=== PATIENT | female | born 1975 | race Caucasian/White ===

== ENCOUNTER 2019-02-20 21:26 | Emergency (ER) | payer OTHER, SELFPAY ==
[2019-02-20 21:27] VITALS: BP 128/86; PULSE 85; RESP 16; TEMP 36.7; O2SAT 98; BMI 44.9
--- NOTE | 2019-02-20 21:35 | ED.VIS.GEN ---
History of Present Illness Chief Complaint: Upper Extremity Injury Informant: Patient Onset: Weeks Context: Gradual Onset Timing: Intermittent Current Severity: Moderate Maximum Severity: Moderate Narrative: The patient presents to the emergency department with right shoulder pain. The patient states she had a fall just over 2 months ago. She landed on her right shoulder. She had outpatient x-rays which showed no evidence of fracture. She is actually scheduled for an MRI next week. She does have multiple orthopedic injuries and follows with an orthopedic surgeon in [place]. She states tonight, the pain worsened. She denies any definitive trauma. She states she was sitting and started to have a dull ache and try to move it and the pain got worse. She denies any fevers or chills. She denies any chest pain or shortness of breath. Prior similar symptoms: No Recent Illness/Hospitalization: No Past Medical History - Allergies and Home Meds Allergies/Adverse Reactions: Allergies amoxicillin Allergy (Verified 02/20/19 21:31) Hives latex Allergy (Verified 02/20/19 21:31) Swelling Penicillins [PCN] Allergy (Verified 02/20/19 21:31) Hives Primary Care Physician: Shani Miles [Primary Care Provider] - Prior records reviewed: Yes Past Medical History: None Smoking Status: Never smoker Review of Systems General: Denies: Chills, Fever, Sweats Eyes: Denies: Visual changes - bilaterally, Diplopia ENT: Denies: Rhinorrhea, Sore throat Cardiovascular: Denies: Chest pain, Palpitations Respiratory: Denies: Dyspnea, Cough, Dyspnea on exertion Gastrointestinal: Denies: Abdominal pain, Nausea, Vomiting, Diarrhea, Melena, Hematochezia Genitourinary: Denies: Dysuria, Hematuria, Frequency Musculoskeletal: Reports: Arthralgias. Denies: Back pain, Extremity Pain Skin: Denies: Rash, Wounds Neurological: Denies: Headache, Weakness, Numbness Physical Exam Vital Signs/Narrative: Vital Signs Temp Pulse Resp BP Pulse Ox 02/20/19 21:27 98.1 F 85 16 128/86 H 98 Inital Vital Signs reviewed: Yes General: Well nourished, Well developed, No Acute Distress Head: Normocephalic, Atraumatic Eyes: Perrl, EOMI ENT: Moist mucous membranes, No rhinorrhea Neck: Supple, Nontender Cardiovascular: Regular rate, Regular rhythm, No murmurs Respiratory: No distress, CTA bilaterally, Chest nontender Abdomen: Soft, Nontender, Nondistended, Normal bowel sounds Back: Nontender, Normal Inspection Extremities: No edema, Tenderness - Patient has diminished active range of motion secondary to pain. There is no gross laxity of the shoulder. Axillary nerve is preserved. 2+ pulses in the upper extremity. No erythema or edema. Skin: Normal color, No rash Neurological: Alert, Oriented x3, Cranial nerves II-XII grossly intact, Normal Strength, Normal Sensation Psychological: Normal affect, Normal Mood Diagnostic/Tx/Re-eval - Medical Decision Making The patient symptoms are consistent with a rotator cuff tear. She does have outpatient MRI scheduled for next week. She presents with increasing pain. There is no evidence of vascular abnormality, joint infection and she has no trauma. I do not feel that imaging is needed to be repeated. The patient was treated with analgesics. She will be given a short course to control her pain. She was counseled on concerning symptoms and reasons to return. She will be discharged home. Impression 1. Right shoulder strain ED Disposition - Plan for ED Patient: Instructions: Rotator Cuff Tear Prescriptions: Oxycodone HCl/Acetaminophen [Percocet 5/325] 1 tab PO Q6H PRN PRN 3 Days #12 tab PRN Reason: Pain Prescription Printed Referrals: Shani Miles [Primary Care Provider] -
[2019-02-20] MEDS: oxyCODONE 5 MG Tablet 10 MG PO (21:40)
[2019-02-20] MEDS: Ibuprofen 600 MG Tablet PO (21:40)
[2019-02-20 21:44] VITALS: RESP 18
== END 2019-02-20 21:58 | disposition home or self-care (01) ==
LOC: ED 21:55
PROVIDERS: Emergency Provider Emergency Medicine; Family Provider Family Medicine; PCP Family Medicine
DX: S46.911A Strain of unspecified muscle, fascia and tendon at shoulder and upper arm level, right arm, initial encounter (principal); W19.XXXA Unspecified fall, initial encounter; Y93.9 Activity, unspecified; Y92.9 Unspecified place or not applicable
CPT/HCPCS: 99283

== ENCOUNTER → 2020-01-26 06:29 | Outpatient (CLI) | payer OTHER, SELFPAY ==
[2020-01-26 07:47] LABS: Absolute Lymphocyte Count 2.55 X10^3/uL (0.83-4.51); Absolute Neutrophil Count 7.1 X10^3/uL (2.0-7.7); Basophil# 0.05 X10^3/uL; Basophil% 0.5 % (0-1); Eosinophil# 0.27 X10^3/uL; Eosinophils% 2.6 % (0-5); Hematocrit 38.7 % (37-47); Hemoglobin 11.8 g/dL (12.0-15.0); Lymphocyte # 2.55 X10^3/ul (4.0); Lymphocyte % 24.1 % (19-41); Mean Corp Hgb Conc 30.5 g/dL (32-36); Mean Corpuscular Hgb 27.6 pg (27.0-32.0); Mean Corpuscular Volume 90.6 fL (81-99); Mean Platelet Vol. 9.9 fl (6.2-12.0); Monocyte# 0.63 X10^3/uL; NRBC Flagged by Analyzer 0 % (0-5); Neutrophil # 7.05 X10^3/uL (2.7-7.7); Neutrophil % 66.5 % (47-70); Platelet Count 304 K/mm3 (150-450); RBC Distribution Width CV 14.1 % (11.6-14.6); RBC Distribution Width SD 47.2 fl (35.1-43.9); Red Blood Count 4.27 M/mm3 (4.2-5.4); White Blood Count 10.6 K/mm3 (4.4-11.0)
[2020-01-26 08:25] LABS: ALB/GLOB Ratio 0.9 RATIO (0.9-2.4); AST(SGOT) 12 U/L (15-37); Alanine Aminotransfer ALT/SGPT 18 U/L (13-56); Albumin, Serum 3.5 g/dL (3.2-5.0); Alkaline Phosphatase 84 U/L (45-117); Amylase 25 U/L (25-115); Anion Gap 3 (5-15); BUN 13 mg/dL (7-18); BUN/Creat Ratio 16.1 RATIO (10-20); Calcium,Total 8.8 mg/dL (8.5-10.1); Chloride 107 mmol/L (98-107); Creatinine, Serum 0.81 mg/dL (0.55-1.02); EST Glomerular Filtration Rate 82 mL/min (>60); Est Glom Filt Rate - Afr Amer 99 mL/min (>60); Glucose 102 mg/dL (74-106); Potassium 4.1 mmol/L (3.5-5.1); Protein, Total 7.5 g/dL (6.4-8.2); Sodium Level 139 mmol/L (136-145)
== END ==
DX: R10.12 Left upper quadrant pain (principal)
CPT/HCPCS: 36415; 80053; 82150; 82248; 85025

== ENCOUNTER 2021-04-22 09:02 | Emergency (ER) | payer BC, SELFPAY ==
[2021-04-22 09:02] VITALS: BP 120/87; PULSE 84; RESP 28; TEMP 36; O2SAT 97; BMI 44.6
--- NOTE | 2021-04-22 09:16 | EDS_ITS ---
HPI History of Present Illness Chief Complaint: Shortness of Breath Detail of Chief Complaint: Chest pain and shortness of breath Informant: patient Narrative Narrative: Patient presents to the emergency department complaining of chest pain that started 2 days ago. Patient states that she had Covid on March 23 and since that time she is had breathing difficulty. Patient states that 2 days ago she started developing intermittent discomfort in her right chest and back as well as her neck and right groin. Also some discomfort into her left chest. Pain is sharp. Pain is worse with breathing. Their nurse practitioner was concerned about PE and was referred to the emergency department. Patient has history of endometriosis and reactive airway disease. No prior history of PE or DVT. Prior similar symptoms: No [facility] Medical History (Updated 04/22/21 @ 10:[address] Marcelino Wright, ) Physical exam, pre-employment Home Medications escitalopram oxalate 20 mg PO DAILY 02/20/19 [History Last Taken Unknown] Allergy/AdvReac Type Severity Reaction Status Date / Time amoxicillin Allergy Hives Verified 04/22/21 09:05 latex Allergy Swelling Verified 04/22/21 09:05 Penicillins [PCN] Allergy Hives Verified 04/22/21 09:05 Social History Smoking Status: Never smoker [facility] ED Constitutional Constitutional ED: Reports systems reviewed and no addt'l complaints, except as documented; Denies body ache(s), change in weight or chills Eyes Eyes: Denies acute decrease in peripheral vision, change in vision, double vision or loss of vision ENT ENT ED: Reports none; Denies ear pain, lip swelling, loss taste/smell, neck pain, otalgia or sore throat Cardiovascular Cardiovascular: Reports none and chest pain; Denies abdominal pain, chest pain with activity, leg edema, lightheadedness, palpitations, rapid heart rate or syncope Respiratory/Chest Respiratory/Chest: Reports none and dyspnea; Denies change in mental status, dry cough, hemoptysis, shortness of breath at rest or shortness of breath with exertion Gastrointestinal Gastrointestinal: Reports none; Denies abdominal pain, change in stool character, diarrhea, hematemesis, hematochezia, melena, rectal bleeding or vomiting Genitourinary Genitourinary ED: Reports none; Denies abdominal discomfort, anuria, dysuria, genital pain or polyuria Musculoskeletal Musculoskeletal: Reports none; Denies arthralgias, back pain, difficulty walking, extremity pain, muscle weakness or myalgias Integumentary Reports none; Denies abscess or rash Neurologic Neurologic: Reports none; Denies abnormal gait, confusion, focal weakness, frequent falls, headache(s), loss of vision, numbness, paresthesias, radicular pain, vertigo or weakness Psychiatric Psychiatric: Reports systems reviewed and no addt'l complaints, except as documented and none; Denies behavioral changes, confusion, difficulty concentrating, hallucinations, suicidal ideation, tactile hallucinations or visual hallucinations Endocrine Endocrinology: Denies none, cold intolerance, excessive sweating, fatigue or heat intolerance Hematologic/Lymphatic Hematologic/Lymphatic: Reports none; Denies anemia, easy bleeding or easy bruising Allergic/Immunologic Allergic/Immunologic ED: Denies as per HPI, none, lip swelling, mouth swelling, throat swelling, tongue swelling or hives EXAM Physical Exam Const Vital Signs: 04/22/21 09:02 04/22/21 09:12 Temperature 96.8 F L Temperature Source Temporal Pulse Rate 84 Respiratory Rate 28 H Respiratory Effort Short of Breath Labored Blood Pressure 120/87 H Blood Pressure Mean 98 Pulse Ox 97 Oxygen Delivery Method Room Air Positive well nourished and well developed General Appearance ED: well developed and NAD HEENT Reports TM's clear and moist mucous membranes normocephalic and atraumatic; Negative for trauma or tenderness Tympanic Membrane ED: Yes TM's clear Eyes PERRL and EOMs intact bilaterally General Eye ED: Negative for pale conjunctiva or scleral icterus Neck no lymphadenopathy, supple and no JVD General: Negative for tenderness Chest Wall inspection of chest normal and palpation of chest normal Chest: Negative for tenderness Resp normal respiratory effort and clear to auscultation bilaterally Effort and Inspection: Negative for respiratory distress or pain with movement Auscultation: Negative for rhonchi, wheezes or diminished lung sounds Cardio regular rate, regular rhythm, S1 normal heart sound, S2 normal heart sound and no murmurs Peripheral Pulses: pulses 2+ throughout GI normal to inspection, nondistended, normoactive bowel sounds, soft to palpation, non-tender, non-distended and no masses Back/Spine no CVA tenderness and no thoracic nor lumbar tenderness Extremity normal to inspection General Extremety ED: Negative for edema General Extremity: Negative for edema Neuro oriented x3, CN's II-XII intact bilaterally, no sensory deficits noted and gait normal Sensorium / Orientation: awake, alert, oriented to person, oriented to place and oriented to time Motor Exam: strength 5/5 throughout and strength abnormal Psych mental status grossly normal Skin no rashes or lesions noted and no wounds MDM MDM MDM Narrative Medical decision making narrative: IV line established on arrival. EKG was obtained which showed sinus rhythm with rate of 76 bpm with a first-degree AV block. Patient had basic labs that essentially were unremarkable other than she had a minimally elevated white blood cell count of 11.7. Troponin was normal. D-dimer was normal. Patient had a chest x-ray 2 days ago therefore 1 was not repeated today. At this point I suspect her chest pain is likely not related to PE or acute coronary syndrome. Patient advised use ibuprofen or Tylenol for discomfort. She is to follow-up with her primary care physician in 3 to 5 days. Lab Data Attestation: I reviewed the patient's lab results. Labs: Laboratory Results - last 24 hr 04/22/21 04/22/21 04/22/21 09:30 09:30 09:30 WBC 11.7 H RBC 3.90 L Hgb 10.9 L Hct 33.9 L MCV 86.9 MCH 27.9 MCHC 32.2 RDW Std Deviation 52.9 H RDW Coeff of Sruthi 16.8 H Plt Count 228 MPV 9.0 Immature Gran % (Auto) 0.700 Neut % (Auto) 66.7 Lymph % (Auto) 22.5 Stark % (Auto) 5.7 Eos % (Auto) 4.1 Baso % (Auto) 0.3 Absolute Neuts (auto) 7.8 H Absolute Lymphs (auto) 2.63 Nucleated RBC % 0 D-Dimer Quant (PE/DVT) 0.37 Sodium 141 Potassium 4.0 Chloride 109 H Carbon Dioxide 25.0 Anion Gap 7 BUN 13 Creatinine 0.86 Estim Creat Clear Calc 64.65 Est GFR (MDRD) Af Amer 92 Est GFR (MDRD) Non-Af 76 BUN/Creatinine Ratio 15.2 Glucose 110 H Calcium 8.8 Troponin I High Sens 4 EKG Initial EKG: Attestation: I personally reviewed and interpreted this EKG as follows: Comments: Sinus rhythm with a ventricular rate of 76 bpm with a first- degree AV block Discharge Plan Triage Chief Complaint: Shortness of Breath ED Provider: Marcelino Wright Dx/Rx/DC Orders Clinical Impression: Chest pain Instructions: ED Chest Pain, Uncertain Cause Prescriptions: No Action escitalopram oxalate 20 MG tablet 20 mg PO DAILY RF: 0 Primary Care Provider: Rebekah Tolbert NP Referrals: Steven Andino DO [STAFF PHYSICIAN] - 3-5 Days Rebekah Tolbert ELECTRICAL EQUIPMENT TECHNICIAN, ELECTRICAL EQUIPMENT TECHNICIAN-C [Primary Care Provider] - Disposition Disposition: Home, Self Care
--- NOTE | 2021-04-22 09:16 | EKG12_ITS ---
Test Reason : SOB Blood Pressure : / mmHG Vent. Rate : 076 BPM Atrial Rate : 076 BPM P-R Int : 210 ms QRS Dur : 076 ms QT Int : 358 ms P-R-T Axes : 048 019 019 degrees QTc Int : 402 ms Sinus rhythm with 1st degree A-V block LOW VOLTAGE QRS POOR R WAVE PROGRESSION Confirmed by ALVIN ROSE, MOE ([id number]), commissioning editor KELVIN KAPOOR ([id number]) on 04/26/2021 10:00:43 AM Referred By: FÉLIX Confirmed By:MOE ESQUIVEL MD
[2021-04-22 09:36] LABS: Absolute Lymphocyte Count 2.63 X10^3/uL (0.83-4.51); Absolute Neutrophil Count 7.8 X10^3/uL (2.0-7.7); Basophil# 0.03 X10^3/uL; Basophil% 0.3 % (0-1); Eosinophil# 0.48 X10^3/uL; Eosinophils% 4.1 % (0-5); Hematocrit 33.9 % (37-47); Hemoglobin 10.9 g/dL (12.0-15.0); Lymphocyte # 2.63 X10^3/ul (0.83-4.51); Lymphocyte % 22.5 % (19-41); Mean Corp Hgb Conc 32.2 g/dL (32-36); Mean Corpuscular Hgb 27.9 pg (27.0-32.0); Mean Corpuscular Volume 86.9 fL (81-99); Monocyte# 0.66 X10^3/uL; Monocyte% 5.7 % (0-10); NRBC Flagged by Analyzer 0 % (0-5); Neutrophil % 66.7 % (47-70); Platelet Count 228 K/mm3 (150-450); RBC Distribution Width CV 16.8 % (11.6-14.6); RBC Distribution Width SD 52.9 fl (35.1-43.9); White Blood Count 11.7 K/mm3 (4.4-11.0)
[2021-04-22] MEDS: 0.9% Normal Saline 1,000 ML 150 ML IV (09:50)
[2021-04-22 09:56] LABS: Anion Gap 7 (5-15); BUN 13 mg/dL (7-18); BUN/Creat Ratio 15.2 RATIO (10-20); Calcium,Total 8.8 mg/dL (8.5-10.1); Chloride 109 mmol/L (98-107); Creatinine, Serum 0.86 mg/dL (0.55-1.02); EST Glomerular Filtration Rate 76 mL/min (>60); Est Glom Filt Rate - Afr Amer 92 mL/min (>60); Estimated Creatinine Clearance 64.65 ml/min; Glucose 110 mg/dL (74-106); Sodium Level 141 mmol/L (136-145); Troponin-I HS 4 pg/mL (3.0-54.0)
[2021-04-22 10:07] LABS: D-Dimer Quantitative (DVT/PE) 0.37 FEU/ug/m (0.27-0.49)
[2021-04-22 10:23] VITALS: BP 153/97; PULSE 73; RESP 19
== END 2021-04-22 10:34 | disposition home or self-care (01) ==
PROVIDERS: Emergency Provider Emergency Medicine; PCP Nurse Practitioner Family
DX: R07.89 Other chest pain (principal); R06.02 Shortness of breath
CPT/HCPCS: 80048; 84484; 85025; 85379; 93005; 96360; 99283; J7030; A4216

== ENCOUNTER 2021-05-13 07:41 | Outpatient (CLI) | payer BC, SELFPAY ==
--- NOTE | 2021-05-13 07:44 | US_ITS ---
EXAM: US ABDOMEN COMPLETE : 1975 CLINICAL INDICATION: PAIN TECHNIQUE: Real-time ultrasound of the abdomen with image documentation. This report was created using [employer] report generation technology. COMPARISON: None. FINDINGS: LIVER: The liver measures 16.9 cm. There is normal echotexture. No intrahepatic biliary ductal dilation. GALLBLADDER: Gallbladder is surgically absent. No gallbladder wall thickening is demonstrated. No pericholecystic fluid. Negative sonographic Davis's sign. COMMON BILE DUCT: Common bile duct measures 8 mm. The proximal common bile duct is within normal limits for the patient's age. PANCREAS: Unremarkable as visualized. No focal abnormality is demonstrated in the pancreas. No pancreatic ductal dilatation. KIDNEYS: The right kidney measures 11.4 x 5.9 x 6.5 cm. The left kidney measures 10.9 x 5.2 x 5.0 cm. There is no hydronephrosis. No shadowing calculus. No focal lesion or perinephric collection is demonstrated. SPLEEN: The spleen measures 13.8 cm in length. AORTA: Proximal aorta measures 2.0 cm, the mid aorta measures 1.5 cm in the distal aorta measures 1.6 cm. INFERIOR VENA CAVA: There is flow in the inferior vena cava. OTHER VASCULATURE: Iliac arteries measure 1 cm each. FREE FLUID: There is no free fluid. US/Abdomen Complete IMPRESSION: Status post cholecystectomy. No other abnormalities are identified. at 1808 Reported and signed by: Eugene Camacho MD Electronically Signed: Eugene Camacho MD at 18:07 EST Tel , Service support ,
== END 2021-05-13 23:59 | disposition short-term general hospital (02) ==
LOC: US 07:43
PROVIDERS: PCP Nurse Practitioner Family; Visit Provider Nurse Practitioner Family
DX: R19.00 Intra-abdominal and pelvic swelling, mass and lump, unspecified site (principal); R10.9 Unspecified abdominal pain
CPT/HCPCS: 76700

== ENCOUNTER → 2022-01-11 | Outpatient (CLI) | payer BC, SELFPAY ==
--- NOTE | 2022-01-11 09:40 | BI_ITS ---
MAMMOGRAPHY - BILATERAL SCREENING 3-D TOMOSYNTHESIS REASON FOR EXAM: Female, 46 years old. SCREENING PERTINENT HISTORY: No significant family history. TECHNIQUE: 2-D mammograms and 3-D Tomosynthesis of the breast (s) were performed. CAD was performed. COMPARISON: None. FINDINGS: The breast composition is composed of scattered fibroglandular density. Scattered benign calcifications are seen. No dense spiculated masses or suspicious microcalcifications are identified. No architectural distortion is identified. There is no skin thickening or retraction. There has been no significant change since the prior study. BI/SCRN MAMM (CAD)W/STEPHEN BILAT IMPRESSION: No mammographic signs of malignancy. Routine yearly mammograms recommended. ASSESSMENT CATEGORY: BIRADS Category 1: Negative. A letter regarding these results will be sent to the patient by the facility within 30 days. FOLLOW UP RECOMMENDATION: Yearly follow up mammogram recommended. (A) Approximately 10% of breast cancers are not detected by mammography. A normal mammogram should not delay biopsy of a clinically suspicious abnormality. Electronically Signed: David Valentin MD at 10:56 EDT ,
--- NOTE | 2022-01-11 09:43 | BD_ITS ---
STUDY: DUAL ENERGY X-RAY ABSORPTIOMETRY / DXA REASON FOR EXAM: Female, 46 years old. Z13.820 TECHNIQUE: Bone Mineral Density (BMD) measurements of lumbar spine and bilateral hips were obtained. COMPARISON: None. FINDINGS: Lumbar Spine (L1-L4): g/cm2 (1.154) / T-score (1.0) / Z-score (1.5) Findings are suggestive of normal bone density with a low fracture risk. Left Femur Total: g/cm2 (0.983) / T-score (0.3) / Z-score (0.7) Left Femoral Neck: g/cm2 (0.930) / T-score (0.7) / Z-score (1.3) Right Femur Total: g/cm2 (1.001) / T-score (0.5) / Z-score (0.8) Right Femoral Neck: g/cm2 (0.865) / T-score (0.1) / Z-score (0.7) BD/Dexa Bone Density Study IMPRESSION: The patient is considered normal as outlined below according to World Damian Organization (WHO) criteria with a low fracture risk. Reference Information: The T-score is the number of standard deviations above or below the standard which is normal for young adults at their peak bone mineral density. The World Health Organization (WHO) interprets the T-scores as follows: Above -1 Normal bone density Between -1 and -2.5 Osteopenia Equal to / or below -2.5 Osteoporosis As a practical clinical guideline, osteopenia may be graded as follows: Mild -1 through -1.5 Moderate -1.6 through -2.0 Severe -2.1 through -2.4 The Z-score is the number of standard deviations above or below age-matched controls. A Z-score of less than -1.5 would be considered abnormal. References: 1. NIH Osteoporosis and Related Bone Diseases www osteo.org 2. International Society for Clinical Densitometry www iscd.org 3. National Osteoporosis Foundation www nof.org Electronically Signed: Juan Martinez MD at 15:49 EDT ,
== END | disposition home or self-care (01) ==
PROVIDERS: PCP Nurse Practitioner Family
DX: Z12.31 Encounter for screening mammogram for malignant neoplasm of breast (principal); Z13.820 Encounter for screening for osteoporosis; M85.80 Other specified disorders of bone density and structure, unspecified site
CPT/HCPCS: 77063; 77067; 77080

== ENCOUNTER → 2022-03-06 | Outpatient (CLI) | payer BC, SELFPAY ==
[2022-03-06 14:43] LABS: Erythrocyte Sedimentation Rate 68 mm/hr (0-30)
[2022-03-06 14:44] LABS: Absolute Lymphocyte Count 1.24 X10^3/uL (0.83-4.51); Absolute Neutrophil Count 3.2 X10^3/uL (2.0-7.7); Basophil# 0.02 X10^3/uL; Basophil% 0.4 % (0-1); Eosinophil# 0.32 X10^3/uL; Eosinophils% 6.1 % (0-5); Hematocrit 38.1 % (37-47); Hemoglobin 12.1 g/dL (12.0-15.0); Lymphocyte # 1.24 X10^3/ul (0.83-4.51); Lymphocyte % 23.7 % (19-41); Mean Corp Hgb Conc 31.8 g/dL (32-36); Mean Corpuscular Hgb 28.1 pg (27.0-32.0); Mean Corpuscular Volume 88.6 fL (81-99); Mean Platelet Vol. 10.9 fl (6.2-12.0); Monocyte# 0.39 X10^3/uL; Monocyte% 7.4 % (0-10); NRBC Flagged by Analyzer 0 % (0-5); Neutrophil # 3.23 X10^3/uL (2.7-7.7); Neutrophil % 61.6 % (47-70); Platelet Count 222 K/mm3 (150-450); RBC Distribution Width CV 15.2 % (11.6-14.6); RBC Distribution Width SD 49.1 fl (35.1-43.9); White Blood Count 5.2 K/mm3 (4.4-11.0)
[2022-03-06 14:52] LABS: ALB/GLOB Ratio 0.9 RATIO (0.9-2.4); AST(SGOT) 83 U/L (15-37); Alanine Aminotransfer ALT/SGPT 125 U/L (13-56); Albumin, Serum 3.3 g/dL (3.2-5.0); Alkaline Phosphatase 265 U/L (45-117); Anion Gap 9 (5-15); BUN 8 mg/dL (7-18); BUN/Creat Ratio 8.8 RATIO (10-20); Calcium,Total 8.9 mg/dL (8.5-10.1); Chloride 105 mmol/L (98-107); Creatinine, Serum 0.91 mg/dL (0.55-1.02); EST Glomerular Filtration Rate 70 mL/min (>60); Est Glom Filt Rate - Afr Amer 85 mL/min (>60); Globulin 3.6 g/dL (2.2-4.2); Glucose 143 mg/dL (74-106); Potassium 4.2 mmol/L (3.5-5.1); Protein, Total 6.9 g/dL (6.4-8.2); Sodium Level 139 mmol/L (136-145)
== END | disposition home or self-care (01) ==
LOC: LABSPEC 14:32
PROVIDERS: PCP Nurse Practitioner Family; Referring Provider Nurse Practitioner Family; Visit Provider Nurse Practitioner Family
DX: R41.82 Altered mental status, unspecified (principal); R29.6 Repeated falls
CPT/HCPCS: 80053; 85025; 85652; 86140

== ENCOUNTER → 2022-03-07 | Outpatient (CLI) | payer BC, SELFPAY ==
[2022-03-07 13:36] LABS: Mucous, Urine 0 SEEN /hpf (<or=2+); Red Blood Cells-Urine 0 SEEN /hpf (0-5)
[2022-03-07 13:43] LABS: Erythrocyte Sedimentation Rate 76 mm/hr (0-30)
[2022-03-07 13:44] LABS: Absolute Lymphocyte Count 1.21 X10^3/uL (0.83-4.51); Absolute Neutrophil Count 3.4 X10^3/uL (2.0-7.7); Basophil# 0.02 X10^3/uL; Basophil% 0.4 % (0-1); Eosinophils% 3.8 % (0-5); Hematocrit 37.9 % (37-47); Hemoglobin 12.5 g/dL (12.0-15.0); Lymphocyte # 1.21 X10^3/ul (0.83-4.51); Lymphocyte % 23.2 % (19-41); Mean Corpuscular Hgb 29.1 pg (27.0-32.0); Mean Corpuscular Volume 88.1 fL (81-99); Mean Platelet Vol. 10.9 fl (6.2-12.0); Monocyte% 7.7 % (0-10); NRBC Flagged by Analyzer 0 % (0-5); Neutrophil # 3.35 X10^3/uL (2.7-7.7); Neutrophil % 64.3 % (47-70); Platelet Count 217 K/mm3 (150-450); RBC Distribution Width CV 15.2 % (11.6-14.6); RBC Distribution Width SD 48.6 fl (35.1-43.9); White Blood Count 5.2 K/mm3 (4.4-11.0)
[2022-03-07 13:46] LABS: Color, Urine Yellow (Yellow); Glucose, Dipstick Normal (Normal); Ketone-Dipstick Negative (Negative); Leukocyte Esterase-Dipstick 25 /ul (Negative); Nitrite-Dipstick Negative (Negative); Occult Blood-Urine Negative /ul (Negative); Protein-Dipstick Negative (Negative); Specific Gravity, Urine 1.015 (1.002-1.030); Urine Bilirubin Dipstick Negative (Negative); Urine Clarity Sl. Cloudy (Clear); Urine Urobilinogen 1 mg/dl (Normal)
[2022-03-07 13:52] LABS: Bacteria 1+ /hpf (None Seen); Squamous Epithelial Cells - UA 0-5 SEEN /hpf (5-10); White Blood Cells 0-5 SEEN /hpf (0-5)
[2022-03-07 15:07] LABS: ALB/GLOB Ratio 0.9 RATIO (0.9-2.4); AST(SGOT) 71 U/L (15-37); Alanine Aminotransfer ALT/SGPT 111 U/L (13-56); Albumin, Serum 3.3 g/dL (3.2-5.0); Alkaline Phosphatase 278 U/L (45-117); Anion Gap 9 (5-15); BUN 7 mg/dL (7-18); BUN/Creat Ratio 7.7 RATIO (10-20); Calcium,Total 8.8 mg/dL (8.5-10.1); Chloride 107 mmol/L (98-107); EST Glomerular Filtration Rate 71 mL/min (>60); Est Glom Filt Rate - Afr Amer 86 mL/min (>60); Ferritin 125 ng/mL (8-252); Globulin 3.5 g/dL (2.2-4.2); Glucose 125 mg/dL (74-106); Iron 66 ug/dL (50-170); Potassium 4.4 mmol/L (3.5-5.1); Protein, Total 6.8 g/dL (6.4-8.2); Sodium Level 139 mmol/L (136-145)
== END | disposition home or self-care (01) ==
PROVIDERS: PCP Nurse Practitioner Family; Visit Provider Nurse Practitioner Family
DX: R74.8 Abnormal levels of other serum enzymes (principal); R10.11 Right upper quadrant pain
CPT/HCPCS: 80053; 81001; 82728; 83540; 85025; 85652; 87086; 87088

== ENCOUNTER 2022-03-08 12:20 | Outpatient (CLI) | payer BC, SELFPAY ==
[2022-03-08 12:46] LABS: Absolute Lymphocyte Count 1.78 X10^3/uL (0.83-4.51); Absolute Neutrophil Count 4.1 X10^3/uL (2.0-7.7); Basophil# 0.04 X10^3/uL; Basophil% 0.6 % (0-1); Eosinophil# 0.26 X10^3/uL; Eosinophils% 3.9 % (0-5); Hematocrit 39.8 % (37-47); Hemoglobin 12.6 g/dL (12.0-15.0); Lymphocyte # 1.78 X10^3/ul (0.83-4.51); Lymphocyte % 26.8 % (19-41); Mean Corp Hgb Conc 31.7 g/dL (32-36); Mean Corpuscular Volume 88.4 fL (81-99); Mean Platelet Vol. 11.5 fl (6.2-12.0); Monocyte# 0.42 X10^3/uL; Monocyte% 6.3 % (0-10); NRBC Flagged by Analyzer 0 % (0-5); Neutrophil # 4.11 X10^3/uL (2.7-7.7); Neutrophil % 61.8 % (47-70); Platelet Count 233 K/mm3 (150-450); RBC Distribution Width CV 15.4 % (11.6-14.6); RBC Distribution Width SD 49.3 fl (35.1-43.9); White Blood Count 6.7 K/mm3 (4.4-11.0)
[2022-03-08 13:02] LABS: International Normalized Ratio 0.9; Prothrombin Time (Protime)PT. 11.7 SECONDS (11.7-14.9)
[2022-03-08 13:03] LABS: Partial Thromboplast Time 29.7 Seconds (24.1-36.2)
[2022-03-08 13:09] LABS: Erythrocyte Sedimentation Rate 86 mm/hr (0-30)
[2022-03-08 13:35] LABS: ALB/GLOB Ratio 0.9 RATIO (0.9-2.4); AST(SGOT) 61 U/L (15-37); Alanine Aminotransfer ALT/SGPT 95 U/L (13-56); Albumin, Serum 3.5 g/dL (3.2-5.0); Alkaline Phosphatase 288 U/L (45-117); Anion Gap 10 (5-15); BUN 8 mg/dL (7-18); BUN/Creat Ratio 8.5 RATIO (10-20); Calcium,Total 9.7 mg/dL (8.5-10.1); Chloride 106 mmol/L (98-107); Creatinine, Serum 0.94 mg/dL (0.55-1.02); EST Glomerular Filtration Rate 67 mL/min (>60); Est Glom Filt Rate - Afr Amer 82 mL/min (>60); Globulin 3.7 g/dL (2.2-4.2); Glucose 153 mg/dL (74-106); Potassium 4.2 mmol/L (3.5-5.1); Protein, Total 7.2 g/dL (6.4-8.2); Sodium Level 139 mmol/L (136-145)
== END 2022-03-08 23:59 | disposition home or self-care (01) ==
LOC: LABSPEC 12:27
PROVIDERS: PCP Nurse Practitioner Family; Visit Provider Nurse Practitioner Family
DX: R35.0 Frequency of micturition (principal); R94.5 Abnormal results of liver function studies
CPT/HCPCS: 80053; 85025; 85610; 85652; 85730; 86140

== ENCOUNTER → 2022-03-09 | Outpatient (CLI) | payer BC, SELFPAY ==
--- NOTE | 2022-03-09 18:56 | CT_ITS ---
EXAM: CT HEAD WITHOUT AND WITH INTRAVENOUS CONTRAST CLINICAL INDICATION: AMS, Falls TECHNIQUE: Multiple axial images were obtained of the head without and with intravenous contrast. CTDIvol = ( 44.99 ) mGy, DLP = ( 1482.55 ) mGycm This CT exam was performed using one or more of the following dose reduction techniques: automated exposure control, adjustment of the mA and/or kV according to patient size, and/or use of iterative reconstruction technique. This report was created using [employer] report generation technology. CONTRAST: iv-50 ml isovue 370 COMPARISON: None. FINDINGS: BRAIN AND EXTRA-AXIAL SPACES: Unremarkable. No intra- or extra-axial hemorrhage. No evidence of acute infarct. No intracranial mass or mass effect. There is preservation of the cuevas/white matter interface. Posterior fossa structures are unremarkable. Ventricles are appropriate for age. No hydrocephalus. Basal cisterns are patent. BONES/JOINTS: Unremarkable. No discrete lytic or blastic abnormalities. SINUSES: Unremarkable as visualized. Clear. MASTOID AIR CELLS: Unremarkable. Clear. ORBITS: Visualized globes, extraocular muscles, optic nerves and retrobulbar fat appear unremarkable. CT/Brain/Head W/WO Contrast IMPRESSION: Negative head/brain CT without and with intravenous contrast. Electronically Signed: Derian Eden MD at 19:28 EST ,
== END | disposition home or self-care (01) ==
LOC: CT 18:54
PROVIDERS: PCP Nurse Practitioner Family; Visit Provider Nurse Practitioner Family
DX: R41.82 Altered mental status, unspecified (principal); R29.6 Repeated falls
CPT/HCPCS: 70470; Q9967

== ENCOUNTER → 2022-03-14 | Outpatient (CLI) | payer BC, SELFPAY ==
[2022-03-14 14:59] LABS: Erythrocyte Sedimentation Rate 57 mm/hr (0-30)
[2022-03-14 15:01] LABS: Absolute Lymphocyte Count 2.13 X10^3/uL (0.83-4.51); Absolute Neutrophil Count 6.3 X10^3/uL (2.0-7.7); Basophil# 0.06 X10^3/uL; Basophil% 0.6 % (0-1); Eosinophil# 0.39 X10^3/uL; Eosinophils% 4.1 % (0-5); Hematocrit 37.7 % (37-47); Hemoglobin 11.7 g/dL (12.0-15.0); Lymphocyte # 2.13 X10^3/ul (0.83-4.51); Lymphocyte % 22.4 % (19-41); Mean Corpuscular Hgb 28.1 pg (27.0-32.0); Mean Corpuscular Volume 90.4 fL (81-99); Monocyte# 0.52 X10^3/uL; Monocyte% 5.5 % (0-10); NRBC Flagged by Analyzer 0 % (0-5); Neutrophil # 6.33 X10^3/uL (2.7-7.7); Neutrophil % 66.5 % (47-70); Platelet Count 270 K/mm3 (150-450); RBC Distribution Width CV 14.9 % (11.6-14.6); RBC Distribution Width SD 49.1 fl (35.1-43.9); Red Blood Count 4.17 M/mm3 (4.2-5.4); White Blood Count 9.5 K/mm3 (4.4-11.0)
[2022-03-14 15:03] LABS: ALB/GLOB Ratio 0.9 RATIO (0.9-2.4); AST(SGOT) 30 U/L (15-37); Alanine Aminotransfer ALT/SGPT 45 U/L (13-56); Albumin, Serum 3.2 g/dL (3.2-5.0); Alkaline Phosphatase 199 U/L (45-117); Anion Gap 9 (5-15); BUN 12 mg/dL (7-18); BUN/Creat Ratio 14.6 RATIO (10-20); Calcium,Total 8.6 mg/dL (8.5-10.1); Chloride 107 mmol/L (98-107); Creatinine, Serum 0.82 mg/dL (0.55-1.02); EST Glomerular Filtration Rate 79 mL/min (>60); Est Glom Filt Rate - Afr Amer 96 mL/min (>60); Globulin 3.4 g/dL (2.2-4.2); Glucose 136 mg/dL (74-106); Potassium 4.2 mmol/L (3.5-5.1); Protein, Total 6.6 g/dL (6.4-8.2); Sodium Level 140 mmol/L (136-145)
== END | disposition home or self-care (01) ==
LOC: LABSPEC 14:12
PROVIDERS: PCP Nurse Practitioner Family; Visit Provider Nurse Practitioner Family
DX: R53.83 Other fatigue (principal)
CPT/HCPCS: 80053; 85025; 85652; 86140

== ENCOUNTER → 2022-04-06 | Outpatient (CLI) | payer BC, SELFPAY ==
--- NOTE | 2022-04-06 09:22 | US_ITS ---
STUDY: ABDOMINAL ULTRASOUND - RIGHT UPPER QUADRANT REASON FOR VISIT: Female, 46 years old RUQ PAIN TECHNIQUE: Ultrasound evaluation of the right upper quadrant was performed with real-time and static cuevas-scale imaging. TECHNICAL QUALITY: Adequate. COMPARISON: Comparison is made with prior study dated 05/13/2021. FINDINGS: Liver: The liver is mildly enlarged and measures 18.1 cm. There is increased echogenicity consistent with fatty infiltration. The bile ducts are within normal limits. There is hepatic color flow. The direction of portal flow is hepatopetal. There is no demonstrated mass lesion. Gallbladder: The patient is status post cholecystectomy. Common Bile Duct (C.B.D.): The common bile duct measures 6 mm. Pancreas: Normal size of the head, body and tail of the pancreas. There is normal echogenicity of the pancreas. There is no demonstrated pancreatic mass or cyst. Right Kidney: Normal size of the right kidney. The right kidney measures 11.8 cm x 5.9 cm x 5.9 cm. Normal renal cortex. The right cortex measures 1.4 cm. There is no demonstrated renal mass or cyst. There is no right hydronephrosis. US/Abdomen Limited IMPRESSION: Mild hepatomegaly and diffuse fatty infiltration of the liver. Electronically Signed: Juan Martinez MD at 12:33 EST ,
== END | disposition home or self-care (01) ==
LOC: US 09:14
PROVIDERS: PCP Nurse Practitioner Family; Referring Provider Nurse Practitioner Family; Visit Provider Nurse Practitioner Family
DX: R10.11 Right upper quadrant pain (principal); R74.8 Abnormal levels of other serum enzymes
CPT/HCPCS: 76705

== ENCOUNTER → 2022-04-11 | Outpatient (CLI) | payer BC, SELFPAY ==
[2022-04-11 15:35] LABS: Absolute Lymphocyte Count 1.15 X10^3/uL (0.83-4.51); Absolute Neutrophil Count 6.1 X10^3/uL (2.0-7.7); Basophil# 0.04 X10^3/uL; Basophil% 0.5 % (0-1); Eosinophil# 0.21 X10^3/uL; Eosinophils% 2.6 % (0-5); Hematocrit 36.7 % (37-47); Lymphocyte # 1.15 X10^3/ul (0.83-4.51); Lymphocyte % 14.2 % (19-41); Mean Corp Hgb Conc 32.7 g/dL (32-36); Mean Corpuscular Hgb 29.1 pg (27.0-32.0); Mean Corpuscular Volume 88.9 fL (81-99); Mean Platelet Vol. 10.3 fl (6.2-12.0); Monocyte% 7.4 % (0-10); NRBC Flagged by Analyzer 0 % (0-5); Neutrophil # 6.05 X10^3/uL (2.7-7.7); Neutrophil % 74.9 % (47-70); Platelet Count 259 K/mm3 (150-450); RBC Distribution Width CV 15.4 % (11.6-14.6); RBC Distribution Width SD 50.4 fl (35.1-43.9); Red Blood Count 4.13 M/mm3 (4.2-5.4); White Blood Count 8.1 K/mm3 (4.4-11.0)
[2022-04-11 15:51] LABS: Color, Urine Amber (Yellow); Glucose, Dipstick Normal (Normal); Ketone-Dipstick Negative (Negative); Leukocyte Esterase-Dipstick 100 /ul (Negative); Nitrite-Dipstick Negative (Negative); Occult Blood-Urine 50 /ul (Negative); Protein-Dipstick 15 mg/dl (Negative); Urine Bilirubin Dipstick Negative (Negative); Urine Clarity Cloudy (Clear); Urine Urobilinogen Normal (Normal)
[2022-04-11 15:53] LABS: Erythrocyte Sedimentation Rate 49 mm/hr (0-30)
[2022-04-11 16:14] LABS: Hemoglobin A1c 6.2 % (3.8-5.6)
[2022-04-11 16:16] LABS: Vitamin B12 331 pg/mL (211-911); Vitamin D,25 Hydroxy 25.8 ng/mL
[2022-04-11 20:36] LABS: ALB/GLOB Ratio 1.2 RATIO (0.9-2.4); AST(SGOT) 23 U/L (15-37); Alanine Aminotransfer ALT/SGPT 33 U/L (13-56); Albumin, Serum 3.7 g/dL (3.2-5.0); Alkaline Phosphatase 104 U/L (45-117); Anion Gap 11 (5-15); BUN 10 mg/dL (7-18); BUN/Creat Ratio 13.7 RATIO (10-20); Calcium,Total 8.8 mg/dL (8.5-10.1); Chloride 109 mmol/L (98-107); Cholesterol 182 mg/dL (200); Creatinine, Serum 0.73 mg/dL (0.55-1.02); EST Glomerular Filtration Rate 91 mL/min (>60); Est Glom Filt Rate - Afr Amer 110 mL/min (>60); Ferritin 67 ng/mL (8-252); Globulin 3.1 g/dL (2.2-4.2); Glucose 91 mg/dL (74-106); High Density Lipoprotein 61 mg/dL; Iron 36 ug/dL (50-170); Protein, Total 6.8 g/dL (6.4-8.2); Sodium Level 141 mmol/L (136-145); T4 Free Direct 1.19 ng/dL (0.76-1.46); Thyroid Stim Hormone (TSH) 2.22 uIU/mL (0.358-3.74); Triglycerides 122 mg/dL; Very Low Density Lipoprotein 24 mg/dL (5-40)
== END | disposition home or self-care (01) ==
LOC: LABSPEC 15:19
PROVIDERS: PCP Nurse Practitioner Family; Visit Provider Nurse Practitioner Family
DX: R30.0 Dysuria (principal); R06.02 Shortness of breath; R53.83 Other fatigue; E55.9 Vitamin D deficiency, unspecified; U09.9 Post COVID-19 condition, unspecified; D64.9 Anemia, unspecified
CPT/HCPCS: 80053; 80061; 81002; 82306; 82607; 82728; 83036; 83540; 84439; 84443; 85025; 85652; 86140; 87086; 87088

== ENCOUNTER → 2022-04-25 | Outpatient (CLI) | payer OTHER, SELFPAY ==
[2022-04-25 15:02] LABS: Mucous, Urine 0 SEEN /hpf (<or=2+); Red Blood Cells-Urine 0 SEEN /hpf (0-5); White Blood Cells 0 SEEN /hpf (0-5)
[2022-04-25 15:28] LABS: Color, Urine Yellow (Yellow); Glucose, Dipstick Normal (Normal); Ketone-Dipstick Negative (Negative); Leukocyte Esterase-Dipstick Negative /ul (Negative); Nitrite-Dipstick Negative (Negative); Occult Blood-Urine 10 /ul (Negative); Protein-Dipstick Negative (Negative); Urine Bilirubin Dipstick Negative (Negative); Urine Clarity Clear (Clear); Urine Urobilinogen Normal (Normal)
[2022-04-25 16:03] LABS: Bacteria 1+ /hpf (None Seen); Squamous Epithelial Cells - UA 0-5 SEEN /hpf (5-10)
== END | disposition home or self-care (01) ==
PROVIDERS: PCP Nurse Practitioner Family; Visit Provider Nurse Practitioner Family
DX: N39.0 Urinary tract infection, site not specified (principal)
CPT/HCPCS: 81001; 87086; 87088

== ENCOUNTER → 2022-04-27 | Outpatient (CLI) | payer OTHER, SELFPAY ==
--- NOTE | 2022-04-27 12:47 | CT_ITS ---
STUDY: CT ABDOMEN AND PELVIS WITHOUT CONTRAST REASON FOR EXAM: Female, 46 years old. Left-sided abdominal pain. History of recent UTI. RADIATION DOSAGE (If Supplied By Facility): CTDIvol = ( 21.34 ) mGy, DLP = ( 1030.04 ) mGycm TECHNIQUE: Transaxial images were obtained from the dome of the diaphragm to the symphysis pubis without oral contrast, and without intravenous contrast. Sagittal and coronal images were reconstructed. Individualized dose optimization techniques were used for this CT. COMPARISON: None. FINDINGS: The visualized lung bases are unremarkable. The visualized portions of the heart are within normal limits. Normal liver. There are surgical clips in the gallbladder fossa consistent with a prior cholecystectomy. Normal spleen. Normal pancreas. Normal bilateral adrenal glands. Normal right kidney. No significant left hydronephrosis. There is a 5.2 mm calculus in the distal portion of the left ureter just proximal to the left ureterovesical junction. There is a small hiatal hernia. Normal small intestine. Normal colon. There are surgical clips in the region of the appendix consistent with a prior appendectomy. Normal abdominal aorta. Normal inferior vena cava. Normal retroperitoneum. Normal urinary bladder. There is a small umbilical hernia containing fat. There are mild degenerative changes of the visualized lumbar spine. CT/Abdomen/Pelvis without Cont IMPRESSION: Findings suggestive of a 5.2 mm cavernous in the distal portion of the left ureter just proximal to the ureterovesical junction. Electronically Signed: Juan Martinez MD at 13:42 EST ,
== END | disposition home or self-care (01) ==
PROVIDERS: PCP Nurse Practitioner Family; Visit Provider Nurse Practitioner Family
DX: M54.50 Low back pain, unspecified (principal); N23 Unspecified renal colic; R35.0 Frequency of micturition; R30.0 Dysuria
CPT/HCPCS: 74176

== ENCOUNTER → 2022-05-02 | Outpatient (CLI) | payer OTHER, SELFPAY ==
[2022-05-02 13:39] LABS: Absolute Lymphocyte Count 2.66 X10^3/uL (0.83-4.51); Absolute Neutrophil Count 7.6 X10^3/uL (2.0-7.7); Basophil# 0.06 X10^3/uL; Basophil% 0.5 % (0-1); Eosinophil# 0.25 X10^3/uL; Eosinophils% 2.2 % (0-5); Hemoglobin 12.6 g/dL (12.0-15.0); Lymphocyte # 2.66 X10^3/ul (0.83-4.51); Lymphocyte % 23.8 % (19-41); Mean Corp Hgb Conc 33.2 g/dL (32-36); Mean Corpuscular Hgb 29.7 pg (27.0-32.0); Mean Corpuscular Volume 89.6 fL (81-99); Mean Platelet Vol. 9.5 fl (6.2-12.0); Monocyte# 0.56 X10^3/uL; NRBC Flagged by Analyzer 0 % (0-5); Neutrophil # 7.59 X10^3/uL (2.7-7.7); Neutrophil % 68.1 % (47-70); Platelet Count 337 K/mm3 (150-450); RBC Distribution Width CV 15.1 % (11.6-14.6); RBC Distribution Width SD 49.4 fl (35.1-43.9); Red Blood Count 4.24 M/mm3 (4.2-5.4); White Blood Count 11.2 K/mm3 (4.4-11.0)
[2022-05-02 13:51] LABS: AST(SGOT) 18 U/L (15-37); Alanine Aminotransfer ALT/SGPT 25 U/L (13-56); Albumin, Serum 3.4 g/dL (3.2-5.0); Alkaline Phosphatase 88 U/L (45-117); Anion Gap 5 (5-15); BUN 9 mg/dL (7-18); BUN/Creat Ratio 11.1 RATIO (10-20); Chloride 108 mmol/L (98-107); Creatinine, Serum 0.81 mg/dL (0.55-1.02); EST Glomerular Filtration Rate 81 mL/min (>60); Est Glom Filt Rate - Afr Amer 97 mL/min (>60); Globulin 3.4 g/dL (2.2-4.2); Glucose 102 mg/dL (74-106); Magnesium 2.1 mg/dL (1.6-2.6); Phosphorus 2.7 mg/dL (2.5-4.9); Protein, Total 6.8 g/dL (6.4-8.2); Sodium Level 141 mmol/L (136-145); Uric Acid 7.4 mg/dL (2.6-6.0)
== END | disposition home or self-care (01) ==
LOC: LABSPEC 13:24
PROVIDERS: PCP Nurse Practitioner Family; Visit Provider Nurse Practitioner Family
DX: R10.32 Left lower quadrant pain (principal); M54.50 Low back pain, unspecified; R35.0 Frequency of micturition; R31.9 Hematuria, unspecified; N20.0 Calculus of kidney; R10.31 Right lower quadrant pain; M25.511 Pain in right shoulder; R53.83 Other fatigue
CPT/HCPCS: 80053; 83735; 84100; 84550; 85025

== ENCOUNTER 2022-05-17 05:56 | Day surgery (SDC) | payer OTHER, SELFPAY ==
[2022-05-17 06:27] LABS: Internal QC Validated? YES +Cl - CLEAR BKGD; Pregnancy, Urine Negative Negative
[2022-05-17 06:43] VITALS: BP 106/76; PULSE 95; RESP 16; TEMP 36.1; O2SAT 99; BMI 48.4
[2022-05-17] MEDS: Lactated Ringers 1,000 ML 15 ML IV (06:50)
[2022-05-17] MEDS: Cefazolin 2 GM in 0.9% Normal Saline 100 ML IV (07:30)
[2022-05-17 08:01] VITALS: BP 106/76; BP 123/73; PULSE 84; RESP 16; TEMP 36.2; O2SAT 95
[2022-05-17 08:15] VITALS: BP 106/76; BP 121/71; PULSE 79; RESP 16; O2SAT 95
--- NOTE | 2022-05-17 08:22 | DCINST_ITS ---
Discharge Instructions Diet Discharge Diet: No restrictions Activity Discharge Activity: Return to Normal Activity Dressing / Incision Call your doctor if you observe: Fever of 101 or Higher, Inability to urinate and Inability to have a bowel movement Follow Up Care Please Follow Up With: Candy Conway MD When: in 2-3 weeks Test Results: Test results from this visit will be discussed in further detail at your follow- up appointment, if applicable. Discharge Plan Admission Attending Provider: Candy Conway Primary Care Provider: Rebekah Tolbert NP Discharge Orders/Prescriptions Prescriptions: New phenazopyridine [Pyridium] 200 mg tablet 200 mg PO TID PRN PRN (Reason: Bladder Spasms) 7 Days Qty: 30 0RF oxycodone-acetaminophen [Percocet] 5-325 mg tablet 1 tab PO Q8H PRN (Reason: pain) 3 Days Qty: 6 0RF Continued allopurinol 100 mg tablet 100 mg PO BID Label Comments: Take one tablet by mouth twice daily tramadol 50 mg tablet 50 mg PO TID PRN (Reason: Pain) Label Comments: TAKE 1 TABLET BY MOUTH THREE TIMES DAILY NEEDED FOR PAIN DO NOT TAKE AT THE SAME TIME WITH LYRICA famotidine 20 mg tablet 20 mg PO DAILY Label Comments: TAKE 1 TABLET BY MOUTH TWICE DAILY dicyclomine 20 mg tablet 20 mg PO DAILY Label Comments: TAKE 1 TABLET BY MOUTH THREE TIMES DAILY NEEDED FOR IBS SYMPTOMS diphenhydramine HCl [Benadryl] 25 mg Capsule 25 mg PO QHS PRN (Reason: Sleep) fluoxetine 20 mg tablet 20 mg PO DAILY Label Comments: TAKE 1 TABLET BY MOUTH ONCE DAILY progesterone micronized 200 mg capsule 200 mg PO DAILY Label Comments: TAKE 1 CAPSULE BY MOUTH DAILY B-complex with vitamin C Tablet Extended Release 1 tab PO DAILY pregabalin [Lyrica] 75 mg capsule 75 mg PO BID Label Comments: TAKE 1 CAPSULE BY MOUTH TWICE DAILY whey 9 gram Packet 1 g PO DAILY Advair HFA 230-21 mcg/actuation HFA aerosol inhaler 2 puff INHALATION DAILY Label Comments: INHALE 2 PUFFS BY MOUTH TWICE DAILY EVERY DAY. RINSE MOUTH AFTER USE acetylcysteine [NAC] 600 mg Capsule 600 mg PO BID ALAmax CR 600 mg- 450 mcg Tablet Extended Release 1 tab PO DAILY Orilissa 150 mg tablet Referrals / Follow Up: Michener,Rebekah K STARCH MANGLE TENDER, ST[employer] MANGLE TENDER-C [Primary Care Provider] - Disposition Disposition (needs filled in before D/C Order can be placed): Home, Self Care
--- NOTE | 2022-05-17 08:25 | PCM.OPRPT ---
Problems Associated Problem List Diagnoses (1) Ureteral stone: Report of Operation Date of Procedure: 05/17/22 Pre-Operative Diagnosis: Left ureteral calculus, bilateral flank pain Post-Operative Diagnosis: Passed left ureteral calculus, bilateral flank pain Surgery/Procedure Performed:: Cystoscopy, bilateral retrograde pyelograms, left ureteroscopy Description of Surgical Findings:: No stone or obstruction or filling defect identified Surgeon: Candy Conway Type of Anesthesia: General Description of Procedure: The patient is a 46-year-old female who presented to the office with continued left flank pain after having a CT scan performed in the emergency room on April 27 identifying a distal 5 mm left ureteral calculus. The decision was made to take the patient to the operating room for further evaluation and management. Informed consent was obtained. The patient was taken to the operating room and placed on the operating room table. Anesthesia monitored the head, neck, airway, IV access and vital signs throughout the case. Once anesthesia was appropriately administered, the patient was placed into dorsolithotomy position was prepped and draped in usual sterile fashion. The cystoscope was then inserted through the urethra under direct visualization into the urinary bladder. The bladder mucosa was visualized in its entirety finding no evidence of mass, erythema, foreign body or other abnormality. Using an 8 Frisian cone-tip catheter and contrast, a retrograde pyelogram was then performed on the patient's right side revealing no evidence of filling defect, hydronephrosis or abnormality. The process was repeated on the left side with similar findings. A 0.035 Glidewire was then inserted into the left ureter without difficulty. Using the assistance of a 0.025 Glidewire, the semirigid ureteroscope was gently used to cannulate the left ureter and was advanced easily all the way to the left proximal ureter. There is no evidence of stone, foreign body, mucosal abnormality, erythema or other abnormality. At this time the ureteroscope and Glidewire's were removed. The patient's bladder was then emptied and she was awakened and taken to the recovery room in good condition. There were no complications during this procedure. Grafts/Implants Used: None Complications None Admit VTE Documentation VTE Present on Admission: Yes VTE Mechan Device Prophylaxis: SCD's VTE Pharm Prophylaxis ordered?: No Reason prophylaxis not ordered:: Treatment Not Indicated
[2022-05-17 08:35] VITALS: BP 106/76; BP 119/82; PULSE 93; RESP 16; TEMP 36.3; O2SAT 95
[2022-05-17] MEDS: Phenazopyridine 95 MG Tablet 190 MG PO (09:54)
[2022-05-17] MEDS: oxyCODONE 5 MG Tablet PO (09:55)
[2022-05-17] MEDS: Ketorolac 30 MG/ML Syringe IV (09:55)
[2022-05-17 10:08] VITALS: BP 106/76; BP 121/76; PULSE 77; RESP 16; TEMP 36.6; O2SAT 96
== END 2022-05-17 10:23 | disposition home or self-care (01) ==
LOC: SDC 05:57 → AC 05:57
PROVIDERS: Anesthesiology; PCP Nurse Practitioner Family; Referring Provider Urology; Visit Provider Urology
PROC: 0TJ98ZZ Inspection of Ureter, Via Natural or Artificial Opening Endoscopic (ICD-10-PCS; CPT 52352; principal; 2022-05-17 07:20)
DX: R39.15 Urgency of urination (principal); J45.909 Unspecified asthma, uncomplicated; D64.9 Anemia, unspecified; Z79.899 Other long term (current) drug therapy; Z87.442 Personal history of urinary calculi
CPT/HCPCS: 52005; 00910; 76000; 81025; J7120; J2405

== ENCOUNTER → 2022-11-23 | Outpatient (CLI) | payer OTHER, SELFPAY ==
[2022-11-23 11:43] LABS: Absolute Lymphocyte Count 2.39 X10^3/uL (0.83-4.51); Basophil# 0.06 X10^3/uL; Basophil% 0.7 % (0-1); Eosinophil# 0.19 X10^3/uL; Eosinophils% 2.3 % (0-5); Hematocrit 36.4 % (37-47); Hemoglobin 11.9 g/dL (12.0-15.0); Lymphocyte # 2.39 X10^3/ul (0.83-4.51); Lymphocyte % 28.7 % (19-41); Mean Corp Hgb Conc 32.7 g/dL (32-36); Mean Corpuscular Hgb 28.9 pg (27.0-32.0); Mean Corpuscular Volume 88.3 fL (81-99); Mean Platelet Vol. 10.2 fl (6.2-12.0); Monocyte# 0.54 X10^3/uL; Monocyte% 6.5 % (0-10); NRBC Flagged by Analyzer 0 % (0-5); Neutrophil # 4.97 X10^3/uL (2.7-7.7); Neutrophil % 59.6 % (47-70); Platelet Count 306 K/mm3 (150-450); RBC Distribution Width CV 14.8 % (11.6-14.6); RBC Distribution Width SD 48.3 fl (35.1-43.9); Red Blood Count 4.12 M/mm3 (4.2-5.4); White Blood Count 8.3 K/mm3 (4.4-11.0)
[2022-11-23 12:05] LABS: ALB/GLOB Ratio 0.8 RATIO (0.9-2.4); AST(SGOT) 61 U/L (15-37); Alanine Aminotransfer ALT/SGPT 40 U/L (13-56); Albumin, Serum 3.2 g/dL (3.2-5.0); Alkaline Phosphatase 85 U/L (45-117); Anion Gap 6 (5-15); BUN 12 mg/dL (7-18); BUN/Creat Ratio 12.9 RATIO (10-20); Calcium,Total 8.8 mg/dL (8.5-10.1); Chloride 105 mmol/L (98-107); Creatinine, Serum 0.93 mg/dL (0.55-1.02); EST Glomerular Filtration Rate 68 mL/min (>60); Est Glom Filt Rate - Afr Amer 83 mL/min (>60); Globulin 3.9 g/dL (2.2-4.2); Glucose 97 mg/dL (74-106); Potassium 4.7 mmol/L (3.5-5.1); Protein, Total 7.1 g/dL (6.4-8.2); Sodium Level 139 mmol/L (136-145)
== END | disposition home or self-care (01) ==
PROVIDERS: PCP Nurse Practitioner Family; Referring Provider Nurse Practitioner Family; Visit Provider Nurse Practitioner Family
DX: J18.9 Pneumonia, unspecified organism (principal); R53.82 Chronic fatigue, unspecified; G89.29 Other chronic pain
CPT/HCPCS: 80053; 85025; 87070; 87205

== ENCOUNTER → 2023-08-08 | Outpatient (CLI) | payer OTHER, SELFPAY ==
--- NOTE | 2023-08-08 13:57 | BI_ITS ---
MAMMOGRAPHY - BILATERAL SCREENING REASON FOR EXAM: Female, 47 years old. Routine annual screening examination. PERTINENT HISTORY: Non-contributory. TECHNIQUE: Digital bilateral breast stephen (3D mammographic acquisition) in the CC and MLO projections. 2-D mediolateral oblique (MLO) and craniocaudad (CC) views of both breasts were obtained. CAD: Full Field Digital Mammography with Computer Added Detection was performed. COMPARISON: Comparison is made with prior study January 11, 2022. FINDINGS: Breast Composition: The breasts are almost entirely fatty. There are no dominant masses or suspicious calcifications. Stable small benign-appearing and lateral axillary lymph nodes. No other significant abnormalities are identified. There has been no significant change since the prior study. BI/SCRN MAMM (CAD)W/STEPHEN BILAT IMPRESSION: Stable bilateral screening mammogram. Yearly follow-up mammogram recommended. (A) ASSESSMENT CATEGORY: BIRADS Category 2: Benign. A letter regarding these results will be sent to the patient by the facility within 30 days. Approximately 10% of breast cancers are not detected by mammography. A normal mammogram should not delay biopsy of a clinically suspicious abnormality. [id number] Electronically Signed: Juan Martinez MD at 14:39 EDT ,
== END | disposition home or self-care (01) ==
LOC: OPBI 13:56
PROVIDERS: PCP Nurse Practitioner Family; Referring Provider Nurse Practitioner Family; Visit Provider Nurse Practitioner Family
DX: Z12.31 Encounter for screening mammogram for malignant neoplasm of breast (principal)
CPT/HCPCS: 77063; 77067

== ENCOUNTER 2023-09-07 23:56 | Emergency (ER) | payer OTHER, SELFPAY ==
[2023-09-07 23:57] VITALS: BP 141/90; PULSE 111; RESP 22; TEMP 36.7; O2SAT 90; BMI 47.4
[2023-09-08 00:04] VITALS: BP 141/90; PULSE 111; RESP 22; TEMP 36.7; O2SAT 90
--- NOTE | 2023-09-08 00:48 | CT_ITS ---
INDICATION: flank pain COMPARISON: None. A radiation dose optimization technique was used for this scan. RADIATION DOSAGE (If Supplied By Facility): CTDIvol/DLP = ( 20.23 ) / ( 990.73 ) mGy/mGycm FINDINGS: Noncontrast serial CT axial images through the abdomen and pelvis with coronal and sagittal reformatted series. PANCREAS: No peripancreatic fat stranding. BOWEL/MESENTERY: No dilated bowel loops. No significant free fluid. No free air. Colonic diverticulosis without focus of diverticulitis. GALLBLADDER: Absent gallbladder with surgical clips in the gallbladder fossa.. APPENDIX: Absent appendix with pericecal suture line. LIVER/STOMACH: Hepatomegaly measuring up to 20 cm in the craniocaudal dimension. URINARY COLLECTING SYSTEM/ KIDNEYS: No obstructing ureteral calculus. No significant renal parenchymal abnormality. LUNG BASES: Unremarkable. BONES: Unremarkable for age. CT/Abdomen/Pelvis without Cont IMPRESSION: No acute abdominal abnormality is identified, to include no evidence of obstructing ureteral calculus. Hepatomegaly. Electronically Signed: Guille Garces MD at 1:57 EDT ,
[2023-09-08] MEDS: Ondansetron 4 MG/2 ML Vial IV (00:56)
[2023-09-08] MEDS: Morphine 4 MG/ML Syringe IV (00:57)
[2023-09-08] MEDS: 0.9% Normal Saline (1000mL) 1,000 ML 999 ML IV (00:57)
[2023-09-08 01:01] LABS: Color, Urine Yellow (Yellow); Glucose, Dipstick Normal (Normal); Ketone-Dipstick Negative (Negative); Leukocyte Esterase-Dipstick 25 /ul (Negative); Nitrite-Dipstick Negative (Negative); Occult Blood-Urine 25 /ul (Negative); Protein-Dipstick 15 mg/dl (Negative); Specific Gravity, Urine 1.025 (1.002-1.030); Urine Bilirubin Dipstick Negative (Negative); Urine Clarity Clear (Clear); Urine Urobilinogen Normal (Normal)
[2023-09-08 01:04] VITALS: BP 123/79; PULSE 80; RESP 20; TEMP 35.8; O2SAT 96
[2023-09-08 01:13] LABS: Anion Gap 6 (5-15); BUN 14 mg/dL (7-18); BUN/Creat Ratio 14.7 RATIO (10-20); Calcium,Total 8.8 mg/dL (8.5-10.1); Chloride 105 mmol/L (98-107); Creatinine, Serum 0.95 mg/dL (0.55-1.02); EST Glomerular Filtration Rate 66 mL/min (>60); Est Glom Filt Rate - Afr Amer 80 mL/min (>60); Estimated Creatinine Clearance 88.15 ml/min; Glucose 128 mg/dL (74-106); Potassium 3.7 mmol/L (3.5-5.1); Sodium Level 139 mmol/L (136-145)
[2023-09-08 01:27] LABS: Bacteria 1+ /hpf (None Seen); Calcium Oxalate Crystals Ur 2+ /hpf (<or=2+); Mucous, Urine 1+ /hpf (<or=2+); Red Blood Cells-Urine 5-10 SEEN /hpf (0-5); Squamous Epithelial Cells - UA 5-10 SEEN /hpf (5-10); White Blood Cells 5-10 SEEN /hpf (0-5)
[2023-09-08] MEDS: Ketorolac 30 MG/ML Syringe IV (01:27)
[2023-09-08 01:37] LABS: Absolute Lymphocyte Count 4.85 X10^3/uL (0.83-4.51); Absolute Neutrophil Count 7.8 X10^3/uL (2.0-7.7); Basophil% 0.7 % (0-1); Eosinophil# 0.33 X10^3/uL; Eosinophils% 2.4 % (0-5); Hematocrit 39.6 % (37-47); Hemoglobin 12.2 g/dL (12.0-15.0); Lymphocyte # 4.85 X10^3/ul (0.83-4.51); Lymphocyte % 34.7 % (19-41); Mean Corp Hgb Conc 30.8 g/dL (32-36); Mean Corpuscular Hgb 27.5 pg (27.0-32.0); Mean Corpuscular Volume 89.2 fL (81-99); Mean Platelet Vol. 10.1 fl (6.2-12.0); Monocyte# 0.82 X10^3/uL; Monocyte% 5.9 % (0-10); NRBC Flagged by Analyzer 0 % (0-5); Neutrophil # 7.82 X10^3/uL (2.7-7.7); Neutrophil % 55.9 % (47-70); Platelet Count 368 K/mm3 (150-450); RBC Distribution Width CV 14.5 % (11.6-14.6); RBC Distribution Width SD 46.9 fl (35.1-43.9); Red Blood Count 4.44 M/mm3 (4.2-5.4)
[2023-09-08 01:57] VITALS: BP 120/61; PULSE 80; RESP 20; O2SAT 96
[2023-09-08 03:00] VITALS: BP 112/66; PULSE 70; RESP 16; O2SAT 95
--- NOTE | 2023-09-08 03:41 | EX.ED.DYSGE1 ---
HPI History of Present Illness Chief Complaint: Flank Pain Informant: patient and spouse/S.O. Narrative Narrative: Patient is a 47-year-old female with past medical history of asthma as well as depression as well as a remote history of kidney stone. Patient states she was just resting when she developed right sided abdominal/back pain that was sharp in nature. She denies any recent trauma or excessive activity prior to the pain beginning. She denies any dysuria but has noted some blood. She states that the symptoms feel similar nature to her previous kidney stones and secondary to this comes in for evaluation [facility] Medical History Abdominal pain Anemia Anxiety Arthritis Asthma Back pain Depression Gastric reflux History of deviated nasal septum Kidney stones Lower abdominal pain MRSA infection Non-smoker Physical exam, pre-employment Shortness of breath on exertion Ureteral stone Wears glasses Home Medications ?Medication ?Instructions ?Recorded ?Last Taken ?Type B-complex with vitamin C 1 tab PO DAILY 05/16/22 Unknown History dicyclomine 20 mg tablet 20 mg PO DAILY 05/16/22 Unknown History diphenhydramine HCl 25 mg capsule 25 mg PO QHS PRN Sleep 05/16/22 Unknown History (Benadryl) famotidine 20 mg tablet 20 mg PO DAILY 05/16/22 05/17/22 04:30 History fluticasone propionate 230 2 puff inhalation DAILY 05/16/22 Unknown History mcg-salmeterol 21 mcg/actuation HFA inhaler (Advair HFA) progesterone micronized 200 mg 200 mg PO DAILY 05/16/22 Unknown History capsule elagolix 150 mg tablet (Orilissa) 150 mg PO DAILY 05/17/22 Unknown History hydroxyzine HCl 25 mg tablet 25 mg PO QHS 05/25/22 Unknown History fluoxetine 20 mg capsule 20 mg PO DAILY 09/08/23 Unknown History oxycodone-acetaminophen 5 mg-325 1 tab PO Q6H PRN pain 3 days #12 09/08/23 Unknown Rx mg tablet (Percocet) tabs sulfamethoxazole 800 1 tab PO BID 7 days #14 tabs 09/08/23 Unknown Rx mg-trimethoprim 160 mg tablet (Bactrim DS) Allergy/AdvReac Type Severity Reaction Status Date / Time amoxicillin Allergy Hives Verified 04/17/24 09:52 latex Allergy Swelling Verified 08/07/23 09:52 Penicillins (PCN) Allergy Hives Verified 08/07/23 09:52 Surgical History History of esophagogastroduodenoscopy (EGD) History of laparoscopic cholecystectomy Hx of appendectomy Hx of colonoscopy Hx of hemorrhoidectomy Hx of tonsillectomy Status post right knee replacement Social History Smoking Status: Never smoker ROS ROS ED Constitutional Constitutional ED: Denies chills or fever(s) ENT ENT ED: Denies sore throat Cardiovascular Cardiovascular: Denies chest pain Respiratory/Chest Respiratory/Chest: Denies cough or dyspnea Gastrointestinal Gastrointestinal: Reports abdominal pain and nausea; Denies diarrhea or vomiting Genitourinary Genitourinary ED: Reports hematuria; Denies dysuria Musculoskeletal Musculoskeletal: Reports back pain Integumentary Denies rash Neurologic Neurologic: Denies headache(s) Psychiatric Psychiatric: Reports anxiety and depression Hematologic/Lymphatic Hematologic/Lymphatic: Denies easy bleeding or easy bruising EXAM Physical Exam Const Vital Signs: 09/08/23 04:36 Temperature 97.9 F Pulse Rate 68 Respiratory Rate 20 H Blood Pressure 130/69 H Blood Pressure Mean 89 Pulse Ox 96 Positive well nourished, well developed and obese General Appearance ED: well developed; Negative for pallor Nutritional Appearance: obese HEENT Reports moist mucous membranes HEENT Narrative: No sign of infection noted in the posterior pharynx Eyes PERRL and EOMs intact bilaterally General Eye ED: Negative for pale conjunctiva or scleral icterus Neck supple Neck Narrative: No nuchal rigidity or meningeal signs Resp normal respiratory effort and clear to auscultation bilaterally Cardio regular rhythm Rate: tachycardic and other Other Details: Tachycardic rate with regular rhythm No murmurs rubs or gallop Radial and carotid pulses are equal and symmetric GI non-distended GI Narrative: Abdomen is soft and nondistended with normal active bowel sounds. Patient has pain with palpation along the suprapubic and right lower to mid abdomen without voluntary guarding or rigidity No pulsatile mass or fluid wave Auscultation: normoactive bowel sounds Palpation: soft Back/Spine Back/Spine Narrative: There is bilateral CVA pain noted Extremity normal to inspection Neuro oriented x3, CN's II-XII intact bilaterally and no sensory deficits noted Sensorium / Orientation: alert Motor Exam: strength 5/5 throughout Psych mental status grossly normal Skin no rashes or lesions noted and no wounds General Skin Exam: Negative for jaundice or pallor MDM MDM MDM Narrative Medical decision making narrative: Patient presented to the ER hypertensive but otherwise afebrile. She reported pain along the right abdomen and back without trauma or excessive activity. Differential diagnosis is for UTI versus pyelonephritis versus kidney stone. Secondary to this basic labs and a noncontrast CT were obtained. Labs revealed leukocytosis at 14 but otherwise no signs of acute kidney injury or electrolyte abnormality. Urine sample question infection with positive bacteria but there is also mild contamination with skin cells. Therefore this will be sent for culture. The patient CT scan revealed no obvious signs of stone or intestinal infection and I did not note any type of ovarian cyst. At this time I did discuss potential repeat CT scan with IV contrast to ensure there is no findings of potential infection that were missed on the noncontrast study. However the patient states that she does feel somewhat better after receiving medication in the ER and does not want the study obtained. With the patient having bilateral pain on exam in the flank/back region and urine questioning infection there is concern for pyelonephritis. Therefore her urine to be sent for culture she is given Rocephin in the ER and placed on Bactrim for home. I do not feel need for emergent ultrasound as the radiologist did not comment on the ovaries going against potential ovarian cyst or torsion. Therefore at this time as patient has reported moderate improvement of symptoms overall workup does not reveal any obvious findings and urine is questionable for UTI but he does not have findings for acute kidney injury or urosepsis she will be discharged home with symptomatic care History & Record Review Discussion w/independent historian: Patient and Significant other Lab Data Attestation: I reviewed the patient's lab results. Labs: Laboratory Results - last 24 hr 09/08/23 00:05 WBC 14.0 H RBC 4.44 Hgb 12.2 Hct 39.6 MCV 89.2 MCH 27.5 MCHC 30.8 L RDW Std Deviation 46.9 H RDW Coeff of Sruthi 14.5 Plt Count 368 MPV 10.1 Immature Gran % (Auto) 0.400 Neut % (Auto) 55.9 Lymph % (Auto) 34.7 Ida % (Auto) 5.9 Eos % (Auto) 2.4 Baso % (Auto) 0.7 Absolute Neuts (auto) 7.8 H Absolute Lymphs (auto) 4.85 H Nucleated RBC % 0 Sodium 139 Potassium 3.7 Chloride 105 Carbon Dioxide 28.0 Anion Gap 6 BUN 14 Creatinine 0.95 Estim Creat Clear Calc 88.15 Est GFR (MDRD) Af Amer 80 Est GFR (MDRD) Non-Af 66 BUN/Creatinine Ratio 14.7 Glucose 128 H Calcium 8.8 Urine Color Yellow Urine Clarity Clear Urine pH 5.0 Ur Specific Naylor 1.025 Urine Protein 15 H Urine Glucose (UA) Normal Urine Ketones Negative Urine Occult Blood 25 H Urine Nitrite Negative Urine Bilirubin Negative Urine Urobilinogen Normal Ur Leukocyte Esterase 25 H Urine RBC 5-10 SEEN Urine WBC 5-10 SEEN Ur Squamous Epith Cells 5-10 SEEN Calcium Oxalate Crystal 2+ Urine Bacteria 1+ Urine Mucus 1+ Radiography Diagnostic Testing: Clinical Impression(s) from Imaging Studies Abdomen/Pelvis CT 09/08/23 00:48 IMPRESSION: No acute abdominal abnormality is identified, to include no evidence of obstructing ureteral calculus. Hepatomegaly. Electronically Signed: Guille Garces MD at 1:57 EDT , Discharge Plan Triage Chief Complaint: Flank Pain ED Provider: Derian Alvarado Dx/Rx/DC Orders Clinical Impression: Acute flank pain, UTI (urinary tract infection) Instructions: ED Flank Pain, Uncertain Cause, ED Pyelonephritis, Female (Adult) Prescriptions: New oxycodone-acetaminophen [Percocet] 5-325 mg tablet 1 tab PO Q6H PRN (Reason: pain) 3 Days Qty: 12 0RF sulfamethoxazole-trimethoprim [Bactrim DS] 800-160 mg tablet 1 tab PO BID 7 Days Qty: 14 0RF No Action hydroxyzine HCl 25 mg tablet 25 mg PO QHS famotidine 20 mg tablet 20 mg PO DAILY Patient Comments: TAKE 1 TABLET BY MOUTH TWICE DAILY dicyclomine 20 mg tablet 20 mg PO DAILY Patient Comments: TAKE 1 TABLET BY MOUTH THREE TIMES DAILY NEEDED FOR IBS SYMPTOMS diphenhydramine HCl [Benadryl] 25 mg Capsule 25 mg PO QHS PRN (Reason: Sleep) progesterone micronized 200 mg capsule 200 mg PO DAILY Patient Comments: TAKE 1 CAPSULE BY MOUTH DAILY B-complex with vitamin C Tablet Extended Release 1 tab PO DAILY fluticasone propion-salmeterol [Advair HFA] 230-21 mcg/actuation HFA aerosol inhaler 2 puff INHALATION DAILY Patient Comments: INHALE 2 PUFFS BY MOUTH TWICE DAILY EVERY DAY. RINSE MOUTH AFTER USE Orilissa 150 mg tablet 150 mg PO DAILY fluoxetine 20 mg capsule 20 mg PO DAILY Stand Alone Forms: ED Work / School Excuse Primary Care Provider: Rebekah Tolbert NP Referrals: Candy Conway MD [Med Staff - Active Staff] - Rebekah Tolbert NP, ADMINISTRATIVE ASSISTANT [employer]ONT [employer] [Primary Care Provider] - Activity Restrictions/Additional Instructions: Your CT scan did not reveal any calcium or radiopaque kidney stone but you do have blood in your urine concerning for this. Also your urine shows changes concerning for developing kidney infection. Take the antibiotics as directed while the urine is sent for culture and follow-up with urology for repeat evaluation. Return to the ER should you have any further concerns or worsening of symptoms Print Language: Albanian Disposition Disposition: Home, Self Care Discharge Date/Time: 09/08/23 04:40
[2023-09-08] MEDS: HYDROmorphone 1 MG/ML Syringe IV (03:46)
[2023-09-08] MEDS: Ceftriaxone 1 GM/50 ML BAG IV (03:50)
[2023-09-08 04:36] VITALS: BP 130/69; PULSE 68; RESP 20; TEMP 36.6; O2SAT 96
== END 2023-09-08 04:40 | disposition home or self-care (01) ==
PROVIDERS: Emergency Provider Emergency Medicine; PCP Nurse Practitioner Family; Visit Provider Emergency Medicine
DX: N39.0 Urinary tract infection, site not specified (principal); R10.9 Unspecified abdominal pain; J45.909 Unspecified asthma, uncomplicated; F32.A Depression, unspecified; Z79.899 Other long term (current) drug therapy
CPT/HCPCS: 74176; 80048; 81001; 85025; 87086; 87088; 96361; 96365; 96375; 99283; J7030; A4216; J2405

== ENCOUNTER → 2023-09-11 | Outpatient (CLI) | payer OTHER, SELFPAY ==
[2023-09-11 12:49] LABS: Absolute Lymphocyte Count 2.98 X10^3/uL (0.83-4.51); Absolute Neutrophil Count 7.9 X10^3/uL (2.0-7.7); Basophil# 0.06 X10^3/uL; Basophil% 0.5 % (0-1); Eosinophil# 0.28 X10^3/uL; Eosinophils% 2.4 % (0-5); Hematocrit 39.3 % (37-47); Hemoglobin 12.4 g/dL (12.0-15.0); Lymphocyte # 2.98 X10^3/ul (0.83-4.51); Lymphocyte % 25.3 % (19-41); Mean Corp Hgb Conc 31.6 g/dL (32-36); Mean Corpuscular Volume 88.7 fL (81-99); Mean Platelet Vol. 10.2 fl (6.2-12.0); Monocyte# 0.54 X10^3/uL; Monocyte% 4.6 % (0-10); NRBC Flagged by Analyzer 0 % (0-5); Platelet Count 342 K/mm3 (150-450); RBC Distribution Width CV 14.1 % (11.6-14.6); RBC Distribution Width SD 45.9 fl (35.1-43.9); Red Blood Count 4.43 M/mm3 (4.2-5.4); White Blood Count 11.8 K/mm3 (4.4-11.0)
== END | disposition home or self-care (01) ==
LOC: LABSPEC 12:26
PROVIDERS: PCP Nurse Practitioner Family; Referring Provider Nurse Practitioner Family; Visit Provider Nurse Practitioner Family
DX: N39.0 Urinary tract infection, site not specified (principal); R16.0 Hepatomegaly, not elsewhere classified; G89.29 Other chronic pain
CPT/HCPCS: 85025

== ENCOUNTER → 2023-12-31 | Outpatient (CLI) | payer OTHER, SELFPAY ==
--- NOTE | 2023-12-31 16:15 | RAD_ITS ---
STUDY: X-RAY - RIGHT KNEE REASON FOR EXAM: Female, 48 years old. Pain. TECHNIQUE: 4 view(s) of the knee. COMPARISON: None. FINDINGS: Osteopenia. Staple in the proximal and medial tibia. Severe arthrosis of the medial femorotibial compartment with marked osteophyte formation. Moderate arthrosis of the lateral femorotibial compartment with osteophytes. Moderate to severe arthrosis of the patellofemoral compartment with osteophyte formation. Chondrocalcinosis. Small joint effusion with multiple intra-articular osteochondral bodies.. RAD/Knee 4 or More Views IMPRESSION: Osteopenia with tricompartmental arthrosis, chondrocalcinosis and multiple intra-articular osteochondral bodies. Electronically Signed: Librado Hernadez MD at 13:22 EDT ,
== END | disposition home or self-care (01) ==
LOC: RAD 16:02
PROVIDERS: PCP Nurse Practitioner Family; Referring Provider Nurse Practitioner Family; Visit Provider Nurse Practitioner Family
DX: M25.561 Pain in right knee (principal)
CPT/HCPCS: 73564

== ENCOUNTER 2024-02-20 16:30 | Outpatient (RCR) | payer OTHER, SELFPAY ==
--- NOTE | 2024-01-20 09:16 | HP.PTEVAL ---
Patient's Visit Information Visit Information Visit Information: PEGGY SCHMIDT is a 48 year old F referred to Physical Therapy by Dr. Denys Carver DO with a diagnosis of R knee primary OA. Date of Evaluation: 01/20/24 Physical Therapist: Yogi Dior, DPT, OCS, CSCS Visit Plan Frequency: 3x /Week Duration: 4-6 Weeks Plan: 3x/week for 3-6 starting in pool for : knee ROM, quad and HS stretches knee adn hip strength progress to I overall pool program as member. Consider benefits of gym exercises once I in pool Subjective Subjective: Has lymphedema, not sure why , in both legs. Has R knee pain, 2 surgeries and will need TKA. Trying to postpone it with strengthening and aquatic therapy. Hurts to walk most steps, worse if on it alot. Not bad when has not been on feet alot. Had cortisone shot a week ago and it helped. it helped her get around better, 30%. Cleaning and being on it 4 hrs saturday was 8/10 but would have been off the charts prior to injection. Lives in apartment, Has steps which are only done with L leg only with railing. Sleeping is better since injection, rainy weather makes it worse. 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 has not missed work. Hobbies: travelling. knee not limiting right now. Niece and nephew time is effected as they are active. basic ADLs: I with dress, cleaning, cooking.shower bathroom all I. Regular exercises, not yet. Joined Pain R knee pain: Pain Intensity (Out of 10): 0 Pain Intensity Range: 0 and 7 Comment: 8 prior to injection0 Objective Objective: Walks into PT I with good abalnce without AD. Slight R antalgia but no c/o pain this am ambulating. trasnfers bed and chair I. Steps using L only up and down, Can us R , requires rail. Knee AROM R knee 0-90 and L knee 0-108. OP on R knee flexion is painful/wincing. hip and ankle aROM WFL. reflexes 2/3 patella adn achilles B. Sensation LE WNL to gross light touch B. strength hips abd and ext 3+, flexion 3+, knee flex/ext 4- except R extension which is 3+ and painful. ankles testing 4/5 without pain. + R knee scour and patellar grind. - bounce home. Balance/Special Test Scores Lower Extremity Functional Score: 35 Goals Goal 1:: I appropriate pool and/or land gym based HEP to limit future problems Goal Time Frame: 4-6 Weeks Goal 2:: Pain 3/10 at worst in knee and 80% better Goal Time Frame: 4-6 Weeks Goal 3:: climb steps with either leg without pain Goal Time Frame: 4-6 Weeks Goal 4:: walk at work without increased pain Goal Time Frame: 4-6 Weeks Goal 5:: 50 LEFS Rehabilitation Potential Physical Therapy Diagnosis: R knee stiffness and pain limiting funciton comfort. Rehabilitation Potential: Fair Anticipated Interventions Patient/Client Instruction: Educate patient on: Condition and Plan of Care For the Purpose of:: To decrease pain, To increase ROM, To improve nutrient delivery to tissue and To improve muscle performance and motor function Therapeutic Exercise to Include: Strength training, Flexibilty training, Gait and locomotor training, In an aquatic setting, Passive ROM and Active ROM For the Purpose of:: To decrease pain, To increase ROM, To improve nutrient delivery to tissue, To improve muscle performance and motor function, To increase tolerance to activity/condition/position and To improve gait and locomotor functions Manual Therapy Techniques to Include: Mobilization, Passive ROM and Soft tissue mobilization For the Purpose of:: To decrease pain Text: Thank you for the opportunity to evaluate your patient. For Medicare and Medicare HMO plans, please review the plan of care and approve it. It will need to be FAXED BACK to us at [phone] for Medicare purposes. For Medicare only, by signing this I certify the plan of care. Please let me know if there are questions or concerns regarding this plan of care. Physician Signature: Date:
--- NOTE | 2024-03-31 11:54 | HP.PT.NRP ---
Patient Information Patient Information: PEGGY SCHMIDT was seen in my office for initial evaluation on 01/20/24. The following Plan of Care was established for this patient: POC Established Initial Frequency: 3x /Week Initial Duration: 4-6 Weeks Anticipated Interventions Patient/Client Instruction: Educate patient on: Condition and Plan of Care For the Purpose of:: To decrease pain, To increase ROM, To improve nutrient delivery to tissue and To improve muscle performance and motor function Therapeutic Exercise to Include: Strength training, Flexibilty training, Gait and locomotor training, In an aquatic setting, Passive ROM and Active ROM For the Purpose of:: To decrease pain, To increase ROM, To improve nutrient delivery to tissue, To improve muscle performance and motor function, To increase tolerance to activity/condition/position and To improve gait and locomotor functions Manual Therapy Techniques to Include: Mobilization, Passive ROM and Soft tissue mobilization For the Purpose of:: To decrease pain Last Seen Last Seen: This patient was last seen in our office 02/20/24. Pertinent comments regarding their Physical therapy will appear below: Pt seen 9 visits of POC but did not schedule or attend any further visits. At this point, it has been over 5 weeks and I will discontinue from my care. At this point I will be discontinuing this patient from physical therapy. I would be happy to see this patient again in the future if found appropriate by the physician. Thank you! Yogi Dior, DPT, OCS, CSCS Balance/Gait/Functional tests Balance/Special Test Scores Lower Extremity Functional Score: 35
== END 2024-02-20 19:00 | disposition home or self-care (01) ==
LOC: PT 16:30
PROVIDERS: PCP Nurse Practitioner Family; Referring Provider Student in an Organized Health Care Education/Training Program; Visit Provider Student in an Organized Health Care Education/Training Program
DX: M17.11 Unilateral primary osteoarthritis, right knee (principal); I89.0 Lymphedema, not elsewhere classified
CPT/HCPCS: 97113; 97161

== ENCOUNTER 2024-10-19 08:56 | Observation (INO) | payer OTHER, SELFPAY ==
[2024-10-19] VITALS (12 sets, daily range): BP systolic 98–157; BP diastolic 57–85; PULSE 62–79; RESP 14–18; TEMP 36.6–36.8; O2SAT 96–100; BMI 45.3; BMI 45.0
--- NOTE | 2024-10-19 09:06 | EX.ED.DYSGE1 ---
HPI History of Present Illness Chief Complaint: Numb/Ting PFSH PFSH Medical History Abdominal pain Anemia Anxiety Arthritis Asthma Back pain Depression Gastric reflux History of deviated nasal septum Kidney stones Lower abdominal pain MRSA infection Non-smoker Physical exam, pre-employment Shortness of breath on exertion Ureteral stone Wears glasses Home Medications ?Medication ?Instructions ?Recorded ?Last Taken ?Type dicyclomine 20 mg tablet 20 mg PO DAILY 05/16/22 10/18/24 History famotidine 20 mg tablet 20 mg PO DAILY 05/16/22 10/18/24 History elagolix 150 mg tablet (Orilissa) 150 mg PO DAILY 05/17/22 10/18/24 History fluoxetine 20 mg capsule 20 mg PO DAILY 09/08/23 10/18/24 History montelukast 10 mg tablet 10 mg PO DAILY 10/19/24 10/18/24 History (Singulair) progesterone micronized 100 mg 100 mg PO DAILY 10/19/24 10/18/24 History capsule Allergy/AdvReac Type Severity Reaction Status Date / Time amoxicillin Allergy Hives Verified 10/19/24 08:57 latex Allergy Swelling Verified 10/19/24 08:57 Penicillins (PCN) Allergy Hives Verified 10/19/24 08:57 Surgical History History of esophagogastroduodenoscopy (EGD) History of laparoscopic cholecystectomy Hx of appendectomy Hx of colonoscopy Hx of hemorrhoidectomy Hx of tonsillectomy Status post right knee replacement Social History Smoking Status: Never smoker EXAM Physical Exam Const Vital Signs: 10/19/24 08:57 10/19/24 09:15 10/19/24 09:15 Temperature 97.8 F Temperature Source Temporal Pulse Rate 78 73 Respiratory Rate 16 17 Blood Pressure 157/83 H 119/75 Blood Pressure Mean 107 89 Pulse Ox 98 99 Oxygen Delivery Method Room Air Room Air Room Air 10/19/24 09:45 10/19/24 10:26 10/19/24 10:30 Temperature Temperature Source Pulse Rate 67 62 68 Respiratory Rate 16 18 14 Blood Pressure 129/85 H 107/58 L 109/61 Blood Pressure Mean 99 74 77 Pulse Ox 99 98 98 Oxygen Delivery Method Room Air Room Air [facility] Narrative Medical decision making narrative: HISTORY OF PRESENT ILLNESS: Chief complaint: Numbness and tingling 48-year-old female here with numbness in left arm for 1 week. Noticed some numbness is left arm and right arm that longer to go away this morning. Her last known well was approximately 10 AM on 10/12/2024. She notes left arm symptoms that began at that time. She also notes some left face symptoms that started sometime last night. Denies falls or trauma. Notes family history of stroke. Denies personal history of stroke. Denies chest pain or shortness of breath. Denies any bleeding diathesis. Denies neck pain or shoulder pain. REVIEW OF SYSTEMS: Pertinent positives: Numbness/tingling Pertinent negatives: Slurred speech, loss of vision PHYSICAL EXAM: Nursing triage notes reviewed, Vital signs reviewed Constitutional: please see [facility] HENT: MMM Eyes: Pupils equal round and reactive to light, Extraocular muscles intact Neck: No stridor, no JVD, full neck ROM Lungs: Clear to auscultation, No wheezing or rales. No increased work of breathing, no conversational dyspnea, no accessory muscle use, no nasal flaring. No respiratory distress noted Heart: Regular rate and rhythm, No murmurs, No rubs and No gallops, 2+ distal pulses (radial, femoral, posterior tibial) in all extremities Abdomen: Soft, there is no tenderness, rigidity, rebound or guarding, no obvious peritoneal signs, no palpable pulsatile abdominal masses, no auscultated abdominal bruit : No CVAT Extremities: No edema Neuro: Alert, oriented x 3, slight decrease sensation in left arm, no obvious drift, no ataxia, no aphasia or dysarthria. Intact sensation in the trigeminal distribution however the patient notes objective decree sensation over the left side of the face as well. NIH of 1 for send subjective sensory change Skin: No rash or lesions noted MEDICAL DECISION MAKING: Chief Complaint: please see HPI External records reviewed: Reviewed prior imaging studies: Reviewed CT scan of the brain from 2021 which showed no acute abnormality Factors affecting care: Nephrolithiasis, GERD, asthma Social determinants of health: none History obtained from others: Consults: Internal medicine (Dr. Johnson), stroke radiology (Dr. Crooks) [facility] Narrative: Patient was initially hypertensive with blood pressure 157/83, afebrile nontoxic-appearing. Initial exam with NIH of 1 for subjective sensory change in left upper extremity. Given the patient was greater than 24 hours after initiation of symptoms she was not a TNK or thrombectomy candidate and as such a stroke team was activated. I considered the following differential diagnosis: CVA, TIA, mass, focal seizure, Eulalio's paralysis, I obtained a broad lab and imaging workup to further determine if the patient was suffering from a life-threatening etiology. ALL IMAGES (IF OBTAINED) HAVE BEEN PERSONALLY REVIEWED AND INTERPRETED BY MYSELF. EKG with normal sinus rhythm, prolonged [place] interval, first-degree AV block, no sign of high degree block, normal axis, no STEMI, no signs of A-fib No coagulopathy CBC with no leukocytosis, anemia, thrombocytopenia BMP without evidence of significant electrolyte abnormalities, no anion gap, no acute kidney injury. High-sensitivity troponin is negative, no evidence of myocardial ischemia CT of the head and neck shows no evidence of ICH or large vessel occlusion. Given positive NIH and concern for CVA versus TIA patient was admitted MRI, neurology evaluation, and for risk factor modification. Discussed with hospitalist who agrees admit the patient to PCU observation. The patient and/or family, caregivers express understanding. The patient and/or family, caregivers agrees with the plan. Shared decision making: I will have a discussion with the patient and or visitors regarding risk/benefits of further testing or admission. They will be made aware of of the risk/benefits inherent in this decision they will be given the opportunity to voice understanding. Total critical care time today provided was at least 0 minutes. This excludes separately billable procedures. Critical care time (if documented) is secondary to the patient having high probability of clinically significant/life threatening deterioration in the patient's condition which required my urgent intervention. Impression: 1. Paresthesias 2. Evaluation for CVA 3. Elevated blood pressure Dispo: Admit to PCU observation This note was generated with [employer]ifter dictation software. It may contain incorrect words, spelling, and punctuation that were not noted in review of the chart prior to signing. Lab Data Labs: Laboratory Results - last 24 hr 10/19/24 10/19/24 09:06 09:15 WBC 9.6 RBC 4.23 Hgb 11.7 L Hct 36.6 L MCV 86.5 MCH 27.7 MCHC 32.0 RDW Std Deviation 42.9 RDW Coeff of Sruthi 13.6 Plt Count 278 MPV 9.7 Immature Gran % (Auto) 0.300 Neut % (Auto) 65.8 Lymph % (Auto) 24.1 [place] % (Auto) 6.8 Eos % (Auto) 2.3 Baso % (Auto) 0.7 Absolute Neuts (auto) 6.3 Absolute Lymphs (auto) 2.32 Nucleated RBC % 0 PT 13.5 INR 1.0 APTT 31.4 Sodium 140 Potassium 4.1 Chloride 106 Carbon Dioxide 21.2 Anion Gap 13 BUN 11 Creatinine 0.88 Estim Creat Clear Calc 91.68 Est GFR (MDRD) Non-Af 81 BUN/Creatinine Ratio 12.3 Glucose 119 H Calcium 9.1 Troponin T High Sens < 6 POC Glucose 112 H Radiography Diagnostic Testing: Clinical Impression(s) from Imaging Studies Head/Neck CTA 10/19/24 09:27 IMPRESSION: No CTA evidence of CCA ICA or intracranial stenosis or occlusion. No significant atherosclerotic disease Patent vertebral arteries No acute intracranial hemorrhage midline shift or mass effect Reading Location: [facility] Discharge Plan Triage Chief Complaint: Numb/Ting ED Provider: Theron Robles Dx/Rx/DC Orders Prescriptions: No Action famotidine 20 mg tablet 20 mg PO DAILY Patient Comments: TAKE 1 TABLET BY MOUTH TWICE DAILY dicyclomine 20 mg tablet 20 mg PO DAILY Orilissa 150 mg tablet 150 mg PO DAILY fluoxetine 20 mg capsule 20 mg PO DAILY progesterone micronized 100 mg capsule 100 mg PO DAILY montelukast [Singulair] 10 mg tablet 10 mg PO DAILY Primary Care Provider: Waldo Penn Referrals: Rebekah Tolbert BROADLOOM WEAVER, [facility]ER-[facility] [Non-Staff] - Print Language: Namibian
--- NOTE | 2024-10-19 09:26 | EKG12_ITS ---
Test Reason : Blood Pressure : */* mmHG Vent. Rate : 70 BPM Atrial Rate : 70 BPM P-R Int : 238 ms QRS Dur : 68 ms QT Int : 378 ms P-R-T Axes : 35 4 41 degrees QTcB Int : 408 ms Sinus rhythm with 1st degree A-V block Otherwise normal ECG Confirmed by ALPHONSO ROSE, MARLENE ([id number]), video news editor ADEEL VILLALOBOS ([id number]) on 10/20/2024 1:37:17 PM Referred By: Confirmed By: MARLENE WERNER MD
--- NOTE | 2024-10-19 09:27 | CT_ITS ---
PROCEDURE: STROKE CTA HEAD AND NECK W/CON 10/19/2024 REASON FOR EXAM: NEURO DEFICIT, ACUTE, STROKE SUSPECTED TECHNIQUE: STROKE CTA HEAD AND NECK W/CON Multiplanar Sagittal and Coronal images were obtained. CONTRAST: Isovue 370 VOLUME: 100 mL One or more dose reduction techniques were used (e.g., Automated exposure control, adjustment of the mA and/or kV according to patient size, use of iterative reconstruction technique). RADIATION DOSE SUMMARY: CTDlvol: 76.6 mGy DLP: 15.09.99 mGycm COMPARISON: None FINDINGS: Noncontrasted head CT shows no acute hemorrhage midline shift or mass effect, no suspicious pattern of edema. Aortic Arch: Normal size and branching pattern. No significant atherosclerotic plaque. Brachiocephalic and Subclavians: Unremarkable RIGHT Carotid: Right CCA: Unremarkable. Right ICA: Unremarkable. Maximum stenosis (NASCET): <10 % Right ECA: Unremarkable. Incidental note is made of a significant medial course of the right ICA LEFT Carotid: Left CCA: Unremarkable. Left ICA: Unremarkable. Maximum stenosis (NASCET): <10 % Left ECA: Unremarkable. Vertebrals: Codominant. Arise from the subclavians. Both vertebrals form the basilar. RIGHT Vertebral: Unremarkable. LEFT Vertebral: Unremarkable. Anatomy: [place] anatomy is normal. Aneurysm or avm: No intracranial aneurysms or large vascular malformations are identified. No suspicious enhancing lesion, no airway narrowing or deviation. Lung apices are clear. No bulky adenopathy. CT/STROKE CTA Head AND Neck W/Con IMPRESSION: No CTA evidence of CCA ICA or intracranial stenosis or occlusion. No significant atherosclerotic disease Patent vertebral arteries No acute intracranial hemorrhage midline shift or mass effect Reading Location: [id number]
[2024-10-19 09:39] LABS: Hematocrit 36.6 % (37-47); Hemoglobin 11.7 g/dL (12.0-15.0); Immature Granulocytes Count 0.030 X10^3/uL (0.0-0.0); Mean Corp Hgb Conc 32.0 g/dL (32-36); Mean Corpuscular Volume 86.5 fL (81-99); Mean Platelet Vol. 9.7 fl (6.2-12.0); NRBC Flagged by Analyzer 0 % (0-5); Platelet Count 278 K/mm3 (150-450); RBC Distribution Width CV 13.6 % (11.6-14.6); RBC Distribution Width SD 42.9 fl (35.1-43.9); Red Blood Count 4.23 M/mm3 (4.2-5.4); White Blood Count 9.6 K/mm3 (4.4-11.0)
[2024-10-19 10:08] LABS: Prothrombin Time (Protime)PT. 13.5 SECONDS (11.7-14.9)
[2024-10-19 10:09] LABS: Partial Thromboplast Time 31.4 Seconds (24.1-36.2)
[2024-10-19 10:20] LABS: BUN 11 mg/dL (4-19); Glucose 119 mg/dL (70-99)
[2024-10-19 10:21] LABS: Anion Gap 13 (5-15); BUN/Creat Ratio 12.3 RATIO (10-20); Calcium,Total 9.1 mg/dL (7.6-11.0); Carbon Dioxide 21.2 mmol/L (21.0-32.0); Chloride 106 mmol/L (98-108); Estimated Creatinine Clearance 91.68 ml/min (50-250); Potassium 4.1 mmol/L (3.3-5.1); Troponin T High Sensitivity < 6 ng/L (<=14)
--- NOTE | 2024-10-19 10:55 | HP.PCM.HOS_ITS ---
HPI - General HPI Narrative PEGGY SCHMIDT, is a 48 F who presents [facility] Medical History Abdominal pain Anemia Anxiety Arthritis Asthma Back pain Depression Gastric reflux History of deviated nasal septum Kidney stones Lower abdominal pain MRSA infection Non-smoker Physical exam, pre-employment Shortness of breath on exertion Ureteral stone Wears glasses Home Medications ?Medication ?Instructions ?Recorded ?Last Taken ?Type dicyclomine 20 mg tablet 20 mg PO DAILY 05/16/2209/21 History famotidine 20 mg tablet 20 mg PO DAILY 05/16/2209/21 History elagolix 150 mg tablet (Orilissa) 150 mg PO DAILY 04/2310/18/24 History fluoxetine 20 mg capsule 20 mg PO DAILY 09/08/2309/21 History montelukast 10 mg tablet 10 mg PO DAILY 10/19/2409/21 History (Singulair) progesterone micronized 100 mg 100 mg PO DAILY 5 10/18/24 History capsule Allergy/AdvReac Type Severity Reaction Status Date / Time amoxicillin Allergy Hives Verified 10/19/24 08:57 latex Allergy Swelling Verified 10/19/24 08:57 Penicillins (PCN) Allergy Hives Verified 10/19/24 08:57 Surgical History History of esophagogastroduodenoscopy (EGD) History of laparoscopic cholecystectomy Hx of appendectomy Hx of colonoscopy Hx of hemorrhoidectomy Hx of tonsillectomy Status post right knee replacement Social History Smoking Status: Never smoker Vital Signs Vital Signs Vital Signs: 10/19/24 08:57 10/19/24 09:15 10/19/24 09:15 Temperature 97.8 F Temperature Source Temporal Pulse Rate 78 73 Respiratory Rate 16 17 Blood Pressure 157/83 H 119/75 Blood Pressure Mean 107 89 Pulse Ox 98 99 Oxygen Delivery Method Room Air Room Air Room Air 10/19/24 09:45 10/19/24 10:26 10/19/24 10:30 Temperature Temperature Source Pulse Rate 67 62 68 Respiratory Rate 16 18 14 Blood Pressure 129/85 H 107/58 L 109/61 Blood Pressure Mean 99 74 77 Pulse Ox 99 98 98 Oxygen Delivery Method Room Air Room Air Weight Weight: 248 lb 3.848 oz Body Mass Index (BMI) 45.3 Results Lab / Micro Data 10/19/24 09:15 10/19/24 09:15 Labs: Laboratory Results - last 24 hr 10/19/24 09:06: POC Glucose 112 H 10/19/24 09:15: WBC 9.6, RBC 4.23, Hgb 11.7 L, Hct 36.6 L, MCV 86.5, MCH 27.7, MCHC 32.0, RDW Std Deviation 42.9, RDW Coeff of Sruthi 13.6, Plt Count 278, MPV 9.7, Immature Gran % (Auto) 0.300, Neut % (Auto) 65.8, Lymph % (Auto) 24.1, [place] % (Auto) 6.8, Eos % (Auto) 2.3, Baso % (Auto) 0.7, Absolute Neuts (auto) 6.3, Absolute Lymphs (auto) 2.32, Nucleated RBC % 0, PT 13.5, INR 1.0, APTT 31.4, Sodium 140, Potassium 4.1, Chloride 106, Carbon Dioxide 21.2, Anion Gap 13, BUN 11, Creatinine 0.88, Estim Creat Clear Calc 91.68, Est GFR (MDRD) Non-Af 81, BUN/Creatinine Ratio 12.3, Glucose 119 H, Calcium 9.1, Troponin T High Sens < 6 Imaging Radiology Impression Head/Neck CTA 10/19/24 09:27 IMPRESSION: No CTA evidence of CCA ICA or intracranial stenosis or occlusion. No significant atherosclerotic disease Patent vertebral arteries No acute intracranial hemorrhage midline shift or mass effect Reading Location: [id number] Assessment & Plan Assessment/Plan PLAN: Plan Laboratory Results 10/19/24 09:06: POC Glucose 112 H 10/19/24 09:15: WBC 9.6, RBC 4.23, Hgb 11.7 L, Hct 36.6 L, MCV 86.5, MCH 27.7, MCHC 32.0, RDW Std Deviation 42.9, RDW Coeff of Sruthi 13.6, Plt Count 278, MPV 9.7, Immature Gran % (Auto) 0.300, Neut % (Auto) 65.8, Lymph % (Auto) 24.1, [place] % (Auto) 6.8, Eos % (Auto) 2.3, Baso % (Auto) 0.7, Absolute Neuts (auto) 6.3, Absolute Lymphs (auto) 2.32, Nucleated RBC % 0, PT 13.5, INR 1.0, APTT 31.4, Sodium 140, Potassium 4.1, Chloride 106, Carbon Dioxide 21.2, Anion Gap 13, BUN 11, Creatinine 0.88, Estim Creat Clear Calc 91.68, Est GFR (MDRD) Non-Af 81, BUN/Creatinine Ratio 12.3, Glucose 119 H, Calcium 9.1, Troponin T High Sens < 6 Clinical Impression(s) from Imaging Studies Head/Neck CTA 10/19/24 09:27 IMPRESSION: No CTA evidence of CCA ICA or intracranial stenosis or occlusion. No significant atherosclerotic disease Patent vertebral arteries No acute intracranial hemorrhage midline shift or mass effect Reading Location: [id number]
--- NOTE | 2024-10-19 10:55 | PCM.HP.STD ---
HPI - General General Date of Admission: 10/19/24 Date of Service: 10/19/24 Chief Complaint: Left arm/UE numbness for 1 week HPI Narrative PEGGY SCHMIDT, is a 48 F who presents to ED for left upper extremity intermittent numbness for 1 week. She states anterior lateral aspect of her left arm forearm and 1 left thumb and middle finger are numb. Later on she also had left-sided facial numbness. Her last known well was 10/12/2024 about a week ago about 10 AM. Does not meet criteria for stroke alert. Denies any other particular focal symptoms regarding stroke including change in vision, mental status change, change in speech, dysarthria or language deficit. Denies prior history of heart disease or neurological disease. History of long COVID hauler and irritable bowel disease Family history: Her mother and father has hypertension and coronary artery disease [facility] Medical History Lower abdominal pain Abdominal pain Ureteral stone Wears glasses MRSA infection Depression Anxiety Arthritis Kidney stones Anemia Back pain Gastric reflux Non-smoker Asthma Shortness of breath on exertion History of deviated nasal septum Physical exam, pre-employment Home Medications ?Medication ?Instructions ?Recorded ?Last Taken ?Type dicyclomine 20 mg tablet 20 mg PO DAILY 05/16/22 10/18/24 History famotidine 20 mg tablet 20 mg PO DAILY 05/16/22 10/18/24 History elagolix 150 mg tablet (Orilissa) 150 mg PO DAILY 05/17/22 10/18/24 History fluoxetine 20 mg capsule 20 mg PO DAILY 09/08/23 10/18/24 History montelukast 10 mg tablet 10 mg PO DAILY 10/19/24 10/18/24 History (Singulair) progesterone micronized 100 mg 100 mg PO DAILY 10/19/24 10/18/24 History capsule Allergy/AdvReac Type Severity Reaction Status Date / Time amoxicillin Allergy Hives Verified 10/19/24 08:57 latex Allergy Swelling Verified 10/19/24 08:57 Penicillins (PCN) Allergy Hives Verified 10/19/24 08:57 Surgical History Status post right knee replacement Hx of colonoscopy History of esophagogastroduodenoscopy (EGD) Hx of hemorrhoidectomy Hx of tonsillectomy Hx of appendectomy History of laparoscopic cholecystectomy Social History Smoking Status: Never smoker ROS ROS Narrative Constitutional: chronic fatigue and low energy, after COVID. No fever. HEENT: Reports systems reviewed and no addt'l complaints, except as documented Respiratory/Chest: No acute shortness of breath or respiratory distress or wheezing. CVS: No chest pain or tightness Gastrointestinal: Denies coffee ground emesis, hematemesis or vomiting Genitourinary: Denies burning urination or new urinary tract symptoms Musculoskeletal: Denies acute joint pain or limited range of motion. No acute injury Neurologic: Denies seizure-like symptoms. Rest as described in HPI. No prior TIA/stroke skin: No ulcer. No rash Endocrinology: Reports systems reviewed and no addt'l complaints, except as documented Hematologic/Lymphatic: Reports systems reviewed and no addt'l complaints, except as documented Rest 14 ROS are negative except as mentioned in HPI Vital Signs Vital Signs Vital Signs: 10/19/24 08:57 10/19/24 09:15 10/19/24 09:15 Temperature 97.8 F Temperature Source Temporal Pulse Rate 78 73 Respiratory Rate 16 17 Blood Pressure 157/83 H 119/75 Blood Pressure Mean 107 89 Pulse Ox 98 99 Oxygen Delivery Method Room Air Room Air Room Air 10/19/24 09:45 10/19/24 10:26 10/19/24 10:30 Temperature Temperature Source Pulse Rate 67 62 68 Respiratory Rate 16 18 14 Blood Pressure 129/85 H 107/58 L 109/61 Blood Pressure Mean 99 74 77 Pulse Ox 99 98 98 Oxygen Delivery Method Room Air Room Air Weight Weight: 248 lb 3.848 oz Body Mass Index (BMI) 45.3 Physical Exam Narrative General: Alert, Oriented x3, Cooperative. BMI 45.4 kg/m?, morbid obesity HEENT: Atraumatic, PERRLA, EOMI, Normocephalic. Oral: Deep oropharyngeal could not be visualized Neck: Supple, No JVD, Negative Carotid Bruits Chest wall/Lungs: Air entry diminished in bilateral lung bases. No crepitation/rhonchi Cardiovascular: Regular rate and rhythm, Normal S1,S2, No M/G/R Abdomen: Bowel Sounds Present, Soft, Non Tender, Non-Distended : No dysuria. No renal angle tenderness. No suprapubic tenderness. Extremities: No edema, Capillary Refill Less than 3 Seconds Skin: No rashes, No breakdown Musculoskeletal: No Tenderness to Palpation of Joints or Extremities Neurological: Cranial nerves II-XII grossly intact, DTR 2+/4. Altered sensation on the left upper extremity and face. NIH stroke scale 1. Psych/Mental Status: Flat affect. Results Lab / Micro Data 10/19/24 09:15 10/19/24 09:15 Labs: Laboratory Results - last 24 hr 10/19/24 09:06: POC Glucose 112 H 10/19/24 09:15: WBC 9.6, RBC 4.23, Hgb 11.7 L, Hct 36.6 L, MCV 86.5, MCH 27.7, MCHC 32.0, RDW Std Deviation 42.9, RDW Coeff of Sruthi 13.6, Plt Count 278, MPV 9.7, Immature Gran % (Auto) 0.300, Neut % (Auto) 65.8, Lymph % (Auto) 24.1, [place] % (Auto) 6.8, Eos % (Auto) 2.3, Baso % (Auto) 0.7, Absolute Neuts (auto) 6.3, Absolute Lymphs (auto) 2.32, Nucleated RBC % 0, PT 13.5, INR 1.0, APTT 31.4, Sodium 140, Potassium 4.1, Chloride 106, Carbon Dioxide 21.2, Anion Gap 13, BUN 11, Creatinine 0.88, Estim Creat Clear Calc 91.68, Est GFR (MDRD) Non-Af 81, BUN/Creatinine Ratio 12.3, Glucose 119 H, Calcium 9.1, Troponin T High Sens < 6 Imaging Radiology Impression Head/Neck CTA 10/19/24 09:27 IMPRESSION: No CTA evidence of CCA ICA or intracranial stenosis or occlusion. No significant atherosclerotic disease Patent vertebral arteries No acute intracranial hemorrhage midline shift or mass effect Reading Location: [id number] Assessment & Plan Assessment/Plan (1) LUE numbness: PLAN: Plan 1. LUE paresthesia and facial numbness: Patient is being admitted in PCU. NIH stroke scale 1. CTA head and neck shows no evidence of intracranial stenosis or occlusion. Patent vertebral arteries. PT, OT, speech therapy/swallow evaluation and management, nursing NIH stroke scale, BP and glucose monitoring and control as per stroke protocol. TSH, A1c fasting lipid profile tomorrow AM. MRI brain and 2D echo with bubble contrast study ordered. Baby aspirin atorvastatin ordered. 2. Chronic intermittent asthma: No exacerbation. DuoNeb nebulization ordered as needed. 3. Chronic abdominal pain/endometriosis: Patient on progesterone micronized tablet and GnRH analog/elagolix continued 4. IBS: On dicyclomine, continued 5. Morbid obesity: BMI 45.4 kg/m?. Nutrition consult. Weight loss counseling done Living will/advanced directive/end of life care: Patient does not have living will or advanced directive. She does not have power of workers compensation attorney for health. Her is next of kin. After discussion of benefits/risks procedures involved with full code, DNR CC arrest and DNR CC, the patient opted for full code. Patient does want artificial life support including intubation, tube feed, ventilator and/chest compression, central venous catheter, vasopressor and DC shock if needed Total time spent in [id number] encounter in discussion of advanced directive 17 minutes. Laboratory Results 10/19/24 09:06: POC Glucose 112 H 10/19/24 09:15: WBC 9.6, RBC 4.23, Hgb 11.7 L, Hct 36.6 L, MCV 86.5, MCH 27.7, MCHC 32.0, RDW Std Deviation 42.9, RDW Coeff of Sruthi 13.6, Plt Count 278, MPV 9.7, Immature Gran % (Auto) 0.300, Neut % (Auto) 65.8, Lymph % (Auto) 24.1, [place] % (Auto) 6.8, Eos % (Auto) 2.3, Baso % (Auto) 0.7, Absolute Neuts (auto) 6.3, Absolute Lymphs (auto) 2.32, Nucleated RBC % 0, PT 13.5, INR 1.0, APTT 31.4, Sodium 140, Potassium 4.1, Chloride 106, Carbon Dioxide 21.2, Anion Gap 13, BUN 11, Creatinine 0.88, Estim Creat Clear Calc 91.68, Est GFR (MDRD) Non-Af 81, BUN/Creatinine Ratio 12.3, Glucose 119 H, Calcium 9.1, Troponin T High Sens < 6 Clinical Impression(s) from Imaging Studies Head/Neck CTA 10/19/24 09:27 IMPRESSION: No CTA evidence of CCA ICA or intracranial stenosis or occlusion. No significant atherosclerotic disease Patent vertebral arteries No acute intracranial hemorrhage midline shift or mass effect Reading Location: [id number] Charges/Coding Visit Charges Inpatient E&M: 06663 Init Hosp L3 Procedures Hospitalists Procedures: 69722 Advncd Care Plan 30 Min
[2024-10-19 11:26] LABS: Magnesium 2.0 mg/dL (1.5-2.2)
[2024-10-19 11:57] LABS: Troponin T High Sens 2 HR < 6 ng/L (<=14)
--- NOTE | 2024-10-19 11:57 | MRI_ITS ---
EXAM: BRAIN WITHOUT CONTRAST CLINICAL HISTORY: SUSPECTED STROKE COMPARISON: None. TECHNIQUE: Multiplanar, multisequence MR images of the brain were obtained without gadolinium contrast material. FINDINGS: There is abnormal increased T2 and FLAIR signal in the deep white matter in the right and left with moderate bilateral white matter disease. The largest lesion in the right frontal deep white matter measures 1.2 x 0.4 cm, image 15/26, and on the left measuring 0.8 by 0.5 cm, image 15/26. No intracranial hemorrhage, mass, mass effect, midline shift or pathologic extra- axial fluid collection. No hydrocephalus. No areas of restricted diffusion to suggest acute ischemia or infarction. No gradient signal blooming artifacts are identified. No cerebellar tonsillar ectopia. No sellar/suprasellar signal abnormalities. The ocular globes and intraorbital soft tissues are symmetrically unremarkable. Paranasal sinuses are essentially clear. MRI/Brain without Contrast IMPRESSION: There is abnormal increased T2 and FLAIR signal in the deep white matter in the right and left with moderate bilateral white matter disease. The largest lesion in the right frontal deep white matter measu res 1.2 x 0.4 cm, image 15/26, and on the left measuring 0.8 by 0.5 cm, image 15/26. The differential includes demyelinating conditions such as MS, vasculitis, and chemical exposure. [facility]
--- NOTE | 2024-10-19 11:57 | ECHOD_ITS ---
Reason For Study Reason For Study: TIA/CVA Procedure This was a 2D Doppler, Color Flow transthoracic echocardiogram. Exam performed portable in patient room. Left Ventricle Normal left ventricle. The estimated ejection fraction is 55???60 %. Right Ventricle Normal right ventricle. Normal systolic function. Atria Normal left atrium. Normal right atrium. Bubble contrast study is positive for PFO. Mitral Valve The mitral valve is structurally normal. No prolapse or stenosis seen. Tricuspid Valve Normal tricuspid valve. Aortic Valve Trisinus/trileaflet aortic valve. Pulmonic Valve The pulmonic valve is not well visualized. Great Vessels The aortic root is not well visualized. Pericardium/Pleural No pericardial effusion. Medication Performed a rapid injection of agitated mix of 9 cc saline and 1cc air to assess for atrial septal defect. MMode/2D Measurements & Calculations LVIDd: 4.1 cm IVSd: 0.98 cm Ao root diam: 2.6 cm LVIDs: 2.6 cm LVPWd: 0.98 cm RVDd: 2.5 cm FS: 36.1 % LAV(MOD-bp): 37.5 ml LVAd ap4: 24.2 cm2 SV(MOD-sp4): 41.0 ml LAV(MOD-bp) Indexed: 17.9 ml/m2 LVLd ap4: 7.0 cm SI(MOD-sp4): 19.6 ml/m2 LAV(MOD-sp2): 45.1 ml EDV(MOD-sp4): 67.7 ml LAV(MOD-sp4): 28.4 ml EDV(sp4-el): 70.5 ml LVAs ap4: 13.0 cm2 LVLs ap4: 5.2 cm ESV(MOD-sp4): 26.7 ml ESV(sp4-el): 27.8 ml EF(MOD-sp4): 60.5 % EF(sp4-el): 60.5 % SV(sp4-el): 42.7 ml LA A4 area: 12.5 cm2 LA dimension(2D): 3.6 cm RA A4 area: 11.0 cm2 TAPSE: 1.9 cm Time Measurements MV dec time: 0.16 sec Doppler Measurements & Calculations MV E max jagdeep: 87.0 cm/sec Lat Peak E' Jagdeep: 11.3 cm/sec Med Peak E' Jagdeep: 10.2 cm/sec MV A max jagdeep: 70.3 cm/sec E/E' lat: 7.7 E/E' med: 8.5 MV E/A: 1.2 MV dec slope: 535.1 cm/sec2 Ao V2 max: 114.6 cm/sec LV V1 max: 90.7 cm/sec Ao max P.3 mmHg LV V1 max P.3 mmHg Ao V2 mean: 86.5 cm/sec LV V1 mean P.8 mmHg Ao mean P.3 mmHg LV V1 mean: 63.2 cm/sec Ao V2 VTI: 28.9 cm LV V1 VTI: 20.9 cm AV (velocity ratio): 0.72 PA V2 max: 121.9 cm/sec TR max jagdeep: 205.7 cm/sec PA V2 mean: 80.2 cm/sec TR max P.9 mmHg ECHO/Echo Complete Interpretation Summary The estimated ejection fraction is 55???60 %. No significant valvular abnormality Positive bubble study/PFO. No prior echo to compare Ordering Physician: Clark Johnson Referring Physician: Waldo Penn Performed By: Arielle Baez, JANE, RVT
--- NOTE | 2024-10-19 13:03 | CON.PCM.NE_ITS ---
Assessment and Plan: Stroke Assessment/Plan PEGGY SCHMIDT is a 48 F with a history of anxiety, depresison who presents for evaluation of left sided numbness. Not a TNK or thrombectomy candidate. Neurological examination shows decreased sensation on left side Neuroimaging shows CT negative. Plan MRI Brain. R/o stroke vs other causes. Plan MRI Brain to r/o stroke, stroke w/up ASA, statin Thanks for consult. Spent 70 min in evaluation and management of thsi patient. HPI Consult Data Date of Consult: 10/19/24 HPI Narrative HPI Narrative: PEGGY SCHMIDT, is a 48 F who presents with left upper extremity intermittent numbness for 1 week. She states anterior lateral aspect of her left arm forearm and 1 left thumb and middle finger are numb. these started a week ago and was intermittent but since last night it is constant. Later on she also had left- sided facial numbness and left leg numbness. Feels numb in right thumb and middle finger. Denies any other particular focal symptoms regarding stroke including change in vision, mental status change, change in speech, dysarthria or language deficit.Has headache today. [facility] Medical History Lower abdominal pain Abdominal pain Ureteral stone Wears glasses MRSA infection Depression Anxiety Arthritis Kidney stones Anemia Back pain Gastric reflux Non-smoker Asthma Shortness of breath on exertion History of deviated nasal septum Physical exam, pre-employment Home Medications ?Medication ?Instructions ?Recorded ?Last Taken ?Type dicyclomine 20 mg tablet 20 mg PO DAILY 05/16/2209/21 History famotidine 20 mg tablet 20 mg PO DAILY 05/16/2209/21 History elagolix 150 mg tablet (Orilissa) 150 mg PO DAILY 04/2310/18/24 History fluoxetine 20 mg capsule 20 mg PO DAILY 09/08/2309/21 History montelukast 10 mg tablet 10 mg PO DAILY 10/19/2409/21 History (Singulair) progesterone micronized 100 mg 100 mg PO DAILY 5 10/18/24 History capsule Allergy/AdvReac Type Severity Reaction Status Date / Time amoxicillin Allergy Hives Verified 10/19/24 08:57 latex Allergy Swelling Verified 10/19/24 08:57 Penicillins (PCN) Allergy Hives Verified 10/19/24 08:57 Surgical History Status post right knee replacement Hx of colonoscopy History of esophagogastroduodenoscopy (EGD) Hx of hemorrhoidectomy Hx of tonsillectomy Hx of appendectomy History of laparoscopic cholecystectomy Social History Smoking Status: Never smoker Vital Signs Vital Signs Vital Signs: 10/19/24 08:57 10/19/24 09:15 10/19/24 09:15 Temperature 97.8 F Temperature Source Temporal Pulse Rate 78 73 Respiratory Rate 16 17 Blood Pressure 157/83 H 119/75 Blood Pressure Mean 107 89 Blood Pressure Source Blood Pressure Position Blood Pressure Location Pulse Ox 98 99 Oxygen Delivery Method Room Air Room Air Room Air 10/19/24 09:45 10/19/24 10:26 10/19/24 10:30 Temperature Temperature Source Pulse Rate 67 62 68 Respiratory Rate 16 18 14 Blood Pressure 129/85 H 107/58 L 109/61 Blood Pressure Mean 99 74 77 Blood Pressure Source Blood Pressure Position Blood Pressure Location Pulse Ox 99 98 98 Oxygen Delivery Method Room Air Room Air 10/19/24 10:50 10/19/24 11:00 10/19/24 11:30 Temperature 98.2 F Temperature Source Pulse Rate 72 67 68 Respiratory Rate 18 18 17 Blood Pressure 110/75 110/76 118/74 Blood Pressure Mean 86 87 88 Blood Pressure Source Blood Pressure Position Blood Pressure Location Pulse Ox 98 97 98 Oxygen Delivery Method Room Air Room Air 10/19/24 12:03 Temperature 98.3 F Temperature Source Oral Pulse Rate 79 Respiratory Rate 18 Blood Pressure 112/68 Blood Pressure Mean 82 Blood Pressure Source Monitor Blood Pressure Position Semi-Fowlers Blood Pressure Location Left Forearm Pulse Ox 100 Oxygen Delivery Method Room Air Weight Weight: 111.6 kg Body Mass Index (BMI) 45.0 Physical Exam Neuro Neuro Narrative: Awake, alert No aphasia CN 2-12 intact. Decreased sensation left face Motor 5/5 Sensation: decreased left side No ataxia Lab / Micro Data 10/19/24 09:15 10/19/24 09:15 Labs: Laboratory Results - last 24 hr 10/19/24 09:06: POC Glucose 112 H 10/19/24 09:15: WBC 9.6, RBC 4.23, Hgb 11.7 L, Hct 36.6 L, MCV 86.5, MCH 27.7, MCHC 32.0, RDW Std Deviation 42.9, RDW Coeff of Sruthi 13.6, Plt Count 278, MPV 9.7, Immature Gran % (Auto) 0.300, Neut % (Auto) 65.8, Lymph % (Auto) 24.1, [place] % (Auto) 6.8, Eos % (Auto) 2.3, Baso % (Auto) 0.7, Absolute Neuts (auto) 6.3, Absolute Lymphs (auto) 2.32, Nucleated RBC % 0, PT 13.5, INR 1.0, APTT 31.4, Sodium 140, Potassium 4.1, Chloride 106, Carbon Dioxide 21.2, Anion Gap 13, BUN 11, Creatinine 0.88, Estim Creat Clear Calc 91.68, Est GFR (MDRD) Non-Af 81, BUN/Creatinine Ratio 12.3, Glucose 119 H, Calcium 9.1, Magnesium 2.0, Troponin T High Sens < 6 10/19/24 11:20: Troponin T Hi Sens 2 Hr < 6 Imaging Radiology Impression Head/Neck CTA 10/19/24 09:27 IMPRESSION: No CTA evidence of CCA ICA or intracranial stenosis or occlusion. No significant atherosclerotic disease Patent vertebral arteries No acute intracranial hemorrhage midline shift or mass effect Reading Location: [facility] Active Medications Active Medications Active Medications: Current Medications Generic Name Dose Route Start Last Admin Trade Name Freq PRN Reason Stop Dose Admin Acetaminophen 650 mg 10/19/24 11:57 Acetaminophen 325 Mg Tablet PO Q4H PRN PRN Pain 1-10 Or Fever>99.6 Aspirin 81 mg 10/19/24 12:00 Aspirin 81 Mg Tab.Chew PO BREAKFAST [facility] Atorvastatin Calcium 80 mg 10/19/24 22:00 Atorvastatin Calcium 80 Mg Tablet PO QHS [facility] Dicyclomine HCl 20 mg 10/20/24 10:00 Dicyclomine 10 Mg Capsule PO DAILY [facility] Enoxaparin Sodium 40 mg 10/19/24 11:57 Enoxaparin 40 Mg/0.4 Ml Syringe SC Q24H DEE Famotidine 20 mg 10/20/24 10:00 Famotidine 20 Mg Tablet PO DAILY [facility] Fluoxetine HCl 20 mg 10/20/24 10:00 Fluoxetine 20 Mg Capsule PO DAILY DEE Hydralazine HCl 5 mg 10/19/24 11:57 Hydralazine 20 Mg/Ml Vial IV 10/20/24 11:57 Q30M PRN maintain BP parameters with HR <60 Sodium Chloride 1,000 mls @ 75 mls/hr 10/19/24 11:57 IV 10/20/24 01:16 .[id number] DEE Iopamidol 0 ml 10/19/24 09:30 10/19/24 12:45 Contrast Allergy Safety Check IV Not Given X1 DEE Labetalol HCl 20 mg 10/19/24 09:25 Labetalol 20 Mg/4 Ml Vial IV 10/20/24 09:26 X1 PRN BLOOD PRESSURE Labetalol HCl 10 - 20 mg 10/19/24 11:57 Labetalol 20 Mg/4 Ml Vial IV 10/20/24 11:57 Q10M PRN PRN maintain BP parameters with HR >/=60 Montelukast Sodium 10 mg 10/19/24 12:00 Montelukast 10 Mg Tablet PO DAILY DEE Non-Formulary Medication 100 mg 10/20/24 10:00 Progesterone Micronized PO DAILY DEE Non-Formulary Medication 150 mg 10/20/24 10:00 Elagolix [Orilissa] PO DAILY [facility] NIHSS NIHSS Nursing Documentation NIHSS Nursing Documentation: NIHSS: Ischemic Stroke/TIA Start: 10/19/24 11:57 Text: For ICU Patients: NIH sroke scale at Status: Active presentation and every 2 hours or with change in RN caregiver Freq: [id number] Protocol: Activity Type Activity Date Activity User E-sign Co-sign Detail Recorded Client Recorded Date Recorded By Document 10/19/24 12:03 SULLY [id number] 10/19/24 12:31 SULLY 10/19/24 12:03 NIH Stroke Scale [NIHSS] A score of 0 is normal or asymptomatic . Total possible score is 42. Inpatient: RN or Physician to activate a stroke alert for onset of new stroke symptoms or with NIHSS increase >/= 3 points. Following change in neurological status, NIHSS will be performed per physician order or more frequently PRN. -1a. Level of Consciousness 0 - Alert; keenly responsive -1b. LOC Questions 0 - Answers BOTH questions correctly -1c. LOC Commands 0 - Performs BOTH tasks correctly -2. Best Gaze 0 - Normal -3. Visual 0 - No visual loss -4. Facial Palsy 0 - Normal symmetrical movements -5a. Left Arm 0 - No drift; arm holds 90 ( or 45) degrees for full 10 seconds -5b. Right Arm 0 - No drift; arm holds 90 ( or 45) degrees for full 10 seconds -6a. Left Leg 0 - No drift; leg holds 30- degree position for full 5 seconds -6b. Right Leg 0 - No drift; leg holds 30- degree position for full 5 seconds -7. Limb Ataxia 0 - Absent -8. Sensory 1 - Mild-to- moderate sensory loss; -9. Best Language 0 - No aphasia; normal -10. Dysarthria 0 - Normal -11. Extinction and Inattention 0 - No abnormality -Total 1 Query Text:A score of 0 is normal or asymptomatic. Total possible score is 42 . ED: Notify Physician for NIHSS increase by > / = 3 points. Inpatient: RN or Physician to activate a stroke alert for NIHSS increase of > / = 3 points. Coma Scale [Assess] -Eye Opening Spontaneous -Motor Obeys Commands -Verbal Oriented [Total] -Coma Scale Total 15 NIHSS 1a. Level of Consciousness: 0 - Alert; keenly responsive 1b. LOC Questions: 0 - Answers BOTH questions correctly 1c. LOC Commands: 0 - Performs BOTH tasks correctly 2. Best Gaze: 0 - Normal 3. Visual: 0 - No visual loss 4. Facial Palsy: 0 - Normal symmetrical movements 5a. Left Arm: 0 - No drift; arm holds 90 (or 45) degrees for full 10 seconds 5b. Right Arm: 0 - No drift; arm holds 90 (or 45) degrees for full 10 seconds 6a. Left Le - No drift; leg holds 30-degree position for full 5 seconds 6b. Right Le - No drift; leg holds 30-degree position for full 5 seconds 7. Limb Ataxia: 0 - Absent 8. Sensory: 1 - [id number] sensory loss; 9. Best Language: 0 - No aphasia; normal 10. Dysarthria: 0 - Normal 11. Extinction and Inattention: 0 - No abnormality Total: 1
[2024-10-19] MEDS: 0.9% Saline Lock 10 ML Syringe IV (14:37)
[2024-10-19] MEDS: 0.9% Normal Saline (1000mL) 1,000 ML 75 ML IV (14:37)
[2024-10-19 21:53] LABS: Troponin T High Sens 4 HR < 6 ng/L (<=14)
[2024-10-19] MEDS: ELAGOLIX SODIUM 150 MG PO (22:02)
--- OUTSIDE RECORDS SUMMARY | 2024-10-19 23:01 | XMS RPT_ITS | CCD ---
Author Organization [facility] Care Team Providers Care Admissions Rn Name Role Phone Loi Pennington Unavailable Unavailable Ginger, Shani L Unavailable Unavailable Ginger, Shani L Unavailable Unavailable Ever Bustamante Unavailable Unavailable Candy Pena Unavailable Unavailable Mesko, Tasha Unavailable Unavailable Mesko, Tasha L Unavailable Unavailable Ginger, Shani L Unavailable Unavailable Loi Pennington Unavailable Unavailable Mesko, Tasha L Unavailable Unavailable Unavailable Mesko DO, Tasha L Primary Care Provider RORY DO-FACOG, INGRID Hilton Attending Unavail able MICHENER, REBEKAH Primary Care Unavailable RORY DO-FACOG, INGRID Hilton Attending Unavail able MICHENER, REBEKAH Primary Care Unavailable RORY DO-FACOG, INGRID Hilton Attending Unavail able MICHENER, REBEKAH Primary Care Unavailable RORY DO-FACOG, INGRID Hilton Attending Unavail able MICHENER, REBEKAH Primary Care Unavailable MICHENER, REBEKAH Primary Care Unavailable MICHENER, REBEKAH Primary Care Unavailable MICHENER, REBEKAH Primary Care Unavailable RORY DO-FACOG, INGRID Hilton Attending Unavail able MICHENER, REBEKAH Primary Care Unavailable Mesko DO, Tasha L Primary Care Provider Tomasz CHILEL Rebekah Primary Care Provider Tomasz SUBSTATION OPERATOR AUTOMATIC, SUBSTATION OPERATOR AUTOMATIC-C Rebekah Israel Primary Care Provider Unavailable Tomasz SUBSTATION OPERATOR AUTOMATIC, SUBSTATION OPERATOR AUTOMATIC-C Rebekah Israel Referring Provider Un available Moshe GUALLPA, RAMU Hale Attending Provider Mesko DO, Tasha L Primary Care Provider Rebekah Tolbert CNP Primary Care Provider [phone] Waldo Penn MD Primary Care Provider Rebekah Tolbert Primary Care Provider Reanna USABILITY STRATEGIST.FLOOR INSPECTOR, Any M Unavailable REBEKAH TOLBERT Primary Care Unavailable NO FAMILY PHYSICIAN, 837 Primary Care Unavail able FILI, WALDO Primary Care Unavailable WALDO PENN Referring Unavailable TU TOLBERTISTA Primary Care Unavailable WALDO PENN Attending Unavailable QUINTENMILAGROS, REBEKAH Primary Care Unavailable ABDIFATAH WELSH Referring Unavailable MICHENER, REBEKAH Primary Care Unavailable WALDO PENN Attending Unavailable FILI, WALDO Primary Care Unavailable ANY VELAZCO M Referring Unavailable FILI, WALDO Primary Care Unavailable ANY VELAZCO M Attending Unavailable FILI, WALDO Primary Care Unavailable FILI, WALDO Primary Care Unavailable WALDO PENN Attending Unavailable Dr. Theron Robles DO Emergency Provider Fili ROSE, Dr. Haas Primary Care Provider Alex ROSE, Dr. Rodas Admit Provider Alex ROSE, Dr. Rodas Attending Provider [phone] Tomasz SUBSTATION OPERATOR AUTOMATIC, Rebekah Israel Attending Unavailabl e Tomasz SUBSTATION OPERATOR AUTOMATIC, Rebekah K Referring Unavailabl e Tomasz SUBSTATION OPERATOR AUTOMATIC, Rebekah K Primary Care UnavailDenys Bertrand Attending Unavailable Denys Carver Referring Unavailable Tomasz SUBSTATION OPERATOR AUTOMATIC, Rebekah Israel Primary Care Unavailabl e Fili, Waldo Primary Care Unavailable Clark Johnson Admitting Unavailable Clark Johnson Attending Unavailable Dionisio Abreu Consulting Unavailable Adeli, Amir Consulting Unavailable Hinduja, Sade Consulting Unavailable Luis Angel, Holli Consulting Unavailable Zha, Maryanne Consulting Unavailable Osbaldo, Ramone Consulting Unavailable Dixie Chavira Consulting Unavailable Shantanu Paulino Consulting Unavailable Anitha Delacruz Consulting Unavailable Luis Miguel Mancini Consulting Unavailable Teresa Mahajan Consulting Unavailable Jb Murray Consulting Unavailable Moon Rush Consulting Unavailable Lana Bal Consulting Unavailable Golden Underwood Consulting UnavailShant Wagner Consulting Unavailable Thi Garcia Consulting Unavailable Antony Husain Consulting Unavailable Yaritza Valle Consulting Unavailable Adeline Arnold Consulting Unavailable Clark Johnson Consulting Unavailable Allergies Allergy Classification Reported Allergen(s) Allergy Type Date of Onset Reaction(s) Facility Latex (2 sources) natural latex rubber Substance Allergy [facility] Work Phone: montelukast (1 source) montelukast; Translations: [Singulair] Drug Allergy Depression [facility] Work Phone: Penicillins (antibiotic) (4 sources) Penicillins; Translations: [Penicillins] Drug Allergy Hives, Itching [facility] Work Phone: (20 sources) Amoxicillin; Translations: [Amoxicillin TABS] Drug Allergy 0 Itching, [facility] (11 sources) natural latex rubber; Translations: [LATEX] allergy to substance 0 [facility] (11 sources) Penicillins; Translations: [Penicillins] drug allergy 0 Hives, Itching [facility] (6 sources) montelukast; Translations: [Singulair] Drug Allergy Depression [facility] Work Phone: (20 sources) Latex Allergy to substance 0 Hives, Swelling [facility] (11 sources) Penicillins Allergy to substance 2 [facility] (15 sources) Penicillins Propensity to adverse reactions 0 [facility] Work Phone: (4 sources) Penicillins Drug Allergy 0 [facility] (2 sources) Amoxicillin; Translations: [AMOXICILLIN] Drug Allergy 0 [facility] (1 source) Latex Drug allergy (disorder) 5 [facility] (1 source) Penicillins Drug allergy (disorder) 5 [facility] Medications Current Medications Medication Drug Class(es) Dates Sig (Normalized) Sig (Original) [id number] 200 actuat albuterol 0.09 mg/actuat metered dose inhaler (20 sources) beta2-Adrenergic Agonist Start: 01-26-2010 albuterol HFA (PROAIR HFA) 90 mcg/Actuation INHALATION HFAA 1-2 inhalations 4 hours as needed 1 0 01/26/2010 Active End: 02-26-2024 ALBUTEROL SULFATE INHALATION Inhale as instructed. 02/26/2024 Discontinued ALBUTEROL SULFAT E INHALATION Inhale as instructed. 0 Active Comment on above: 1-2 inhalations 4 ho urs as needed Inhale as instructed . albuterol 0.833 mg/ml / ipratropium bromide 0.167 mg/ml inhalation solution (10 sources) Anticholinergic, beta2-Adrenergic Agonist Start: 04-07-20 take 3 mL by inhalation four times daily as needed for wheezing ipratropium-albutero l (DUONEB) 0.5 mg-3 mg(2.5 mg base)/3 mL nebu Indications: Moderate persistent asthma with acute exacerbation (HCC) Inhale 3 mL as instructed four times a day as needed for wheezing/shortness of breath. 04/07/2024 Active Start: 11-17-2022 End: 11-17-2022 ipratropium-albuterol 3 mL n ebulizer solution (DUONEB) B-Complex With Vitamin C (2 sources) Start: 05-16-2022 take 1 tablet by mouth once daily B-Complex With Vitamin C Active 1 TABLET PO DAILY May 16, 2022 1:00am Start: 05-16-2022 take 1 tablet by sherri th once daily B-Complex With Vitamin C Active 1 TABLET PO DAILY May 16, 2022 12:00am benzonatate 100 mg oral capsule (15 sources) Non-narcotic Antitussive Start: 06-01-2024 take 1 capsule by mouth three times daily as needed for cough benzonatate (TESSALON PERLE) 100 mg capsule Indications: Moderate persistent asthma with acute exacerbation (HCC) Take 1 capsule by mouth three times a day as needed for cough. 21 capsule 06/01/2024 Active Start: 11-29-2018 End: 02-26-2024 take 1 capsule by mouth three times daily as needed benzonatate (TESSALON PERLE) 100 mg capsule Indications: URI with cough and congestion Take 1 capsule by mouth three times daily as needed. 30 capsule 11/29/2018 02/26/2024 Discontinued Comment on above: Take 1 capsule by mo uth three times daily as needed. dicyclomine hydrochloride 20 mg oral tablet (12 sources) Anticholinergic Start: 05-16-19 take 1 tablet by mouth once daily Dicyclomine 20 mg tablet Active 20 mg PO DAILY May 16, 2022 1:00am Start: 10-13-2019 [facility] Dicyclomine HCl - 20 MG Oral Tablet TAKE 1 TABLET TWICE DAILY. Quantity: 60 Refills: 0 Tasha Bunch DO Start : 13-Oct-2019 Active End: 02-26-2024 take 1 capsule by mouth at bedtime dicyclomine (BENTYL) 10 mg capsule Take 10 mg by mouth before meals and at bedtime. 02/26/2024 Discontinued Comment on above: Take 10 mg by mouth before meals and at bedtime. elagolix 150 mg oral tablet (20 sources) Start: 05-17-2022 take 1 tablet by mouth every twenty-four hours elagolix (ORILISSA) 150 mg tablet Take 150 mg by mouth every 24 hours. 05/17/2022 Active Start: 05-17-2022 End: 02-26-2024 take 1 tablet by mouth once daily Elagolix (Orilissa) 150 mg tablet Active 150 mg PO DAILY May 17, 2022 1:00am Comment on above: Take 150 mg by mouth once daily. Take 1 tablet (150 m g) by mouth once daily. Take by mouth. escitalopram 20 mg oral tablet (17 sources) Serotonin Reuptake Inhibitor Start: 7 End: 4 take 20 mg by mouth once daily Escitalopram Oxalate Active 20 MG PO DAILY February 19, 2019 11:00pm Comment on above: Take 20 mg by mouth once daily. famotidine 20 mg oral tablet (20 sources) Histamine-2 Receptor Antagonist Start: 3 take 1 tablet by mouth once daily Famotidine 20 mg tablet Active 20 mg PO DAILY May 16, 2022 1:00am take 1 tablet by mouth twice alicia ly famotidine (PEPCID) 20 mg tablet Take 20 mg by mouth twice daily. Active Comment on above: Take 20 mg by mouth twice daily. FLUoxetine 20 mg oral capsule (20 sources) Serotonin Reuptake Inhibitor Start: 09-08-2023 take 1 capsule by mouth once daily Fluoxetine 20 mg capsule Active 20 mg PO DAILY September 08, 2023 12:00am Start: 06-20-2020 End: 02-26-2024 take 1 tablet by mouth once daily FLUoxetine HCl 20 mg tablet Take 20 mg by mouth once daily. 06/20/2020 Active Comment on above: Take 20 mg by mouth once daily. Take by mouth. 120 actuat fluticasone propionate 0.23 mg/actuat / salmeterol 0.021 mg/actuat metered dose inhaler (12 sources) Corticosteroid, beta2-Adrenergic Agonist Start: take 2 puff(s) by inhalation twice daily fluticasone-salmetero l HFA (ADVAIR HFA) 230-21 mcg/actuation inhaler Indications: Moderate persistent asthma with acute exacerbation (HCC) Inhale 2 Puffs as instructed two times a day. 04/07/2024 Active Start: 05-16-2022 End: 10-19-2024 Fluticasone Propion-Salmeter ol (Advair Hfa) 230-21 mcg/actuation HFA aerosol inhaler Discontinued 2 NMA INHALATION DAILY May 16, 2022 1:00am October 19, 2024 10:37am Start: 05-16-2022 take 1 puff(s) by in halation once daily Fluticasone Propion-Salmeterol (Advair Hfa) 230-21 mcg/actuation HFA aerosol inhaler Active 2 PUFF INHALATION DAILY May 16, 2022 1:00am Start: 05-16-2022 take 1 puff(s) by in halation once daily Fluticasone Propion-Salmeterol (Advair Hfa) 230-21 mcg/actuation HFA aerosol inhaler Active 2 PUFF INHALATION DAILY May 16, 2022 12:00am fluticasone propion/salmeter ol (ADVAIR DISKUS INHALATION) (6 sources) fluticasone prop ion/salmeterol (ADVAIR DISKUS INHALATION) Inhale as instructed once daily. Active fluticasone prop ion/salmeterol (ADVAIR DISKUS INHALATION) Inhale as instructed once daily. 0 Active Comment on above: Inhale as instructed once daily. 12 hr hyoscyamine sulfate 0.375 mg extended release oral tablet (19 sources) Start: take 1 tablet by mouth once daily at bedtime hyoscyamine SR (LEVBID) 0.375 mg 12 hr tablet Take 0.375 mg by mouth daily at bedtime. 06/20/2020 Active Start: 06-20-2020 take 1 tablet by sherri th twice daily Hyoscyamine Sulfate ER 0.375 MG Oral Tablet Extended Release 12 Hour TAKE 1 TABLET TWICE DAILY. Quantity: 60 Refills: 0 Ordered: 20-Jun-2020 Tasha Bunch DO Start : 20-Jun-2020 Active levoFLOXacin 750 mg oral tablet (1 source) Quinolone Antimicrobial Start: 11-17-2022 End: 11-24-2022 take 1 tablet by mouth once daily levoFLOXacin (LEVAQUIN) 750 mg tablet Take 1 tablet by mouth once daily for 7 days. 7 tablet 0 11/17/2022 11/24/2022 Active Comment on above: Take 1 tablet by sherri th once daily for 7 days. montelukast 10 mg oral tablet (20 sources) Leukotriene Receptor Antagonist Start: 04-07-2024 End: 08-11-2024 take 1 tablet by mouth once daily Montelukast (Singulair) 10 mg tablet Active 10 mg PO DAILY October 19, 2024 12:00am End: 02-26-2024 take 1 tablet by mouth once daily at bedtime montelukast (SINGULAIR) 10 mg ORAL Tab Take one(1) tablet daily at bedtime. 02/26/2024 Discontinued Comment on above: Take one(1) tablet d aily at bedtime. progesterone 100 mg oral capsule (20 sources) Progesterone Start: 10-20-19 take 1 capsule by mouth once daily Progesterone Micronized 100 mg capsule Active 100 mg PO DAILY October 19, 2024 12:00am Start: 05-16-2022 End: 10-19-2024 take 1 capsule by mouth once daily Progesterone Micronized 200 mg capsule Discontinued 200 mg PO DAILY May 16, 2022 1:00am October 19, 2024 10:36am Comment on above: Take 200 mg by mouth once daily. Take by mouth. Whey Proteins (11 sources) Non-Standardized Food Allergenic Extract Start: 05-16-2022 take 1 g by mouth once daily Whey Active 1 GM PO DAILY May 16, 2022 1:00am Start: 05-16-2022 take 1 g by mouth once daily W hey Active 1 GM PO DAILY May 16, 2022 12:00am End: 04-03-2024 whey (IMMUNOCAL ORAL) Take b y mouth once daily. 04/03/2024 Discontinued whey (IMMUNOCAL ORAL) Take by mouth once daily. Active whey (IMMUNOCAL ORAL) Take by mouth once daily. 0 Active whey (IMMUNOCAL ORAL) Take by mouth. 0 Active Comment on above: Take by mouth. Take by mouth once d aily. Completed/Discontinued Medications Medication Drug Class(es) Dates Sig (Normalized) Sig (Original) acetaminophen 500 mg oral tablet (1 source) Start: 11-17-2022 End: 11-17-2022 acetaminophen 1,000 mg tab(s) (TYLENOL) acetaminophen 325 mg / oxyCODONE hydrochloride 5 mg oral tablet (16 sources) Opioid Agonist Start: 09-08-2023 End: 10-19-2024 Oxycodone-Acetaminop hen (Percocet) 5-325 mg tablet Discontinued 1 {tbl} PO EVERY 6 HOURS as needed for pain 12 3 0 September 08, 2023 October 19, 2024 9:06am Acute flank pain Unspecified abdominal pain Start: 05-17-2022 End: 09-08-2023 Oxycodone-Acetaminophen (Per cocet) 5-325 mg tablet Discontinued 1 {tbl} PO Q8H as needed for pain 6 3 0 May 17, 2022 September 08, 2023 12:07am Calculus of ureter Calculus of ureter Start: 03-06-2019 take 0.5-1 tablets b y mouth every eight hours as needed for pain oxyCODONE-Acetaminophen 5-325 MG Oral Tablet TAKE 1/2-1 TABLET EVERY 8 HOURS NEEDED FOR PAIN. Quantity: 15 Refills: 0 Loi Pennington MD Start : 06-Mar-2019 Active Start: 02-20-2019 End: 03-01-2019 Oxycodone-Acetaminophen 1 TA BLET tablet Discontinued 1 {tbl} PO EVERY 6 HOURS NEEDED as needed for Pain 12 3 0 February 20, 2019 February 22, 2019 12:00am March 01, 2019 1:10am Rotator cuff tear arthropathy Start: 02-20-2019 End: 03-01-2019 take 1 tablet by mouth every six hours as needed Oxycodone-Acetaminophen Discontinued 1 TABLET PO EVERY 6 HOURS NEEDED 12 3 February 20, 2019 March 01, 2019 1:10am acetylcysteine 600 mg oral capsule (12 sources) Antidote, Mucolytic, Antidote for Acetaminophen Overdose Start: 05-16-2022 End: 09-08-2023 take 1 capsule by mouth twice daily Acetylcysteine (Nac) 600 mg Capsule Discontinued 600 mg PO TWICE A DAY May 16, 2022 1:00am September 08, 2023 12:08am End: 04-03-2024 acetylcysteine (NAC ORAL) Ta ke by mouth. 04/03/2024 Discontinued acetylcysteine ( NAC ORAL) Take by mouth. Active acetylcysteine ( NAC ORAL) Take by mouth. 0 Active Comment on above: Take by mouth. allopurinol 100 mg oral tablet (8 sources) Xanthine Oxidase Inhibitor Start: 3 End: take 1 tablet by mouth twice daily Allopurinol 100 mg tablet Discontinued 100 mg PO TWICE A DAY May 16, 2022 1:00am September 08, 2023 12:08am Comment on above: Take by mouth. Alpha Lipoic Acid-Biotin (Alamax Cr) 600 mg- 450 mcg Tablet Extended Release (3 sources) Start: 3 End: 4 Alpha Lipoic Acid-Biotin (Alamax Cr) 600 mg- 450 mcg Tablet Extended Release Discontinued 1 {tbl} PO DAILY May 16, 2022 1:00am September 08, 2023 12:07am Start: 05-16-2022 take 1 tablet by sherri th once daily Alpha Lipoic Acid-Biotin (Alamax Cr) 600 mg- 450 mcg Tablet Extended Release Active 1 TABLET PO DAILY May 16, 2022 1:00am Start: 05-16-2022 take 1 tablet by sherri th once daily Alpha Lipoic Acid-Biotin (Alamax Cr) 600 mg- 450 mcg Tablet Extended Release Active 1 TABLET PO DAILY May 16, 2022 12:00am azithromycin 250 mg oral tablet (5 sources) Macrolide Antimicrobial Start: 06-01-2024 End: 06-06-2024 take 2 tablets by mouth once daily, then take 1 tablet by mouth once daily azithromycin (ZITHROMAX) 250 mg tablet Indications: Moderate persistent asthma with acute exacerbation (HCC) Take 2 tablets by mouth once daily for 1 day, THEN 1 tablet once daily for 4 days. 6 tablet 06/01/2024 06/06/2024 Start: 02-26-2024 End: 03-02-2024 take 2 tablets by mouth once daily, then take 1 tablet by mouth once daily azithromycin (ZITHROMAX) 250 mg tablet Indications: Bacterial pneumonia Take 2 tablets by mouth once daily for 1 day, THEN 1 tablet once daily for 4 days. 6 tablet 02/26/2024 03/02/2024 Active B-Complex With Vitamin C Tablet Extended Release (1 source) Start: 05-16-2022 End: 10-19-2024 B-Complex With Vitamin C Tablet Extended Release Discontinued 1 {tbl} PO DAILY May 16, 2022 1:00am October 19, 2024 10:37am 60 actuat budesonide 0.16 mg/actuat / formoterol fumarate 0.0045 mg/actuat metered dose inhaler (8 sources) Corticosteroid, beta2-Adrenergi c Agonist Start: 01-26-2010 End: 02-26-2024 take 2 puff(s) by inhalation in the morning budesonide-formotero l (SYMBICORT) 160-4.5 mcg/Actuation INHALATION HFAA 2 puffs am and pm. Gargle. 1 11 01/26/2010 02/26/2024 Discontinued Comment on above: 2 puffs am and pm. Mari tejada. diphenhydrAMINE hydrochloride 25 mg oral capsule (12 sources) Histamine-1 Receptor Antagonist Start: 05-16-2022 End: 10-19-2024 take 1 capsule by mouth at bedtime as needed for sleep Diphenhydramine Hcl (Benadryl) 25 mg Capsule Discontinued 25 mg PO AT BEDTIME as needed for Sleep May 16, 2022 1:00am October 19, 2024 10:37am End: 04-03-2024 take 1 tablet by mouth every six hours as needed diphenhydrAMINE (BENADRYL) 25 mg tablet Take 25 mg by mouth every 6 hours as needed. 04/03/2024 Discontinued Comment on above: Take 25 mg by mouth every 6 hours as needed. doxycycline monohydrate 100 mg oral capsule (3 sources) Tetracycline-clas s Drug Start: 06-04-2024 End: 06-11-2024 take 1 capsule by mouth twice daily doxycycline monohydrate (MONODOX) 100 mg capsule Take 1 capsule by mouth two times a day for 7 days. 14 capsule 06/04/2024 06/11/2024 Start: 03-10-2021 take 1 capsule by mo uth once daily Doxycycline Hyclate 100 MG Oral Capsule TAKE 1 CAPSULE EVERY 12 HOURS DAILY. Quantity: 20 Refills: 0 Ordered: 10-Mar-2021 Shani Miles MD Start : 10-Mar-2021 Active DULoxetine 20 mg delayed release oral capsule (1 source) Serotonin and Norepinephrine Reuptake Inhibitor Start: 10-13-2019 take 1 capsule by mouth once daily DULoxetine HCl - 20 MG Oral Capsule Delayed Release Particles 1 capsule once a day Quantity: 30 Refills: 0 Tasha Bunch DO Start : 13-Oct-2019 Active [id number] 0.3 ml EPINEPHrine 1 mg/ml auto-injector (8 sources) alpha-Adrenergic Agonist, beta-Adrenergic Agonist, Catecholamine Start: 12-21-2009 End: 02-26-2024 EPINEPHRINE 0.3 MG/0.3 ML (1:1,000) IM PEN INJECTOR Indications: Toxic effect of latex(989.82) 1 pack. use as directed 1 4 12/21/2009 02/26/2024 Discontinued Comment on above: 1 pack. use as direc humphrey gabapentin 100 mg oral capsule (9 sources) Anti-epileptic Agent Start: 04-20-2020 End: 02-26-2024 gabapentin (NEURONTIN) 100 mg capsule Take by mouth. 04/20/2020 02/26/2024 Discontinued Start: 04-20-2020 take 3 capsules by m outh at bedtime, then take 2 capsules by mouth in the morning Gabapentin 100 MG Oral Capsule TAKE 3 CAPSULE AT BEDTIME and 2 CAPSULE IN THE MORNING Quantity: 150 Refills: 0 Ordered: 11-Jul-2020 Tasha Bunch DO Start : 20-Apr-2020 Active Comment on above: Take by mouth. Garlic preparation (9 sources) Non-Standardized Food Allergenic Extract End: 04-03-2024 GARLIC once daily. 04/03/2024 Discontinued GARLIC once ruby y. Active GARLIC once ruby y. 0 Active GARLIC Comment on above: once daily. hydrOXYzine hydrochloride 25 mg oral tablet (15 sources) Antihistamine Start: 12-21-19 18 End: 10-20-19 take 1 tablet by mouth at bedtime Hydroxyzine Hcl 25 mg tablet Discontinued 25 mg PO AT BEDTIME May 25, 2022 1:00am October 19, 2024 10:37am Comment on above: Take 25 mg by mouth three times daily as needed. Take by mouth. ibuprofen 800 mg oral tablet (2 sources) Nonsteroidal Anti-inflammatory Drug Start: 11-18-19 End: 11-18-19 ibuprofen 800 mg tab(s) (MOTRIN) Start: 11-17-2022 End: 11-17-2022 ibuprofen 800 mg tab(s) (MOT RIN) levocetirizine dihydrochloride 5 mg oral tablet (8 sources) Histamine-1 Receptor Antagonist Start: 03-01-2010 End: 02-26-2024 take 1 tablet by mouth once daily Levocetirizine (XYZAL) 5 mg ORAL tablet Take one(1) tablet daily as necessary 30 Tab 3 03/01/2010 02/26/2024 Discontinued Comment on above: Take one(1) tablet d aily as necessary meclizine hydrochloride 25 mg oral tablet (7 sources) Antiemetic Start: 12-07-2020 take 1 tablet by mouth three times daily as needed Meclizine HCl - 25 MG Oral Tablet TAKE 1 TABLET 3 times daily PRN diizziness Quantity: 30 Refills: 0 Ordered: 07-Dec-2020 Nadiya Faith DO Start : 07-Dec-2020 Active melatonin 10 mg oral capsule (9 sources) End: 04-03-2024 melatonin 10 mg cap Take by mouth once daily. 04/03/2024 Discontinued Comment on above: Take by mouth. Take by mouth once d aily. naproxen sodium 220 mg oral tablet (8 sources) Nonsteroidal Anti-inflammatory Drug Start: 12-01-2009 End: 02-26-2024 naproxen sodium(ALEVE 220 MG TAB) as necessary 0 12/01/2009 02/26/2024 Discontinued Comment on above: as necessary omeprazole 40 mg delayed release oral capsule (8 sources) Proton Pump Inhibitor Start: 01-30-2010 End: 02-26-2024 take 1 tablet by mouth once daily at mealtime Omeprazole (PRILOSEC) 40 mg ORAL CpDR Take one(1) tablet two(2) times daily 30 minutes prior to meals. 60 1 01/30/2010 02/26/2024 Discontinued Comment on above: Take one(1) tablet t wo(2) times daily 30 minutes prior to meals. phenazopyridine hydrochloride 200 mg oral tablet (3 sources) Start: 05-17-2022 End: 09-08-2023 take 1 tablet by mouth three times daily as needed for muscle spasms Phenazopyridine (Pyridium) 200 mg tablet Discontinued 200 mg PO 3 TIMES DAILY NEEDED as needed for Bladder Spasms 30 7 0 May 17, 2022 1:00am September 08, 2023 12:07am predniSONE 10 mg oral tablet (11 sources) Start: 06-04-2024 End: 06-16-2024 predniSONE (DELTASONE) 10 mg tablet Take 4 tabs daily x 3 days, then 3 tabs x 3 days, 2 tabs x 3 days, then 1 tab x3 days with food. 30 tablet 06/04/2024 06/16/2024 Start: 06-01-2024 End: 06-06-2024 take 1 tablet by mouth once daily predniSONE (DELTASONE) 20 mg tablet Indications: Moderate persistent asthma with acute exacerbation Take 1 tablet by mouth once daily for 5 days. 5 tablet 06/01/2024 06/04/2024 Discontinued Start: 04-03-2024 End: 06-01-2024 take 4 tablets by mouth once daily, then take 3 tablets by mouth once daily, then take 2 tablets by mouth once daily, then take 1 tablet by mouth once daily predniSONE (DELTASONE) 10 mg tablet Indications: Moderate persistent asthma with acute exacerbation TAKE BY MOUTH 4 TABLETS DAILY FOR 2 DAYS, THEN 3 TABLETS DAILY FOR 2 DAYS, THEN 2 TABLETS DAILY FOR 2 DAYS, THEN 1 TABLET DAILY FOR 2 DAYS. 20 tablet 04/03/2024 06/01/2024 Discontinued Start: 02-26-2024 End: 03-05-2024 take 3 tablets by mouth once daily, then take 2 tablets by mouth once daily, then take 1 tablet by mouth once daily predniSONE (DELTASONE) 10 mg tablet Indications: Acute cough Take 3 tablets by mouth once daily for 3 days, THEN 2 tablets once daily for 3 days, THEN 1 tablet once daily for 3 days. 18 tablet 02/26/2024 03/05/2024 Active pregabalin 75 mg oral capsule (11 sources) Start: 05-16-2022 End: 02-26-2024 take 1 capsule by mouth twice daily Pregabalin (Lyrica) 75 mg capsule Discontinued 75 mg PO TWICE A DAY May 16, 2022 1:00am September 08, 2023 12:07am Comment on above: Take 75 mg by mouth twice daily. raNITIdine 150 mg oral tablet (8 sources) Histamine-2 Receptor Antagonist Start: 01-30-2010 End: 02-26-2024 take 1 tablet by mouth once daily at bedtime ranitidine (ZANTAC) 150 mg ORAL Tab Take one(1) tablet daily at bedtime. 30 2 01/30/2010 02/26/2024 Discontinued Comment on above: Take one(1) tablet d aily at bedtime. sulfamethoxazole 800 mg / trimethoprim 160 mg oral tablet (1 source) Dihydrofolate Reductase Inhibitor Antibacterial, Sulfonamide Antimicrobial Start: 09-08-2023 End: 10-19-2024 Sulfamethoxazole- Trimethoprim (Bactrim Ds) 800-160 mg tablet Discontinued 1 {tbl} PO TWICE A DAY 14 7 0 September 08, 2023 12:00am October 19, 2024 10:36am traMADol hydrochloride 50 mg oral tablet (11 sources) Opioid Agonist Start: 05-16-2022 End: 09-08-2023 take 1 tablet by mouth three times daily as needed for pain Tramadol 50 mg tablet Discontinued 50 mg PO THREE TIMES A DAY as needed for Pain May 16, 2022 1:00am September 08, 2023 12:07am End: 02-26-2024 take 1 tablet by mouth every six hours as needed traMADol (ULTRAM) 50 mg tablet Take 50 mg by mouth every 6 hours as needed for pain. 02/26/2024 Discontinued Comment on above: Take 50 mg by mouth every 6 hours as needed for pain. 24 hr venlafaxine 37.5 mg extended release oral capsule (2 sources) Serotonin and Norepinephrine Reuptake Inhibitor Start: 09-21-19 take 1 capsule by mouth once daily at mealtime Venlafaxine HCl ER 37.5 MG Oral Capsule Extended Release 24 Hour TAKE 1 CAPSULE ONCE DAILY WITH FOOD. Quantity: 30 Refills: 0 Tasha Bunch DO Start : 21-Sep-2019 Active Vitamin B Complex (9 sources) End: 04-03-20 24 vitamin B complex (STRESS B ORAL) Take by mouth. 04/03/2024 Discontinued vitamin B comple x (STRESS B ORAL) Take by mouth. Active vitamin B comple x (STRESS B ORAL) Take by mouth. 0 Active Comment on above: Take by mouth. Whey 9 gram Packet (1 source) Start: 05-16-2022 End: 09-08-2023 take 9 g by mouth once daily Whey 9 gram Packet Discontinued 1 g PO DAILY May 16, 2022 1:00am September 08, 2023 12:06am Problems Active Problems Problem Classification Problem Date Documented Date Episodic/Chronic Abdominal hernia (8 sources) Hiatal hernia; Translations: [Diaphragmatic hernia without mention of obstruction or gangrene] Episodic Comment on above: EGD 11/[address]Mye hahn at [facility]; Abdominal pain (20 sources) Left lower quadrant pain; Translations: [Generalized abdominal pain] Resolved: 08-19-2015 Episodic Comment on above: GI increased Bentyl to TID- Dr. Loi Pak; GI Dr.David Pak-EG D (started on antireflux meds); Acquired foot deformities (11 sources) Talipes planus; Translations: [Flat foot] Episodic Acquired foot deformities (11 sources) Talipes planus; Translations: [Flat foot] Episodic Acute bronchitis (1 source) Acute bronchitis; Translations: [Acute bronchitis] Episodic Adjustment disorders (8 sources) Chronic stress disorder; Translations: [Unspecified adjustment reaction] Chronic Anxiety disorders (20 sources) Mixed anxiety and depressive disorder; Translations: [Severe anxiety (panic)] Onset: 04-03-2024 Resolved: 12-03-2019 04-03-2024 Chronic Asthma (20 sources) Exacerbation of moderate persistent asthma; Translations: [Moderate persistent asthma with (acute) exacerbation] Onset: 04-22-1999 04-03-2024 Chronic Blindness and vision defects (8 sources) Photophobia; Translations: [Visual discomfort] Episodic Calculus of urinary tract (4 sources) Ureteric stone; Translations: [Calculus of ureter] 05-17-2022 Episodic Conditions associated with dizziness or vertigo (7 sources) Benign paroxysmal positional vertigo; Translations: [Benign paroxysmal positional vertigo] Episodic Endometriosis (13 sources) Endometriosis (clinical); Translations: [Endometriosis, site unspecified] 07-29-2023 Chronic Comment on above: 2017- Dr Siomara Deshpande; Fever of unknown origin (4 sources) Fever; Translations: [Fever, unspecified] 11-17-2022 Episodic Headache; including migraine (8 sources) Headache; Translations: [Headache] Episodic Immunity disorders (1 source) Immunodeficiency disorder; Translations: [Immunodeficiency, unspecified] 05-18-2024 Chronic Immunizations and screening for infectious disease (18 sources) Suspected disease caused by 2019-nCoV; Translations: [Contact with or exposure to other viral diseases] 07-29-2023 Episodic Malaise and fatigue (1 source) Malaise and fatigue; Translations: [Other malaise and fatigue] Episodic Miscellaneous mental health disorders (11 sources) Primary insomnia; Translations: [Persistent disorder of initiating or maintaining sleep] Chronic Mood disorders (9 sources) Depressive disorder; Translations: [Moderately severe major depression] Chronic Nonspecific chest pain (11 sources) Chest pain; Translations: [Chest pain, unspecified] 04-30-2021 Episodic Other connective tissue disease (8 sources) Unspecified rotator cuff tear or rupture of right shoulder, not specified as traumatic; Translations: [Unspecified rotator cuff tear or rupture of right shoulder, not specified as traumatic] Episodic Other ear and sense organ disorders (8 sources) Otalgia, right ear; Translations: [Right ear pain] Episodic Other female genital disorders (1 source) History of endometriosis; Translations: [Personal history of other diseases of the female genital tract] Episodic Other infections; including parasitic (1 source) Post-viral disorder; Translations: [Late effects of other and unspecified infectious and parasitic diseases] Chronic Other lower respiratory disease (2 sources) Wheezing; Translations: [Wheezing] 11-17-2022 Episodic Other lower respiratory disease (4 sources) Cough; Translations: [Acute cough] 02-26-2024 Episodic Other lower respiratory disease (2 sources) Dyspnea; Translations: [Shortness of breath] 06-04-2024 Episodic Other nervous system disorders (1 source) Has difficulty with speech; Translations: [Other speech disturbance] Episodic Other nervous system disorders (2 sources) Numbness of upper limb; Translations: [Anesthesia of skin] 10-19-2024 Episodic Other nervous system disorders (1 source) Anesthesia of skin; Translations: [Anesthesia of skin] Onset: 10-19-2024 Episodic Other non-traumatic joint disorders (8 sources) Chronic pain of right upper limb; Translations: [Pain in joint, shoulder region] Episodic Comment on above: Dr Alma calixto/ Kev GUALLPA; Other nutritional; endocrine; and metabolic disorders (20 sources) Body mass index 40+ - severely obese; Translations: [Body Mass Index 45.0-49.9, adult] Onset: 04-03-2024 04-03-2024 Chronic Other nutritional; endocrine; and metabolic disorders (1 source) Morbid obesity; Translations: [Morbid obesity] Chronic Other screening for suspected conditions (not mental disorders or infectious disease) (20 sources) Patient encounter status; Translations: [Screening for lipoid disorders] 01-18-2021 Episodic Other upper respiratory disease (20 sources) Allergic rhinitis; Translations: [Allergic rhinitis, unspecified] Onset: 12-01-2009 12-01-2009 Chronic Other upper respiratory infections (9 sources) Acute sinusitis; Translations: [Acute sinusitis, unspecified] Resolved: 09-19-2018 06-04-2024 Episodic Otitis media and related conditions (7 sources) Dysfunction of eustachian tube; Translations: [Dysfunction of Eustachian tube] Episodic Unclassified (1 source) Acute cough; Translations: [Acute cough] Onset: 01-30-2010 Urinary tract infections (1 source) Urinary tract infectious disease; Translations: [Urinary tract infection, site not specified] 09-16-2023 Episodic Viral infection (8 sources) Herpes zoster with complication; Translations: [Herpes zoster with other specified complications] Episodic Past or Other Problems Problem Classification Problem Date Documented Da te Episodic/Chronic Allergic reactions (12 sources) Contact dermatitis due to poison parveen; Translations: [Contact dermatitis and other eczema due to plants [except food]] Resolved: 8 Episodic Diseases of mouth; excluding dental (12 sources) Aphthous ulcer of mouth; Translations: [Oral aphthae] Resolved: 8 Episodic Esophageal disorders (19 sources) Laryngopharyngeal reflux; Translations: [Gastro-esophageal reflux disease without esophagitis] Onset: 0 Resolved: 4 01-30-2010 Chronic Fracture of upper limb (19 sources) Closed fracture of distal end of radius; Translations: [Other fractures of lower end of unspecified radius, initial encounter for closed fracture] Onset: 4 Resolved: 4 07-01-2013 Episodic Genitourinary congenital anomalies (12 sources) H/O: urinary anomaly; Translations: [Personal history of other specified urinary system disorders] Resolved: 6 Episodic Genitourinary symptoms and ill-defined conditions (12 sources) History of urinary tract infection; Translations: [Personal history, urinary (tract) infection] Resolved: 6 Episodic Inflammation; infection of eye (except that caused by tuberculosis or sexually transmitteddisease) (8 sources) Blepharitis of right eyelid; Translations: [Blepharitis, unspecified] Resolved: 8 Episodic Inflammation; infection of eye (except that caused by tuberculosis or sexually transmitteddisease) (4 sources) Blepharitis of right eyelid; Translations: [History of Blepharitis, right eye] Mood disorders (4 sources) Moderately severe major depression; Translations: [Moderately severe major depression] Other connective tissue disease (4 sources) Disorder of rotator cuff; Translations: [Unspecified rotator cuff tear or rupture of right shoulder, not specified as traumatic] Episodic Other connective tissue disease (4 sources) Pain in left lower leg; Translations: [Pain of left lower leg] Episodic Other connective tissue disease (12 sources) Pain in lower limb; Translations: [Pain in limb] Resolved: 7 Episodic Comment on above: Added by Problem Carolina t Garcia; 2013-04-17; Other connective tissue disease (20 sources) Foot pain; Translations: [Pain in limb] Resolved: 0 Episodic Other connective tissue disease (19 sources) Other symptoms and signs involving the musculoskeletal system; Translations: [Other musculoskeletal symptoms referable to limbs] Onset: 6 Resolved: 4 12-20-2015 Episodic Other connective tissue disease (19 sources) Pain in left foot; Translations: [Pain in left foot] Onset: 6 Resolved: 4 12-20-2015 Episodic Other gastrointestinal disorders (11 sources) H/O: gastrointestinal disease; Translations: [Personal history of other diseases of digestive system] Resolved: 9 Episodic Other lower respiratory disease (20 sources) H/O: respiratory disease; Translations: [Personal history of other diseases of respiratory system] Resolved: 8 Episodic Other lower respiratory disease (20 sources) H/O: bronchitis; Translations: [Personal history of other diseases of respiratory system] Resolved: 0 Episodic Comment on above: Added by Problem Carolina t Migration; 2013-04-17; Other lower respiratory disease (20 sources) Cough; Translations: [Cough] Onset: 0 Resolved: 4 01-30-2010 Episodic Other lower respiratory disease (1 source) Shortness of breath; Translations: [Shortness of breath] Onset: 5 Episodic Other nervous system disorders (4 sources) H/O: eye disorder; Translations: [History of conjunctivitis] Episodic Other nervous system disorders (8 sources) Personal history of other diseases of the nervous system and sense organs; Translations: [History of conjunctivitis] Resolved: 6 Episodic Other nervous system disorders (20 sources) History of clinical finding in subject; Translations: [Personal history of other disorders of nervous system and sense organs] Resolved: 0 Episodic Other non-traumatic joint disorders (1 source) Pain in right knee; Translations: [Pain in right knee] Onset: 4 Episodic Other nutritional; endocrine; and metabolic disorders (3 sources) Weight gain; Translations: [Weight gain] Episodic Other upper respiratory disease (19 sources) Abnormal voice; Translations: [Unspecified voice and resonance disorder] Onset: 0 Resolved: 4 01-30-2010 Episodic Pneumonia (except that caused by tuberculosis or sexually transmitted disease) (5 sources) Infective pneumonia; Translations: [Pneumonia, unspecified organism] Onset: 4 11-17-2022 Episodic Poisoning by nonmedicinal substances (19 sources) Toxic effect of latex, accidental (unintentional), initial encounter; Translations: [Toxic effect of latex] Onset: 0 Resolved: 4 12-01-2009 Episodic Residual codes; unclassified (12 sources) Abnormal sensation; Translations: [Disturbance of skin sensation] Resolved: 7 Episodic Residual codes; unclassified (13 sources) H/O: Disorder; Translations: [Personal history of other specified diseases] Resolved: 6 Episodic Screening and history of mental health and substance abuse codes (11 sources) H/O: depression; Translations: [Personal history of other mental disorders] Resolved: 0 Episodic Superficial injury; contusion (12 sources) Contusion of foot; Translations: [Contusion of foot] Resolved: 7 Episodic Unclassified (20 sources) History of clinical finding in subject; Translations: [History of cough] Resolved: 9 Unclassified (4 sources) Chronic pain of right upper limb; Translations: [Chronic right shoulder pain] Unclassified (4 sources) Patient encounter status; Translations: [Screening cholesterol level] 09-15-2024 Unclassified (1 source) Finding of sensation of abdomen; Translations: [Abdominal spasms] NEGATED: Highlighted row has not occurred!Residual codes; unclassified (20 sources) Disease Episodic Results Test Name Value Interpretation Reference Range Facility Absolute lymphocyte countOrd ered By: Theron Robles on 10-19-2024 Lymphocytes Auto (Unsp spec) [#/Vol] 2.32 10*3/uL 0.83-4.51 [facility] Absolute neutrophil countOrd ered By: Theron Robles on 10-19-2024 Neutrophils (Bld) [#/Vol] 6.3 10*3/uL 2.0-7.7 [facility] Activated partial thrombopla stin time (aPTT) in platelet poor plasma by coagulation aOrdered By: Theron Robles on 10-19-2024 aPTT Coag (PPP) [Time] 31.4 s 24.1-36.2 [facility] Anion gap in Serum or Plasma Ordered By: Theron Robles on 10-19-2024 Anion gap [Moles/Vol] 13 mmol/L 5-15 [facility] Automated lymphocyte count a s percentage of total leukocytesOrdered By: Theron Robles on 10-19-2024 Lymphocytes/100 WBC Auto (Unsp spec) 24.1 % 19-41 [facility] BUN/creatinine ratioOrdered By: Theron Robles on 10-19-2024 Urea nitrogen/Creatinine [Mass ratio] 12.3 mg/mg 02-08 [facility] Basic Metabolic Profile (BMP )on 10-19-2024 BUN/CRE 12.3 RATIO Normal 02-08 [facility] Comment on above: Performed By: #### L 500.2500, L300.3900, L100.0100, L501.4021, L300.4310 #### [facility] [address] [place], [address] Calcium [Mass/Vol] 9.1 mg/dL Normal 7.6-11.0 [facility] Comment on above: Performed By: #### L 500.2500, L300.3900, L100.0100, L501.4021, L300.4310 #### [facility] [address] [place], [address] Chloride [Moles/Vol] 106 mmol/L Normal 98-108 [facility] Comment on above: Performed By: #### L 500.2500, L300.3900, L100.0100, L501.4021, L300.4310 #### [facility] [address] [place], [address] CO2 [Moles/Vol] 21.2 mmol/L Normal 21.0-32.0 [facility] Comment on above: Performed By: #### L 500.2500, L300.3900, L100.0100, L501.4021, L300.4310 #### [facility] [address] [place], [address] ECRCL 91.68 ml/min Normal 50-250 [facility] Comment on above: Performed By: #### L 500.2500, L300.3900, L100.0100, L501.4021, L300.4310 #### [facility] [address] [place], [address] GAP 13 Normal 5-15 [facility] Comment on above: Performed By: #### L 500.2500, L300.3900, L100.0100, L501.4021, L300.4310 #### [facility] [address] [place], [address] GFR/1.73 sq M.predicted among non-blacks MDRD (S/P/Bld) [Vol rate/Area] 81 mL/min/{1.73_m2} Normal >60 [facility] Comment on above: Result Comment: mL/m in/1.73m2 CKD-EPI Creatinine Equation (2020) Performed By: #### L 500.2500, L300.3900, L100.0100, L501.4021, L300.4310 #### [facility] [address] [place], [address] Potassium [Moles/Vol] 4.1 mmol/L Normal 3.3-5.1 [facility] Comment on above: Performed By: #### L 500.2500, L300.3900, L100.0100, L501.4021, L300.4310 #### [facility] [address] [place], [address] Sodium [Moles/Vol] 140 mmol/L Normal 133-145 [facility] Comment on above: Performed By: #### L 500.2500, L300.3900, L100.0100, L501.4021, L300.4310 #### [facility] [address] [place], [address] Creatinine [Mass/Vol] 0.88 mg/dL Normal 0.70-1.20 [facility] Comment on above: Performed By: #### L 500.2500, L300.3900, L100.0100, L501.4021, L300.4310 #### [facility] [address] [place], [address] Glucose [Mass/Vol] 119 mg/dL High 70-99 [facility] Comment on above: Performed By: #### L 500.2500, L300.3900, L100.0100, L501.4021, L300.4310 #### [facility] [address] [place], [address] Urea nitrogen [Mass/Vol] 11 mg/dL Normal 4-19 [facility] Comment on above: Performed By: #### L 500.2500, L300.3900, L100.0100, L501.4021, L300.4310 #### [facility] [address] [place], [address] Basophil percentageOrdered B y: Margaret on 10-19-2024 Basophils/100 WBC (Bld) 0.7 % 0-1 [facility] Bedside Glucoseon 10-19-2024 FINGERSTICK GLU 111 mg/dL High 74-106 [facility] Comment on above: Result Comment: IAN GEMENT OF PATIENT CARE PER NURSING PROTOCOL Performed By: #### L 501.080 #### [facility] [address] [place], [address] FINGERSTICK GLU 112 mg/dL High 74-106 [facility] Comment on above: Result Comment: IAN GEMENT OF PATIENT CARE PER NURSING PROTOCOL Performed By: #### L 501.080 ####[facility] [id number] [place], [address] CBC W/Diff, Automatedon --2024 Absolute Lymph 2.32 X10 3/uL Normal 0.83-4.51 [facility] Comment on above: Performed By: #### L 500.2500, L300.3900, L100.0100, L501.4021, L300.4310 #### [facility] [address] [place], [address] Absolute Neut 6.3 X10 3/uL Normal 2.0-7.7 [facility] Comment on above: Performed By: #### L 500.2500, L300.3900, L100.0100, L501.4021, L300.4310 #### [facility] [address] [place], [address] Basophils/100 WBC (Bld) 0.7 % Normal 0-1 [facility] Comment on above: Performed By: #### L 500.2500, L300.3900, L100.0100, L501.4021, L300.4310 #### [facility] [address] [place], [address] Eosinophils/100 WBC (Bld) 2.3 % Normal 0-5 [facility] Comment on above: Performed By: #### L 500.2500, L300.3900, L100.0100, L501.4021, L300.4310 #### [facility] [address] [place], [address] Erythrocyte distribution width (RBC) [Ratio] 13.6 % Normal 11.6-14.6 [facility] Comment on above: Performed By: #### L 500.2500, L300.3900, L100.0100, L501.4021, L300.4310 #### [facility] [address] [place], [address] Hematocrit (Bld) [Volume fraction] 36.6 % Low 37-47 [facility] Comment on above: Performed By: #### L 500.2500, L300.3900, L100.0100, L501.4021, L300.4310 #### [facility] [address] [place], [address] Hemoglobin (Bld) [Mass/Vol] 11.7 g/dL Low 12.0-15.0 [facility] Comment on above: Performed By: #### L 500.2500, L300.3900, L100.0100, L501.4021, L300.4310 #### [facility] [address] [place], [address] IG% 0.300 Normal 0.0-0.9 [facility] Comment on above: Result Comment: IG% - Immature Granulocytes (promyelocytes, myelocytes and metamyelocytes) > 1% indicates that a LEFT SHIFT is Present. Performed By: #### L 500.2500, L300.3900, L100.0100, L501.4021, L300.4310 #### [facility] [address] [place], [address] Lymphocytes/100 WBC (Bld) 24.1 % Normal 19-41 [facility] Comment on above: Performed By: #### L 500.2500, L300.3900, L100.0100, L501.4021, L300.4310 #### [facility] [address] [place], [address] MCH (RBC) [Entitic mass] 27.7 pg Normal 27.0-32.0 [facility] Comment on above: Performed By: #### L 500.2500, L300.3900, L100.0100, L501.4021, L300.4310 #### [facility] [address] [place], [address] MCHC (RBC) [Mass/Vol] 32.0 g/dL Normal 32-36 [facility] Comment on above: Performed By: #### L 500.2500, L300.3900, L100.0100, L501.4021, L300.4310 #### [facility] [address] [place], [address] MCV (RBC) [Entitic vol] 86.5 fL Normal 81-99 [facility] Comment on above: Performed By: #### L 500.2500, L300.3900, L100.0100, L501.4021, L300.4310 #### [facility] [address] [place], [address] Monocytes/100 WBC (Bld) 6.8 % Normal 0-10 [facility] Comment on above: Performed By: #### L 500.2500, L300.3900, L100.0100, L501.4021, L300.4310 #### [facility] [address] [place], [address] Neutrophils/100 WBC (Bld) 65.8 % Normal 47-70 [facility] Comment on above: Performed By: #### L 500.2500, L300.3900, L100.0100, L501.4021, L300.4310 #### [facility] [address] [place], [address] Nucleated RBC (Bld) [#/Vol] 0 10*3/uL Normal 0-5 [facility] Comment on above: Performed By: #### L 500.2500, L300.3900, L100.0100, L501.4021, L300.4310 #### [facility] [address] [place], [address] Platelet mean volume (Bld) [Entitic vol] 9.7 fL Normal 6.2-12.0 [facility] Comment on above: Performed By: #### L 500.2500, L300.3900, L100.0100, L501.4021, L300.4310 #### [facility] [address] [place], [address] Platelets (Bld) [#/Vol] 278 10*3/uL Normal 150-450 [facility] Comment on above: Performed By: #### L 500.2500, L300.3900, L100.0100, L501.4021, L300.4310 #### [facility] [address] [place], [address] RBC (Bld) [#/Vol] 4.23 10*6/uL Normal 4.2-5.4 [facility] Comment on above: Performed By: #### L 500.2500, L300.3900, L100.0100, L501.4021, L300.4310 #### [facility] [address] [place], [address] RDW SD 42.9 fl Normal 35.1-43.9 [facility] Comment on above: Performed By: #### L 500.2500, L300.3900, L100.0100, L501.4021, L300.4310 #### [facility] [address] [place], [address] WBC (Bld) [#/Vol] 9.6 10*3/uL Normal 4.4-11.0 [facility] Comment on above: Performed By: #### L 500.2500, L300.3900, L100.0100, L501.4021, L300.4310 #### [facility] [address] [place], [address] Carbon dioxide, total [Moles /volume] in Central venous bloodOrdered By: Theron Robles on 10-19-2024 CO2 [Moles/Vol] 21.2 mmol/L 21.0-32.0 [facility] Chloride assayOrdered By: Radha Robles on 10-19-2024 Chloride [Moles/Vol] 106 mmol/L 98-108 [facility] Emergency Department Summary on 10-19-2024 Emergency Department Summary [facility] Medical Records Department [address] [place] [address] Emergency Department Summary 10/19/24 MR#: [id number] Acct: [id number] Name: PEGGY SCHMIDT Rep #: [id number] : 1975 48 From: Theron Robles DO PCP: Dr. Waldo Penn MD Status:REG ER Location: ED HPI History of Present Illness Chief Complaint: Numb/Ting PFSH PFSH Medical History Abdominal pain Anemia Anxiety Arthritis Asthma Back pain Depression Gastric reflux History of deviated nasal septum Kidney stones Lower abdominal pain MRSA infection Non-smoker Physical exam, pre-employment Shortness of breath on exertion Ureteral stone Wears glasses Home Medications ???Medication ???Instructions ???Recorded ???Last Taken ???Type dicyclomine 20 mg tablet 20 mg PO DAILY 05/16/22 10/18/24 H istory famotidine 20 mg tablet 20 mg PO DAILY 05/16/22 10/18/24 H istory elagolix 150 mg tablet (Orilissa) 150 mg PO DAILY 05/17/22 10/18/24 History fluoxetine 20 mg capsule 20 mg PO DAILY 09/08/23 10/18/24 H istory montelukast 10 mg tablet 10 mg PO DAILY 10/19/24 10/18/24 H istory (Singulair) progesterone micronized 100 mg 100 mg PO DAILY 10/19/24 10/18/24 History capsule Allergy/AdvReac Type Severity Reaction Status Date / Time amoxicillin Allergy Hives Verified 10/19/24 08:57 latex Allergy Swelling Verified 10/19/24 08:57 Penicillins (PCN) Allergy Hives Verified 10/19/24 08:57 Surgical History History of esophagogastroduodenoscopy (EGD) History of laparoscopic cholecystectomy Hx of appendectomy Hx of colonoscopy Hx of hemorrhoidectomy Hx of tonsillectomy Status post right knee replacement Social History Smoking Status: Never smoker EXAM Physical Exam Const Vital Signs: 10/19/24 08:57 10/19/24 09:15 10/19/24 09:15 Temperature 97.8 F Temperature Source Temporal Pulse Rate 78 73 Respiratory Rate 16 17 Blood Pressure 157/83 H 119/75 Blood Pressure Mean 107 89 Pulse Ox 98 99 Oxygen Delivery Method Room Air Room Air Room Air 10/19/24 09:45 10/19/24 10:26 10/19/24 10:30 Temperature Temperature Source Pulse Rate 67 62 68 Respiratory Rate 16 18 14 Blood Pressure 129/85 H 107/58 L 109/61 Blood Pressure Mean 99 74 77 Pulse Ox 99 98 98 Oxygen Delivery Method Room Air Room Air [facility] [place] Narrative Medical decision making narrative: HISTORY OF PRESENT ILLNESS: Chief complaint: Numbness and tingling 48-year-old female here with numbness in left arm for 1 week. Noticed some numbness is left arm and right arm that longer to go away this morning. Her last known well was approximately 10 AM on 10/12/2024. She notes left arm symptoms that began at that time. She also notes some left face symptoms that started sometime last night. Denies falls or trauma. Notes family history of stroke. Denies personal history of stroke. Denies chest pain or shortness of breath. Denies any bleeding diathesis. Denies neck pain or shoulder pain. REVIEW OF SYSTEMS: Pertinent positives: Numbness/tingling Pertinent negatives: Slurred speech, loss of vision PHYSICAL EXAM: Nursing triage notes reviewed, Vital signs reviewed Constitutional: please see [facility] HENT: MMM Eyes: Pupils equal round and reactive to light, Extraocular muscles intact Neck: No stridor, no JVD, full neck ROM Lungs: Clear to auscultation, No wheezing or rales. No increased work of breathing, no conversational dyspnea, no accessory muscle use, no nasal flaring. No respiratory distress noted Heart: Regular rate and rhythm, No murmurs, No rubs and No gallops, 2+ distal pulses (radial, femoral, posterior tibial) in all extremities Abdomen: Soft, there is no tenderness, rigidity, rebound or guarding, no obvious peritoneal signs, no palpable pulsatile abdominal masses, no auscultated abdominal bruit : No CVAT Extremities: No edema Neuro: Alert, oriented x 3, slight decrease sensation in left arm, no obvious drift, no ataxia, no aphasia or dysarthria. Intact sensation in the trigeminal distribution however the patient notes objective decree sensation over the left side of the face as well. NIH of 1 for send subjective sensory change Skin: No rash or lesions noted MEDICAL DECISION MAKING: Chief Complaint: please see HPI External records reviewed: Reviewed prior imaging studies: Reviewed CT scan of the brain from 2021 which showed no acute abnormality Factors affecting care: Nephrolithiasis, GERD, asthma Social determinants of health: none History obtained from others: Consults: Internal medicine (Dr. Burgos (more content not included)... Normal [facility] Eosinophil percentageOrdered By: Theron Robles on 10-19-2024 Eosinophils/100 WBC (Bld) 2.3 % 0-5 [facility] Erythrocyte distribution wid th ratioOrdered By: Theron Robles on 10-19-2024 Erythrocyte distribution width (RBC) [Ratio] 13.6 % 11.6-14.6 [facility] Erythrocyte distribution wid th standard deviationOrdered By: Theron Robles on 10-19-2024 Erythrocyte distribution width (RBC) [Ratio] 42.9 fl 35.1-43.9 [facility] Glomerular filtration rate ( GFR) estimation/1.73 sq m using serum, plasma, or whole bOrdered By: Theron Robles on 10-19-2024 GFR/1.73 sq M.predicted among non-blacks MDRD (S/P/Bld) [Vol rate/Area] 81 mL/min/{1.73_m2} >60 [facility] Comment on above: mL/min/1.73m2 CKD-EP I Creatinine Equation (2020) [facility] deOrdered By: Theron Robles on 10-19-2024 Glucose [Mass/Vol] 112 mg/dL High 74-106 [facility] Comment on above: MANAGEMENT OF PATIEN T CARE PER NURSING PROTOCOL H AND P Exam - Hospitaliston 10-19-2024 H&P Exam - Hospitalist [facility] Medical Records Department [address] [place] [address] H P Exam - Hospitalist 10/19/24 1055 MR#: [id number] Acct: [id number] Name: PEGGY SCHMIDT Rep #: [id number] : 1975 48 From: Clark Johnson MD PCP: Dr. Waldo Penn MD Status:ADM TAINA Location: [place] [address] HPI - General General Date of Admission: 10/19/24 Date of Service: 10/19/24 Chief Complaint: Left arm/UE numbness for 1 week HPI Narrative PEGGY SCHMIDT, is a 48 F who presents to ED for left upper extremity intermittent numbness for 1 week. She states anterior lateral aspect of her left arm forearm and 1 left thumb and middle finger are numb. Later on she also had left-sided facial numbness. Her last known well was 10/12/2024 about a week ago about 10 AM. Does not meet criteria for stroke alert. Denies any other particular focal symptoms regarding stroke including change in vision, mental status change, change in speech, dysarthria or language deficit. Denies prior history of heart disease or neurological disease. History of long COVID hauler and irritable bowel disease Family history: Her mother and father has hypertension and coronary artery disease COUNT INCLUDES THE [facility] Medical History Lower abdominal pain Abdominal pain Ureteral stone Wears glasses MRSA infection Depression Anxiety Arthritis Kidney stones Anemia Back pain Gastric reflux Non-smoker Asthma Shortness of breath on exertion History of deviated nasal septum Physical exam, pre-employment Home Medications ???Medication ???Instructions ???Recorded ???Last Taken ???Type dicyclomine 20 mg tablet 20 mg PO DAILY 05/16/22 10/18/24 H istory famotidine 20 mg tablet 20 mg PO DAILY 05/16/22 10/18/24 H istory elagolix 150 mg tablet (Orilissa) 150 mg PO DAILY 05/17/22 10/18/24 History fluoxetine 20 mg capsule 20 mg PO DAILY 09/08/23 10/18/24 H istory montelukast 10 mg tablet 10 mg PO DAILY 10/19/24 10/18/24 H istory (Singulair) progesterone micronized 100 mg 100 mg PO DAILY 10/19/24 10/18/24 History capsule Allergy/AdvReac Type Severity Reaction Status Date / Time amoxicillin Allergy Hives Verified 10/19/24 08:57 latex Allergy Swelling Verified 10/19/24 08:57 Penicillins (PCN) Allergy Hives Verified 10/19/24 08:57 Surgical History Status post right knee replacement Hx of colonoscopy History of esophagogastroduodenoscopy (EGD) Hx of hemorrhoidectomy Hx of tonsillectomy Hx of appendectomy History of laparoscopic cholecystectomy Social History Smoking Status: Never smoker ROS ROS Narrative Constitutional: chronic fatigue and low energy, after COVID. No fever. HEENT: Reports systems reviewed and no addt'l complaints, except as documented Respiratory/Chest: No acute shortness of breath or respiratory distress or wheezing. CVS: No chest pain or tightness Gastrointestinal: Denies coffee ground emesis, hematemesis or vomiting Genitourinary: Denies burning urination or new urinary tract symptoms Musculoskeletal: Denies acute joint pain or limited range of motion. No acute injury Neurologic: Denies seizure-like symptoms. Rest as described in HPI. No prior TIA/stroke skin: No ulcer. No rash Endocrinology: Reports systems reviewed and no addt'l complaints, except as documented Hematologic/Lymphatic: Reports systems reviewed and no addt'l complaints, except as documented Rest 14 ROS are negative except as mentioned in HPI Vital Signs Vital Signs Vital Signs: 10/19/24 08:57 10/19/24 09:15 10/19/24 09:15 Temperature 97.8 F Temperature Source Temporal Pulse Rate 78 73 Respiratory Rate 16 17 Blood Pressure 157/83 H 119/75 Blood Pressure Mean 107 89 Pulse Ox 98 99 Oxygen Delivery Method Room Air Room Air Room Air 10/19/24 09:45 10/19/24 10:26 10/19/24 10:30 Temperature Temperature Source Pulse Rate 67 62 68 Respiratory Rate 16 18 14 Blood Pressure 129/85 H 107/58 L 109/61 Blood Pressure Mean 99 74 77 Pulse Ox 99 98 98 Oxygen Delivery Method Room Air Room Air Weight Weight: 248 lb 3.848 oz Body Mass Index (BMI) 45.3 Physical Exam Narrative General: Alert, Oriented x3, Cooperative. BMI 45.4 kg/m???, morbid obesity HEENT: Atraumatic, PERRLA, EOMI, Normocephalic. Oral: Deep oropharyngeal could not be visualized Neck: Supple, No JVD, Negative Carotid Bruits Chest wall/Lungs: Air entry diminished in bilateral lung bases. No crepitation/rhonchi Cardiovascular: Regular rate and rhythm, Normal S1,S2, No M/G/R Abdomen: Bowel Sounds Present, Soft, Non Tender, Non-Distended : No dysuria. No renal angle tenderness. No supra (more content not included)... Normal [facility] Hematocrit Auto (Bld) [Volum e fraction]Ordered By: Theron Robles on 10-19-2024 Hematocrit (Bld) [Volume fraction] 36.6 % Low 37-47 [facility] Hemoglobin measurementOrdere d By: Theron Robles on 10-19-2024 Hemoglobin (Bld) [Mass/Vol] 11.7 g/dL Low 12.0-15.0 [facility] Immature granulocytes/100 WB C Auto (Bld)Ordered By: Theron Robles on 10-19-2024 Immature granulocytes/100 WBC (Bld) 0.300 % 0.0-0.9 [facility] Comment on above: IG% - Immature Granu locytes (promyelocytes, myelocytes and metamyelocytes) > 1% indicates that a LEFT SHIFT is Present. International normalized rat io (INR) calculationOrdered By: Theron Robles on 10-19-2024 INR Coag (Bld) [Relative time] 1.0 {INR} [facility] L499.0042on 10-19-2024 Trop T High Sen < 6 Normal <=14 [facility] Comment on above: Performed By: #### L 499.0042 ####[facility] [id number] [place], [address] L501.4021on 10-19-2024 Trop T High Sen < 6 Normal <=14 [facility] Comment on above: Performed By: #### L 500.2500, L300.3900, L100.0100, L501.4021, L300.4310 ####[facility] [id number] [place], [address] MCV (mean corpuscular volume ) determinationOrdered By: Theron Robles on 10-19-2024 MCV (RBC) [Entitic vol] 86.5 fL 81-99 [facility] MR/CON.PCM.NEon 10-19-2024 MR/CON.PCM.NE [facility] Medical Records Department [address] [place] [address] Consultation - Neurology 10/19/24 1303 MR#: [id number] Acct: [id number] Name: PEGGY SCHMIDT Rep #: [id number] : 1975 48 From: Sade Butler MD PCP: Dr. Waldo Penn MD Status:ADM TAINA Location: [place] [address] Assessment and Plan: Stroke Assessment/Plan PEGGY SCHMIDT is a 48 F with a history of anxiety, depresison who presents for evaluation of left sided numbness. Not a TNK or thrombectomy candidate. Neurological examination shows decreased sensation on left side Neuroimaging shows CT negative. Plan MRI Brain. R/o stroke vs other causes. Plan MRI Brain to r/o stroke, stroke w/up ASA, statin Thanks for consult. Spent 70 min in evaluation and management of thsi patient. HPI Consult Data Date of Consult: 10/19/24 HPI Narrative HPI Narrative: PEGGY SCHMIDT, is a 48 F who presents with left upper extremity intermittent numbness for 1 week. She states anterior lateral aspect of her left arm forearm and 1 left thumb and middle finger are numb. these started a week ago and was intermittent but since last night it is constant. Later on she also had left-sided facial numbness and left leg numbness. Feels numb in right thumb and middle finger. Denies any other particular focal symptoms regarding stroke including change in vision, mental status change, change in speech, dysarthria or language deficit.Has headache today. COUNT INCLUDES THE [facility] Medical History Lower abdominal pain Abdominal pain Ureteral stone Wears glasses MRSA infection Depression Anxiety Arthritis Kidney stones Anemia Back pain Gastric reflux Non-smoker Asthma Shortness of breath on exertion History of deviated nasal septum Physical exam, pre-employment Home Medications ???Medication ???Instructions ???Recorded ???Last Taken ???Type dicyclomine 20 mg tablet 20 mg PO DAILY 05/16/22 10/18/24 H istory famotidine 20 mg tablet 20 mg PO DAILY 05/16/22 10/18/24 H istory elagolix 150 mg tablet (Orilissa) 150 mg PO DAILY 05/17/22 10/18/24 History fluoxetine 20 mg capsule 20 mg PO DAILY 09/08/23 10/18/24 H istory montelukast 10 mg tablet 10 mg PO DAILY 10/19/24 10/18/24 H istory (Singulair) progesterone micronized 100 mg 100 mg PO DAILY 10/19/24 10/18/24 History capsule Allergy/AdvReac Type Severity Reaction Status Date / Time amoxicillin Allergy Hives Verified 10/19/24 08:57 latex Allergy Swelling Verified 10/19/24 08:57 Penicillins (PCN) Allergy Hives Verified 10/19/24 08:57 Surgical History Status post right knee replacement Hx of colonoscopy History of esophagogastroduodenoscopy (EGD) Hx of hemorrhoidectomy Hx of tonsillectomy Hx of appendectomy History of laparoscopic cholecystectomy Social History Smoking Status: Never smoker Vital Signs Vital Signs Vital Signs: 10/19/24 08:57 10/19/24 09:15 10/19/24 09:15 Temperature 97.8 F Temperature Source Temporal Pulse Rate 78 73 Respiratory Rate 16 17 Blood Pressure 157/83 H 119/75 Blood Pressure Mean 107 89 Blood Pressure Source Blood Pressure Position Blood Pressure Location Pulse Ox 98 99 Oxygen Delivery Method Room Air Room Air Room Air 10/19/24 09:45 10/19/24 10:26 10/19/24 10:30 Temperature Temperature Source Pulse Rate 67 62 68 Respiratory Rate 16 18 14 Blood Pressure 129/85 H 107/58 L 109/61 Blood Pressure Mean 99 74 77 Blood Pressure Source Blood Pressure Position Blood Pressure Location Pulse Ox 99 98 98 Oxygen Delivery Method Room Air Room Air 10/19/24 10:50 10/19/24 11:00 10/19/24 11:30 Temperature 98.2 F Temperature Source Pulse Rate 72 67 68 Respiratory Rate 18 18 17 Blood Pressure 110/75 110/76 118/74 Blood Pressure Mean 86 87 88 Blood Pressure Source Blood Pressure Position Blood Pressure Location Pulse Ox 98 97 98 Oxygen Delivery Method Room Air Room Air 10/19/24 12:03 Temperature 98.3 F Temperature Source Oral Pulse Rate 79 Respiratory Rate 18 Blood Pressure 112/68 Blood Pressure Mean 82 Blood Pressure Source Monitor Blood Pressure Position Semi-Fowlers Blood Pressure Location Left Forearm Pulse Ox 100 Oxygen Delivery Method Room Air Weight Weight: 111.6 kg Body Mass Index (BMI) 45.0 Physical Exam Neuro Neuro Narrative: Awake, alert No aphasia CN 2-12 intact. Decreased sensation left face Motor 5/5 Sensation: decreased left side No ataxia Lab / Micro Data 10/19/24 09:15 10/19/24 09:15 Labs (more content not included)... Normal [facility] Magnesiumon 10-19-2024 Magnesium [Mass/Vol] 2.0 mg/dL Normal 1.5-2.2 [facility] Comment on above: Performed By: #### L 501.5200 ####[facility] [id number] [place], [address] Magnesium measurement (mass/ volume)Ordered By: Clark Johnson on 10-19-2024 Magnesium (Unsp spec) [Mass/Vol] 2.0 mg/dL 1.5-2.2 [facility] Mean corpuscular hemoglobin (MCH) determinationOrdered By: Theron Robles on 10-19-2024 MCH (RBC) [Entitic mass] 27.7 pg 27.0-32.0 [facility] Mean corpuscular hemoglobin concentration (MCHC) determinationOrdered By: Theron Robles on 10-19-2024 MCHC (RBC) [Mass/Vol] 32.0 g/dL 32-36 [facility] Mean platelet volume determi nationOrdered By: Theron Robles on 10-19-2024 Platelet mean volume (Bld) [Entitic vol] 9.7 fL 6.2-12.0 [facility] Monocyte percentageOrdered B y: Theron Robles on 10-19-2024 Monocytes/100 WBC (Bld) 6.8 % 0-10 [facility] Neutrophil percentageOrdered By: Theron Robles on 10-19-2024 Neutrophils/100 WBC (Bld) 65.8 % 47-70 [facility] Nucleated red blood cell per centageOrdered By: Theron Robles on 10-19-2024 Nucleated RBC/100 WBC (Bld) [Ratio] 0 % 0-5 [facility] Partial Thromboplast Timeon 10-19-2024 aPTT Coag (Bld) [Time] 31.4 s Normal 24.1-36.2 [facility] Comment on above: Performed By: #### L 500.2500, L300.3900, L100.0100, L501.4021, L300.4310 #### [facility] [address] [place], [address] Platelet countOrdered By: Radha Robles on 10-19-2024 Platelets (Bld) [#/Vol] 278 10*3/uL 150-450 [facility] Potassium measurement (mass/ volume)Ordered By: Theron Robles on 10-19-2024 Potassium (Unsp spec) [Mass/Vol] 4.1 mmol/L 3.3-5.1 [facility] Prothrombin Time w/INRon INR Coag (PPP) [Relative time] 1.0 {INR} Normal [facility] Comment on above: Performed By: #### L 500.2500, L300.3900, L100.0100, L501.4021, L300.4310 #### [facility] [address] [place], [address] PT Coag (PPP) [Time] 13.5 s Normal 11.7-14.9 [facility] Comment on above: Performed By: #### L 500.2500, L300.3900, L100.0100, L501.4021, L300.4310 #### [facility] [address] [place], [address] Prothrombin timeOrdered By: Theron Robles on 10-19-2024 PT Coag (PPP) [Time] 13.5 s 11.7-14.9 [facility] RBC Auto (Bld) [#/Vol]Ordere d By: Theron Robles on 10-19-2024 RBC (Bld) [#/Vol] 4.23 10*6/uL 4.2-5.4 [facility] STROKE CTA Head AND Neck W/C onon 10-19-2024 STROKE CTA Head AND Neck W/Con [facility] Imaging Services [address] [place] [address] STROKE CTA Head AND Neck W/Con MR#: [id number] Acct: [id number] Name: PEGGY SCHMIDT Rep #: [id number] : 1975 F 48 From: Cesar Crooks MD PCP: Dr. Waldo Penn MD Status: REG ER Study: STROKE CTA Head AND Neck W/Con Date of Exam: 0 10/19/24 Exam# [id number] Ordering Dr: Theron Robles DO PROCEDURE: STROKE CTA HEAD AND NECK W/CON 10/19/2024 REASON FOR EXAM: NEURO DEFICIT, ACUTE, STROKE SUSPECTED TECHNIQUE: STROKE CTA HEAD AND NECK W/CON Multiplanar Sagittal and Coronal images were obtained. CONTRAST: Isovue 370 VOLUME: 100 mL One or more dose reduction techniques were used (e.g., Automated exposure control, adjustment of the mA and/or kV according to patient size, use of iterative reconstruction technique). RADIATION DOSE SUMMARY: CTDlvol: 76.6 mGy DLP: 15.09.99 mGycm COMPARISON: None FINDINGS: Noncontrasted head CT shows no acute hemorrhage midline shift or mass effect, no suspicious pattern of edema. Aortic Arch: Normal size and branching pattern. No significant atherosclerotic plaque. Brachiocephalic and Subclavians: Unremarkable RIGHT Carotid: Right CCA: Unremarkable. Right ICA: Unremarkable. Maximum stenosis (NASCET): <10 % Right ECA: Unremarkable. Incidental note is made of a significant medial course of the right ICA LEFT Carotid: Left CCA: Unremarkable. Left ICA: Unremarkable. Maximum stenosis (NASCET): <10 % Left ECA: Unremarkable. Vertebrals: Codominant. Arise from the subclavians. Both vertebrals form the basilar. RIGHT Vertebral: Unremarkable. LEFT Vertebral: Unremarkable. Anatomy: [place] anatomy is normal. Aneurysm or avm: No intracranial aneurysms or large vascular malformations are identified. No suspicious enhancing lesion, no airway narrowing or deviation. Lung apices are clear. No bulky adenopathy. CT/STROKE CTA Head AND Neck W/Con IMPRESSION: No CTA evidence of CCA ICA or intracranial stenosis or occlusion. No significant atherosclerotic disease Patent vertebral arteries No acute intracranial hemorrhage midline shift or mass effect Reading Location: [facility] CC: Dr. Theron Robles DO; Dr. Waldo Penn MD Flight Test Supervisor: Signed Normal [facility] Serum creatinine measurement (mass/volume)Ordered By: Theron Robles on 10-19-2024 Creatinine [Mass/Vol] 0.88 mg/dL 0.70-1.20 [facility] Serum glucose measurement (m ass/volume)Ordered By: Theron Robles on 10-19-2024 Glucose [Mass/Vol] 119 mg/dL High 70-99 [facility] Serum or plasma calcium nabila urement (mass/volume)Ordered By: Theron Robles on 10-19-2024 Calcium [Mass/Vol] 9.1 mg/dL 7.6-11.0 [facility] Serum or plasma urea nitroge n measurement (mass/volume)Ordered By: Theron Robles on 10-19-2024 Urea nitrogen [Mass/Vol] 11 mg/dL 4-19 [facility] Sodium levelOrdered By: Mason Robles on 10-19-2024 Sodium [Moles/Vol] 140 mmol/L 133-145 [facility] Troponin T.cardiac [Mass/vol ume] in Serum or Plasma by High sensitivity methodOrdered By: Theron Robles on 10-19-2024 Troponin T.cardiac High sensitivity method [Mass/Vol] < 6 ng/L <14 [facility] Troponin T.cardiac High sensitivity method [Mass/Vol] < 6 ng/L <14 [facility] White blood cell (WBC) count Ordered By: Theron Robles on 10-19-2024 WBC (Bld) [#/Vol] 9.6 10*3/uL 4.4-11.0 [facility] CNOVon 06-04-2024 CNOV Office Visit (INTMWS ) PEGGY SCHMIDT ([id number]) 1975 F Date Time Provider Department 06/04/24 8:40 AM ANY VELAZCO INTMWS During your visit today, we recorded the following information about you: Temperature Pulse Respiration Blood pressure 98.9 degrees 78/minute 16/minute 134/86 Weight 113.4 kg Any Velazco, USABILITY STRATEGIST.FLOOR INSPECTOR 06/04/2024 9:37 AM Signed CC: Patient presents with: Cough: Chest congestion, wheezing/SOB, diarrhea HPI: Peggy Schmidt is a 48 year old female who presents to the office with above complaint. She was evaluated on 06/01 for five day history of cough, wheezing, SOB, congestion and sinus pressure. Home COVID test was negative, no additional testing ordered. Treated for asthma exacerbation with Zithromax, prednisone and Tessalon Perles. She has also been using albuterol nebulizer and Advair. Today patient reports symptoms are worsening: Temperature elevation: Yes Chills: Yes Cough: Yes productive with green sputum Shortness of breath: Yes Fatigue: Yes Muscle aches: No Headache: Yes New loss of smell or taste: No Sore throat: No Nasal congestion: Yes Rhinorrhea: No Nausea and/or vomiting: No Diarrhea: Yes Other Associated symptoms: facial pain/pressure. PMH: asthma, seasonal/environmental allergies, and pneumonia Review of Systems See HPI PAST MEDICAL HISTORY Diagnosis Date Allergic rhinitis 12/01/2009 Asthma 2000 Chronic pelvic pain in female 03/09/2016 Chronic sinusitis 12/01/2009 Closed fracture of left wrist 06/24/2013 COVID-19 macy hauler manifesting chronic joint pain 05/01/2021 Covid infection 03/23/2021 Depression with anxiety 12/09/2010 Depression with suicidal ideation 12/09/2010 Endometriosis 2007 Fibromyalgia 10/05/2021 Fracture of metatarsal of left foot, closed 10/27/2015 GERD (gastroesophageal reflux disease) 01/26/2010 Hiatal hernia 12/02/2019 Immune deficiency disorder (HCC) 06/28/2010 history of IVIG Irritable bowel syndrome 06/20/2020 LPRD (laryngopharyngeal reflux disease) 01/30/2010 Major depression, single episode 12/09/2010 Migraine 08/17/2021 Nonalcoholic fatty liver 05/13/2021 US. Elevated LFTs Pneumonia 02/23/2024 11/27/2022 PTSD (post-traumatic stress disorder) 06/13/2021 Ureterolithiasis 05/17/2022 PAST SURGICAL HISTORY Procedure Laterality Date APPENDECTOMY 04/22/2001 COLONOSCOPY - DIAGNOSTIC 05/2003 COLONOSCOPY - DIAGNOSTIC 06/21/2006 CYSTOSCOPY,+URETEROSCOPY 05/17/2022 Elma Pena MD. retrograde pyelograms. EGD WITH BIOPSY(S) 12/02/2019 [facility] [place] HEMORRHOIDECTOMY 05/31/2004 KNEE RIGHT OP SURGERY Right 2008 ACL repair. L'SCOPE CHOLECYSTECTOMY 01/2001 L'SCOPE DX W/WO BRUSHINGS/WASHINGS 05/17/2016 hysteroscopy, lap excision of endometriosis SINUS SURGERY PROC UNLISTED 06/2009 TONSILLECTOMY HX 06/20/2009 TREATMENT OF ANAL FISSURE 1992 ALLERGIES Latex, Amoxicillin, and Penicillins MEDICATIONS azithromycin (ZITHROMAX) 250 mg tablet Take 2 tablets by mouth once daily for 1 day, THEN 1 tablet once daily for 4 days. predniSONE (DELTASONE) 20 mg tablet Take 1 tablet by mouth once daily for 5 days. benzonatate (TESSALON PERLE) 100 mg capsule Take 1 capsule by mouth three times a day as needed for cough. montelukast (SINGULAIR) 10 mg tablet Take 1 tablet by mouth daily at bedtime. ipratropium-albuterol (DUONEB) 0.5 mg-3 mg(2.5 mg base)/3 mL nebu Inhale 3 mL as instructed four times a day as needed for wheezing/shortness of breath. fluticasone-salmeterol HFA (ADVAIR HFA) 230-21 mcg/actuation inhaler Inhale 2 Puffs as instructed two times a day. hyoscyamine SR (LEVBID) 0.375 mg 12 hr tablet Take 0.375 mg by mouth daily at bedtime. FLUoxetine HCl 20 mg tablet Take 20 mg by mouth once daily. elagolix (ORILISSA) 150 mg tablet Take 150 mg by mouth every 24 hours. progesterone micronized (PROMETRIUM) 100 mg capsule Take 100 mg by mouth once daily. famotidine (PEPCID) 20 mg tablet Take 20 mg by mouth twice daily. albuterol HFA (PROAIR HFA) 90 mcg/Actuation INHALATION HFAA 1-2 inhalations 4 hours as needed FAMILY HISTORY Problem Relation Age of Onset Diabetes Mother Kidney Disease Mother Diabetes Father age 7 Kidney failure Father dialysis Diabetes Sister Dementia Maternal Grandmother Diabetes Maternal Grandfather Social History Tobacco Use Smoking status: Never Smokeless tobacco: Never Vaping Use Vaping status: Never Used Substance Use Topics Alcohol use: Yes Comment: social Drug use: Never BP 134/86 Pulse 78 Temp 37.2 ?C (98.9 ?F) (Temporal Artery) Resp 16 Wt 113.4 kg (250 lb) LMP 10/17/2019 SpO2 96% BMI 46.47 kg/m? Physical Exam Vitals reviewed. Constitutional: General: She is not in acute distress. Appearance: She is ill-appearing. She is not toxic-appearing. HENT: Head: Normocephalic and atraumatic. Righ (more content not included)... Normal [facility] XR CHEST 2V FRONTAL/LATon XR CHEST 2V FRONTAL/LAT * * *Final Report* * * DATE OF EXAM: Jun 04 2024 9:10AM WOX [id number] - XR CHEST 2V FRONTAL/LAT / PROCEDURE REASON: multiple diagnoses * * * * Physician Interpretation * * * * EXAMINATION: CHEST RADIOGRAPH (2 VIEW FRONTAL and LATERAL) CLINICAL HISTORY: Acute cough Shortness of breath MQ: XC2_6 EXAM DATE/TIME: 06/04/2024 9:10 AM COMPARISON: Chest x-ray 04/03/2024 RESULT: Lines, tubes, and devices: None. Lungs and pleura: No consolidation. No lung mass. No pleural effusion. No pneumothorax. Cardiomediastinal silhouette: Normal cardiomediastinal silhouette. Bones and soft tissues: Unremarkable. IMPRESSION: No acute radiographic abnormality. Flight Test Supervisor: AVTAR Transcribe Date/Time: Jun 04 2024 9:14A Dictated by : KUSH FRAIRE MD This examination was interpreted and the report reviewed and electronically signed by: KUSH FRAIRE MD on Jun 04 2024 9:16AM EST [id number] Normal [facility] XR Chest PA and Lateralon IMPRESSION: No acute radiographic abnormality. Flight Test Supervisor: PSCB Transcribe Date/Time: Jun 04 2024 9:14A Dictated by : KUSH FRAIRE MD This examination was interpreted and the report reviewed and electronically signed by: KUSH FRAIRE MD on Jun 04 2024 9:16AM [facility] DIVISION OF RADIOLOGY * * *Final Report* * * DATE OF EXAM: Jun 04 2024 9:10AM WOX [id number] - XR CHEST 2V FRONTAL/LAT / PROCEDURE REASON: multiple diagnoses * * * * Physician Interpretation * * * * EXAMINATION: CHEST RADIOGRAPH (2 VIEW FRONTAL & LATERAL) CLINICAL HISTORY: Acute cough Shortness of breath MQ: XC2_6 EXAM DATE/TIME: 06/04/2024 9:10 AM COMPARISON: Chest x-ray 04/03/2024 RESULT: Lines, tubes, and devices: None. Lungs and pleura: No consolidation. No lung mass. No pleural effusion. No pneumothorax. Cardiomediastinal silhouette: Normal cardiomediastinal silhouette. Bones and soft tissues: Unremarkable. DIVISION OF RADIOLOGY Provider, [facility] - 06/04/2024 * * *Final Report* * * DATE OF EXAM: Jun 04 2024 9:10AM WOX 5291 - XR CHEST 2V FRONTAL/LAT / PROCEDURE REASON: multiple diagnoses * * * * Physician Interpretation * * * * EXAMINATION: CHEST RADIOGRAPH (2 VIEW FRONTAL & LATERAL) CLINICAL HISTORY: Acute cough Shortness of breath MQ: XC2_6 EXAM DATE/TIME: 06/04/2024 9:10 AM COMPARISON: Chest x-ray 04/03/2024 RESULT: Lines, tubes, and devices: None. Lungs and pleura: No consolidation. No lung mass. No pleural effusion. No pneumothorax. Cardiomediastinal silhouette: Normal cardiomediastinal silhouette. Bones and soft tissues: Unremarkable. IMPRESSION IMPRESSION: No acute radiographic abnormality. Flight Test Supervisor: PSCJihan Transcribe Date/Time: Jun 04 2024 9:14A Dictated by : KUSH FRAIRE MD This examination was interpreted and the report reviewed and electronically signed by: KUSH FRAIRE MD on Jun 04 2024 9:16AM EST [facility] Radiology Study observation (narrative) [facility] XR Chest PA and LateralOrder ed By: [facility] Provider on 06-04-2024 [facility] CNOVon 06-01-2024 CNOV Office Visit (INTMWS ) PEGGY SCHMIDT ([id number]) 1975 F Date Time Provider Department 06/01/24 1:00 PM WALDO PENN INTMWS During your visit today, we recorded the following information about you: Temperature Pulse Respiration Blood pressure 98.9 degrees 76/minute 20/minute 110/68 Weight 114.8 kg Waldo Penn MD 06/01/2024 1:50 PM Signed This note was created using [employer]. Subjective Peggy Schmidt is a 48 year old female who presents with complaint of sinus symptoms, nasal congestion, facial pain/pressure maxillary, hoarse voice, headache- moderate, body aches, ear pain bilateral , and cough- productive with moderate amount of yellow greenish sputum for 5 days. She also had some dyspnea, wheezing, nausea. Treatments tried include Albuterol and Nyquil with temporary relief of symptoms. She had no fever, chills, sweats. She tested negative for Covid at home. She was here with Clive who was not ill. She cancelled allergy consult due to illness and will reschedule. Review of Systems Per HPI. ACTIVE PROBLEM LIST Allergic Rhinitis-c/d/cockroach/dm/m /t/g/w/ragweed Latex Moderate Persistent Asthma With Acute Exacerbation Depression With Anxiety Obesity, Class III, BMI >= 40 Asthma Social History Tobacco Use Smoking status: Never Smokeless tobacco: Never Vaping Use Vaping status: Never Used Substance Use Topics Alcohol use: Yes Comment: social Drug use: Never Current Outpatient Medications Medication Sig montelukast (SINGULAIR) 10 mg tablet Take 1 tablet by mouth daily at bedtime. ipratropium-albuterol (DUONEB) 0.5 mg-3 mg(2.5 mg base)/3 mL nebu Inhale 3 mL as instructed four times a day as needed for wheezing/shortness of breath. fluticasone-salmeterol HFA (ADVAIR HFA) 230-21 mcg/actuation inhaler Inhale 2 Puffs as instructed two times a day. hyoscyamine SR (LEVBID) 0.375 mg 12 hr tablet Take 0.375 mg by mouth daily at bedtime. FLUoxetine HCl 20 mg tablet Take 20 mg by mouth once daily. elagolix (ORILISSA) 150 mg tablet Take 150 mg by mouth every 24 hours. progesterone micronized (PROMETRIUM) 100 mg capsule Take 100 mg by mouth once daily. famotidine (PEPCID) 20 mg tablet Take 20 mg by mouth twice daily. albuterol HFA (PROAIR HFA) 90 mcg/Actuation INHALATION HFAA 1-2 inhalations 4 hours as needed predniSONE (DELTASONE) 10 mg tablet TAKE BY MOUTH 4 TABLETS DAILY FOR 2 DAYS, THEN 3 TABLETS DAILY FOR 2 DAYS, THEN 2 TABLETS DAILY FOR 2 DAYS, THEN 1 TABLET DAILY FOR 2 DAYS. (Patient not taking: Reported on 05/18/2024) No current facility-administered medications for this visit. Objective BP 110/68 (BP Site: Left Arm, BP Position: Sitting, BP Cuff Size: Large Adult) Pulse 76 Temp 37.2 ?C (98.9 ?F) (Temporal) Resp 20 Wt 114.8 kg (253 lb 1.4 oz) LMP 10/17/2019 SpO2 96% BMI 47.05 kg/m? Physical Exam Constitutional: General: She is not in acute distress. Appearance: She is ill-appearing. HENT: Right Ear: Tympanic membrane normal. Left Ear: Tympanic membrane normal. Nose: Congestion present. Right Sinus: No maxillary sinus tenderness or frontal sinus tenderness. Left Sinus: No maxillary sinus tenderness or frontal sinus tenderness. Comments: Purulent nasal drainage right. Mouth/Throat: Pharynx: Posterior oropharyngeal erythema present. No oropharyngeal exudate. Cardiovascular: Rate and Rhythm: Normal rate and regular rhythm. Pulmonary: Effort: No respiratory distress. Breath sounds: Wheezing and rhonchi present. No rales. Comments: Recurrent coughing. Lymphadenopathy: Cervical: No cervical adenopathy. Assessment and Plan 1. Moderate persistent asthma with acute exacerbation - ICD9: 493.92, ICD10: J45.41 - acute exacerbation. - AZITHROMYCIN 250 MG TABLET - PREDNISONE 20 MG TABLET - BENZONATATE 100 MG CAPSULE Discussed medication dosage, usage, goals of therapy, and side effects. Excuse for work. Waldo Penn MD Allergies As of Date: 06/01/2024 Noted Allergy Reaction LATEX 12/01/2009 4 - Hives 7 - Swelling AMOXICILLIN 12/01/2009 4 - Hives PENICILLINS 12/01/2009 4 - Hives Date Reviewed: 06/01/2024 Reviewed by: Bela Hylton LPN - Fully Assessed Reason for Visit: Cough [28] Primary Visit Diagnosis:Moderate persistent asthma with acute exacerbation [J45.41] Order(s):azithromycin (ZITHROMAX) 250 mg tabletTake 2 tablets by mouth once daily for 1 day, THEN 1 tablet once daily for 4 days.Disp: 6 tabletRfl: 0 predniSONE (DELTASONE) 20 mg tabletTake 1 tablet by mouth once daily for 5 days.Disp: 5 tabletRfl: 0 benzonatate (TESSALON PERLE) 100 mg capsuleTake 1 capsule by mouth three times a day as needed for cough.Disp: 21 capsuleRfl: 0 Prescriptions as of 06/01/2024 - azithromycin (ZITHROMAX) 250 mg tablet Take 2 tablets by mouth once daily for 1 day, THEN 1 tablet once daily for 4 days (more content not included)... Normal [facility] CNOVon 05-18-2024 CNOV Office Visit (INTMWS ) PEGGY SCHMIDT ([id number]) 1975 F Date Time Provider Department 05/18/24 5:20 PM WALDO PENN INTMWS During your visit today, we recorded the following information about you: Temperature Pulse Blood pressure Weight 97.4 degrees 72/minute 108/66 116.5 kg Waldo Penn MD 05/18/2024 6:01 PM Signed This note was created using [employer]. Subjective Peggy Schmidt is a 48 year old female was here with her spouse. She continued with cough on prednisone and I started her on montelukast. She is much better and symptoms were controlled. I found a history of immune deficiency and IVIG treatment in 2010. I referred her to allergy immunology but this had not been scheduled. Review of Systems Constitutional: Negative for fatigue and fever. HENT: Negative for congestion. Respiratory: Negative for cough, shortness of breath and wheezing. Cardiovascular: Negative. ACTIVE PROBLEM LIST Allergic Rhinitis-c/d/cockroach/dm/m /t/g/w/ragweed Latex Moderate Persistent Asthma With Acute Exacerbation Depression With Anxiety Obesity, Class III, BMI >= 40 Asthma Social History Tobacco Use Smoking status: Never Smokeless tobacco: Never Vaping Use Vaping status: Never Used Substance Use Topics Alcohol use: Yes Comment: social Drug use: Never Current Outpatient Medications Medication Sig ipratropium-albuterol (DUONEB) 0.5 mg-3 mg(2.5 mg base)/3 mL nebu Inhale 3 mL as instructed four times a day as needed for wheezing/shortness of breath. montelukast (SINGULAIR) 10 mg tablet Take 1 tablet by mouth daily at bedtime. fluticasone-salmeterol HFA (ADVAIR HFA) 230-21 mcg/actuation inhaler Inhale 2 Puffs as instructed two times a day. hyoscyamine SR (LEVBID) 0.375 mg 12 hr tablet Take 0.375 mg by mouth daily at bedtime. FLUoxetine HCl 20 mg tablet Take 20 mg by mouth once daily. elagolix (ORILISSA) 150 mg tablet Take 150 mg by mouth every 24 hours. progesterone micronized (PROMETRIUM) 100 mg capsule Take 100 mg by mouth once daily. famotidine (PEPCID) 20 mg tablet Take 20 mg by mouth twice daily. albuterol HFA (PROAIR HFA) 90 mcg/Actuation INHALATION HFAA 1-2 inhalations 4 hours as needed predniSONE (DELTASONE) 10 mg tablet TAKE BY MOUTH 4 TABLETS DAILY FOR 2 DAYS, THEN 3 TABLETS DAILY FOR 2 DAYS, THEN 2 TABLETS DAILY FOR 2 DAYS, THEN 1 TABLET DAILY FOR 2 DAYS. (Patient not taking: Reported on 05/18/2024) No current facility-administered medications for this visit. Objective BP 108/66 (BP Site: Left Arm, BP Position: Sitting, BP Cuff Size: Large Adult) Pulse 72 Temp 36.3 ?C (97.4 ?F) (Temporal) Wt 116.5 kg (256 lb 13.4 oz) LMP 10/17/2019 SpO2 98% BMI 47.74 kg/m? Physical Exam Constitutional: General: She is not in acute distress. Appearance: She is not ill-appearing. HENT: Nose: No congestion or rhinorrhea. Cardiovascular: Heart sounds: Normal heart sounds. Pulmonary: Breath sounds: No wheezing, rhonchi or rales. Neurological: Mental Status: She is alert. Assessment and Plan 1. Immune deficiency disorder (HCC) - ICD9: 279.3, ICD10: D84.9 (primary diagnosis) - CONSULT TO ALLERGY/IMMUNOLOGY 2. Moderate persistent asthma with acute exacerbation - ICD9: 493.92, ICD10: J45.41 - Improved. - Continue current medications - MONTELUKAST 10 MG TABLET - CONSULT TO ALLERGY/IMMUNOLOGY 3. Non-seasonal allergic rhinitis, unspecified trigger - ICD9: 477.8, ICD10: J30.89 - MONTELUKAST 10 MG TABLET - CONSULT TO ALLERGY/IMMUNOLOGY Waldo Penn MD Allergies As of Date: 05/18/2024 Noted Allergy Reaction LATEX 12/01/2009 4 - Hives 7 - Swelling AMOXICILLIN 12/01/2009 4 - Hives PENICILLINS 12/01/2009 4 - Hives Date Reviewed: 05/18/2024 Reviewed by: Bela Hylton LPN - Fully Assessed Reason for Visit: 6 week follow-up [Other] Primary Visit Diagnosis:Immune deficiency disorder (HCC) [D84.9] Other Visit Diagnoses:Moderate persistent asthma with acute exacerbation [J45.41] Non-seasonal allergic rhinitis, unspecified trigger [J30.89] Order(s):montelukast (SINGULAIR) 10 mg tabletTake 1 tablet by mouth daily at bedtime.Disp: 90 tabletRfl: 0 CONSULT TO ALLERGY/IMMUNOLOGY [9001] Order #: [id number]: 1 FUTURE Prescriptions as of 05/18/2024 - montelukast (SINGULAIR) 10 mg tablet Take 1 tablet by mouth daily at bedtime. - ipratropium-albuterol (DUONEB) 0.5 mg-3 mg(2.5 mg base)/3 mL nebu Inhale 3 mL as instructed four times a day as needed for wheezing/shortness of breath. - fluticasone-salmeterol HFA (ADVAIR HFA) 230-21 mcg/actuation inhaler Inhale 2 Puffs as instructed two times a day. - hyoscyamine SR (LEVBID) 0.375 mg 12 hr tablet Take 0.375 mg by mouth daily at bedtime. - FLUoxetine HCl 20 mg tablet Take 20 mg by mouth once daily. - elagolix (ORILISSA) 150 mg tablet Take 150 mg by mouth every 24 hours. (more content not included)... Normal [facility] Phone Msgon 05-12-2024 Phone Msg - From: Lala Dorsey To: Kristina Jarrett MA; Sent: 05/12/2024 09:25:21 EST Subject: Requesting a plan limit authorization Caller Name: PEGGY SCHMIDT; Caller Number: H Clive Guevarajc (pt's ) called in requesting that Dr. Mcfadden call into [employer] to complete a plan limit authorization. Clive is stating that their plan only allows coverage for 180 days and even though a prior auth was completed for the medication in general, they are still requiring a plan limit authorization. Clive made reference that this is not calendar year. The phone number he gave for the coverage review department is . Called [employer] and had them run plan limit auth and it was approved from 04/12/24-05/12/2026 #[id number] Normal [facility] Phone Msgon 04-30-2024 Phone Msg - From: Norma Mann To: Kristina Jarrett MA; Sent: 04/30/2024 15:12:07 EST Subject: REFILL Caller Name: PEGGY SCHMIDT; Caller Number: H PATIENTS CALLED IN NEEDING A REFILL OF ORLISSA SENT TO [facility] THANK YOU RH On hold pending signature Order:elagolix (Orilissa 150 mg oral tablet) 1 tabs ORAL DAILY Qty: 90 tabs Refills: 1 Substitutions Allowed Route To Pharmacy - [facility] HOME DELIVERY last appt was 08/29/23 annual From: Kristina Jarrett MA To: INGRID MARTINEZ; Sent: 04/30/2024 15:52:59 EST Subject: FW: REFILL Caller Name: PEGGY SCHMIDT; Caller Number: H [facility] Phone Msgon 04-24-2024 Phone Msg - From: Norma Mann To: Kristina Jarrett MA; Sent: 04/24/2024 12:00:51 EST Subject: PRIOR AUTH Caller Name: PEGGY SCHMIDT; Caller Number: H PATIENTS CLIVE CALLED IN STATING HIS NEEDS A PRIOR AUTH FOR ORLISSA DONE HE GAVE ME THE NUMBER IF WE NEED IT . IF WE CAN ALSO GIVE HIM A CALL AT [phone] WHEN WE HAVE IT DONE HED GREATLY APPRECIATE IT. THANK YOU RH Approved today by [employer] 2017 CaseId:[id number];Status:Appr enzo;Review Type:Prior Auth;Coverage Start Date:03/25/2024;Coverage End Date:10/21/2024; Normal [facility] CNPNon 04-12-2024 CNPN Telephone (FAMPWS) PEGGY SCHMIDT ([id number]) 1975 F Date Time Provider Department 04/12/24 WALDO PENN During your visit today, we recorded the following information about you: Allergies As of Date: 04/12/2024 Noted Allergy Reaction LATEX 12/01/2009 4 - Hives 7 - Swelling AMOXICILLIN 12/01/2009 4 - Hives PENICILLINS 12/01/2009 4 - Hives Date Reviewed: 04/03/2024 Reviewed by: Zoila Palmer LPN - Fully Assessed Prescriptions as of 04/12/2024 - ipratropium-albuterol (DUONEB) 0.5 mg-3 mg(2.5 mg base)/3 mL nebu Inhale 3 mL as instructed four times a day as needed for wheezing/shortness of breath. - montelukast (SINGULAIR) 10 mg tablet Take 1 tablet by mouth daily at bedtime. - fluticasone-salmeterol HFA (ADVAIR HFA) 230-21 mcg/actuation inhaler Inhale 2 Puffs as instructed two times a day. - hyoscyamine SR (LEVBID) 0.375 mg 12 hr tablet Take 0.375 mg by mouth daily at bedtime. - FLUoxetine HCl 20 mg tablet Take 20 mg by mouth once daily. - elagolix (ORILISSA) 150 mg tablet Take 150 mg by mouth every 24 hours. - progesterone micronized (PROMETRIUM) 100 mg capsule Take 100 mg by mouth once daily. - predniSONE (DELTASONE) 10 mg tablet TAKE BY MOUTH 4 TABLETS DAILY FOR 2 DAYS, THEN 3 TABLETS DAILY FOR 2 DAYS, THEN 2 TABLETS DAILY FOR 2 DAYS, THEN 1 TABLET DAILY FOR 2 DAYS. - famotidine (PEPCID) 20 mg tablet Take 20 mg by mouth twice daily. - albuterol HFA (PROAIR HFA) 90 mcg/Actuation INHALATION HFAA 1-2 inhalations 4 hours as needed Problem List As Of Date 04/12/2024 Noted Resolved Toxic effect of latex(989.82) [T65.811A] 12/01/2009 02/26/2024 Allergic Rhinitis-c/d/cockroach/dm/m /t/g/w/ragw*12/01/2009 Voice disturbance [R49.9] 01/30/2010 02/26/2024 LPRD (laryngopharyngeal reflux disease) [K21.9] 01/30/2010 02/26/2024 Cough [R05.9] 01/30/2010 02/26/2024 Other closed fractures of distal end of radius *07/01/2013 02/26/2024 Weakness of left lower extremity [R29.898] 12/20/2015 02/26/2024 Pain in left foot [M79.672] 12/20/2015 02/26/2024 Moderate persistent asthma with acute exacerbat*04/03/2024 Depression with anxiety [F41.8] 04/03/2024 Obesity, Class III, BMI >= 40 [E66.01] 04/03/2024 Asthma [J45.909] 1999 Encounter Status:Closed by MADELYN MCLEOD on 04/12/24 Normal [facility] CNOVon 04-03-2024 CNOV Office Visit (INTMWS ) PEGGY SCHMIDT ([id number]) 1975 F Date Time Provider Department 04/03/24 2:20 PM WALDO PENN INTMWS During your visit today, we recorded the following information about you: Pulse Blood pressure Weight Height Normal [facility] XR CHEST 2V FRONTAL/LATon XR CHEST 2V FRONTAL/LAT * * *Final Report* * * DATE OF EXAM: Apr 03 2024 3:41PM WOX 5291 - XR CHEST 2V FRONTAL/LAT / PROCEDURE REASON: multiple diagnoses * * * * Physician Interpretation * * * * EXAMINATION: CHEST RADIOGRAPH (2 VIEW FRONTAL and LATERAL) CLINICAL HISTORY: Moderate persistent asthma with acute exacerbation Pneumonia due to infectious organism, unspecified laterality, unspecified part of lung MQ: XC2_6 EXAM DATE/TIME: 04/03/2024 3:41 PM COMPARISON 02/26/2024 and 11/30/2018: . RESULT: Lines, tubes, and devices: None. Lungs and pleura: No consolidation. No lung mass. No pleural effusion. No pneumothorax. Interval clearing of right lower lobe infiltrate Cardiomediastinal silhouette: Normal cardiomediastinal silhouette. Bones and soft tissues: Unremarkable. IMPRESSION: No acute radiographic abnormality. Flight Test Supervisor: AVTAR Transcribe Date/Time: Apr 03 2024 3:43P Dictated by : ANITHA JERONIMO MD This examination was interpreted and the report reviewed and electronically signed by: ANITHA JERONIMO MD on Apr 03 2024 3:43PM EST [id number] Normal [facility] XR Chest PA and Lateralon IMPRESSION: No acute radiographic abnormality. Flight Test Supervisor: PSCB Transcribe Date/Time: Apr 03 2024 3:43P Dictated by : ANITHA JERONIMO MD This examination was interpreted and the report reviewed and electronically signed by: ANITHA JERONIMO MD on Apr 03 2024 3:43PM EST DIVISION OF RADIOLOGY * * *Final Report* * * DATE OF EXAM: Apr 03 2024 3:41PM WOX 5291 - XR CHEST 2V FRONTAL/LAT / PROCEDURE REASON: multiple diagnoses * * * * Physician Interpretation * * * * EXAMINATION: CHEST RADIOGRAPH (2 VIEW FRONTAL & LATERAL) CLINICAL HISTORY: Moderate persistent asthma with acute exacerbation Pneumonia due to infectious organism, unspecified laterality, unspecified part of lung MQ: XC2_6 EXAM DATE/TIME: 04/03/2024 3:41 PM COMPARISON 02/26/2024 and 11/30/2018: . RESULT: Lines, tubes, and devices: None. Lungs and pleura: No consolidation. No lung mass. No pleural effusion. No pneumothorax. Interval clearing of right lower lobe infiltrate Cardiomediastinal silhouette: Normal cardiomediastinal silhouette. Bones and soft tissues: Unremarkable. DIVISION OF RADIOLOGY Provider, [facility] - 04/03/2024 * * *Final Report* * * DATE OF EXAM: Apr 03 2024 3:41PM WOX 5291 - XR CHEST 2V FRONTAL/LAT / PROCEDURE REASON: multiple diagnoses * * * * Physician Interpretation * * * * EXAMINATION: CHEST RADIOGRAPH (2 VIEW FRONTAL & LATERAL) CLINICAL HISTORY: Moderate persistent asthma with acute exacerbation Pneumonia due to infectious organism, unspecified laterality, unspecified part of lung MQ: XC2_6 EXAM DATE/TIME: 04/03/2024 3:41 PM COMPARISON 02/26/2024 and 11/30/2018: . RESULT: Lines, tubes, and devices: None. Lungs and pleura: No consolidation. No lung mass. No pleural effusion. No pneumothorax. Interval clearing of right lower lobe infiltrate Cardiomediastinal silhouette: Normal cardiomediastinal silhouette. Bones and soft tissues: Unremarkable. IMPRESSION IMPRESSION: No acute radiographic abnormality. Flight Test Supervisor: PSCB Transcribe Date/Time: Apr 03 2024 3:43P Dictated by : ANITHA JERONIMO MD This examination was interpreted and the report reviewed and electronically signed by: ANITHA JERONIMO MD on Apr 03 2024 3:43PM EST [facility] Radiology Study observation (narrative) [facility] XR Chest PA and LateralOrder ed By: Ccf Provider on 04-03-2024 [facility] CNOVon 02-26-2024 CNOV Office Visit (WSTR ) CROWPEGGY HERNANDEZ ([id number]) 1975 F Date Time Provider Department 02/26/24 12:00 PM [facility] During your visit today, we recorded the following information about you: Temperature Pulse Respiration Blood pressure 98.6 degrees 84/minute 18/minute 128/82 Weight 112.7 kg Abdifatah Welsh APRN.FLOOR INSPECTOR 02/26/2024 12:45 PM Signed CC: No chief complaint on file. HPI: Peggy Schmidt is a 48 year old female who presents to the office with complaint of chest congestion, head congestion, and cough, nonproductive for a week. Symptoms are worsening Associated symptoms includes wheezing and dyspnea. Denies nausea, vomiting , and diarrhea. Treatments tried include nothing so far. with no relief of symptoms. Sick contacts: unknown. History of asthma, frequent episodes of bronchitis, chronic bronchitis, bronchiectasis or COPD: Yes asthma when sick or exerted Smoker: No Seasonal/environmental allergies: No The ROS is otherwise negative. The patient's pmh, medications, allergies, and past visits are reviewed. PHYSICAL EXAM: [facility] 10/17/2019 General appearance: alert, cooperative, pleasant, in no acute distress Head: Normocephalic Eyes: EOM's intact, conjunctiva pink and moist, no icterus, sclera white, non-injected Ears: Right ear: External ear/canal- Normal, TM - clear with good landmarks. Left ear: External ear/canal- Normal, TM - clear with good landmarks Oropharynx:moist without lesions, No erythema, exudates or tonsillar hypertrophy. Heart: Negative. RRR without obvious murmur, gallop, or rubs. No ectopy. Lungs: wheezing diffusely PAST MEDICAL HISTORY Diagnosis Date Asthma COVID-19 long hauler manifesting chronic joint pain Endometriosis Nephrolithiasis Seasonal allergies Sinusitis PAST SURGICAL HISTORY Procedure Laterality Date APPENDECTOMY 2001 CHOLECYSTECTOMY 2001 KNEE RIGHT OP SURGERY 2007. SINUS SURGERY PROC UNLISTED June 2009; TONSILLECTOMY HX June 2009 ALLERGIES Latex, Amoxicillin, and Penicillins MEDICATIONS ALBUTEROL SULFATE INHALATION Inhale as instructed. allopurinol (ZYLOPRIM) 100 mg tablet Take by mouth. elagolix (ORILISSA) 150 mg tablet Take by mouth. gabapentin (NEURONTIN) 100 mg capsule Take by mouth. FLUoxetine HCl 20 mg tablet Take by mouth. progesterone micronized (PROMETRIUM) 200 mg capsule Take by mouth. hydrOXYzine HCl (ATARAX) 25 mg tablet Take by mouth. fluticasone propion/salmeterol (ADVAIR DISKUS INHALATION) Inhale as instructed once daily. elagolix (ORILISSA) 150 mg tablet Take 1 tablet (150 mg) by mouth once daily. progesterone micronized (PROMETRIUM) 200 mg capsule Take 200 mg by mouth once daily. FLUoxetine HCl 20 mg tablet Take 20 mg by mouth once daily. dicyclomine (BENTYL) 10 mg capsule Take 10 mg by mouth before meals and at bedtime. famotidine (PEPCID) 20 mg tablet Take 20 mg by mouth twice daily. hydrOXYzine HCl (ATARAX) 25 mg tablet Take 25 mg by mouth three times daily as needed. pregabalin (LYRICA) 75 mg capsule Take 75 mg by mouth twice daily. whey (IMMUNOCAL ORAL) Take by mouth once daily. GARLIC once daily. vitamin B complex (STRESS B ORAL) Take by mouth. acetylcysteine (NAC ORAL) Take by mouth. diphenhydrAMINE (BENADRYL) 25 mg tablet Take 25 mg by mouth every 6 hours as needed. melatonin 10 mg cap Take by mouth once daily. albuterol HFA (PROAIR HFA) 90 mcg/Actuation INHALATION HFAA 1-2 inhalations 4 hours as needed traMADol (ULTRAM) 50 mg tablet Take 50 mg by mouth every 6 hours as needed for pain. (Patient not taking: Reported on 07/29/2023) escitalopram oxalate (LEXAPRO) 20 mg tablet Take 20 mg by mouth once daily. (Patient not taking: Reported on 05/24/2022) benzonatate (TESSALON PERLE) 100 mg capsule Take 1 capsule by mouth three times daily as needed. (Patient not taking: Reported on 05/24/2022) Levocetirizine (XYZAL) 5 mg ORAL tablet Take one(1) tablet daily as necessary (Patient not taking: ) ranitidine (ZANTAC) 150 mg ORAL Tab Take one(1) tablet daily at bedtime. (Patient not taking: ) Omeprazole (PRILOSEC) 40 mg ORAL CpDR Take one(1) tablet two(2) times daily 30 minutes prior to meals. (Patient not taking: No sig reported) montelukast (SINGULAIR) 10 mg ORAL Tab Take one(1) tablet daily at bedtime. (Patient not taking: Reported on 05/24/2022) budesonide-formoterol (SYMBICORT) 160-4.5 mcg/Actuation INHALATION HFAA 2 puffs am and pm. Gargle. (Patient not taking: ) EPINEPHRINE 0.3 MG/0.3 ML (1:1,000) IM PEN INJECTOR 1 pack. use as directed (Patient not taking: ) naproxen sodium(ALEVE 220 MG TAB) as necessary (Patient not taking: Reported on 05/24/2022) FAMILY HISTORY Problem Relation Age of Onset Diabetes Mother Diabetes Father Diabetes Sister Dementia Maternal Grandmother Diabetes Maternal Grandfather Social History Tobacco Use Smoking stat (more content not included)... Normal [facility] CNPNon 02-26-2024 CNPN Telephone (FAMPWS) PEGGY SCHMIDT ([id number]) 1975 F Date Time Provider Department 02/26/24 [facility] During your visit today, we recorded the following information about you: Martina Jean 02/26/2024 8:54 AM Signed Patient calling in because her sister Ana Chung is a patient of Dr. Penn and was recommending patient to see him. I let patient know Dr. Rodriguez is not currently accepting new patients, however she wanted me to reach out and see if he would make an exception. Please review and advise. Martina Jean February 26, 2024 8:54 AM Waldo Penn MD 02/26/2024 12:32 PM Signed Okay new patient appointment. Request medical records past 3 years. Bela Hylton LPN 02/26/2024 4:19 PM Signed Asked PSR in Internal Med to contact Patient to schedule. Isidro Baez LPN 02/26/2024 5:56 PM Signed Called and Left VM to schedule Exception appt, establish with Bela Scales LPN 02/27/2024 3:47 PM Signed Appt scheduled 04/03/2024. Bela Hylton LPN Allergies As of Date: 02/26/2024 Noted Allergy Reaction LATEX 12/01/2009 4 - Hives 7 - Swelling AMOXICILLIN 12/01/2009 4 - Hives PENICILLINS 12/01/2009 4 - Hives Date Reviewed: 02/26/2024 Reviewed by: Romy Rendon LPN - Fully Assessed Reason for Visit: Patient Question [7487] Prescriptions as of 02/27/2024 - azithromycin (ZITHROMAX) 250 mg tablet Take 2 tablets by mouth once daily for 1 day, THEN 1 tablet once daily for 4 days. - predniSONE (DELTASONE) 10 mg tablet Take 3 tablets by mouth once daily for 3 days, THEN 2 tablets once daily for 3 days, THEN 1 tablet once daily for 3 days. - allopurinol (ZYLOPRIM) 100 mg tablet Take by mouth. - fluticasone propion/salmeterol (ADVAIR DISKUS INHALATION) Inhale as instructed once daily. - famotidine (PEPCID) 20 mg tablet Take 20 mg by mouth twice daily. - whey (IMMUNOCAL ORAL) Take by mouth once daily. - GARLIC once daily. - vitamin B complex (STRESS B ORAL) Take by mouth. - acetylcysteine (NAC ORAL) Take by mouth. - diphenhydrAMINE (BENADRYL) 25 mg tablet Take 25 mg by mouth every 6 hours as needed. - melatonin 10 mg cap Take by mouth once daily. - albuterol HFA (PROAIR HFA) 90 mcg/Actuation INHALATION HFAA 1-2 inhalations 4 hours as needed Problem List As Of Date 02/26/2024 Noted Resolved Toxic effect of latex(989.82) [T65.811A] 12/01/2009 02/26/2024 Allergic Rhinitis-c/d/cockroach/dm/m /t/g/w/ragw*12/01/2009 Voice disturbance [R49.9] 01/30/2010 02/26/2024 LPRD (laryngopharyngeal reflux disease) [K21.9] 01/30/2010 02/26/2024 Cough [R05.9] 01/30/2010 02/26/2024 Other closed fractures of distal end of radius *07/01/2013 02/26/2024 Weakness of left lower extremity [R29.898] 12/20/2015 02/26/2024 Pain in left foot [M79.672] 12/20/2015 02/26/2024 Medications Discontinued During This Encounter Prescriptions - benzonatate (TESSALON PERLE) 100 mg capsule (Discontinued) Reported on 05/24/2022 - budesonide-formoterol (SYMBICORT) 160-4.5 mcg/Actuation INHALATION HFAA (Discontinued) - EPINEPHRINE 0.3 MG/0.3 ML (1:1,000) IM PEN INJECTOR (Discontinued) - escitalopram oxalate (LEXAPRO) 20 mg tablet (Discontinued) Reported on 05/24/2022 - Levocetirizine (XYZAL) 5 mg ORAL tablet (Discontinued) - montelukast (SINGULAIR) 10 mg ORAL Tab (Discontinued) Reported on 05/24/2022 - naproxen sodium(ALEVE 220 MG TAB) (Discontinued) Reported on 05/24/2022 - Omeprazole (PRILOSEC) 40 mg ORAL CpDR (Discontinued) No sig reported - ranitidine (ZANTAC) 150 mg ORAL Tab (Discontinued) - traMADol (ULTRAM) 50 mg tablet (Discontinued) Reported on 07/29/2023 - ALBUTEROL SULFATE INHALATION (Discontinued) Inhale as instructed. - elagolix (ORILISSA) 150 mg tablet (Discontinued) Take 1 tablet (150 mg) by mouth once daily. - elagolix (ORILISSA) 150 mg tablet (Discontinued) Take by mouth. - dicyclomine (BENTYL) 10 mg capsule (Discontinued) Take 10 mg by mouth before meals and at bedtime. - FLUoxetine HCl 20 mg tablet (Discontinued) Take 20 mg by mouth once daily. - FLUoxetine HCl 20 mg tablet (Discontinued) Take by mouth. - gabapentin (NEURONTIN) 100 mg capsule (Discontinued) Take by mouth. - hydrOXYzine HCl (ATARAX) 25 mg tablet (Discontinued) Take by mouth. - hydrOXYzine HCl (ATARAX) 25 mg tablet (Discontinued) Take 25 mg by mouth three times daily as needed. - pregabalin (LYRICA) 75 mg capsule (Discontinued) Take 75 mg by mouth twice daily. - progesterone micronized (PROMETRIUM) 200 mg capsule (Discontinued) Take 200 mg by mouth once daily. - progesterone micronized (PROMETRIUM) 200 mg capsule (Discontinued) Take by mouth. Encounter Status:Closed by BELA HYLTON on 02/27/24 [facility] XR CHEST 2V FRONTAL/LATon XR CHEST 2V FRONTAL/LAT * * *Final Report* * * DATE OF EXAM: Feb 26 2024 12:30PM WOX [id number] - XR CHEST 2V FRONTAL/LAT / PROCEDURE REASON: Acute cough * * * * Physician Interpretation * * * * EXAMINATION: CHEST RADIOGRAPH (2 VIEW FRONTAL and LATERAL) CLINICAL HISTORY: Acute cough MQ: XC2_6 EXAM DATE/TIME: 02/26/2024 12:30 PM COMPARISON: Chest x-ray dated 11/17/2022 RESULT: Lines, tubes, and devices: None. Lungs and pleura: Patchy airspace opacity in the right lower lobe. No pleural effusion or pneumothorax. Cardiomediastinal silhouette: Stable cardiomediastinal silhouette. Bones and soft tissues: Degenerative changes are present within the thoracic spine. Surgical clips in the right upper quadrant IMPRESSION: Right lower lobe pneumonia. Flight Test Supervisor: AVTAR Transcribe Date/Time: Feb 26 2024 12:34P Dictated by : TERESA GILBERT MD This examination was interpreted and the report reviewed and electronically signed by: TERESA GILBERT MD on Feb 26 2024 12:35PM EST [id number] Normal [facility] XR Chest PA and Lateralon IMPRESSION: Right lower lobe pneumonia. Flight Test Supervisor: PSCB Transcribe Date/Time: Feb 26 2024 12:34P Dictated by : TERESA GILBERT MD This examination was interpreted and the report reviewed and electronically signed by: TERESA GILBERT MD on Feb 26 2024 12:35PM EST DIVISION OF RADIOLOGY * * *Final Report* * * DATE OF EXAM: Feb 26 2024 12:30PM WOX 5291 - XR CHEST 2V FRONTAL/LAT / PROCEDURE REASON: Acute cough * * * * Physician Interpretation * * * * EXAMINATION: CHEST RADIOGRAPH (2 VIEW FRONTAL & LATERAL) CLINICAL HISTORY: Acute cough MQ: XC2_6 EXAM DATE/TIME: 02/26/2024 12:30 PM COMPARISON: Chest x-ray dated 11/17/2022 RESULT: Lines, tubes, and devices: None. Lungs and pleura: Patchy airspace opacity in the right lower lobe. No pleural effusion or pneumothorax. Cardiomediastinal silhouette: Stable cardiomediastinal silhouette. Bones and soft tissues: Degenerative changes are present within the thoracic spine. Surgical clips in the right upper quadrant DIVISION OF RADIOLOGY Provider, [facility] - 02/26/2024 * * *Final Report* * * DATE OF EXAM: Feb 26 2024 12:30PM WOX 5291 - XR CHEST 2V FRONTAL/LAT / PROCEDURE REASON: Acute cough * * * * Physician Interpretation * * * * EXAMINATION: CHEST RADIOGRAPH (2 VIEW FRONTAL & LATERAL) CLINICAL HISTORY: Acute cough MQ: XC2_6 EXAM DATE/TIME: 02/26/2024 12:30 PM COMPARISON: Chest x-ray dated 11/17/2022 RESULT: Lines, tubes, and devices: None. Lungs and pleura: Patchy airspace opacity in the right lower lobe. No pleural effusion or pneumothorax. Cardiomediastinal silhouette: Stable cardiomediastinal silhouette. Bones and soft tissues: Degenerative changes are present within the thoracic spine. Surgical clips in the right upper quadrant IMPRESSION IMPRESSION: Right lower lobe pneumonia. Flight Test Supervisor: PSCJihan Transcribe Date/Time: Feb 26 2024 12:34P Dictated by : TERESA GILBERT MD This examination was interpreted and the report reviewed and electronically signed by: TERESA GILBERT MD on Feb 26 2024 12:35PM EST [facility] Radiology Study observation (narrative) [facility] XR Chest PA and LateralOrder ed By: Ccf Provider on 02-26-2024 [facility] Inital Evaluation (1) - PTon 01-20-2024 Inital Evaluation (1) - PT [facility] Physical Therapy [facility] [address] [place] [address] [address] [place] [address] / REHABILITATION SERVICES INITIAL EVALUATION MR#: [id number] Acct: [id number] Name: PEGGY SCHMIDT Rep #: [id number] : 1975 48 From: Yogi Dior DPT, OCS, CSCS Referring Dr.: Dr. Denys Carver DO Status: REG RCR Insurance: [facility] Patient's Visit Information Visit Information Visit Information: PEGGY SCHMIDT is a 48 year old F referred to Physical Therapy by Dr. Denys Spittle, DO with a diagnosis of R knee primary OA. Date of Evaluation: 01/20/24 Physical Therapist: Yogi Doir, DPT, OCS, CSCS Visit Plan Frequency: 3x /Week Duration: 4-6 Weeks Plan: 3x/week for 3-6 starting in pool for : knee ROM, quad and HS stretches knee adn hip strength progress to I overall pool program as member. Consider benefits of gym exercises once I in pool Subjective Subjective: Has lymphedema, not sure why , in both legs. Has R knee pain, 2 surgeries and will need TKA. Trying to postpone it with strengthening and aquatic therapy. Hurts to walk most steps, worse if on it alot. Not bad when has not been on feet alot. Had cortisone shot a week ago and it helped. it helped her get around better, 30%. Cleaning and being on it 4 hrs saturday was 8/10 but would have been off the charts prior to injection. Lives in apartment, Has steps which are only done with L leg only with railing. Sleeping is better since injection, rainy weather makes it worse. 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 has not missed work. Hobbies: travelling. knee not limiting right now. Niece and nephew time is effected as they are active. basic ADLs: I with dress, cleaning, cooking.shower bathroom all I. Regular exercises, not yet. Joined Pain R knee pain: Pain Intensity (Out of 10): 0 Pain Intensity Range: 0 and 7 Comment: 8 prior to injection0 Objective Objective: Walks into PT I with good abalnce without AD. Slight R antalgia but no c/o pain this am ambulating. trasnfers bed and chair I. Steps using L only up and down, Can us R , requires rail. Knee AROM R knee 0-90 and L knee 0-108. OP on R knee flexion is painful/wincing. hip and ankle aROM WFL. reflexes 2/3 patella adn achilles B. Sensation LE WNL to gross light touch B. strength hips abd and ext 3+, flexion 3+, knee flex/ext 4- except R extension which is 3+ and painful. ankles testing 4/5 without pain. + R knee scour and patellar grind. - bounce home. Balance/Special Test Scores Lower Extremity Functional Score: 35 Goals Goal 1:: I appropriate pool and/or land gym based HEP to limit future problems Goal Time Frame: 4-6 Weeks Goal 2:: Pain 3/10 at worst in knee and 80% better Goal Time Frame: 4-6 Weeks Goal 3:: climb steps with either leg without pain Goal Time Frame: 4-6 Weeks Goal 4:: walk at work without increased pain Goal Time Frame: 4-6 Weeks Goal 5:: 50 LEFS Rehabilitation Potential Physical Therapy Diagnosis: R knee stiffness and pain limiting funciton comfort. Rehabilitation Potential: Fair Anticipated Interventions Patient/Client Instruction: Educate patient on: Condition and Plan of Care For the Purpose of:: To decrease pain, To increase ROM, To improve nutrient delivery to tissue and To improve muscle performance and motor function Therapeutic Exercise to Include: Strength training, Flexibilty training, Gait and locomotor training, In an aquatic setting, Passive ROM and Active ROM For the Purpose of:: To decrease pain, To increase ROM, To improve nutrient delivery to tissue, To improve muscle performance and motor function, To increase tolerance to activity/condition/position and To improve gait and locomotor functions Manual Therapy Techniques to Include: Mobilization, Passive ROM and Soft tissue mobilization For the Purpose of:: To decrease pain Text: Thank you for the opportunity to evaluate your patient. For Medicare and Medicare HMO plans, please review the plan of care and approve it. It will need to be FAXED BACK to us at [phone] for Medicare purposes. For Medicare only, by signing this I certify the plan of care. Please let me know if there are questions or concerns regarding this plan of care. Physician Signature: Date: 01/20/24 0916 CC: ELIO Tolbert; Dr. Denys Carver, EBG Signed Normal [facility] Knee 4 or More Viewson 12-30 Knee 4 or More Views [facility] Imaging Services [address] [facility] [address] [place], [place] [address] Knee 4 or More Views MR#: [id number] Acct: [id number] Name: PEGGY SCHMIDT Rep #: [id number] : 1975 F 48 From: Librado Hernadez MD PCP: ELIO Durand Status: REG CLI Study: Knee 4 or More Views Date of Exam: 12/31/23 Exam# [id number] Ordering Dr: Rebekah Tolbert NP, NP-C [id number] STUDY: X-RAY - RIGHT KNEE REASON FOR EXAM: Female, 48 years old. Pain. TECHNIQUE: 4 view(s) of the knee. COMPARISON: None. FINDINGS: Osteopenia. Staple in the proximal and medial tibia. Severe arthrosis of the medial femorotibial compartment with marked osteophyte formation. Moderate arthrosis of the lateral femorotibial compartment with osteophytes. Moderate to severe arthrosis of the patellofemoral compartment with osteophyte formation. Chondrocalcinosis. Small joint effusion with multiple intra-articular osteochondral bodies.. RAD/Knee 4 or More Views IMPRESSION: Osteopenia with tricompartmental arthrosis, chondrocalcinosis and multiple intra-articular osteochondral bodies. Electronically Signed: Librado Hernadez MD at 13:22 EDT Reading Location ID and State: [facility] / [place] , Service support , CC: SUBSTATION OPERATOR AUTOMATIC-C Rebekah Tolbert Flight Test Supervisor: Signed Normal [facility] No Panel Informationon 08-06 Result Reviewed By Carolina Sung [facility] Tuberculin PPD Skin Test (Clinic) Negative [facility] STREP A MOLECULAR (POC)on Procedural Control Valid [facility] Strep A (POCT) Negative Negative [facility] XR CHEST 2V FRONTAL/LATon [facility] XR Chest PA and Lateralon IMPRESSION: Medial RIGHT midlung airspace disease consistent with pneumonia or atelectasis. Flight Test Supervisor: AVTAR Transcribe Date/Time: Nov 17 2022 10:49A Dictated by : JUN RIOS MD This examination was interpreted and the report reviewed and electronically signed by: JUN RIOS MD on Nov 17 2022 10:50AM [facility] DIVISION OF RADIOLOGY * * *Final Report* * * DATE OF EXAM: Nov 17 2022 10:42AM WOX [id number] - XR CHEST 2V FRONTAL/LAT / PROCEDURE REASON: multiple diagnoses * * * * Physician Interpretation * * * * EXAMINATION: CHEST RADIOGRAPH (2 VIEW FRONTAL & LATERAL) CLINICAL HISTORY: Fever, unspecified fever cause Wheezing MQ: XC2_6 EXAM DATE/TIME: 11/17/2022 10:42 AM COMPARISON: No relevant prior studies available. RESULT: Lines, tubes, and devices: None. Lungs and pleura: Patchy airspace disease medial RIGHT lung. Lungs otherwise appear clear. No lung mass. No pleural effusion. No pneumothorax. Cardiomediastinal silhouette: Normal cardiomediastinal silhouette. Bones and soft tissues: Unremarkable. DIVISION OF RADIOLOGY Provider, [facility] - 11/17/2022 * * *Final Report* * * DATE OF EXAM: Nov 17 2022 10:42AM WOX 5291 - XR CHEST 2V FRONTAL/LAT / PROCEDURE REASON: multiple diagnoses * * * * Physician Interpretation * * * * EXAMINATION: CHEST RADIOGRAPH (2 VIEW FRONTAL & LATERAL) CLINICAL HISTORY: Fever, unspecified fever cause Wheezing MQ: XC2_6 EXAM DATE/TIME: 11/17/2022 10:42 AM COMPARISON: No relevant prior studies available. RESULT: Lines, tubes, and devices: None. Lungs and pleura: Patchy airspace disease medial RIGHT lung. Lungs otherwise appear clear. No lung mass. No pleural effusion. No pneumothorax. Cardiomediastinal silhouette: Normal cardiomediastinal silhouette. Bones and soft tissues: Unremarkable. IMPRESSION IMPRESSION: Medial RIGHT midlung airspace disease consistent with pneumonia or atelectasis. Flight Test Supervisor: SCOTTB Transcribe Date/Time: Nov 17 2022 10:49A Dictated by : JUN RIOS MD This examination was interpreted and the report reviewed and electronically signed by: JUN RIOS MD on Nov 17 2022 10:50AM EST [facility] Radiology Study observation (narrative) [facility] XR Chest PA and LateralOrder ed By: Ccf Provider on 11-17-2022 [facility] 36on 06-11-2022 36 Patient retu rned phone call. Appointment no longer needed. Normal [facility] 36 Called patient. Left voicemail to return call to reschedule canceled appointment from 06/[address] Marroquin. Normal [facility] Laboratory - Chemistry and C hemistry - challengeOrdered By: Dr. Medrano on 05-17-2022 HCG ( test) Ql (U) Negative [facility] Comment on above: Very dilute urine sp ecimens, as indicated by a low specificgravity, may not contain loan servicing representative levels of hCG. If is still suspected, a first morning urinespecimen should be collected 48 hours later and tested. Absolute lymphocyte countOrd ered By: Rebekah Tolbert on 05-02-2022 Lymphocytes Auto (Unsp spec) [#/Vol] 2.66 10*3/uL 0.83-4.51 [facility] Basophil percentageOrdered B y: Rebekah Tolbert on 05-02-2022 Basophil percentage 2.7 mg/dL 2.5-4.9 [facility] Basophils/100 WBC (Bld) 0.5 % 0-1 [facility] Bilirubin [Mass/Vol] 0.40 mg/dL 0.20-1.00 [facility] Comment on above: For patients on eltr ombopag therapy, use of Dimension [place] TBIL is not recommended. Chloride [Moles/Vol] 108 mmol/L 98-107 [facility] Eosinophils/100 WBC (Bld) 2.2 % 0-5 [facility] Glucose [Mass/Vol] 102 mg/dL 74-106 [facility] Comment on above: Fasting Glucose resu lt from 100 to 125 mg/dL suggests IMPAIRED HOMEOSTASIS per A.D.A. criteria. Neutrophils (Bld) [#/Vol] 7.6 10*3/uL 2.0-7.7 [facility] Neutrophils/100 WBC (Bld) 68.1 % 47-70 [facility] Potassium [Moles/Vol] 4.0 mmol/L 3.5-5.1 [facility] Protein [Mass/Vol] 6.8 g/dL 6.4-8.2 [facility] Sodium [Moles/Vol] 141 mmol/L 136-145 [facility] WBC (Bld) [#/Vol] 11.2 10*3/uL 4.4-11.0 [facility] Blood erythrocytes count (nu mber/volume)Ordered By: Rebekah Tolbert on 05-02-2022 RBC (Bld) [#/Vol] 4.24 10*6/uL 4.2-5.4 [facility] Blood hemoglobin measurement (mass/volume)Ordered By: Rebekah Tolbert on 05-02-2022 Hemoglobin (Bld) [Mass/Vol] 12.6 g/dL 12.0-15.0 [facility] Blood lymphocytes/100 leukoc ytesOrdered By: Rebekah Tolbert on 05-02-2022 Lymphocytes/100 WBC (Bld) 23.8 % 19-41 [facility] Blood monocytes/100 leukocyt esOrdered By: Rebekah Tolbert on 05-02-2022 Monocytes/100 WBC (Bld) 5.0 % 0-10 [facility] Blood platelet mean volumeOr dered By: Rebekah Tolbert on 05-02-2022 Platelet mean volume (Bld) [Entitic vol] 9.5 fL 6.2-12.0 [facility] Determination of erythrocyte mean corpuscular volume (MCV)Ordered By: Rebekah Tolbert on 05-02-2022 MCV (RBC) [Entitic vol] 89.6 fL 81-99 [facility] Hematocrit Auto (Bld) [Volum e fraction]Ordered By: Rebekah Tolbert on 05-02-2022 Hematocrit (Bld) [Volume fraction] 38.0 % 37-47 [facility] Laboratory - Chemistry and C hemistry - challengeOrdered By: Rebekah Tolbert on 05-02-2022 ALP [Catalytic activity/Vol] 88 U/L 45-117 [facility] ALT [Catalytic activity/Vol] 25 U/L 13-56 [facility] CO2 [Moles/Vol] 28.0 mmol/L 21.0-32.0 [facility] Globulin (S) [Mass/Vol] 3.4 g/dL 2.2-4.2 [facility] Magnesium [Mass/Vol] 2.1 mg/dL 1.6-2.6 [facility] Urea nitrogen/Creatinine [Mass ratio] 11.1 mg/mg 10-20 [facility] Laboratory - Hematology and Cell countsOrdered By: Rebekah Tolbert on 05-02-2022 Erythrocyte distribution width (RBC) [Entitic vol] 49.4 fL 35.1-43.9 [facility] Erythrocyte distribution width (RBC) [Ratio] 15.1 % 11.6-14.6 [facility] Immature granulocytes/100 WBC (Bld) 0.400 % 0.0-0.9 [facility] Comment on above: IG% - Immature Granu locytes (promyelocytes, myelocytes and metamyelocytes) > 1% indicates that a LEFT SHIFT is Present. MCH (RBC) [Entitic mass] 29.7 pg 27.0-32.0 [facility] Nucleated RBC/100 WBC (Bld) [Ratio] 0 % 0-5 [facility] MCHC Auto (RBC) [Mass/Vol]Or dered By: Rebekah Tolbert on 05-02-2022 MCHC (RBC) [Mass/Vol] 33.2 g/dL 32-36 [facility] No Panel InformationOrdered By: Rebekah Tolbert on 05-02-2022 Estimated GFR (MDRD) Amer 97 mL/min >60 [facility] Comment on above: GFR Calc Estimated GFR (MDRD) Non-Af Amer 81 mL/min >60 [facility] Comment on above: Non- GFR Calc Platelets bldOrdered By: Chalo Tolbert on 05-02-2022 Platelets (Bld) [#/Vol] 337 10*3/uL 150-450 [facility] Serum or plasma albumin nabila urement (mass/volume)Ordered By: Rebekah Tolbert on 05-02-2022 Albumin [Mass/Vol] 3.4 g/dL 3.2-5.0 [facility] Serum or plasma albumin/glob ulin mass ratioOrdered By: Rebekah Tolbert on 05-02-2022 Albumin/Globulin [Mass ratio] 1.0 {ratio} 0.9-2.4 [facility] Serum or plasma calcium nabila urement (mass/volume)Ordered By: Rebekah Tolbert on 05-02-2022 Calcium [Mass/Vol] 9.0 mg/dL 8.5-10.1 [facility] Serum or plasma creatinine m easurement (mass/volume)Ordered By: Rebekah Tolbert on 05-02-2022 Creatinine [Mass/Vol] 0.81 mg/dL 0.55-1.02 [facility] Comment on above: The validity of the calculated GFR & GFRAA in patients over 70 years has not been determined. Clinical correlation is essential. Serum or plasma urea nitroge n measurement (mass/volume)Ordered By: Rebekah Tolbert on 05-02-2022 Urea nitrogen [Mass/Vol] 9 mg/dL 7-18 [facility] Serum or plasma uric acid me asurement (mass/volume)Ordered By: Rebekah Tolbert on 05-02-2022 Urate [Mass/Vol] 7.4 mg/dL 2.6-6.0 [facility] Comment on above: The drugs N-Acetylcy steine and Metamizole may falsely depress this assay. Thin prep Papanicolaou smear with manual screeningOrdered By: Rebekah Tolbert on 05-02-2022 Thin prep Papanicolaou smear with manual screening 18 U/L 15-37 [facility] Thin prep Papanicolaou smear with manual screening 5 5-15 [facility] Culture, urineOrdered By: Tu Tolbert on 04-27-2022 Bacteria identified Cx Nom (U) Positive [facility] Basophil percentageOrdered B y: Rebekah Tolbert on 04-25-2022 Basophil percentage 0 SEEN /hpf 0-5 [facility] Bilirubin Test strip Ql (U)O rdered By: Rebekah Tolbert on 04-25-2022 Bilirubin Ql (U) Negative Negative [facility] Ketones Test strip Ql (U)Ord ered By: Rebekah Tolbert on 04-25-2022 Ketones Ql (U) Negative Negative [facility] Mucus LM Ql (Urine sed)Order ed By: Rebekah Tlobert on 04-25-2022 Mucus Ql (Urine sed) 0 SEEN /hpf [facility] Nitrite Test strip Ql (U)Ord ered By: Rebekah Tolbert on 04-25-2022 Nitrite Ql (U) Negative Negative [facility] Protein Test strip Ql (U)Ord ered By: Rebekah Tolbert on 04-25-2022 Protein Ql (U) Negative Negative [facility] Squamous epithelial cells de tection in urine sediment by light microscopyOrdered By: Rebekah Tolbert on 04-25-2022 Epithelial cells.squamous LM Ql (Urine sed) 0-5 SEEN /hpf 5-10 [facility] Urine blood detectionOrdered By: Rebekah Tolbert on 04-25-2022 RBC Ql (U) 10 /ul Negative [facility] RBC Ql (U) 0 SEEN /hpf 0-5 [facility] Urine clarityOrdered By: Chalo Tolbert on 04-25-2022 Clarity (U) Clear Clear [facility] Urine color determinationOrd ered By: Rebekah Tolbert on 04-25-2022 Color (U) Yellow Yellow [facility] Urine glucose detectionOrder ed By: Rebekah Tolbert on 04-25-2022 Glucose Ql (U) Normal mg/dl Normal [facility] Urine leukocyte esterase det ection by dipstickOrdered By: Rebekah Tolbert on 04-25-2022 Leukocyte esterase Test strip Ql (U) Negative Negative [facility] Urine pHOrdered By: Rebekah ruano on 04-25-2022 pH (U) 5.0 [pH] 5.0 - 8.0 [facility] Urine sediment bacteria coun t by microscopy (number/high power field)Ordered By: Rebekah Tolbert on 04-25-2022 Bacteria LM.HPF (Urine sed) [#/Area] 1 /[HPF] None Seen [facility] Urine specific gravity measu rementOrdered By: Rebekah Tolbert on 04-25-2022 Specific gravity (U) [Rel density] 1.020 1.002-1.03 0 [facility] Urobilinogen Auto test strip Ql (U)Ordered By: Rebekah Tolbert on 04-25-2022 Urobilinogen Ql (U) Normal mg/dl Normal [facility] Culture, urineOrdered By: Tu Tolbert on 04-13-2022 Bacteria identified Cx Nom (U) Positive [facility] Absolute lymphocyte countOrd ered By: Rebekah Tolbert on 04-11-2022 Lymphocytes Auto (Unsp spec) [#/Vol] 1.15 10*3/uL 0.83-4.51 [facility] Basophil percentageOrdered B y: Rebekah Tolbert on 04-11-2022 Basophils/100 WBC (Bld) 0.5 % 0-1 [facility] Bilirubin [Mass/Vol] 0.40 mg/dL 0.20-1.00 [facility] Comment on above: For patients on eltr ombopag therapy, use of Dimension [place] TBIL is not recommended. Chloride [Moles/Vol] 109 mmol/L 98-107 [facility] Cholesterol [Mass/Vol] 182 mg/dL <200 [facility] Comment on above: <200 mg/dL Desirable 200-240 mg/dL Borderline >240 mg/dL High Risk Eosinophils/100 WBC (Bld) 2.6 % 0-5 [facility] Glucose [Mass/Vol] 91 mg/dL 74-106 [facility] Neutrophils (Bld) [#/Vol] 6.1 10*3/uL 2.0-7.7 [facility] Neutrophils/100 WBC (Bld) 74.9 % 47-70 [facility] Potassium [Moles/Vol] 4.0 mmol/L 3.5-5.1 [facility] Protein [Mass/Vol] 6.8 g/dL 6.4-8.2 [facility] Sodium [Moles/Vol] 141 mmol/L 136-145 [facility] Triglyceride [Mass/Vol] 122 mg/dL <199 [facility] Comment on above: The drugs N-Acetylcy steine and Metamizole may falsely depress this assay.Serum Triglycerides Reference Interval Normal <150 mg/dL Borderline high 150 - 199 mg/dL High 200 - 499 mg/dL Very High > or = 500 mg/dL WBC (Bld) [#/Vol] 8.1 10*3/uL 4.4-11.0 [facility] Bilirubin Test strip Ql (U)O rdered By: Rebekah Tolbert on 04-11-2022 Bilirubin Ql (U) Negative Negative [facility] Blood erythrocytes count (nu mber/volume)Ordered By: Rebekah Tolbert on 04-11-2022 RBC (Bld) [#/Vol] 4.13 10*6/uL 4.2-5.4 [facility] Blood hemoglobin measurement (mass/volume)Ordered By: Rebekah Tolbert on 04-11-2022 Hemoglobin (Bld) [Mass/Vol] 12.0 g/dL 12.0-15.0 [facility] Blood lymphocytes/100 leukoc ytesOrdered By: Rebekah Tolbert on 04-11-2022 Lymphocytes/100 WBC (Bld) 14.2 % 19-41 [facility] Blood monocytes/100 leukocyt esOrdered By: Rebekah Tolbert on 04-11-2022 Monocytes/100 WBC (Bld) 7.4 % 0-10 [facility] Blood platelet mean volumeOr dered By: Rebekah Tolbert on 04-11-2022 Platelet mean volume (Bld) [Entitic vol] 10.3 fL 6.2-12.0 [facility] Determination of erythrocyte mean corpuscular volume (MCV)Ordered By: Rebekah Tolbert on 04-11-2022 MCV (RBC) [Entitic vol] 88.9 fL 81-99 [facility] Erythrocyte sedimentation ra teOrdered By: Rebekah Tolbert on 04-11-2022 ESR (Bld) [Velocity] 49 mm/h 0-30 [facility] Hematocrit Auto (Bld) [Volum e fraction]Ordered By: Rebekah Tolbert on 04-11-2022 Hematocrit (Bld) [Volume fraction] 36.7 % 37-47 [facility] Iron measurement (mass/mass) Ordered By: Rebekah Tolbert on 04-11-2022 Iron (Unsp spec) [Mass/Mass] 36 ug/dL 50-170 [facility] Ketones Test strip Ql (U)Ord ered By: Rebekah Tolbert on 04-11-2022 Ketones Ql (U) Negative Negative [facility] Laboratory - Chemistry and C hemistry - challengeOrdered By: Rebekah Tolbret on 04-11-2022 ALP [Catalytic activity/Vol] 104 U/L 45-117 [facility] ALT [Catalytic activity/Vol] 33 U/L 13-56 [facility] CO2 [Moles/Vol] 21.0 mmol/L 21.0-32.0 [facility] Cobalamin (Vitamin B12) [Mass/Vol] 331 pg/mL 211-911 [facility] Free T4 [Mass/Vol] 1.19 ng/dL 0.76-1.46 [facility] Globulin (S) [Mass/Vol] 3.1 g/dL 2.2-4.2 [facility] Urea nitrogen/Creatinine [Mass ratio] 13.7 mg/mg 10-20 [facility] Laboratory - Hematology and Cell countsOrdered By: Rebekah Tolbert on 04-11-2022 Erythrocyte distribution width (RBC) [Entitic vol] 50.4 fL 35.1-43.9 [facility] Erythrocyte distribution width (RBC) [Ratio] 15.4 % 11.6-14.6 [facility] Immature granulocytes/100 WBC (Bld) 0.400 % 0.0-0.9 [facility] Comment on above: IG% - Immature Granu locytes (promyelocytes, myelocytes and metamyelocytes) > 1% indicates that a LEFT SHIFT is Present. MCH (RBC) [Entitic mass] 29.1 pg 27.0-32.0 [facility] Nucleated RBC/100 WBC (Bld) [Ratio] 0 % 0-5 [facility] MCHC Auto (RBC) [Mass/Vol]Or dered By: Rebekah Tolbert on 04-11-2022 MCHC (RBC) [Mass/Vol] 32.7 g/dL 32-36 [facility] Nitrite Test strip Ql (U)Ord ered By: Rebekah Tolbert on 04-11-2022 Nitrite Ql (U) Negative Negative [facility] No Panel InformationOrdered By: Rebekah Tolbert on 04-11-2022 Estimated GFR (MDRD) Amer 110 mL/min >60 [facility] Comment on above: GFR Calc Estimated GFR (MDRD) Non-Af Amer 91 mL/min >60 [facility] Comment on above: Non- GFR Calc Thyroid Stimulating Hormone (TSH) 2.22 uIU/mL 0.358-3.74 [facility] Vitamin D 25-Hydroxy 25.8 ng/mL [facility] Comment on above: Vitamin D 25(OH) Sta tus Range Deficiency <20 ng/mL (50nmol/L) Insufficiency 20 - 30 ng/mL (50 - 75 nmol/L) Sufficiency 30 - 100 ng/mL (75 - 250 nmol/L) Toxicity >100 ng/mL (>250 nmol/L) Platelets bldOrdered By: Chalo Tolbert on 04-11-2022 Platelets (Bld) [#/Vol] 259 10*3/uL 150-450 [facility] Protein Test strip Ql (U)Ord ered By: Rebekah Tolbert on 04-11-2022 Protein Ql (U) 15 mg/dl Negative [facility] Serum or plasma C reactive p rotein measurement (mass/volume)Ordered By: Rebekah Tolbert on 04-11-2022 CRP [Mass/Vol] 15.50 mg/L 0.0-3.0 [facility] Comment on above: C-Reactive Protein ( CRP) provides useful information for thediagnosis, therapy and monitoring of inflammatory processesand associated diseases. For the evaluation of Relative Riskfor Cardiovascular Disease, a High Sensitivity CRP (HSCRP)should be ordered. Serum or plasma albumin nabila urement (mass/volume)Ordered By: Rebekah Tolbert on 04-11-2022 Albumin [Mass/Vol] 3.7 g/dL 3.2-5.0 [facility] Serum or plasma albumin/glob ulin mass ratioOrdered By: Rebekah Tolbert on 04-11-2022 Albumin/Globulin [Mass ratio] 1.2 {ratio} 0.9-2.4 [facility] Serum or plasma calcium nabila urement (mass/volume)Ordered By: Rebekah Tolbert on 04-11-2022 Calcium [Mass/Vol] 8.8 mg/dL 8.5-10.1 [facility] Serum or plasma cholesterol in HDL measurement (mass/volume)Ordered By: Rebekah Tolbert on 04-11-2022 Cholesterol in HDL [Mass/Vol] 61 mg/dL >40 [facility] Comment on above: The drugs N-Acetylcy steine and Metamizole may falsely depress this assay. Reference Range HDL <40 mg/dL Low HDL Cholesterol HDL >or= 60 mg/dL High HDL Cholesterol Serum or plasma cholesterol in VLDL measurement (mass/volume)Ordered By: Rebekah Tolbert on 04-11-2022 Cholesterol in VLDL [Mass/Vol] 24 mg/dL 5-40 [facility] Serum or plasma creatinine m easurement (mass/volume)Ordered By: Rebekah Tolbert on 04-11-2022 Creatinine [Mass/Vol] 0.73 mg/dL 0.55-1.02 [facility] Comment on above: The validity of the calculated GFR & GFRAA in patients over 70 years has not been determined. Clinical correlation is essential. Serum or plasma ferritin natali surement (mass/volume)Ordered By: Rebekah Tolbert on 04-11-2022 Ferritin [Mass/Vol] 67 ng/mL 8-252 [facility] Serum or plasma low density lipoprotein (LDL) cholesterol measurement (mass/volume)Ordered By: Rebekah Tolbert on 04-11-2022 Cholesterol in LDL [Mass/Vol] 97 mg/dL 0-130 [facility] Serum or plasma urea nitroge n measurement (mass/volume)Ordered By: Rebekah Tolbert on 04-11-2022 Urea nitrogen [Mass/Vol] 10 mg/dL 7-18 [facility] Thin prep Papanicolaou smear with manual screeningOrdered By: Rebekah Tolbert on 04-11-2022 Thin prep Papanicolaou smear with manual screening 23 U/L 15-37 [facility] Thin prep Papanicolaou smear with manual screening 11 5-15 [facility] Urine blood detectionOrdered By: Rebekah Tolbert on 04-11-2022 RBC Ql (U) 50 /ul Negative [facility] Urine clarityOrdered By: Chalo Tolbert on 04-11-2022 Clarity (U) Cloudy Clear [facility] Urine color determinationOrd ered By: Rebekah Tolbert on 04-11-2022 Color (U) Susi Yellow [facility] Urine glucose detectionOrder ed By: Rebekah Tolbert on 04-11-2022 Glucose Ql (U) Normal mg/dl Normal [facility] Urine leukocyte esterase det ection by dipstickOrdered By: Rebekah Tolbert on 04-11-2022 Leukocyte esterase Test strip Ql (U) 100 /ul Negative [facility] Urine pHOrdered By: Rebekah ruano on 04-11-2022 pH (U) 5.0 [pH] 5.0 - 8.0 [facility] Urine specific gravity measu rementOrdered By: Rebekah Tolbert on 04-11-2022 Specific gravity (U) [Rel density] 1.020 1.002-1.03 0 [facility] Urobilinogen Auto test strip Ql (U)Ordered By: Rebekah Tolbert on 04-11-2022 Urobilinogen Ql (U) Normal mg/dl Normal [facility] Whole blood hemoglobin A1c/t otal hemoglobin ratio (mass fraction)Ordered By: Rebekah Tolbert on 04-11-2022 HbA1c (Bld) [Mass fraction] 6.2 % 3.8-5.6 [facility] Comment on above: Normal < 5.7 % Predi abetic 5.7 - 6.4 % Diabetic >or= 6.5 % Please note range changes. Absolute lymphocyte countOrd ered By: Rebekah Tolbert on 03-14-2022 Lymphocytes Auto (Unsp spec) [#/Vol] 2.13 10*3/uL 0.83-4.51 [facility] Basophil percentageOrdered B y: Rebekah Tolbert on 03-14-2022 Basophils/100 WBC (Bld) 0.6 % 0-1 [facility] Bilirubin [Mass/Vol] 1.00 mg/dL 0.20-1.00 [facility] Comment on above: For patients on eltr ombopag therapy, use of Dimension [place] TBIL is not recommended. Chloride [Moles/Vol] 107 mmol/L 98-107 [facility] Eosinophils/100 WBC (Bld) 4.1 % 0-5 [facility] Glucose [Mass/Vol] 136 mg/dL 74-106 [facility] Comment on above: Fasting Glucose resu lt greater than or equal to 126 mg/dL suggests DIABETES MELLITUS per A.D.A. criteria. Neutrophils (Bld) [#/Vol] 6.3 10*3/uL 2.0-7.7 [facility] Neutrophils/100 WBC (Bld) 66.5 % 47-70 [facility] Potassium [Moles/Vol] 4.2 mmol/L 3.5-5.1 [facility] Protein [Mass/Vol] 6.6 g/dL 6.4-8.2 [facility] Sodium [Moles/Vol] 140 mmol/L 136-145 [facility] WBC (Bld) [#/Vol] 9.5 10*3/uL 4.4-11.0 [facility] Blood erythrocytes count (nu mber/volume)Ordered By: Rebekah Tolbert on 03-14-2022 RBC (Bld) [#/Vol] 4.17 10*6/uL 4.2-5.4 [facility] Blood hemoglobin measurement (mass/volume)Ordered By: Rebekah Tolbert on 03-14-2022 Hemoglobin (Bld) [Mass/Vol] 11.7 g/dL 12.0-15.0 [facility] Blood lymphocytes/100 leukoc ytesOrdered By: Rebekah Tolbert on 03-14-2022 Lymphocytes/100 WBC (Bld) 22.4 % 19-41 [facility] Blood monocytes/100 leukocyt esOrdered By: Rebekah Tolbert on 03-14-2022 Monocytes/100 WBC (Bld) 5.5 % 0-10 [facility] Blood platelet mean volumeOr dered By: Rebekah Tolbert on 03-14-2022 Platelet mean volume (Bld) [Entitic vol] 11.0 fL 6.2-12.0 [facility] Determination of erythrocyte mean corpuscular volume (MCV)Ordered By: Rebekah Tolbert on 03-14-2022 MCV (RBC) [Entitic vol] 90.4 fL 81-99 [facility] Erythrocyte sedimentation ra teOrdered By: Rebekah Tolbert on 03-14-2022 ESR (Bld) [Velocity] 57 mm/h 0-30 [facility] Hematocrit Auto (Bld) [Volum e fraction]Ordered By: Rebekah Tolbert on 03-14-2022 Hematocrit (Bld) [Volume fraction] 37.7 % 37-47 [facility] Laboratory - Chemistry and C hemistry - challengeOrdered By: Rebekah Tolbert on 03-14-2022 ALP [Catalytic activity/Vol] 199 U/L 45-117 [facility] ALT [Catalytic activity/Vol] 45 U/L 13-56 [facility] CO2 [Moles/Vol] 24.0 mmol/L 21.0-32.0 [facility] Globulin (S) [Mass/Vol] 3.4 g/dL 2.2-4.2 [facility] Urea nitrogen/Creatinine [Mass ratio] 14.6 mg/mg 10-20 [facility] Laboratory - Hematology and Cell countsOrdered By: Rebekah Tolbert on 03-14-2022 Erythrocyte distribution width (RBC) [Entitic vol] 49.1 fL 35.1-43.9 [facility] Erythrocyte distribution width (RBC) [Ratio] 14.9 % 11.6-14.6 [facility] Immature granulocytes/100 WBC (Bld) 0.900 % 0.0-0.9 [facility] Comment on above: IG% - Immature Granu locytes (promyelocytes, myelocytes and metamyelocytes) > 1% indicates that a LEFT SHIFT is Present. MCH (RBC) [Entitic mass] 28.1 pg 27.0-32.0 [facility] Nucleated RBC/100 WBC (Bld) [Ratio] 0 % 0-5 [facility] MCHC Auto (RBC) [Mass/Vol]Or dered By: Rebekah Tolbert on 03-14-2022 MCHC (RBC) [Mass/Vol] 31.0 g/dL 32-36 [facility] No Panel InformationOrdered By: Rebekah Tolbert on 03-14-2022 Estimated GFR (MDRD) Amer 96 mL/min >60 [facility] Comment on above: GFR Calc Estimated GFR (MDRD) Non-Af Amer 79 mL/min >60 [facility] Comment on above: Non- GFR Calc Platelets bldOrdered By: Chalo Tolbert on 03-14-2022 Platelets (Bld) [#/Vol] 270 10*3/uL 150-450 [facility] Serum or plasma C reactive p rotein measurement (mass/volume)Ordered By: Rebekah Tolbert on 03-14-2022 CRP [Mass/Vol] 20.40 mg/L 0.0-3.0 [facility] Comment on above: C-Reactive Protein ( CRP) provides useful information for thediagnosis, therapy and monitoring of inflammatory processesand associated diseases. For the evaluation of Relative Riskfor Cardiovascular Disease, a High Sensitivity CRP (HSCRP)should be ordered. Serum or plasma albumin nabila urement (mass/volume)Ordered By: Rebekah Tolbert on 03-14-2022 Albumin [Mass/Vol] 3.2 g/dL 3.2-5.0 [facility] Serum or plasma albumin/glob ulin mass ratioOrdered By: Rebekah Tolbert on 03-14-2022 Albumin/Globulin [Mass ratio] 0.9 {ratio} 0.9-2.4 [facility] Serum or plasma calcium nabila urement (mass/volume)Ordered By: Rebekah Tolbert on 03-14-2022 Calcium [Mass/Vol] 8.6 mg/dL 8.5-10.1 [facility] Serum or plasma creatinine m easurement (mass/volume)Ordered By: Rebekah Tolbert on 03-14-2022 Creatinine [Mass/Vol] 0.82 mg/dL 0.55-1.02 [facility] Comment on above: The validity of the calculated GFR & GFRAA in patients over 70 years has not been determined. Clinical correlation is essential. Serum or plasma urea nitroge n measurement (mass/volume)Ordered By: Rebekah Tolbert on 03-14-2022 Urea nitrogen [Mass/Vol] 12 mg/dL 7-18 [facility] Thin prep Papanicolaou smear with manual screeningOrdered By: Rebekah Tolbert on 03-14-2022 Thin prep Papanicolaou smear with manual screening 30 U/L 15-37 [facility] Thin prep Papanicolaou smear with manual screening 9 5-15 [facility] Culture, urineOrdered By: Tu Tolbert on 03-09-2022 Bacteria identified Cx Nom (U) Positive [facility] Absolute lymphocyte countOrd ered By: Rebekah Tolbert on 03-08-2022 Lymphocytes Auto (Unsp spec) [#/Vol] 1.78 10*3/uL 0.83-4.51 [facility] Basophil percentageOrdered B y: Rebekah Tolbert on 03-08-2022 Basophils/100 WBC (Bld) 0.6 % 0-1 [facility] Bilirubin [Mass/Vol] 2.10 mg/dL 0.20-1.00 [facility] Comment on above: For patients on eltr ombopag therapy, use of Dimension [place] TBIL is not recommended. Chloride [Moles/Vol] 106 mmol/L 98-107 [facility] Eosinophils/100 WBC (Bld) 3.9 % 0-5 [facility] Glucose [Mass/Vol] 153 mg/dL 74-106 [facility] Comment on above: Fasting Glucose resu lt greater than or equal to 126 mg/dL suggests DIABETES MELLITUS per A.D.A. criteria. Neutrophils (Bld) [#/Vol] 4.1 10*3/uL 2.0-7.7 [facility] Neutrophils/100 WBC (Bld) 61.8 % 47-70 [facility] Potassium [Moles/Vol] 4.2 mmol/L 3.5-5.1 [facility] Protein [Mass/Vol] 7.2 g/dL 6.4-8.2 [facility] Sodium [Moles/Vol] 139 mmol/L 136-145 [facility] WBC (Bld) [#/Vol] 6.7 10*3/uL 4.4-11.0 [facility] Blood erythrocytes count (nu mber/volume)Ordered By: Rebekah Tolbert on 03-08-2022 RBC (Bld) [#/Vol] 4.50 10*6/uL 4.2-5.4 [facility] Blood hemoglobin measurement (mass/volume)Ordered By: Rebekah Tolbert on 03-08-2022 Hemoglobin (Bld) [Mass/Vol] 12.6 g/dL 12.0-15.0 [facility] Blood lymphocytes/100 leukoc ytesOrdered By: Rebekah Tolbert on 03-08-2022 Lymphocytes/100 WBC (Bld) 26.8 % 19-41 [facility] Blood monocytes/100 leukocyt esOrdered By: Rebekah Tolbert on 03-08-2022 Monocytes/100 WBC (Bld) 6.3 % 0-10 [facility] Blood platelet mean volumeOr dered By: Rebekah Tolbert on 03-08-2022 Platelet mean volume (Bld) [Entitic vol] 11.5 fL 6.2-12.0 [facility] Determination of erythrocyte mean corpuscular volume (MCV)Ordered By: Rebekah Tolbert on 03-08-2022 MCV (RBC) [Entitic vol] 88.4 fL 81-99 [facility] Erythrocyte sedimentation ra teOrdered By: Rebekah Tolbert on 03-08-2022 ESR (Bld) [Velocity] 86 mm/h 0-30 [facility] Hematocrit Auto (Bld) [Volum e fraction]Ordered By: Rebekah Tolbert on 03-08-2022 Hematocrit (Bld) [Volume fraction] 39.8 % 37-47 [facility] INR in Blood by Coagulation assayOrdered By: Rebekah Tolbert on 03-08-2022 INR Coag (Bld) [Relative time] 0.9 {INR} [facility] Laboratory - Chemistry and C hemistry - challengeOrdered By: Rebekahkelby Tolbert on 03-08-2022 ALP [Catalytic activity/Vol] 288 U/L 45-117 [facility] ALT [Catalytic activity/Vol] 95 U/L 13-56 [facility] CO2 [Moles/Vol] 23.0 mmol/L 21.0-32.0 [facility] Globulin (S) [Mass/Vol] 3.7 g/dL 2.2-4.2 [facility] Urea nitrogen/Creatinine [Mass ratio] 8.5 mg/mg 10-20 [facility] Laboratory - CoagulationOrde red By: Rebekah Tolbert on 03-08-2022 aPTT Coag (Bld) [Time] 29.7 s 24.1-36.2 [facility] PT Coag (PPP) [Time] 11.7 s 11.7-14.9 [facility] Laboratory - Hematology and Cell countsOrdered By: Rebekah Tolbert on 03-08-2022 Erythrocyte distribution width (RBC) [Entitic vol] 49.3 fL 35.1-43.9 [facility] Erythrocyte distribution width (RBC) [Ratio] 15.4 % 11.6-14.6 [facility] Immature granulocytes/100 WBC (Bld) 0.600 % 0.0-0.9 [facility] Comment on above: IG% - Immature Granu locytes (promyelocytes, myelocytes and metamyelocytes) > 1% indicates that a LEFT SHIFT is Present. MCH (RBC) [Entitic mass] 28.0 pg 27.0-32.0 [facility] Nucleated RBC/100 WBC (Bld) [Ratio] 0 % 0-5 [facility] MCHC Auto (RBC) [Mass/Vol]Or dered By: Rebekah Tolbert on 03-08-2022 MCHC (RBC) [Mass/Vol] 31.7 g/dL 32-36 [facility] No Panel InformationOrdered By: Rebekah Tolbert on 03-08-2022 Estimated GFR (MDRD) Amer 82 mL/min >60 [facility] Comment on above: GFR Calc Estimated GFR (MDRD) Non-Af Amer 67 mL/min >60 [facility] Comment on above: Non- GFR Calc Platelets bldOrdered By: Chalo Tolbert on 03-08-2022 Platelets (Bld) [#/Vol] 233 10*3/uL 150-450 [facility] Serum or plasma C reactive p rotein measurement (mass/volume)Ordered By: Rebekah Tolbert on 03-08-2022 CRP [Mass/Vol] 19.70 mg/L 0.0-3.0 [facility] Comment on above: C-Reactive Protein ( CRP) provides useful information for thediagnosis, therapy and monitoring of inflammatory processesand associated diseases. For the evaluation of Relative Riskfor Cardiovascular Disease, a High Sensitivity CRP (HSCRP)should be ordered. Serum or plasma albumin nabila urement (mass/volume)Ordered By: Rebekah Tolbert on 03-08-2022 Albumin [Mass/Vol] 3.5 g/dL 3.2-5.0 [facility] Serum or plasma albumin/glob ulin mass ratioOrdered By: Rebekah Tolbert on 03-08-2022 Albumin/Globulin [Mass ratio] 0.9 {ratio} 0.9-2.4 [facility] Serum or plasma calcium nabila urement (mass/volume)Ordered By: Rebekah Tolbert on 03-08-2022 Calcium [Mass/Vol] 9.7 mg/dL 8.5-10.1 [facility] Serum or plasma creatinine m easurement (mass/volume)Ordered By: Rebekah Tolbert on 03-08-2022 Creatinine [Mass/Vol] 0.94 mg/dL 0.55-1.02 [facility] Comment on above: The validity of the calculated GFR & GFRAA in patients over 70 years has not been determined. Clinical correlation is essential. Serum or plasma urea nitroge n measurement (mass/volume)Ordered By: Rebekah Tolbert on 03-08-2022 Urea nitrogen [Mass/Vol] 8 mg/dL 7-18 [facility] Thin prep Papanicolaou smear with manual screeningOrdered By: Rebekah Tolbert on 03-08-2022 Thin prep Papanicolaou smear with manual screening 61 U/L 15-37 [facility] Thin prep Papanicolaou smear with manual screening 10 5-15 [facility] Absolute lymphocyte countOrd ered By: Rebekah Tolbert on 03-07-2022 Lymphocytes Auto (Unsp spec) [#/Vol] 1.21 10*3/uL 0.83-4.51 [facility] Basophil percentageOrdered B y: Rebekah Tolbert on 03-07-2022 Basophil percentage 0-5 SEEN /hpf 0-5 [facility] Basophils/100 WBC (Bld) 0.4 % 0-1 [facility] Bilirubin [Mass/Vol] 2.00 mg/dL 0.20-1.00 [facility] Comment on above: For patients on eltr ombopag therapy, use of Dimension [place] TBIL is not recommended. Chloride [Moles/Vol] 107 mmol/L 98-107 [facility] Eosinophils/100 WBC (Bld) 3.8 % 0-5 [facility] Glucose [Mass/Vol] 125 mg/dL 74-106 [facility] Comment on above: Fasting Glucose resu lt from 100 to 125 mg/dL suggests IMPAIRED HOMEOSTASIS per A.D.A. criteria. Neutrophils (Bld) [#/Vol] 3.4 10*3/uL 2.0-7.7 [facility] Neutrophils/100 WBC (Bld) 64.3 % 47-70 [facility] Potassium [Moles/Vol] 4.4 mmol/L 3.5-5.1 [facility] Protein [Mass/Vol] 6.8 g/dL 6.4-8.2 [facility] Sodium [Moles/Vol] 139 mmol/L 136-145 [facility] WBC (Bld) [#/Vol] 5.2 10*3/uL 4.4-11.0 [facility] Bilirubin Test strip Ql (U)O rdered By: Rebekah Tolbert on 03-07-2022 Bilirubin Ql (U) Negative Negative [facility] Blood erythrocytes count (nu mber/volume)Ordered By: Rebekah Tolbert on 03-07-2022 RBC (Bld) [#/Vol] 4.30 10*6/uL 4.2-5.4 [facility] Blood hemoglobin measurement (mass/volume)Ordered By: Rebekah Tolbert on 03-07-2022 Hemoglobin (Bld) [Mass/Vol] 12.5 g/dL 12.0-15.0 [facility] Blood lymphocytes/100 leukoc ytesOrdered By: Rebekah Tolbert on 03-07-2022 Lymphocytes/100 WBC (Bld) 23.2 % 19-41 [facility] Blood monocytes/100 leukocyt esOrdered By: Rebekah Tolbert on 03-07-2022 Monocytes/100 WBC (Bld) 7.7 % 0-10 [facility] Blood platelet mean volumeOr dered By: Rebekah Tolbert on 03-07-2022 Platelet mean volume (Bld) [Entitic vol] 10.9 fL 6.2-12.0 [facility] Determination of erythrocyte mean corpuscular volume (MCV)Ordered By: Rebekah Tolbert on 03-07-2022 MCV (RBC) [Entitic vol] 88.1 fL 81-99 [facility] Erythrocyte sedimentation ra teOrdered By: Rebekah Tolbert on 03-07-2022 ESR (Bld) [Velocity] 76 mm/h 0-30 [facility] Hematocrit Auto (Bld) [Volum e fraction]Ordered By: Rebekah Tolbert on 03-07-2022 Hematocrit (Bld) [Volume fraction] 37.9 % 37-47 [facility] Iron measurement (mass/mass) Ordered By: Rebekah Tolbert on 03-07-2022 Iron (Unsp spec) [Mass/Mass] 66 ug/dL 50-170 [facility] Ketones Test strip Ql (U)Ord ered By: Rebekah Tolbert on 03-07-2022 Ketones Ql (U) Negative Negative [facility] Laboratory - Chemistry and C hemistry - challengeOrdered By: Rebekah Tolbert on 03-07-2022 ALP [Catalytic activity/Vol] 278 U/L 45-117 [facility] ALT [Catalytic activity/Vol] 111 U/L 13-56 [facility] CO2 [Moles/Vol] 23.0 mmol/L 21.0-32.0 [facility] Globulin (S) [Mass/Vol] 3.5 g/dL 2.2-4.2 [facility] Urea nitrogen/Creatinine [Mass ratio] 7.7 mg/mg 10-20 [facility] Laboratory - Hematology and Cell countsOrdered By: Rebekah Tolbert on 03-07-2022 Erythrocyte distribution width (RBC) [Entitic vol] 48.6 fL 35.1-43.9 [facility] Erythrocyte distribution width (RBC) [Ratio] 15.2 % 11.6-14.6 [facility] Immature granulocytes/100 WBC (Bld) 0.600 % 0.0-0.9 [facility] Comment on above: IG% - Immature Granu locytes (promyelocytes, myelocytes and metamyelocytes) > 1% indicates that a LEFT SHIFT is Present. MCH (RBC) [Entitic mass] 29.1 pg 27.0-32.0 [facility] Nucleated RBC/100 WBC (Bld) [Ratio] 0 % 0-5 [facility] MCHC Auto (RBC) [Mass/Vol]Or dered By: Rebekah Tolbert on 03-07-2022 MCHC (RBC) [Mass/Vol] 33.0 g/dL 32-36 [facility] Mucus LM Ql (Urine sed)Order ed By: Rebekah Tolbert on 03-07-2022 Mucus Ql (Urine sed) 0 SEEN /hpf [facility] Nitrite Test strip Ql (U)Ord ered By: Rebekah Tolbert on 03-07-2022 Nitrite Ql (U) Negative Negative [facility] No Panel InformationOrdered By: Rebekah Tolbert on 03-07-2022 Estimated GFR (MDRD) Amer 86 mL/min >60 [facility] Comment on above: GFR Calc Estimated GFR (MDRD) Non-Af Amer 71 mL/min >60 [facility] Comment on above: Non- GFR Calc Platelets bldOrdered By: Chalo Tolbert on 03-07-2022 Platelets (Bld) [#/Vol] 217 10*3/uL 150-450 [facility] Protein Test strip Ql (U)Ord ered By: Rebekah Tolbert on 03-07-2022 Protein Ql (U) Negative Negative [facility] Serum or plasma albumin nabila urement (mass/volume)Ordered By: Rebekah Tolbert on 03-07-2022 Albumin [Mass/Vol] 3.3 g/dL 3.2-5.0 [facility] Serum or plasma albumin/glob ulin mass ratioOrdered By: Rebekah Tolbert on 03-07-2022 Albumin/Globulin [Mass ratio] 0.9 {ratio} 0.9-2.4 [facility] Serum or plasma calcium nabila urement (mass/volume)Ordered By: Rebekah Tolbert on 03-07-2022 Calcium [Mass/Vol] 8.8 mg/dL 8.5-10.1 [facility] Serum or plasma creatinine m easurement (mass/volume)Ordered By: Rebekah Tolbert on 03-07-2022 Creatinine [Mass/Vol] 0.90 mg/dL 0.55-1.02 [facility] Comment on above: The validity of the calculated GFR & GFRAA in patients over 70 years has not been determined. Clinical correlation is essential. Serum or plasma ferritin natali surement (mass/volume)Ordered By: Rebekah Tolbert on 03-07-2022 Ferritin [Mass/Vol] 125 ng/mL 8-252 [facility] Serum or plasma urea nitroge n measurement (mass/volume)Ordered By: Rebekah Tolbert on 03-07-2022 Urea nitrogen [Mass/Vol] 7 mg/dL 7-18 [facility] Squamous epithelial cells de tection in urine sediment by light microscopyOrdered By: Rebekah Tolbert on 03-07-2022 Epithelial cells.squamous LM Ql (Urine sed) 0-5 SEEN /hpf 5-10 [facility] Thin prep Papanicolaou smear with manual screeningOrdered By: Rebekah Tolbert on 03-07-2022 Thin prep Papanicolaou smear with manual screening 71 U/L 15-37 [facility] Thin prep Papanicolaou smear with manual screening 9 5-15 [facility] Urine blood detectionOrdered By: Rebekah Tolbert on 03-07-2022 RBC Ql (U) Negative Negative [facility] RBC Ql (U) 0 SEEN /hpf 0-5 [facility] Urine clarityOrdered By: Chalo Tolbert on 03-07-2022 Clarity (U) Sl. Cloudy Clear [facility] Urine color determinationOrd ered By: Rebekah Tolbert on 03-07-2022 Color (U) Yellow Yellow [facility] Urine glucose detectionOrder ed By: Rebekah Tolbert on 03-07-2022 Glucose Ql (U) Normal mg/dl Normal [facility] Urine leukocyte esterase det ection by dipstickOrdered By: Rebekah Tolbert on 03-07-2022 Leukocyte esterase Test strip Ql (U) 25 /ul Negative [facility] Urine pHOrdered By: Rebekah ruano on 03-07-2022 pH (U) 5.0 [pH] 5.0 - 8.0 [facility] Urine sediment bacteria coun t by microscopy (number/high power field)Ordered By: Rebekah Tolbert on 03-07-2022 Bacteria LM.HPF (Urine sed) [#/Area] 1 /[HPF] None Seen [facility] Urine specific gravity measu rementOrdered By: Rebekah Tolbert on 03-07-2022 Specific gravity (U) [Rel density] 1.015 1.002-1.03 0 [facility] Urobilinogen Auto test strip Ql (U)Ordered By: Rebekah Tolbert on 03-07-2022 Urobilinogen Ql (U) 1 mg/dl Normal [facility] Absolute lymphocyte countOrd ered By: Rebekah Tolbert on 03-06-2022 Lymphocytes Auto (Unsp spec) [#/Vol] 1.24 10*3/uL 0.83-4.51 [facility] Basophil percentageOrdered B y: Rebekah Tolbert on 03-06-2022 Basophils/100 WBC (Bld) 0.4 % 0-1 [facility] Bilirubin [Mass/Vol] 2.20 mg/dL 0.20-1.00 [facility] Comment on above: For patients on eltr ombopag therapy, use of Dimension [place] TBIL is not recommended. Chloride [Moles/Vol] 105 mmol/L 98-107 [facility] Eosinophils/100 WBC (Bld) 6.1 % 0-5 [facility] Glucose [Mass/Vol] 143 mg/dL 74-106 [facility] Comment on above: Fasting Glucose resu lt greater than or equal to 126 mg/dL suggests DIABETES MELLITUS per A.D.A. criteria. Neutrophils (Bld) [#/Vol] 3.2 10*3/uL 2.0-7.7 [facility] Neutrophils/100 WBC (Bld) 61.6 % 47-70 [facility] Potassium [Moles/Vol] 4.2 mmol/L 3.5-5.1 [facility] Protein [Mass/Vol] 6.9 g/dL 6.4-8.2 [facility] Sodium [Moles/Vol] 139 mmol/L 136-145 [facility] WBC (Bld) [#/Vol] 5.2 10*3/uL 4.4-11.0 [facility] Blood erythrocytes count (nu mber/volume)Ordered By: Rebekah Tolbert on 03-06-2022 RBC (Bld) [#/Vol] 4.30 10*6/uL 4.2-5.4 [facility] Blood hemoglobin measurement (mass/volume)Ordered By: Rebekah Tolbert on 03-06-2022 Hemoglobin (Bld) [Mass/Vol] 12.1 g/dL 12.0-15.0 [facility] Blood lymphocytes/100 leukoc ytesOrdered By: Rebekah Tolbert on 03-06-2022 Lymphocytes/100 WBC (Bld) 23.7 % 19-41 [facility] Blood monocytes/100 leukocyt esOrdered By: Rebekah Tolbert on 03-06-2022 Monocytes/100 WBC (Bld) 7.4 % 0-10 [facility] Blood platelet mean volumeOr dered By: Rebekah Tolbert on 03-06-2022 Platelet mean volume (Bld) [Entitic vol] 10.9 fL 6.2-12.0 [facility] Determination of erythrocyte mean corpuscular volume (MCV)Ordered By: Rebekah Tolbert on 03-06-2022 MCV (RBC) [Entitic vol] 88.6 fL 81-99 [facility] Erythrocyte sedimentation ra teOrdered By: Rebekah Tolbert on 03-06-2022 ESR (Bld) [Velocity] 68 mm/h 0-30 [facility] Hematocrit Auto (Bld) [Volum e fraction]Ordered By: Rebekah Tolbert on 03-06-2022 Hematocrit (Bld) [Volume fraction] 38.1 % 37-47 [facility] Laboratory - Chemistry and C hemistry - challengeOrdered By: Rebekah Tolbert on 03-06-2022 ALP [Catalytic activity/Vol] 265 U/L 45-117 [facility] ALT [Catalytic activity/Vol] 125 U/L 13-56 [facility] CO2 [Moles/Vol] 25.0 mmol/L 21.0-32.0 [facility] Globulin (S) [Mass/Vol] 3.6 g/dL 2.2-4.2 [facility] Urea nitrogen/Creatinine [Mass ratio] 8.8 mg/mg 10-20 [facility] Laboratory - Hematology and Cell countsOrdered By: Rebekah Tolbert on 03-06-2022 Erythrocyte distribution width (RBC) [Entitic vol] 49.1 fL 35.1-43.9 [facility] Erythrocyte distribution width (RBC) [Ratio] 15.2 % 11.6-14.6 [facility] Immature granulocytes/100 WBC (Bld) 0.800 % 0.0-0.9 [facility] Comment on above: IG% - Immature Granu locytes (promyelocytes, myelocytes and metamyelocytes) > 1% indicates that a LEFT SHIFT is Present. MCH (RBC) [Entitic mass] 28.1 pg 27.0-32.0 [facility] Nucleated RBC/100 WBC (Bld) [Ratio] 0 % 0-5 [facility] MCHC Auto (RBC) [Mass/Vol]Or dered By: Rebekah Tolbert on 03-06-2022 MCHC (RBC) [Mass/Vol] 31.8 g/dL 32-36 [facility] No Panel InformationOrdered By: Rebekah Tolbert on 03-06-2022 Estimated GFR (MDRD) Amer 85 mL/min >60 [facility] Comment on above: GFR Calc Estimated GFR (MDRD) Non-Af Amer 70 mL/min >60 [facility] Comment on above: Non- GFR Calc Platelets bldOrdered By: Chalo Tolbert on 03-06-2022 Platelets (Bld) [#/Vol] 222 10*3/uL 150-450 [facility] Serum or plasma C reactive p rotein measurement (mass/volume)Ordered By: Rebekah Tolbert on 03-06-2022 CRP [Mass/Vol] 21.10 mg/L 0.0-3.0 [facility] Comment on above: C-Reactive Protein ( CRP) provides useful information for thediagnosis, therapy and monitoring of inflammatory processesand associated diseases. For the evaluation of Relative Riskfor Cardiovascular Disease, a High Sensitivity CRP (HSCRP)should be ordered. Serum or plasma albumin nabila urement (mass/volume)Ordered By: Rebekah Tolbert on 03-06-2022 Albumin [Mass/Vol] 3.3 g/dL 3.2-5.0 [facility] Serum or plasma albumin/glob ulin mass ratioOrdered By: Rebekah Tolbert on 03-06-2022 Albumin/Globulin [Mass ratio] 0.9 {ratio} 0.9-2.4 [facility] Serum or plasma calcium nabila urement (mass/volume)Ordered By: Rebekah Tolbert on 03-06-2022 Calcium [Mass/Vol] 8.9 mg/dL 8.5-10.1 [facility] Serum or plasma creatinine m easurement (mass/volume)Ordered By: Rebekah Tolbert on 03-06-2022 Creatinine [Mass/Vol] 0.91 mg/dL 0.55-1.02 [facility] Comment on above: The validity of the calculated GFR & GFRAA in patients over 70 years has not been determined. Clinical correlation is essential. Serum or plasma urea nitroge n measurement (mass/volume)Ordered By: Rebekah Tolbert on 03-06-2022 Urea nitrogen [Mass/Vol] 8 mg/dL 7-18 [facility] Thin prep Papanicolaou smear with manual screeningOrdered By: Rebekah Tolbert on 03-06-2022 Thin prep Papanicolaou smear with manual screening 83 U/L 15-37 [facility] Thin prep Papanicolaou smear with manual screening 9 5-15 [facility] Office Visit (Primary Care T xt/Forms)on 06-19-2021 Follow-up visit Diagnoses/Problems Assessed Difficulty with speech (784.59) (R47.9) Malaise and fatigue (780.79) (R53.81,R53.83) [id number] condition (139.8) (U09.9) Patient Discussion/Summary 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, 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, 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[employer] Patient signed records release form Will no longer be our patient as of today as she has a new primary care provider ([employer]) Chief Complaint Disability History of Present Illness Patient refusing bp due to intense pain Post covid-19 Patient is having intense pain while speaking Seeing Rebekah Hendrix ([employer]) and this will become her new Primary care provider Patient reports she was diagnosed with COVID-19 in March 23 from work ([employer]) Patient had not been with the new job for 1 year so has not been able to get any type of disability Complains of exhaustion, dizziness, migraines, speech difficulty, overall generalized pain Patient has not been able to work since March Patient wants prior records sent to a [place] called [employer] The more the patient talks she has shakiness in her voice, neck/cheeks and throat hurt Denies acid reflux Stress exacerbates all of the patient's symptoms, makes stomach symptoms flare as well Patient is doing neuro feedback which is helping with the condition Scores and Scales PHQ-9 [id number] 04:21PM PHQ-9 Depression Severity PHQ-9 #1. Little interest or pleasure in doing thingsNearly every day - 3 PHQ-9 #2. Feeling down, depressed, or hopelesSNearly every day - 3 PHQ-9 #3. Trouble falling or staying asleep, or sleeping too muchNearly every day - 3 PHQ-9 #4. Feeling tired or having little energyNearly every day - 3 PHQ-9 #5. Poor appetite or overeatingSeveral days - 1 PHQ-9 #6. Feeling bad about yourself or you are a failure or that you have let yourself or your family downNearly every day - 3 PHQ-9 #7. Trouble concentrating on things, such as reading the newspaper or watch televisionNearly every day - 3 PHQ-9 #8. Moving or speaking so slowly that other people could have noticed. Or the opposite-being so fidgety or restless that you have been moving around a lot more than usualSeveral days - 1 PHQ-9 #9. Thoughts that you would be better off , or of hurting yourselfNot at all - 0 PHQ-9 #10. If you checked off any problems, how difficult have these problems made it for you to do your work, take care of things at home, or get along with other people?Extremely difficult PHQ-9 Total Score (Please update problem list based on total score)20 DESTINI-7 [id number] DESTINI-7 Total Score19 Feeling nervous, anxious or on edgeNearly every day - 3 Not being able to stop or control worryingNearly every day - 3 Worrying too much about different thingsNearly every day - 3 Trouble relaxingNearly every day - 3 Being so restless that it's hard to sit stillOver half the days - 2 Becoming easily annoyed or irritableNearly every day - 3 Feeling afraid as if something awful might happenOver half the days - 2 Review of Systems see HPI Active Problems Problems Abdominal spasms (789.00) (R10.9) Body mass index (BMI) of 45.0 to 49.9 in adult (V85.42) (Z68.42) BPPV (benign paroxysmal positional vertigo) (386.11) (H81.10) Chronic right shoulder pain (719.41,338.29) (M25.511,G89.29) Cough (786.2) (R05.9) Depression with anxiety (300.4) (F41.8) Encounter for immunization (V03.89) (Z23) Endometriosis (617.9) (N80.9) Eustachian tube dysfunction (381.81) (H69.80) Fever (780.60) (R50.9) Generalized abdominal pain (789.07) (R10.84) Headache (784.0) (R51.9) Herpes zoster with other complication (053.79) (B02.8) Hiatal hernia (553.3) (K44.9) Left upper quadrant abdominal pain (789.02) (R10.12) 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) Morbid obesity with body mass index (BMI) of 40.0 or higher (278.01) (E66.01) Pes planus of left foot (734) (M21.42) Pes planus of right foot (734) (M21.41) Photophobia (368.13) (H53.149) Primary insomnia (307.42) (F51.01) Right ear pain (388.70) (H92.01) Screening cholesterol level (V77.91) (Z13.220) Stress reaction, chronic (309.9) (F43.8) Suspected 2019 novel coronavirus infection (V01.79) (Z20.822) Unspecified rotator cuff tear or rupture of right shoulder, not specified as traumatic (840.4) (M75.101) Past Medical History Problems History of Abdominal pain, LLQ (left lower quadrant) (789.04) (R10.32) History of Acute foot pain, left (729.5) (M79.672) Acute sinusitis (461.9) (J01.90) History of Blepharitis, right eye (373.00) (H01.003) History of Contact dermatitis due to poison parveen (692.6) (L23.7) History of Contusion of foot, left (924.20) (S90.32XA) History of Dysesthesia (782.0) (R20.8) History of acute bronchitis (V12.69) (Z87.09) History of acute bronchitis (V12.69) (Z87.09) History of acute bronchitis (V12.69) (Z87.09) History of acute bronchitis (V12.69) (Z87.09) History of acute bronchitis wi (more content not included)... Normal [facility] Blood Pressure Cuff Sizeon 1 05-10-2020 Last menstrual period start date cbcp [facility] Work Phone: Tobacco use status [facility] b) No [facility] Work Phone: Blood Pressure Cuff Size Large [facility] Work Phone: Office Visit (Primary Care T xt/Forms)on 03-10-2021 Follow-up visit Diagnoses/Problems Assessed Cough (786.2) (R05.9) Fever (780.60) (R50.9) Orders Cough, Fever Start: Doxycycline Hyclate 100 MG Oral Capsule; TAKE 1 CAPSULE EVERY 12 HOURS DAILY Patient Discussion/Summary start doxycycline increase fluids Call if no better or if symptoms worsen off work for 10 days Provider Impressions Provider Impressions Free Text Note Form: The number and complexity of problems addressed is considered moderate. The amount and/or complexity of data reviewed and analyzed is considered moderate. The risk of complications and/or morbidity/mortality of patient is considered moderate. Overall, this patient encounter is considered a moderate risk visit. What are antibiotics? Antibiotics are medicines that help people fight infections caused by bacteria. They work by killing bacteria that are in the body. These medicines come in many different forms, including pills, ointments, and liquids that are given by injection. Antibiotics can do a lot of good. For people with serious bacterial infections, antibiotics can save lives. But people use them far too often, even when they're not needed. This is causing a very serious problem called antibiotic resistance. Antibiotic resistance happens when bacteria that have been exposed to an antibiotic change so that the antibiotic can no longer kill them. In those bacteria, the antibiotic has no effect. Because of this problem, doctors are having a harder and harder time treating infections. Experts worry that there will soon be infections that don't respond to any antibiotics. When are antibiotics helpful? Antibiotics can help people fight off infections caused by bacteria. They do not work on infections caused by viruses. Some common bacterial infections that are treated with antibiotics include: Strep throat Pneumonia (an infection of the lungs) Bladder infections Infections you catch through sex, such as gonorrhea and chlamydia When are antibiotics NOT helpful? Antibiotics do not work on infections caused by viruses. Antibiotics are not helpful for the common cold, because the common cold is caused by a virus. Antibiotics are not helpful for the flu, because the flu is caused by a virus. (People with the flu can be treated with medicines called antiviral medicines, which are different from antibiotics.) Even though antibiotics don't work on infections caused by viruses, people sometimes believe that they do. That's because they took antibiotics for a viral infection before and then got better. The problem is that those people would have gotten better with or without an antibiotic. When they get better with the antibiotic, they think that's what cured them, when in reality the antibiotic had nothing to do with it. What's the harm in taking antibiotics even if they might not help? There are many reasons you should not take antibiotics unless you absolutely need them: Antibiotics cause side effects, such as nausea, vomiting, and diarrhea. They can even make it more likely that you will get a different kind of infection, such as yeast infection (if you are a woman). Allergies to antibiotics are common. You can develop an allergy to an antibiotic, even if you have not had a problem with it before. Some allergies are just unpleasant, causing rashes and itching. But some can be very serious and even life-threatening. It is better to avoid any risk of an allergy, if the antibiotic wouldn't help you anyway. Overuse of antibiotics leads to antibiotic resistance. Using antibiotics when they are not needed gives bacteria a chance to change, so that the antibiotics cannot hurt them later on. People who have infections caused by antibiotic-resistant bacteria often have to be treated in the hospital with many different antibiotics. People can even from these infections, because there is no antibiotic that will cure them. When should I take antibiotics? You should take antibiotics only when a doctor or nurse prescribes them to you. You should never take antibiotics prescribed to someone else, and you should not take antibiotics that were prescribed to you for a previous illness. When prescribing an antibiotic, doctors and nurses have to carefully pick the right antibiotic for a particular infection. Not all antibiotics work on all bacteria. If you do have an infection caused by a bacteria, your doctor or nurse might want to find out what that bacteria is, and which antibiotics can kill it. They do this by taking a culture of the bacteria and growing it in the lab. But it's not possible to do a culture on someone who has already started an antibiotic. So if you start an antibiotic without input from a doctor or nurse it will be impossible to know if you have taken the right one. What can I do to reduce antibiotic resistance? Here are some things that can help: Do not pressure your doctor or nurse for antibiotics when they do not think you need them. If you are prescribed antibioti (more content not included)... Normal [facility] LMPon 08-18-2021 Fall risk assessment c) Not medically indicated [facility] Work Phone: Last menstrual period start date control [facility] Work Phone: Tobacco use status [facility]S b) [facility] Work Phone: Office Visit (Family Medicin e)on 12-07-2020 Follow-up visit Diagnoses/Problems BPPV (benign paroxysmal positional vertigo) (386.11) (H81.10) Eustachian tube dysfunction (381.81) (H69.80) Orders BPPV (benign paroxysmal positional vertigo) Physical Therapy - Vestibular Referral Evaluation and Treatment Evaluate AND Treat Status: Hold For - Scheduling,Retrospective Authorization Requested for: [id number] Patient Discussion/Summary Work note provided at visit today. Dizziness-- Positive Wicho Hallpike Maneuver on exam today. I suspect you may have BPPV, which is Benign Paroxysmal Positional Vertigo. Recommend searching on YouTube for The Cain Maneuver which will help with repositioning displaced Canaliths. Prescription for Meclizine, advised that this typically does not help much for BPPV but will send in for patient to try. Referral for formal Vestibular Therapy placed today as well. Patient to call to set this up. I recommend calling your insurance to see where is covered then among those call to see who offers vestibular therapy (this is a specific therapy not offered everywhere). Eustachian tube disorder-- symptoms described are consistent with Eustachian tube disorder. This is an impairment in the function of the ventilation tube which connects the middle ear ( behind the eardrum) to the back of the throat. The opening of this ventilation tube, which allows the middle ear to drain fluid and to ventilate air freely, can sometimes become inflamed and does not function properly. This can be caused by many problems, such as allergies, irritants such as smoke or dust, infections such as colds, ear infections, or sinusitis, swelling for other reason such as acid reflux, or mechanical blockage with things such as polyps or other growths. The symptoms of Eustachian tube dysfunction include ear fullness, pressure, whooshing or popping noises, difficulty with hearing, or pain-similar to changing altitude in an airplane. CONTINUE Nasacort daily. May consider daily antihistamine such as Claritin, Norma, or Zyrtec. Would not recommend Singulair as this impacted mood in the past. If you do not have high blood pressure or any other contraindication, you can use a nasal spray decongestant for up to 3 days. These are sprays such as Vicks or Afrin spray decongestants. Other options to help open up nasal passages and Eustachian tubes can include non-medicine intervention such as steam, essential oils such as Eucalyptus, peppermint, talon added to a diffuser or humidifier. Mobilizing fluid and helping with congestion through repetitive exercise such as rebounding on a mini- trampoline, jumping jacks, or running may all help. The Barbara technique can be used, which is a Osteopathic manual medicine technique to help with ear fullness. Perform by pulling up and back on your ear- use a firm steady force and pull your ear up and back, until you feel a deep tug at the base of your ear. At the same time, use your other hand to pull the angle of your jaw (the same side of the face as the ear you are tugging) in the opposite direction - pull and massage the jaw area forward and down, away from your ear, thus stretching out the deep tissues that surround the Eustachian tube. As a last resort for stubborn Eustachian tube dysfunction, we will occasionally use a very short course of prednisone or a trial of antibiotics if there are associated infectious symptoms. Call the office back if the above measures do not help, and we can discuss next steps. Follow-up in 2-[address] Bunch for routine follow-up for mood. Follow-up sooner if needed. By signing my name below, I, Justa Ware, attest that this documentation has been prepared under the direction and in the presence of Dr. Nadiya Faith. All medical record entries made by the Justa were at my direction and personally dictated by me. I have reviewed the chart and agree that the record accurately reflects my personal performance of the history, physical exam, discussion and plan. Provider Impressions 30 total minutes was spent with patient, reviewing records, completing charting, and coordinating care. Greater than 50% of that time was spent in counseling for health promotion, risk reduction, and active medical issues. Chief Complaint Chief Complaint: PEGGY SCHMIDT is here with a chief complaint of headache and dizziness. History of Present Illness Dr. Bunch Patient Ms. Schmidt is a 45 year old female presenting today for evaluation of sudden onset dizziness. Reports dizzy spells ongoing throughout the day x 1 week, always has dizziness with sitting up and able to reproduce with this positional movement. Describes as room spinning. Today has been the most severe, she states that she had to call off of work today. Mother cancelled plans today as she did not want patient to drive as well. No syncope, minimal if any nausea. Additionally reports fatigue, states has been working more lately. Sleep is not great. She also endorses a feeling of face be (more content not included)... Normal [employer] Basic Metabolic Panlon 11-15 Anion gap [Moles/Vol] 13 mmol/L Normal 9-18 [facility] Comment on above: Performed By: #### C BCDIF, BMP, LIPA, HCGED #### [facility] [address] [phone] Calcium [Mass/Vol] 8.9 mg/dL Normal 8.5-10.2 [facility] Comment on above: Performed By: #### C BCDIF, BMP, LIPA, HCGED #### [facility] [address] [facility] [phone] Chloride [Moles/Vol] 104 mmol/L Normal 97-[address] [facility] Comment on above: Performed By: #### C BCDIF, BMP, LIPA, HCGED #### [facility] [address] [phone] CO2 [Moles/Vol] 22 mmol/L Normal 22-30 [facility] Comment on above: Performed By: #### C BCDIF, BMP, LIPA, HCGED #### [facility] [address] [phone] Creatinine [Mass/Vol] 0.83 mg/dL Normal 0.58-0.96 [facility] Comment on above: Performed By: #### C BCDIF, BMP, LIPA, HCGED #### [facility] [phone] eGFR- Amer. >60 Normal [facility] Comment on above: Performed By: #### C BCDIF, BMP, LIPA, HCGED #### [facility] [address] [facility] [phone] GFR/1.73 sq M predicted among non-blacks MDRD (S/P/Bld) [Vol rate/Area] mL/min/{1.73_m2} Normal [facility] Comment on above: Result Comment: eGFR (Estimated GFR) Units of measure: mL/min/1.73 meters squared eGFR is derived from the reexpressed MDRD Study equation using the following parameters: serum creatinine, age, gender and race. The creatinine assay has been calibrated to be traceable to IDMS. An eGFR <60 mL/min/1.73m2 for >3 months is consistent with chronic kidney disease. Refer to KDOQI guidelines for clinical interpretation. In patients with unstable renal function, e.g. those with acute kidney injury, the eGFR may not accurately reflect actual GFR. Performed By: #### C BCDIF, BMP, LIPA, HCGED #### [facility] [address] [facility] [phone] Glucose [Mass/Vol] 155 mg/dL High 74-99 [facility] Comment on above: Result Comment: The [place] Diabetes Association (ADA) provides guidance for cutoff values for fasting glucose and random glucose. The ADA defines fasting as no caloric intake for at least 8 hours. Fasting plasma glucose results between 100 to 125 mg/dL indicate increased risk for diabetes (prediabetes). Fasting plasma glucose results greater than or equal to 126 mg/dL meet the criteria for diagnosis of diabetes. In the absence of unequivocal hyperglycemia, results should be confirmed by repeat testing. In a patient with classic symptoms of hyperglycemia or hyperglycemic crisis, random plasma glucose results greater than or equal to 200 mg/dL meet the criteria for diagnosis of diabetes. Reference: Standards of Medical Care in Diabetes 2016, [place] [employer]. Diabetes Care. 2016.39(Suppl 1). Performed By: #### C BCDIF, BMP, LIPA, HCGED #### [facility] [address] [facility] [phone] Potassium [Moles/Vol] 4.0 mmol/L Normal 3.7-5.1 [facility] Comment on above: Performed By: #### C BCDIF, BMP, LIPA, HCGED #### [facility] [address] [facility] [phone] Sodium [Moles/Vol] 139 mmol/L Normal 136-144 [facility] Comment on above: Performed By: #### C BCDIF, BMP, LIPA, HCGED #### [facility] [address] [facility] [phone] Urea nitrogen [Mass/Vol] 8 mg/dL Normal 7-21 [facility] Comment on above: Performed By: #### C BCDIF, BMP, LIPA, HCGED #### [facility] [address] [facility] [phone] Beta HCG Quant, EDon 020 Beta HCG Quant, ED <0.6 Normal <5.0 [facility] Comment on above: Result Comment: DELON TITATIVE HCG NORMAL RANGES Weeks of Gestation (Weeks Since LMP) 3 Weeks (5.8-71.2 mIU/mL) 4 Weeks (9.5-750 mIU/mL) 5 Weeks (217-7138 mIU/mL) 6 Weeks (158-20776 mIU/mL) 7 Weeks (3697-447883 mIU/mL) 8 Weeks (73996-180861 mIU/mL) 9 Weeks (09249-634178 mIU/mL) 10 Weeks (58574-376054 mIU/mL) 12 Weeks (30873-831326 mIU/mL) Referenced to 4th IS of [facility] Performed By: #### C BCDIF, BMP, LIPA, HCGED #### [facility] [address] [facility] [phone] CBC and Differentialon 11-15 Abs Baso 0.04 k/uL Normal <0.11 [facility] Comment on above: Performed By: #### C BCDIF, BMP, LIPA, HCGED #### [facility] [address] [facility] [phone] Abs Rawlins 0.53 k/uL Normal <0.87 [facility] Comment on above: Performed By: #### C BCDIF, BMP, LIPA, HCGED #### [facility] [address] [place] [address] Abs Neut 6.97 k/uL Normal 1.45-7.50 [facility] Comment on above: Performed By: #### C BCDIF, BMP, LIPA, HCGED #### [facility] [address] [place] [address] Absolute nRBC <0.01 Normal <0.01 [facility] Comment on above: Performed By: #### C BCDIF, BMP, LIPA, HCGED #### [facility] [address] [place] [address] Basophils/100 WBC (Bld) 0.4 % Normal [facility] Comment on above: Performed By: #### C BCDIF, BMP, LIPA, HCGED #### [facility] [address] [place] [address] DTYPE Auto Diff Normal [facility] Comment on above: Performed By: #### C BCDIF, BMP, LIPA, HCGED #### [facility] [address] [place] [address] Eosinophils (Bld) [#/Vol] 0.12 10*3/uL Normal <0.46 [facility] Comment on above: Performed By: #### C BCDIF, BMP, LIPA, HCGED #### [facility] [address] [place] [address] Eosinophils/100 WBC (Bld) 1.2 % Normal [facility] Comment on above: Performed By: #### C BCDIF, BMP, LIPA, HCGED #### [facility] [address] [place] [address] Erythrocyte distribution width (RBC) [Ratio] 14.3 % Normal 11.5-15.0 [facility] Comment on above: Performed By: #### C BCDIF, BMP, LIPA, HCGED #### [facility] [address] [place] [address] Hematocrit (Bld) [Volume fraction] 39.2 % Normal 36.0-46.0 [facility] Comment on above: Performed By: #### C BCDIF, BMP, LIPA, HCGED #### [facility] [address] [place] [address] Hemoglobin (Bld) [Mass/Vol] 12.2 g/dL Normal 11.5-15.5 [facility] Comment on above: Performed By: #### C BCDIF, BMP, LIPA, HCGED #### [facility] [address] [facility] [phone] Lymphocytes (Bld) [#/Vol] 2.73 10*3/uL Normal 1.00-4.00 [facility] Comment on above: Performed By: #### C BCDIF, BMP, LIPA, HCGED #### [facility] [address] [facility] [phone] Lymphocytes/100 WBC (Bld) 26.2 % Normal [facility] Comment on above: Performed By: #### C BCDIF, BMP, LIPA, HCGED #### [facility] [address] [facility] [phone] MCH (RBC) [Entitic mass] 27.7 pG Normal 26.0-34.0 [facility] Comment on above: Performed By: #### C BCDIF, BMP, LIPA, HCGED #### [facility] [address] [facility] [phone] MCHC (RBC) [Mass/Vol] 31.1 g/dL Normal 30.5-36.0 [facility] Comment on above: Performed By: #### C BCDIF, BMP, LIPA, HCGED #### [facility] [address] [place] [address] MCV (RBC) [Entitic vol] 89.1 fL Normal 80.0-100.0 [facility] Comment on above: Performed By: #### C BCDIF, BMP, LIPA, HCGED #### [facility] [address] [facility] [phone] Monocytes/100 WBC (Bld) 5.1 % Normal [facility] Comment on above: Performed By: #### C BCDIF, BMP, LIPA, HCGED #### [facility] [address] [facility] [phone] Neutrophils/100 WBC (Bld) 67.1 % Normal [facility] Comment on above: Performed By: #### C BCDIF, BMP, LIPA, HCGED #### [facility] [address] [phone] NRBCs 0.0 /100 WBC Normal 0 [facility] Comment on above: Performed By: #### C BCDIF, BMP, LIPA, HCGED #### [facility] [address] [phone] Platelet mean volume (Bld) [Entitic vol] 10.1 fL Normal 9.0-12.7 [facility] Comment on above: Performed By: #### C BCDIF, BMP, LIPA, HCGED #### [facility] [address] [phone] Platelets (Bld) [#/Vol] 324 10*3/uL Normal 150-400 [facility] Comment on above: Performed By: #### C BCDIF, BMP, LIPA, HCGED #### [facility] [address] [phone] RBC (Bld) [#/Vol] 4.40 10*6/uL Normal 3.90-5.20 [facility] Comment on above: Performed By: #### C BCDIF, BMP, LIPA, HCGED #### [facility] [address] [phone] WBC (Bld) [#/Vol] 10.41 10*3/uL Normal 3.70-11.[address] [facility] Comment on above: Performed By: #### C BCDIF, BMP, LIPA, HCGED #### [facility] [address] [phone] ED NOTEon 11-16-2019 ED NOTE HNO ID: [id number] Author: Chloe (Medic) Harvey Monsivais Service: ? Author Type: [employer] Type: ED Notes Filed: 11/16/2019 2:25 PM Note Text: Pt comes to er by [facility] c/o abdominal pain. States she slammed her finger in the door at work and this caused her stomach to hurt. Unable to describe the abdominal pain other than it hurts a lot. Pt states she had appendix and gall bladder removed previously. Is currently being treated for endometriosis and a known mass in abdomen. States pain is at the site of the mass. Normal [facility] ED PROV NOTEon 11-16-2019 ED PROV NOTE HNO ID: [id number] Author: Ana Chandra MD Service: Emergency Medicine Author Type: Physician Type: ED Provider Notes Filed: 11/16/2019 7:33 PM Note Text: ED Provider Note Patient Name: Peggy Del Castillo SERVICE DATE: 11/16/19 History Patient presents with: Abdominal Pain Patient with history of endometriosis, with an appointment this Saturday with gynecology, presents for severe abdominal pain. Patient has intermittent episodes of abdominal pain, and today she accidentally slammed her left fourth finger in a door. Afterwards she developed a shooting pain in her left upper quadrant and left lower quadrant. Pain is been severe with some associated nausea. She denies any urinary symptoms, chills or sweats, back pain, diarrhea. She states she had a CT scan for this same issue one month ago. Patient is due for her menstrual period today. No history of kidney stones PAST MEDICAL HISTORY Diagnosis Date - Asthma - Endometriosis - Nephrolithiasis - Seasonal allergies - Sinusitis PAST SURGICAL HISTORY Procedure Laterality Date - APPENDECTOMY 2001 - CHOLECYSTECTOMY 2001 - KNEE RIGHT OP SURGERY 2007. - SINUS SURGERY PROC UNLISTED June 2009; - TONSILLECTOMY HX June 2009 No family history on file. Social History Tobacco Use - Smoking status: Never Smoker - Smokeless tobacco: Never Used Substance and Sexual Activity - Alcohol use: Not Currently - Drug use: Not on file - Sexual activity: Not on file ALLERGIES Allergen Reactions - Amoxicillin Hives - Latex Hives, Swelling - Penicillins Hives Review of Systems Constitutional: Negative for chills, fatigue and fever. All other systems negative except as documented in the HPI. HENT: Negative for congestion, rhinorrhea and sore throat. Eyes: Negative for pain and discharge. Respiratory: Negative for cough and shortness of breath. Cardiovascular: Negative for chest pain and palpitations. Gastrointestinal: Positive for abdominal distention, abdominal pain and nausea. Negative for constipation, diarrhea and vomiting. Genitourinary: Negative for dysuria, frequency and urgency. Musculoskeletal: Negative for arthralgias, back pain, myalgias and neck pain. Skin: Positive for wound. Negative for pallor and rash. Neurological: Negative for dizziness, weakness and headaches. All other systems reviewed and are negative. Physical Exam Pulse 88 Temp (Src) 98.2 (Oral) Resp 22 Ht 5' 2 (1.58m) Wt 240 lb (108.9kg) SpO2 97% LMP 10/17/2019 BMI 43.89 kg/(m2). O2 Therapy: Room Air Physical Exam Vitals signs and nursing note reviewed. Exam conducted with a supervisor insulation present. Constitutional: General: She is not in acute distress. Appearance: She is well-developed. She is not ill-appearing. HENT: Head: Normocephalic and atraumatic. Mouth/Throat: Mouth: Mucous membranes are moist. Eyes: Extraocular Movements: Extraocular movements intact. Conjunctiva/sclera: Conjunctivae normal. Pupils: Pupils are equal, round, and reactive to light. Neck: Musculoskeletal: Normal range of motion and neck supple. No muscular tenderness. Cardiovascular: Rate and Rhythm: Normal rate and regular rhythm. Pulses: Normal pulses. Heart sounds: Normal heart sounds. No murmur. Pulmonary: Effort: Pulmonary effort is normal. No respiratory distress. Breath sounds: Normal breath sounds. Abdominal: General: Abdomen is flat. Bowel sounds are normal. There is no distension. Palpations: Abdomen is soft. There is no mass. Tenderness: There is abdominal tenderness (Maximum tenderness in the left lower quadrant) in the left upper quadrant and left lower quadrant. There is no right CVA tenderness, left CVA tenderness, guarding or rebound. Musculoskeletal: Normal range of motion. General: No tenderness. Skin: General: Skin is warm and dry. Findings: No rash. Neurological: General: No focal deficit present. Mental Status: She is alert and oriented to person, place, and time. Psychiatric: Mood and Affect: Mood normal. Behavior: Behavior normal. Diagnostic Testing ED Labs Ordered and Reviewed URINALYSIS - Abnormal; Notable for the following components: Result Value Ref Range Bilirubin, Urine 1+ (*) Negative Hemoglobin/Blood,Ur Trace (*) Negative Protein, Urine 2+ (*) Negative All other components within normal limits BASIC METABOLIC PNL - Abnormal; Notable for the following components: Glucose 155 (*) 74 - 99 mg/dL All other components within normal limits URINE MICROSCOPIC - Abnormal; Notable for the following components: RBC, Urine 3-5 (*) 0 - 3 /HPF Cast SEE COMMENT (*) 0 /LPF Bacteria Moderate (*) 0 /HPF All other components within normal limits LIPASE BLD BETA HCG, QUANTITATIVE FOR ED CBC + DIFF No orders to display Medications ondansetron (PF) 4 mg injection (ZOFRAN) (4 mg INTRAVENOUS Given 11/16/19 1555) morphine 4 mg injection (4 mg INTRAVENOUS Given 11/16/19 155) ketorolac 15 mg injection (TORADOL) (15 mg INTRAVENOUS Given 11/16/191554) Procedures ED Course / Clinical Impression Clinical Impressions as of Nov 16 1931 Left sided abdominal pain Endometriosis Contusion of left ring finger without damage to nail, initial encounter MDM / Disposition / Plan Course: Vital signs were reviewed. Triage records were reviewed. Medical records were reviewed. Nursing notes were reviewed and incorporated. Medical Decision Making: Differential includes, but is not limited to, diverticulitis, endometriosis, dysmenorrhea, colitis, kidney stone, UTI. Patient's labs were remarkable only for mild hematuria, which may be related to patient's starting her menstrual period. Urine culture was sent due to presence of bacteria. Patient declined a CT scan of her abdomen and pelvis, which I explained to her it would be difficult to evaluate for things such as diverticulitis, colitis, or other inflammatory or infectious issues. She states she already had the imaging done earlier this month and does not want another CT scan. She was given morphine, Toradol and Zofran for her symptoms. On reevaluation she was feeling better. She still was having discomfort, and thus was given a prescription for Zofran and a small prescription of [place] for severe pain. She will keep her appointment on Saturday. She feels well enough for discharge home. Patient discharged with her . The finger showed a very small laceration lateral to the nail without nail bed involvement, no deformity or significant tenderness to firm palpation. No imaging indicated or performed. SIGNATURE: MD Ana Acuna MD 11/16/191932 Normal [facility] Lipaseon 11-16-2019 Lipase [Catalytic activity/Vol] 21 U/L Normal 16-61 [facility] Comment on above: Performed By: #### C BCDIF, BMP, LIPA, HCGED #### [facility] [address] [facility] [phone] Urinalysison 11-16-2019 Bilirubin, Urine 1+ Critically abnormal Negative [facility] Comment on above: Result Comment: Sugg est correlation with clinical findings and serum bilirubin if clinically indicated. Performed By: #### U A, UAMIC #### [facility] [address] Clarity (U) Clear Normal Clear [facility] Comment on above: Performed By: #### U A, UAMIC #### [facility] [address] Color (U) Yellow Normal Yellow [facility] Comment on above: Performed By: #### U A, UAMIC #### [facility] [address] [place] [address] Glucose Ql (U) Negative Normal Negative [facility] Comment on above: Performed By: #### U A, UAMIC #### [facility] [address] [place] [address] Hemoglobin/Blood,Ur Trace Critically abnormal Negative [facility] Comment on above: Performed By: #### U A UAMIC #### [facility] [address] [place] [address] Ketones Ql (U) Negative Normal Negative [facility] Comment on above: Performed By: #### U A UAMIC #### [facility] [address] [place] [address] Leukest Negative Normal Negative [facility] Comment on above: Performed By: #### U A UAMIC #### [facility] [address] [place] [address] Nitrite Ql (U) Negative Normal Negative [facility] Comment on above: Performed By: #### U A UAMIC #### [facility] [address] [place] [address] pH (Bld) 5.5 Normal 5.0-8.0 [facility] Comment on above: Performed By: #### U A, UAMIC #### [facility] [address] [place] [phone] Protein (U) [Mass/Vol] 2+ Criticall y abnormal Negative [facility] Comment on above: Performed By: #### U A, UAMIC #### [facility] [address] [place], [place] [phone] Specific [place], Ur >=1.030 Normal 1.005-1 .03 0 [facility] Comment on above: Performed By: #### U A UAMIC #### [facility] [address] [place] [phone] Urobilinogen Qn (U) 0.2 E.U./dL Normal 0.2-1.[address] [facility] Comment on above: Performed By: #### Baldo Neri UALAINEY #### [facility] [address] [place] [phone] Urine Microscopic (FOR LAB U SE ONLY)on 11-16-2019 Bacteria LM.HPF (Urine sed) [#/Area] Moderate Critically abnormal 0 [facility] Comment on above: Performed By: #### Baldo Neri UAMIC #### [facility] [address] [place] [address] Cast SEE COMMENT Critically abnormal 0 [facility] Comment on above: Result Comment: 1-3 Hyaline Casts Performed By: #### DANIEL Lal #### [facility] [address] [place], [place] [phone] Epithelial cells LM.HPF (Urine sed) [#/Area] SEE COMMENT Normal [facility] Comment on above: Result Comment: 0-5 Squamous Epithelial Cells Performed By: #### DANIEL Lal #### [facility] [address] [place] [phone] RBC (U) [#/Vol] 3-5 Critically abnormal 0-3 [facility] Comment on above: Performed By: #### Baldo Neri UAMIC #### [facility] [address] [place] [phone] WBC (Bld) [#/Vol] 0-5 Normal 0-5 [facility] Comment on above: Performed By: #### Baldo Neri UAMIC #### [facility] [address] [place] [phone] FERRITINon 10-13-2019 Ferritin [Mass/Vol] 27 ug/L Normal 8 - 150 [facility] Comment on above: Performed By: #### F ERRI #### [facility] [address] [place] [address] IRON + TIBCon 10-13-2019 % SATURATION 14 % Low 25 - 45 [facility] Comment on above: Performed By: #### I RONT #### [facility] [address] [place] [address] Iron [Mass/Vol] 50 ug/dL Normal 35 - 150 [facility] Comment on above: Performed By: #### I RYANNET #### [facility] [address] [place] [address] TIBC 352 ug/dL Normal 240 - 445 [facility] Comment on above: Performed By: #### I MARII #### [facility] [address] [place] [address] AMYLASEon 10-09-2019 Amylase [Catalytic activity/Vol] 24 U/L Low 29 - 103 [facility] Comment on above: Performed By: #### A MY #### [facility] [address] [place] [address] CBC AND DIFFERENTIALon 10-08 % AUTOMATED IMMATURE GRAN 0.4 % Normal 0.0 - 0.9 [facility] Comment on above: Result Comment: Demetria ture Granulocyte Count (IG) includes promyelocytes, myelocytes and metamyelocytes but does not include bands. Percent differential counts (%) should be interpreted in the context of the absolute cell counts (cells/L). Performed By: #### C BCDF #### [facility] [address] [place] [address] Basophils (Bld) [#/Vol] 0.04 10*3/uL Normal 0.00 - 0.10 [facility] Comment on above: Performed By: #### C BCDF #### [facility] [address] [place] [address] Basophils/100 WBC (Bld) 0.3 % Normal 0.0 - 2.0 [facility] Comment on above: Performed By: #### C BCDF #### [facility] [address] [place] [address] Eosinophils (Bld) [#/Vol] 0.23 10*3/uL Normal 0.00 - 0.70 [facility] Comment on above: Performed By: #### C BCDF #### [facility] [address] [place] [address] Eosinophils/100 WBC (Bld) 1.9 % Normal 0.0 - 6.0 [facility] Comment on above: Performed By: #### C BCDF #### [facility] [address] [place] [address] Erythrocyte distribution width (RBC) [Ratio] 14.5 % Normal 11.5 - 14.5 [facility] Comment on above: Performed By: #### C BCDF #### [facility] [address] [place] [address] Hematocrit (Bld) [Volume fraction] 36.0 % Normal 36.0 - 46.0 [facility] Comment on above: Performed By: #### C BCDF #### [facility] [address] [place] [address] Hemoglobin (Bld) [Mass/Vol] 11.2 g/dL Low 12.0 - 16.0 [facility] Comment on above: Performed By: #### C BCDF #### [facility] [address] [place] [address] Lymphocytes (Bld) [#/Vol] 2.93 10*3/uL Normal 1.20 - 4.80 [facility] Comment on above: Performed By: #### C BCDF #### [facility] [address] [place] [address] Lymphocytes/100 WBC (Bld) 23.7 % Normal 13.0 - 44.0 [facility] Comment on above: Performed By: #### C BCDF #### [facility] [address] [place] [address] MCHC (RBC) [Mass/Vol] 31.1 g/dL Low 32.0 - 36.0 [facility] Comment on above: Performed By: #### C BCDF #### [facility] [address] [place] [address] MCV (RBC) [Entitic vol] 90 fL Normal 80 - 100 [facility] Comment on above: Performed By: #### C BCDF #### [facility] [address] [place] [address] Monocytes (Bld) [#/Vol] 0.85 10*3/uL Normal 0.10 - 1.00 [facility] Comment on above: Performed By: #### C BCDF #### [facility] [address] [place] [address] Monocytes/100 WBC (Bld) 6.9 % Normal 2.0 - 10.0 [facility] Comment on above: Performed By: #### C BCDF #### [facility] [address] [place] [address] Neutrophils (Bld) [#/Vol] 8.27 10*3/uL High 1.20 - 7.70 [facility] Comment on above: Performed By: #### C BCDF #### [facility] [address] [place] [address] Neutrophils/100 WBC (Bld) 66.8 % Normal 40.0 - 80.0 [facility] Comment on above: Performed By: #### C BCDF #### [facility] [address] [place] [address] Nucleated RBC/100 WBC (Bld) [Ratio] 0.0 /100 WBC Normal 0.0-0.0 [facility] Comment on above: Performed By: #### C BCDF #### [facility] [address] [place] [address] Platelets (Bld) [#/Vol] 306 10*3/uL Normal 150 - 450 [facility] Comment on above: Performed By: #### C BCDF #### [facility] [address] [place] [address] RBC (Bld) [#/Vol] 4.00 x10E12/L Normal 4.00 - 5.20 [facility] Comment on above: Performed By: #### C BCDF #### [facility] [address] [place] [address] WBC (Bld) [#/Vol] 12.4 10*3/uL High 4.4 - 11.3 [facility] Comment on above: Performed By: #### C BCDF #### [facility] [address] [place] [address] LIPASEon 10-09-2019 Lipase [Catalytic activity/Vol] 21 U/L Normal 9 - 82 [facility] Comment on above: Result Comment: Catherine puncture immediately after or during the administration of Metamizole may lead to falsely low results. Testing should be performed immediately prior to Metamizole dosing. Performed By: #### L IPAS #### [facility] [address] [place] [address] Amylase, Serumon 10-08-2019 Amylase [Catalytic activity/Vol] 24 U/L below low threshold 29 - 103 [facility] Work Phone: Complete Blood Count + Diffe rential 10-08-2019 Basophils (Bld) [#/Vol] 0.04 {x10E9/L} See Below [facility] Work Phone: Comment on above: Reference Range: 0.0 0 - 0.10 Basophils/100 WBC (Bld) 0.3 % 0.0 - 2.0 [facility] Work Phone: Eosinophils (Bld) [#/Vol] 0.23 {x10E9/L} See Below [facility] Work Phone: Comment on above: Reference Range: 0.0 0 - 0.70 Eosinophils/100 WBC (Bld) 1.9 % 0.0 - 6.0 [facility] Work Phone: Erythrocyte distribution width (RBC) [Ratio] 14.5 % See Below [facility] Work Phone: Comment on above: Reference Range: 11. 5 - 14.5 Hematocrit (Bld) [Volume fraction] 36.0 % See Below [facility] Work Phone: Comment on above: Reference Range: 36. 0 - 46.0 Hemoglobin (Bld) [Mass/Vol] 11.2 g/dL below low threshold See Below [facility] Work Phone: Comment on above: Reference Range: 12. 0 - 16.0 Lymphocytes (Bld) [#/Vol] 2.93 {x10E9/L} See Below [facility] Work Phone: Comment on above: Reference Range: 1.2 0 - 4.80 Lymphocytes/100 WBC (Bld) 23.7 % See Below [facility] Work Phone: Comment on above: Reference Range: 13. 0 - 44.0 MCHC (RBC) [Mass/Vol] 31.1 g/dL below low threshold See Below [facility] Work Phone: Comment on above: Reference Range: 32. 0 - 36.0 MCV (RBC) [Entitic vol] 90 fL 80 - 100 [facility] Work Phone: Monocytes (Bld) [#/Vol] 0.85 {x10E9/L} See Below [facility] Work Phone: Comment on above: Reference Range: 0.1 0 - 1.00 Monocytes/100 WBC (Bld) 6.9 % 2.0 - 10.0 [facility] Work Phone: Neutrophils/100 WBC (Bld) 66.8 % See Below [facility] Work Phone: Comment on above: Reference Range: 40. 0 - 80.0 Platelets (Bld) [#/Vol] 306 {x10E9/L} 150 - 450 [facility] Work Phone: RBC (Bld) [#/Vol] 4.00 {x10E12/L} See Below [facility] Work Phone: Comment on above: Reference Range: 4.0 0 - 5.20 WBC (Bld) [#/Vol] 0.0 {/100_WBC} 0.0-0.0 [facility] Work Phone: WBC (Bld) [#/Vol] 12.4 {x10E9/L} above high threshold 4.4 - 11.3 [facility] Work Phone: Complete Blood Count + Differential 8.27 {x10E9/L} above high threshold See Below [facility] Work Phone: Comment on above: Reference Range: 1.2 0 - 7.70 Complete Blood Count + Differential 0.4 % 0.0 - 0.9 [facility] Work Phone: Comment on above: Immature Granulocyte Count (IG) includes promyelocytes, myelocytes and metamyelocytes but does not include bands. Percent differential counts (%) should be interpreted in the context of the absolute cell counts (cells/L). Ferritin, Serumon 10-08-2019 Ferritin [Mass/Vol] 27 ug/L 8 - 150 [facility] Work Phone: Lipase, Serumon 10-08-2019 Lipase [Catalytic activity/Vol] 21 U/L 9 - 82 [facility] Work Phone: Comment on above: Venipuncture immedia tely after or during the administration of Metamizole may lead to falsely low results. Testing should be performed immediately prior to Metamizole dosing. Metabolic Panelon 10-08-2019 Iron [Mass/Vol] 50 ug/dL 35 - 150 [facility] Work Phone: Otheron 10-08-2019 Iron binding capacity [Mass/Vol] 352 ug/dL 240 - 445 [facility] Work Phone: 14 % below low threshold 25 - 45 [facility] Work Phone: CT ABDOMEN AND PELVIS W IV C ONTRASTon 10-07-2019 CT ABDOMEN AND PELVIS W IV CONTRAST Patient Name: PEGGY SCHMIDT STUDY: CT ABDOMEN AND PELVIS W IV CONTRAST; 10/07/2019 4:09 pm INDICATION: LUQ abdominal pain. COMPARISON: None. ACCESSION NUMBER(S): [id number] ORDERING CLINICIAN: TASHA BUNCH TECHNIQUE: Contiguous axial images were obtained through the abdomen and pelvis after the administration of 90 mL Isovue 370 intravenous contrast. Oral contrast was not administered. Coronal and sagittal reformations were made. FINDINGS: LOWER CHEST: Lung bases are clear. 4 mm pleural based nodule on image number 36 within the left lower lobe. ABDOMEN: LIVER: Within normal limits. BILE DUCTS: Nondilated. GALLBLADDER: The gallbladder is surgcally absent. PANCREAS: Within normal limits. SPLEEN: Within normal limits. ADRENAL GLANDS: Within normal limits. KIDNEYS AND URETERS: The kidneys enhance symmetrically without focal lesion. No hydroureteronephrosis bilaterally. VESSELS: There is no aneurysmal dilatation of the abdominal aorta. The IVC is within normal limits. BOWEL: There is no bowel obstruction or appreciable bowel wall thickening. Appendix is absent. No focal diverticular disease. PERITONEUM/RETROPERITONEUM/ LYMPH NODES: No ascites or free air, no fluid collection. No retroperitoneal fluid collection or lymphadenopathy. ABDOMINAL WALL: Unremarkable. BONE AND SOFT TISSUE: Bones are intact. IMPRESSION: 1. No acute intra-abdominal process. 2. 4 mm pleural based nodule within the left lower lobe of doubtful clinical significance. Per the updated Fleischner Society Guidelines (Radiology 2017), for patients at low risk for malignancy no further imaging follow-up is suggested. For patients at higher risk, such as smokers, an optional follow-up chest CT in 12 months could be obtained. Electronically signed by: EVER PARHAM MD [facility] CT Abdomen and Pelvis with I V Contraston 10-07-2019 CT Abdomen and Pelvis W contrast IV Interpreted by: EVER PARHAM10/09/19 15:53MRN: [id number] Name: PEGGY SCHMIDT STUDY:CT ABDOMEN AND PELVIS W IV CONTRAST; 10/07/2019 4:09 pm INDICATION:LUQ abdominal pain. COMPARISON:None. ORDERING CLINICIAN:TASHA BUNCH TECHNIQUE:Contiguous axial images were obtained through the abdomen and pelvisafter the administration of 90 mL Isovue 370 intravenous contrast.Oral contrast was not administered. Coronal and sagittal reformationswere made. FINDINGS:LOWER CHEST:Lung bases are clear. 4 mm pleural based nodule on image number 36within the left lower lobe. ABDOMEN: LIVER:Within normal limits. BILE DUCTS:Nondilated. GALLBLADDER:The gallbladder is surgcally absent. PANCREAS:Within normal limits. SPLEEN:Within normal limits. ADRENAL GLANDS:Within normal limits. KIDNEYS AND URETERS:The kidneys enhance symmetrically without focal lesion. Nohydroureteronephrosis bilaterally. VESSELS:There is no aneurysmal dilatation of the abdominal aorta. The IVC iswithin normal limits. BOWEL:There is no bowel obstruction or appreciable bowel wall thickening.Appendix is absent. No focal diverticular disease. PERITONEUM/RETROPERITONEUM/ LYMPH NODES:No ascites or free air, no fluid collection. No retroperitoneal fluid collection or lymphadenopathy. ABDOMINAL WALL:Unremarkable. BONE AND SOFT TISSUE:Bones are intact. IMPRESSION:1. No acute intra-abdominal process.2. 4 mm pleural based nodule within the left lower lobe of doubtfulclinical significance. Per the updated Fleischner Society Guidelines(Radiology 2017), for patients at low risk for malignancy no furtherimaging follow-up is suggested. For patients at higher risk, such assmokers, an optional follow-up chest CT in 12 months could beobtained.Electronically signed by: EVER PARHAM 10/09/19 15:53 Normal -[facility] Work Phone: CT Abdomen and Pelvis W contrast IV Please click on the link to view the study images Normal [facility] Work Phone: COMPREHENSIVE PANELon 2019 Albumin [Mass/Vol] 4.2 g/dL Normal 3.4 - 5.0 [facility] Comment on above: Performed By: #### C MP #### [facility] [address] [place] [address] ALP [Catalytic activity/Vol] 68 U/L Normal 33 - 110 [facility] Comment on above: Performed By: #### C MP #### [facility] [address] [place] [address] ALT [Catalytic activity/Vol] 9 U/L Normal 7 - 45 [facility] Comment on above: Result Comment: Nesha ents treated with Sulfasalazine may generate falsely decreased results for ALT. Performed By: #### C MP #### [facility] [address] [place] [address] Anion gap [Moles/Vol] 13 mmol/L Normal 10 - 20 [facility] Comment on above: Performed By: #### C MP #### [facility] [address] [place] [address] AST [Catalytic activity/Vol] 14 U/L Normal 9 - 39 [facility] Comment on above: Performed By: #### C MP #### [facility] [address] [place] [address] Bilirubin [Mass/Vol] 0.3 mg/dL Normal 0.0 - 1.2 [facility] Comment on above: Performed By: #### C MP #### [facility] [address] [place] [address] Calcium [Mass/Vol] 9.7 mg/dL Normal 8.6 - 10.6 [facility] Comment on above: Performed By: #### C MP #### [facility] [address] [place] [address] Chloride [Moles/Vol] 107 mmol/L Normal 98 - 107 [facility] Comment on above: Performed By: #### C MP #### [facility] [address] [place] [address] Creatinine [Mass/Vol] 0.75 mg/dL Normal 0.50 - 1.05 [facility] Comment on above: Performed By: #### C MP #### [facility] [address] [place] [address] GFR- AM. >60 Normal >60 [facility] Comment on above: Result Comment: CALC ULATIONS OF ESTIMATED GFR ARE PERFORMED USING THE MDRD STUDY EQUATION FOR THE IDMS-TRACEABLE CREATININE METHODS. CLIN CHEM 2007;53:766-72 Performed By: #### C MP #### [facility] [address] [place] [address] GFR-NON AM. >60 Normal >60 [facility] Comment on above: Performed By: #### C MP #### [facility] [address] [place] [address] Glucose [Mass/Vol] 106 mg/dL High 74 - 99 [facility] Comment on above: Performed By: #### C MP #### [facility] [address] [place] [address] HCO3 (Bld) [Moles/Vol] 26 mmol/L Normal 21 - 32 [facility] Comment on above: Performed By: #### C MP #### [facility] [id number] [place] [address] Potassium [Moles/Vol] 4.2 mmol/L Normal 3.5 - 5.3 [facility] Comment on above: Performed By: #### C MP #### [facility] [address] [place] [address] Protein [Mass/Vol] 6.5 g/dL Normal 6.4 - 8.2 [facility] Comment on above: Performed By: #### C MP #### [facility] [address] [place] [address] Sodium [Moles/Vol] 142 mmol/L Normal 136 - 145 [facility] Comment on above: Performed By: #### C MP #### [facility] [address] [place] [address] Urea nitrogen [Mass/Vol] 10 mg/dL Normal 6 - 23 [facility] Comment on above: Performed By: #### C MP #### [facility] [address] [place] [address] LIPID PANEL (CORONARY RISK 2 )on 09-22-2019 Cholesterol [Mass/Vol] 152 mg/dL Normal 0 - 199 [facility] Comment on above: Result Comment: . AGE DESIRABLE BORDERLINE HIGH HIGH 0-19 Y 0 - 169 170 - 199 >/= 200 20-24 Y 0 - 189 190 - 224 >/= 225 >24 Y 0 - 199 200 - 239 >/= 240 All ranges are based on fasting samples. Specific therapeutic targets will vary based on patient-specific cardiac risk. . Pediatric guidelines reference:Pediatrics 2011, 128(S5). Adult guidelines reference: NCEP ATPIII Guidelines, PETRONA 2001, 258:2486-97 . Venipuncture immediately after or during the administration of Metamizole may lead to falsely low results. Testing should be performed immediately prior to Metamizole dosing. Performed By: #### L IPID #### [facility] [address] [place] [address] Cholesterol in HDL [Mass/Vol] 57.4 mg/dL Normal [facility] Comment on above: Result Comment: . AGE VERY LOW LOW NORMAL HIGH 0-19 Y < 35 < 40 40-45 ---- 20-24 Y ---- < 40 >45 ---- >24 Y ---- < 40 40-60 >60 . Performed By: #### L IPID #### [facility] [address] [place] [address] Cholesterol in LDL [Mass/Vol] 76 mg/dL Normal 0 - 99 [facility] Comment on above: Result Comment: . NEAR BORD AGE DESIRABLE OPTIMAL HIGH HIGH VERY HIGH 0-19 Y 0 - 109 --- 110-129 >/= 130 ---- 20-24 Y 0 - 119 --- 120-159 >/= 160 ---- >24 Y 0 - 99 100-129 130-159 160-189 >/=190 . Performed By: #### L IPID #### [facility] [address] [place] [address] Cholesterol in VLDL [Mass/Vol] 19 mg/dL Normal 0 - 40 [facility] Comment on above: Performed By: #### L IPID #### [facility] [address] [place] [address] Cholesterol.total/Chol esterol in HDL [Mass ratio] 2.6 {ratio} Normal [facility] Comment on above: Result Comment: REF VALUES DESIRABLE < 3.4 HIGH RISK > 5.0 Performed By: #### L IPID #### [facility] [address] [place] [address] Triglyceride [Mass/Vol] 94 mg/dL Normal 0 - 149 [facility] Comment on above: Result Comment: . AGE DESIRABLE BORDERLINE HIGH HIGH VERY HIGH 0 D-90 D 19 - 174 ---- ---- ---- 91 D- 9 Y 0 - 74 75 - 99 >/= 100 ---- 10-19 Y 0 - 89 90 - 129 >/= 130 ---- 20-24 Y 0 - 114 115 - 149 >/= 150 ---- >24 Y 0 - 149 150 - 199 200- 499 >/= 500 . Venipuncture immediately after or during the administration of Metamizole may lead to falsely low results. Testing should be performed immediately prior to Metamizole dosing. Performed By: #### L IPID #### [facility] [address] [place] [address] TSH WITH REFLEX TO FREE T4 I F ABNORMALon 09-22-2019 TSH Qn 2.86 m[IU]/L Normal 0.44 - 3.98 [facility] Comment on above: Result Comment: Note new pediatric reference range as of 06/23/2019. TSH testing is performed using different testing methodology at [facility] than at other [facility]. Direct result comparisons should only be made within the same method. Performed By: #### T HYDS #### [facility] [address] [place] [address] Lipid Panelon 09-21-2019 Cholesterol [Mass/Vol] 152 mg/dL 0 - 199 [facility] Work Phone: Comment on above: . AGE DESIRABLE BORD MRAQUIS HIGH HIGH 0-19 Y 0 - 169 170 - 199 >/= 200 20-24 Y 0 - 189 190 - 224 >/= 225 >24 Y 0 - 199 200 - 239 >/= 240 All ranges are based on fasting samples. Specific therapeutic targets will vary based on patient-specific cardiac risk.. Pediatric guidelines reference:Pediatrics 2011, 128(S5). Adult guidelines reference: NCEP ATPIII Guidelines, PETRONA 2001, 258:2486-97. Venipuncture immediately after or during the administration of Metamizole may lead to falsely low results. Testing should be performed immediately prior to Metamizole dosing. Cholesterol in HDL [Mass/Vol] 57.4 mg/dL [facility] Work Phone: Comment on above: . AGE VERY LOW LOW N ORMAL HIGH 0-19 Y < 35 < 40 40-45 ---- 20-24 Y ---- < 40 >45 ---- >24 Y ---- < 40 40-60 >60. Cholesterol in LDL [Mass/Vol] 76 mg/dL 0 - 99 [facility] Work Phone: Comment on above: . NEAR BORD AGE SILVANA RABLE OPTIMAL HIGH HIGH VERY HIGH 0-19 Y 0 - 109 --- 110-129 >/= 130 ---- 20-24 Y 0 - 119 --- 120-159 >/= 160 ---- >24 Y 0 - 99 100-129 130-159 160-189 >/=190. Cholesterol.total/Chol esterol in HDL [Mass ratio] 2.6 {ratio} [facility] Work Phone: Comment on above: REF VALUESDESIRABLE < 3.4HIGH RISK > 5.0 Triglyceride [Mass/Vol] 94 mg/dL 0 - 149 [facility] Work Phone: Comment on above: . AGE DESIRABLE BORD MARQUIS HIGH HIGH VERY HIGH 0 D-90 D 19 - 174 ---- ---- ----91 D- 9 Y 0 - 74 75 - 99 >/= 100 ---- 10-19 Y 0 - 89 90 - 129 >/= 130 ---- 20-24 Y 0 - 114 115 - 149 >/= 150 ---- >24 Y 0 - 149 150 - 199 200- 499 >/= 500. Venipuncture immediately after or during the administration of Metamizole may lead to falsely low results. Testing should be performed immediately prior to Metamizole dosing. Lipid Panel 19 mg/dL 0 - 40 [facility] Work Phone: Metabolic Panelon 09-21-2019 ALP [Catalytic activity/Vol] 68 U/L 33 - 110 [facility] Work Phone: Anion gap [Moles/Vol] 13 mmol/L 10 - 20 [facility] Work Phone: Bilirubin [Mass/Vol] 0.3 mg/dL 0.0 - 1.2 [facility] Work Phone: Calcium [Mass/Vol] 9.7 mg/dL 8.6 - 10.6 [facility] Work Phone: Chloride [Moles/Vol] 107 mmol/L 98 - 107 [facility] Work Phone: CO2 [Moles/Vol] 26 mmol/L 21 - 32 [facility] Work Phone: Creatinine [Mass/Vol] 0.75 mg/dL See Below [facility] Work Phone: Comment on above: Reference Range: 0.5 0 - 1.05 Glucose [Mass/Vol] 106 mg/dL above high threshold 74 - 99 [facility] Work Phone: Potassium [Moles/Vol] 4.2 mmol/L 3.5 - 5.3 [facility] Work Phone: Protein [Mass/Vol] 6.5 g/dL 6.4 - 8.2 [facility] Work Phone: Sodium [Moles/Vol] 142 mmol/L 136 - 145 [facility] Work Phone: Urea nitrogen [Mass/Vol] 10 mg/dL 6 - 23 [facility] Work Phone: Otheron 09-21-2019 Albumin BCP dye [Mass/Vol] 4.2 g/dL 3.4 - 5.0 [facility] Work Phone: ALT With P-5'-P [Catalytic activity/Vol] 9 U/L 7 - 45 [facility] Work Phone: Comment on above: Patients treated wit h Sulfasalazine may generate falsely decreased results for ALT. AST With P-5'-P [Catalytic activity/Vol] 14 U/L 9 - 39 [facility] Work Phone: >60 >60 [facility] Work Phone: Comment on above: CALCULATIONS OF JEFFREY MATED GFR ARE PERFORMED USING THE MDRD STUDY EQUATION FOR THE IDMS-TRACEABLE CREATININE METHODS. CLIN CHEM 2007;53:766-72 Thyroidon 09-21-2019 TSH Qn 2.86 {mIU/L} See Below [facility] Work Phone: Comment on above: Reference Range: 0.4 4 - 3.98 Note new pediatric reference range as of 06/23/2019. TSH testing is performed using different testing methodology at [facility] than at other [facility]. Direct result comparisons should only be made within the same method. Culture, urine Bacteria identified Cx Nom (U) Positive [facility] Work Phone: Vital Signs Date Time Vital Sign Value Performing Clinician Facility 10-19-2024 11:30-0400 Diastolic blood pressure 74 mm[Hg] Dr. Theron Robles DO Work Phone: 1([phone])[phone] [place] [address] 10-19-2024 11:30-0400 Heart rate 68 /min Dr. Theron Robles DO Work Phone: [phone])[phone] [place] [address] 10-19-2024 11:30-0400 Respiratory rate 17 /min Dr. Theron Robles DO Work Phone: 4([phone])163-350033 [place] [address] 10-19-2024 11:30-0400 SaO2% (BldA) [Mass fraction] 98 % Dr. Theron Robles DO Work Phone: 7([phone])[phone] [place] [address] 10-19-2024 11:30-0400 Systolic blood pressure 118 mm[Hg] Dr. Theron Robles DO Work Phone: 1([phone])185-853433 [place] [address] 10-19-2024 10:50-0400 Body temperature 98.2 [degF] Dr. Theron Robles DO Work Phone: 7(374)[phone] [place] [address] 10-19-2024 08:57-0400 Body height 157.[address] Theron Robles DO Work Phone: 4([phone] [place] [address] 10-19-2024 08:57-0400 Body mass index (BMI) [Ratio] 45.3 kg/m2 Dr. Theron Robles DO Work Phone: [facility] 10-19-2024 08:57-0400 Body weight 112.[address] Theron Robles DO Work Phone: [facility] 06-04-2024 08:42-0500 Body mass index (BMI) [Ratio] 46.47 kg/m2 Any Velazco USABILITY STRATEGIST.FLOOR INSPECTOR Work Phone: [facility] 06-04-2024 08:42-0500 Body temperature 98.91 [degF] Any Velazco USABILITY STRATEGIST.FLOOR INSPECTOR Work Phone: [facility] 06-04-2024 08:42-0500 Body weight 113.4 kg Any Velazco USABILITY STRATEGIST.FLOOR INSPECTOR Work Phone: [facility] 06-04-2024 08:42-0500 Diastolic blood pressure 86 mm[Hg] Any Reanna USABILITY STRATEGIST.FLOOR INSPECTOR Work Phone: [facility] 06-04-2024 08:42-0500 Heart rate 78 /min Any Reanna USABILITY STRATEGIST.FLOOR INSPECTOR Work Phone: [facility] 06-04-2024 08:42-0500 Respiratory rate 16 /min Any Reanna USABILITY STRATEGIST.FLOOR INSPECTOR Work Phone: [facility] 06-04-2024 08:42-0500 SaO2% (BldA) [Mass fraction] 96 % Any Reanna USABILITY STRATEGIST.FLOOR INSPECTOR Work Phone: [facility] 06-04-2024 08:42-0500 Systolic blood pressure 134 mm[Hg] Any Reanna USABILITY STRATEGIST.FLOOR INSPECTOR Work Phone: [facility] 06-01-2024 12:58-0500 Body mass index (BMI) [Ratio] 47.05 kg/m2 Waldo Penn MD Work Phone: [facility] 06-01-2024 12:58-0500 Body temperature 98.91 [degF] Waldo Penn MD Work Phone: [facility] 06-01-2024 12:58-0500 Body weight 114.8 kg Waldo Penn MD Work Phone: [facility] 06-01-2024 12:58-0500 Diastolic blood pressure 68 mm[Hg] Waldo Penn MD Work Phone: [facility] 06-01-2024 12:58-0500 Heart rate 76 /min Waldo Penn MD Work Phone: [facility] 06-01-2024 12:58-0500 Respiratory rate 20 /min Waldo Penn MD Work Phone: [facility] 06-01-2024 12:58-0500 SaO2% (BldA) [Mass fraction] 96 % Waldo Penn MD Work Phone: [facility] 06-01-2024 12:58-0500 Systolic blood pressure 110 mm[Hg] Waldo Penn MD Work Phone: [facility] 05-18-2024 17:21-0500 Body mass index (BMI) [Ratio] 47.74 kg/m2 Waldo Penn MD Work Phone: [facility] 05-18-2024 17:21-0500 Body temperature 97.39 [degF] Waldo Penn MD Work Phone: [facility] 05-18-2024 17:21-0500 Body weight 116.5 kg Waldo Penn MD Work Phone: [facility] 05-18-2024 17:21-0500 Diastolic blood pressure 66 mm[Hg] Waldo Penn MD Work Phone: [facility] 05-18-2024 17:21-0500 Heart rate 72 /min Waldo Penn MD Work Phone: [facility] 05-18-2024 17:21-0500 SaO2% (BldA) [Mass fraction] 98 % Waldo Penn MD Work Phone: [facility] 05-18-2024 17:21-0500 Systolic blood pressure 108 mm[Hg] Waldo Penn MD Work Phone: [facility] 04-03-2024 14:15-0500 Body height 156.2 cm Waldo Penn MD Work Phone: [facility] 04-03-2024 14:15-0500 Body mass index (BMI) [Ratio] 46.76 kg/m2 Waldo Penn MD Work Phone: [facility] 04-03-2024 14:15-0500 Body weight 114.1 kg Waldo Penn MD Work Phone: [facility] 04-03-2024 14:15-0500 Diastolic blood pressure 60 mm[Hg] Waldo Penn MD Work Phone: [facility] 04-03-2024 14:15-0500 Heart rate 72 /min Waldo Penn MD Work Phone: [facility] 04-03-2024 14:15-0500 SaO2% (BldA) [Mass fraction] 98 % Waldo Penn MD Work Phone: [facility] 04-03-2024 14:15-0500 Systolic blood pressure 110 mm[Hg] Waldo Penn MD Work Phone: [facility] 02-26-2024 12:05-0500 Body mass index (BMI) [Ratio] 45.44 kg/m2 Abdifatah Welsh APRN.FLOOR INSPECTOR Work Phone: [facility] 02-26-2024 12:05-0500 Body temperature 98.6 [degF] Abdifatah Welsh APRN.FLOOR INSPECTOR Work Phone: [facility] 02-26-2024 12:05-0500 Body weight 112.7 kg Abdifatah Welsh APRN.FLOOR INSPECTOR Work Phone: [facility] 02-26-2024 12:05-0500 Diastolic blood pressure 82 mm[Hg] Abdifatah Welsh APRN.FLOOR INSPECTOR Work Phone: [facility] 02-26-2024 12:05-0500 Heart rate 84 /min Abdifatah Welsh APRN.FLOOR INSPECTOR Work Phone: [facility] 02-26-2024 12:05-0500 Respiratory rate 18 /min Abdifatah Welsh APRN.FLOOR INSPECTOR Work Phone: [facility] 02-26-2024 12:05-0500 SaO2% (BldA) [Mass fraction] 94 % Abdifatah Welsh APRN.FLOOR INSPECTOR Work Phone: [facility] 02-26-2024 12:05-0500 Systolic blood pressure 128 mm[Hg] Abdifatah Welsh APRN.FLOOR INSPECTOR Work Phone: [facility] 07-29-2023 14:08-0400 Body weight 114.31 kg Krys Pandya MD Work Phone: [facility] 07-29-2023 14:08-0400 Diastolic blood pressure 74 mm[Hg] Krys Pandya MD Work Phone: [facility] 07-29-2023 14:08-0400 Systolic blood pressure 118 mm[Hg] Krys Pandya MD Work Phone: [facility] 11-17-2022 11:10-0400 Body temperature 102.99 [degF] Lyssa Athy PA-C Work Phone: [facility] 11-17-2022 11:10-0400 Diastolic blood pressure 72 mm[Hg] Lyssa Athy PA-C Work Phone: [facility] 11-17-2022 11:10-0400 Heart rate 124 /min Lyssa Athy PA-C Work Phone: [facility] 11-17-2022 11:10-0400 Respiratory rate 20 /min Lyssa Athy PA-C Work Phone: [facility] 11-17-2022 11:10-0400 SaO2% (BldA) [Mass fraction] 95 % Lyssa Athy PA-C Work Phone: [facility] 11-17-2022 11:10-0400 Systolic blood pressure 108 mm[Hg] Lyssa Athy PA-C Work Phone: [facility] 11-17-2022 10:09-0400 Body weight 118.21 kg Lyssa Athy PA-C Work Phone: [facility] 05-24-2022 10:36-0500 Body weight 122.92 kg Krys Pandya MD Work Phone: [facility] 05-24-2022 10:36-0500 Diastolic blood pressure 64 mm[Hg] Krys Pandya MD Work Phone: [facility] 05-24-2022 10:36-0500 Systolic blood pressure 104 mm[Hg] Krys Pandya MD Work Phone: [facility] 05-17-2022 10:08-0500 Body temperature 97.8 [degF] [place] 05-17-2022 10:08-0500 Diastolic blood pressure 76 mm[Hg] [facility] 05-17-2022 10:08-0500 Heart rate 77 /min [facility] 05-17-2022 10:08-0500 Respiratory rate 16 /min [place] 05-17-2022 10:08-0500 SaO2% (BldA) [Mass fraction] 96 % [facility] 05-17-2022 10:08-0500 Systolic blood pressure 121 mm[Hg] [facility] 05-17-2022 06:43-0500 Body height 157.48 cm [facility] 05-17-2022 06:43-0500 Body mass index (BMI) [Ratio] 48.4 kg/m2 [facility] 05-17-2022 06:43-0500 Body weight 120 kg [facility] 06-19-2021 13:07-0500 Body mass index (BMI) [Ratio] 46.66 kg/m2 Tasha L Wevodko Work Phone: [facility] Work Phone: 06-19-2021 13:07-0500 Body surface area Derived from formula 2.12 m2 Tasha L Mesko Work Phone: [facility] Work Phone: 06-19-2021 13:07-0500 Body temperature 98.2 [degF] Tasha L Mesko Work Phone: [facility] Work Phone: 06-19-2021 13:07-0500 Body weight 115.71 kg Tasha L Mesko Work Phone: [facility] Work Phone: 03-10-2021 12:26-0500 Body mass index (BMI) [Ratio] 46.79 kg/m2 Tasha L Mesko Work Phone: [facility] Work Phone: 03-10-2021 12:26-0500 Body surface area Derived from formula 2.12 m2 Tasha L Mesko Work Phone: [facility] Work Phone: 03-10-2021 12:26-0500 Body temperature 100.3 [degF] Tasha L Mesko Work Phone: [facility] Work Phone: 03-10-2021 12:26-0500 Body weight 116.03 kg Tasha L Mesko Work Phone: [facility] Work Phone: 03-10-2021 12:26-0500 Diastolic blood pressure 72 mm[Hg] Tasha L Mesko Work Phone: [facility] Work Phone: 03-10-2021 12:26-0500 Heart rate 94 /min Tasha L Mesko Work Phone: [facility] Work Phone: 03-10-2021 12:26-0500 Respiratory rate 16 /min Tasha L Mesko Work Phone: [facility] Work Phone: 03-10-2021 12:26-0500 SaO2% (BldA) [Mass fraction] 96 % Tasha L Mesko Work Phone: [facility] Work Phone: 03-10-2021 12:26-0500 Systolic blood pressure 106 mm[Hg] Tasha L Mesko Work Phone: [facility] Work Phone: 12-07-2020 13:45-0400 Body mass index (BMI) [Ratio] 44.3 kg/m2 Tasha L Mesko Work Phone: [facility] Work Phone: 12-07-2020 13:45-0400 Body surface area Derived from formula 2.07 m2 Tasha L Mesko Work Phone: [facility] Work Phone: 12-07-2020 13:45-0400 Body temperature 96.9 [degF] Tasha L Mesko Work Phone: [facility] Work Phone: 12-07-2020 13:45-0400 Body weight 109.86 kg Tasha L Mesko Work Phone: [facility] Work Phone: 12-07-2020 13:45-0400 Diastolic blood pressure 77 mm[Hg] Tasha L Mesko Work Phone: [facility] Work Phone: 12-07-2020 13:45-0400 Heart rate 69 /min Tasha L Mesko Work Phone: [facility] Work Phone: 12-07-2020 13:45-0400 SaO2% (BldA) [Mass fraction] 98 % Tasha L Mesko Work Phone: [facility] Work Phone: 12-07-2020 13:45-0400 Systolic blood pressure 118 mm[Hg] Tasha L Mesko Work Phone: [facility] Work Phone: 10-13-2019 18:36-0400 BMI (Body Mass Index) 47.02 kg/m2 Tasha Mesko [facility] Work Phone: 10-13-2019 18:36-0400 Body Temperature 97.7 [degF] Tasha Ninako [facility] Work Phone: 10-13-2019 18:36-0400 Body weight 116.62 kg Tasha Mesko [facility] Work Phone: 10-13-2019 18:36-0400 BP Diastolic 80 mm[Hg] Tasha Mesko [facility] Work Phone: Comment on above: Location: LUE; Position: Sitting 10-13-2019 18:36-0400 BP Systolic 124 mm[Hg] Tashakhurram Bunch [facility] Work Phone: Comment on above: Location: [facility]; Position: Sitting 10-13-2019 18:36-0400 BSA (Body Surface Area) 2.13 m2 Tasha Mesko [facility] Work Phone: 10-13-2019 18:36-0400 Pulse (Heart Rate) 77 /min [facility] Work Phone: 10-13-2019 18:36-0400 Pulse Oximetry 95 % [facility] Work Phone: 10-13-2019 18:36-0400 Respiratory Rate 22 /min Tasha Mesko [facility] Work Phone: 09-21-2019 17:28-0400 BMI (Body Mass Index) 48.01 kg/m2 [facility] Work Phone: 09-21-2019 17:28-0400 Body Temperature 98.5 [degF] [facility] Work Phone: 09-21-2019 17:28-0400 Body weight 119.07 kg [facility] Work Phone: 09-21-2019 17:28-0400 BP Diastolic 75 mm[Hg] [facility] Work Phone: Comment on above: Location: [facility]; Position: Sitting 09-21-2019 17:28-0400 BP Systolic 107 mm[Hg] Loi Pennington [facility] Work Phone: Comment on above: Location: [facility]; Position: Sitting 09-21-2019 17:28-0400 BSA (Body Surface Area) 2.15 m2 Loi Pennington [facility] Work Phone: 09-21-2019 17:28-0400 Pulse (Heart Rate) 73 /min Loi [facility] Work Phone: 09-21-2019 17:28-0400 Pulse Oximetry 96 % Loi [facility] Work Phone: 09-21-2019 17:28-0400 Respiratory Rate 18 /min Loi [facility] Work Phone: Encounters Encounter Date Encounter Type Care Provider Facility Start: 10-19-2024 End: 10-19-2024 ambulatory Waldo Penn MD Work Phone: [facility] [place] Comment on above: Numbness L arm Start: 10-19-2024 Evaluation and management of inpatient Dr. Clark Johnson MD -Progressive Care Unit Work Phone: Start: 10-19-[address] Cuevas on Margaret DO Work Phone: -Progressive Care Unit Start: 09-15-2024 End: 10-16-2024 ambulatory Waldo Penn MD Work Phone: [facility] [place] Start: 09-04-2024 ambulatory [phone] NO FAMILY PHYSICIAN Facility:[facility] Start: 08-31-2024 ambulatory REBEKAH TOLBERT Facilit y:[id number] Start: 08-11-2024 End: 08-12-2024 Refill Waldo Penn MD Work Phone: [facility] [place] Comment on above: Refill Request Start: 06-04-2024 End: 08-04-2024 Follow-up encounter Any Velazco USABILITY STRATEGIST.FLOOR INSPECTOR Work Phone: [facility] [place] Start: 06-04-2024 End: 06-04-2024 Subsequent hospital visit by physician Braulio [facility] Work Phone: Radiology Comment on above: Acute cough [R05.1] Start: 06-04-2024 End: 06-04-2024 ambulatory ANY VELAZCO Facility:[facility] Start: 06-04-2024 End: 06-04-2024 Patient encounter procedure Any Velazco USABILITY STRATEGIST.FLOOR INSPECTOR Work Phone: [facility] [place] Comment on above: Acute cough (Primary Dx); Acute non-recurrent maxillary sinusitis; Shortness of breath Start: 06-01-2024 End: 06-01-2024 ambulatory WALDO PENN Facility:[facility] Start: 06-01-2024 End: 06-01-2024 Patient encounter procedure Waldo Penn MD Work Phone: [facility] [place] Comment on above: Moderate persistent asthma with acute exacerbation (Primary Dx) Start: 05-18-2024 End: 05-18-2024 ambulatory WALDO PENN Facility:[facility] Start: 05-18-2024 End: 05-18-2024 Patient encounter procedure Waldo Penn MD Work Phone: [facility] [place] Comment on above: Immune deficiency di sorder (HCC) (Primary Dx); Moderate persistent asthma with acute exacerbation; Non-seasonal allergic rhinitis, unspecified trigger Start: 04-12-2024 End: 04-12-2024 Telephone encounter Waldo Penn MD Work Phone: Family [facility] Start: 04-03-2024 End: 04-03-2024 ambulatory WALDO PENN Facility:[facility] Start: 04-03-2024 End: 04-03-2024 Subsequent hospital visit by physician [facility] Work Phone: Radiology Comment on above: Moderate persistent asthma with acute exacerbation [J45.41] Start: 04-03-2024 End: 04-03-2024 ambulatory REBEKAH TOLBERT Facility:[facility] Start: 04-03-2024 End: 04-03-2024 Patient encounter procedure Waldo Penn MD Work Phone: Internal Medicine [place] Comment on above: Moderate persistent asthma with acute exacerbation (Primary Dx); Non-seasonal allergic rhinitis, unspecified trigger; Pneumonia due to infectious organism, unspecified laterality, unspecified part of lung; Need for vaccination; Depression with anxiety; Obesity, Class III, BMI >= 40 Start: 02-26-2024 End: 02-27-2024 Telephone encounter Waldo Penn MD Work Phone: [facility] [place] Comment on above: Patient Question Start: 02-26-2024 End: 02-26-2024 Subsequent hospital visit by physician Braulio [facility] [place] Work Phone: Radiology Comment on above: Acute cough [R05.1] Start: 02-26-2024 End: 02-26-2024 ambulatory REBEKAH TOLBERT Facility:[facility] Start: 02-26-2024 End: 02-26-2024 Patient encounter procedure Abdifatah Welsh APRN.CNP Work Phone: [facility] Comment on above: Acute cough (Primary Dx); Bacterial pneumonia Start: 02-20-2024 End: 02-20-2024 ambulatory Denys Carver Facility:[facility] Start: 12-31-2023 End: 12-31-2023 ambulatory Rebekah Tolbert NP Facility:[facility] Start: 08-08-2023 End: 08-08-2023 ambulatory SUBSTATION OPERATOR AUTOMATIC-C Rebekah Tolbert SUBSTATION OPERATOR AUTOMATIC [facility] Work Phone: Start: 08-08-2023 End: 08-08-2023 Patient encounter procedure SUBSTATION OPERATOR AUTOMATIC-Thee Tolbert SUBSTATION OPERATOR AUTOMATIC [facility]-Outpatient Breast Imaging Work Phone: Start: 08-07-2023 End: 08-07-2023 Patient encounter procedure SUBSTATION OPERATOR AUTOMATIC-Thee Tolbert NP [facility] Work Phone: Start: 08-05-2023 End: 08-05-2023 Patient encounter procedure SUBSTATION OPERATOR AUTOMATICJosefina Tolbert SUBSTATION OPERATOR AUTOMATIC [facility] Work Phone: Start: 07-29-2023 End: 07-29-2023 Patient encounter procedure Krys Pandya MD Work Phone: OB/Gynecology Comment on above: Encounter for gyneco logical examination (general) (routine) without abnormal findings (Primary Dx); Screening for cervical cancer; Encounter for screening for human papillomavirus (HPV); Encounter for screening mammogram for breast cancer; Endometriosis Start: 07-29-2023 End: 07-29-2023 Patient encounter status Krys Pandya MD Work Phone: [facility] Start: 03-23-2023 ambulatory Krys Chopra Work Phone: OB/Gynecology Comment on above: [facility] Start: 11-17-2022 End: 11-17-2022 Subsequent hospital visit by physician Xr [facility] Work Phone: Radiology Comment on above: Fever, unspecified f ever cause [R50.9] Start: 11-17-2022 End: 11-17-2022 Patient encounter procedure Lyssa Mccormick PA-C Work Phone: [facility] Comment on above: Pneumonia of right m iddle lobe due to infectious organism (Primary Dx); Wheezing Start: 07-15-2022 End: 07-15-2022 ambulatory INGRID MCFADDEN DO-FACOG Facility:[facility] Start: 06-11-2022 Telephone encounter Armando negron DO Work Phone: [facility] Comment on above: Referral Start: 05-24-2022 End: 05-24-2022 Patient encounter procedure Krys Pandya MD Work Phone: OB/Gynecology Comment on above: Pelvic pain in femal e (Primary Dx); History of endometriosis Start: 05-17-2022 End: 05-17-2022 Admission to same day surgery center [facility]Surgical Day Care Start: 05-17-2022 End: 05-17-2022 ambulatory [facility] Work Phone: Start: 05-11-2022 ambulatory REBEKAH Fay y:AMBMOBGY Start: 05-02-2022 End: 05-02-2022 ambulatory [facility] Work Phone: Start: 05-02-2022 End: 05-02-2022 Patient encounter procedure [facility]-Laboratory, Specimen Start: 04-27-2022 End: 04-27-2022 ambulatory [facility] Work Phone: Start: 04-27-2022 End: 04-27-2022 Patient encounter procedure [facility]-Cat Scan, [facility] Start: 04-25-2022 End: 04-25-2022 Patient encounter procedure [facility]-Laboratory, Specimen Start: 04-11-2022 End: 04-11-2022 ambulatory [facility] Work Phone: Start: 04-11-2022 End: 04-11-2022 Patient encounter procedure [facility]-Laboratory, Specimen Start: 04-06-2022 End: 04-06-2022 Patient encounter procedure [facility]-Ultrasound, [facility] Start: 03-14-2022 End: 03-14-2022 ambulatory [facility] Work Phone: Start: 03-14-2022 End: 03-14-2022 Patient encounter procedure [facility]-Laboratory, Specimen Start: 03-09-2022 End: 03-09-2022 ambulatory [facility] Work Phone: Start: 03-09-2022 End: 03-09-2022 Patient encounter procedure [facility]-Cat Scan, [facility] Start: 03-08-2022 End: 03-08-2022 ambulatory [facility] Work Phone: Start: 03-08-2022 End: 03-08-2022 Patient encounter procedure [facility]-Laboratory, Specimen Start: 03-07-2022 End: 03-07-2022 ambulatory [facility] Work Phone: Start: 03-07-2022 End: 03-07-2022 Patient encounter procedure [facility]-Ultrasound, [facility] Start: 03-06-2022 End: 03-06-2022 Patient encounter procedure [facility]-Laboratory, Specimen Start: 01-11-2022 End: 01-11-2022 ambulatory [facility] Work Phone: Start: 01-11-2022 End: 01-11-2022 Patient encounter procedure [facility]-Outpatient Bone Densitometry Start: 12-29-2021 ambulatory REBEKAH Fay y:AMBMOBGY Start: 07-27-2021 End: 07-28-2021 ambulatory INGRID J RORY DO-FACOG Facility:[id number] Start: 07-27-2021 ambulatory REBEKAH Fay y:AMBMOBGY Start: 07-27-2021 End: 07-28-2021 ambulatory INGRID Hilton RORY DO-FACOG Facility:[facility] Start: 06-19-2021 Office outpatient vi sit 10 minutes Tasha L Mesko Work Phone: [facility] Work Phone: Start: 03-27-2021 AUDIT Tasha L Me sko Work Phone: [facility] Work Phone: Start: 03-10-2021 Office outpatient vi sit 15 minutes Tasha L Mesko Work Phone: [facility] Work Phone: Start: 02-06-2021 AUDIT Tasha L Me sko Work Phone: [facility] Work Phone: Start: 01-11-2021 AUDIT Tasha L Me sko Work Phone: [facility] Work Phone: Start: 12-07-2020 AUDIT Tasha L Me sko Work Phone: [facility] Work Phone: Start: 12-07-2020 Office outpatient vi sit 15 minutes Tasha L Mesko Work Phone: [facility] Work Phone: Start: 10-21-2020 AUDIT Tasha L Me sko Work Phone: [facility] Work Phone: Start: 07-01-2020 End: 05-04-2022 ambulatory INGRID Hilton RORY DO-FACOG Facility:[facility] Start: 10-13-2019 Patient encounter procedure Tasha Bunch -[facility] Work Phone: Start: 09-21-2019 Patient encounter procedure Loi Dulle [facility] Work Phone: Start: 05-18-2019 Patient encounter procedure Loi Dulle [facility] Work Phone: Start: 02-03-2019 Patient encounter procedure Loi Pennington [facility] Work Phone: Start: 09-05-2018 Patient encounter procedure Lio Dulle [facility] Work Phone: Start: 07-02-2018 Patient encounter procedure Loi Sepulvedale [facility] Work Phone: Start: 05-06-2018 Patient encounter procedure Loi Dulle [facility] Work Phone: Start: 12-20-2017 Patient encounter procedure Loi Pennington [facility] Work Phone: Start: 11-27-2017 Patient encounter procedure Loi Dulle [facility] Work Phone: Start: 08-09-2017 Patient encounter procedure Loi Pennington [facility] Work Phone: Start: 07-05-2017 Patient encounter procedure Loi Pennington [facility] Work Phone: Start: 06-10-2017 Patient encounter procedure Loi Pennington [facility] Work Phone: Procedures Date Procedure Procedure Detail Performing Clinician Start: 10-19-2024 CT angiography of he ad and neck Dr. Theron Robles DO Work Phone: Start: 10-19-[address] Theron Robles DO Work Phone: Start: 06-04-2024 Radiologic exam ches t 2 views Any Velazco USABILITY STRATEGIST.FLOOR INSPECTOR Work Phone: Start: 04-03-2024 Radiologic exam ches t 2 views Waldo Penn MD Work Phone: Start: 02-26-2024 Radiologic exam ches t 2 views Abdifatah Welsh USABILITY STRATEGIST.FLOOR INSPECTOR Work Phone: Start: 08-08-2023 Screening mammography N P-C Rebekah Tolbert SUBSTATION OPERATOR AUTOMATIC Start: 11-17-2022 Radiologic exam ches t 2 views Lyssa Mccormick PA-C Work Phone: Start: 11-17-2022 DARVIN Neri MOLECULAR (POC) [facility] Provider Start: 05-17-2022 Cystoscopy and retro grade pyelography Start: 05-17-2022 Fluoroscopic guidance Start: 04-27-2022 CT of abdomen and pe lvis without contrast Start: 04-06-2022 Ultrasonography of abdomen Start: 03-09-2022 CT of head without contrast Start: 01-11-2022 Dual energy X-ray absorptiometry Start: 01-11-2022 Screening mammography Start: 02-13-2021 Follow-up visit Start: 10-08-2019 Assay of amylase Loi Pennington Start: 10-08-2019 Assay of lipase Loi randle Start: 10-08-2019 Blood count complete auto&auto difrntl wbc Loi Pennington Start: 09-21-2019 Lipid 1996 panel - S adore or Plasma Krys Pandya MD Work Phone: History of Knee Surgery Anil Pennington History of Nasal Sep michael Deviation Repair Loi Pennington Hysteroscopy Loi Pennington Comment on above: 04/2016 for endometri osis - Dr Murry- Charlee; Tonsillectomy Loi Pennington Urine culture Urine culture Urine culture Urine culture Plan of Treatment Date Care Activity Detail Author Start: 07-28-2028 Screening for malign ant neoplasm of cervix Cervical Cancer Screening [facility] Start: 06-04-2025 Annual PCP Team Automatic Machines Supervisor nikhil Disease Visit Annual PCP Team Chronic Disease Visit [facility] Start: 05-18-2025 Annual PCP Team Automatic Machines Supervisor nikhil Disease Visit Annual PCP Team Chronic Disease Visit [facility] Start: 05-02-2025 Diabetes Screening Diabetes Screenin g [facility] Start: 04-03-2025 Annual PCP Team Automatic Machines Supervisor nikhil Disease Visit Annual PCP Team Chronic Disease Visit [facility] Start: 11-19-2024 End: 11-19-2024 Patient encounter procedure 11/19/2024 5:20 PM EDT Office Visit Internal Medicine [place] [address] [place] [address] Waldo Penn MD [address] [place] [address] 6 month follow-up [facility] Medicine [place] Comment on above: 6 month follow-up Start: 2024 Zoster Vaccines (1 of 2) Zoster Vacc tory (1 of 2) [facility] [employer] Start: 10-20-2024 Thyroid stimulating hormone measurement [facility] Start: 10-19-2024 Ambulation without limitation [facility] Start: 10-19-2024 Aspiration precautions [facility] Start: 10-19-2024 Assessment of risk o f venous thromboembolism [facility] Start: 10-19-2024 Cardiac monitoring [facility] Start: 10-19-2024 Catheterization of vein [facility] Start: 10-19-2024 Consultation [facility] Start: 10-19-2024 Continuous pulse oximetry [facility] Start: 10-19-2024 Elevation of head of bed [facility] Start: 10-19-2024 Exercises [facility] Start: 10-19-2024 Incentive spirometry [facility] Start: 10-19-2024 Insertion of cathete r into peripheral vein [facility] Start: 10-19-2024 Measuring intake and output [facility] Start: 10-19-2024 MRI of brain without contrast Brain without Contrast [facility] Start: 10-19-2024 Notification of physician [facility] Start: 10-19-2024 Oxygen therapy [facility] Start: 10-19-2024 Patient referral to dietitian [facility] Start: 10-19-2024 Providing care accor ding to standard [facility] Start: 10-19-2024 Referral to occupati onal therapist [facility] Start: 10-19-2024 Referral to service [facility] Start: 10-19-2024 Speech therapy assessment [facility] Start: 10-19-2024 Telemedicine consult ation with patient [facility] Start: 10-19-2024 Tobacco use cessatio n education [facility] Start: 10-19-2024 End: 10-19-2024 [facility] Start: 10-19-2024 Vital signs measurements [facility] Start: 06-30-2025 Verification routine [facility] Start: 10-19-2024 Admission procedure [facility] Start: 10-19-2024 Oxygen therapy [facility] Start: 10-19-2024 [facility] Start: 09-20-2024 Lipid 1996 panel - S adore or Plasma Lipid Screening [facility] Start: 09-20-2024 Lipid panel Lipid Screening [facility] Start: 08-07-2024 Screening for malign ant neoplasm of breast Mammogram Screening [facility] Start: 06-04-2024 End: 06-04-2024 Patient encounter procedure 06/04/2024 2:00 PM EST Office Visit Allergy [address] [id number] January Beth MD [address], [place] [id number] Moderate persistent asthma with acute exacerbation [J45.41]; Non-seasonal allergic rhinitis, unspecified trigger [J30.89]; Immune deficiency disorder (HCC) [D84.9] Allergy Comment on above: Moderate persistent asthma with acute exacerbation [J45.41]; Non-seasonal allergic rhinitis, unspecified trigger [J30.89]; Immune deficiency disorder (HCC) [D84.9] Start: 05-18-2024 End: 05-18-2024 Patient encounter procedure 05/18/2024 5:20 PM EST Office Visit Internal Medicine [facility] [address] [place], [place] [id number] Waldo Penn MD [address] [place], [place] [id number] 6 week follow up [facility] [place] Comment on above: 6 week follow up Start: 04-03-2024 End: 04-03-2024 Patient encounter procedure 04/03/2024 2:20 PM EST Office Visit [facility] [place] [address] [place], [place] [address] Waldo Penn MD [address] [place], [place] [phone] est care physical [place] per Dr Penn [facility] [place] Comment on above: est care physical [place] per Dr Penn Start: 12-22-2023 Covid-19 Vaccine ( season) Covid-19 Vaccine ( season) [facility] Start: 12-22-2023 Covid-19 Vaccine ( season) Covid-19 Vaccine () [facility] Start: 12-22-2023 Influenza vaccination [facility] Start: 04-22-2023 Behavioral Health Screening Behavioral Health Screening [facility] Start: 12-21-2022 Covid-19 Vaccine ( season) Covid-19 Vaccine () [facility] Start: 12-21-2022 Influenza vaccination [facility] Start: 11-17-2022 End: 12-01-2022 Influenza virus A and B RNA and SARS-CoV-2 (COVID-19) N gene panel - Respiratory specimen by SIGRID with probe detection COVID WITH FLUA+B, ROUTINE Microbiology Routine Pneumonia of right middle lobe due to infectious organism Expected: 11/17/2022, Expires: 12/01/2022 [facility] Work Phone: Comment on above: Expected: 11/17/2022 , Expires: 12/01/2022 Start: 11-15-2022 DIABETES SCREEN DIABETES SCREEN [facility] Start: 11-15-2022 Diabetes Screening Diabetes Screenin g [facility] Start: 05-17-[address] [facility] Start: 04-22-2022 DEPRESSION ASSESSMENT DEPRESSION ASS ESSMENT [facility] Start: 12-21-2021 Influenza vaccination [facility] Start: 07-10-2021 Urine microalbumin profile DTaP,Tdap,Td Vaccine (2 - Td or Tdap) [facility] Start: 02-13-2021 EPV, Provider: Tasha Bunch, Status: Pen, Time: 9:10 AM EPV, Provider: Tasha Bunch, Status: Pen, Time: 9:10 AM [facility] Work Phone: Start: 01-03-2021 PTEVALADUL, Provider : Voss,Suleiman, Status: Pen, Time: 4:15 PM PTEVALADUL, Provider: Suleiman Voss, Status: Pen, Time: 4:15 PM [facility] Work Phone: Start: 11-10-2020 FUV, Provider: Tasha Bunch, Status: Pen, Time: 2:30 PM FUV, Provider: Tasha Bunch, Status: Pen, Time: 2:30 PM [facility] Work Phone: Start: 11-19-2019 COLOGUARD (FIT-DNA) COLOGUARD (FIT-D NA) [facility] Start: 11-19-2019 Colonoscopy COLONOSCOPY [facility] Start: 11-19-2019 COLORECTAL CANCER SCREENING COLORECTAL CANCER SCREENING [facility] Start: 11-19-[address] COLONOGRAPHY [facility] Start: 11-19-2019 FECAL OCCULT BLOOD FECAL OCCULT BLOO D [facility] Start: 11-19-2019 LIPID SCREEN LIPID SCREEN [facility] Start: 11-19-2019 Screening for malign ant neoplasm of colon [facility] Start: 11-19-2019 SIGMOIDOSCOPY SIGMOIDOSCOPY [facility] Start: 2014 Mammography [facility] Start: 2014 Screening for malign ant neoplasm of breast [facility] Start: 2004 HPV TESTING HPV TESTING [facility] Start: 2004 Screening for malign ant neoplasm of cervix [facility] Start: 11-19-1995 PAP TESTING PAP TESTING [facility] Start: 11-19-1995 Screening for malign ant neoplasm of cervix [facility] Start: 1993 DTaP/Tdap/Td Vaccine s (1 - Tdap) DTaP/Tdap/Td Vaccines (1 - Tdap) [facility] Start: 1993 Urine microalbumin profile DTAP,TDAP,TD (1 - Tdap) [facility] Start: 1992 Anxiety Screening Anxiety Screening [facility] Start: 1992 Depression Screening Depression Scre [facility] Start: 1992 HEPATITIS C SCREENING HEPATITIS C [facility] Start: 1992 Hepatitis C screening Hepatitis C [facility] Start: 1992 Spirometry Spirometry [facility] Start: 11-19-1975 MMR Vaccines (1 of 1 - Standard series) MMR Vaccines (1 of 1 - Standard series) [facility] Start: 05-21-1975 COVID-19 VACCINE (#1) COVID-19 VACCI NE (#1) [facility] Start: 1974 HEPATITIS B (1 of 3 - 3-dose series) HEPATITIS B (1 of 3 - 3-dose series) [facility] Start: 1974 Hepatitis B Vaccines (1 of 3 - 3-dose series) Hepatitis B Vaccines (1 of 3 - 3-dose series) [facility] Start: 1974 HIV screening HIV Screening [facility] Start: 1974 Screening for malign ant neoplasm of colon [facility] Cholesterol [Mass/vo lume] in Serum or Plasma [facility] Cholesterol in HDL [Mass/volume] in Serum or Plasma [facility] End: 08-27-2024 DBT Breast - bilateral screening TAMAR SCREENING W [facility]PH[facility] Radiology Routine Encounter for screening mammogram for breast cancer 1 Occurrences starting 07/29/2023 until 08/27/2024 [facility] Work Phone: Comment on above: 1 Occurrences starti ng 07/29/2023 until 08/27/2024 End: 10-15-2025 DBT Breast - bilateral screening TAMAR SCREENING W [facility]PH[facility] Radiology Routine Encounter for screening mammogram for breast cancer 1 Occurrences starting 09/15/2024 until 10/15/2025 [facility] Work Phone: Comment on above: 1 Occurrences starti ng 09/15/2024 until 10/15/2025 Hemoglobin A1c/Hemoglobin.total in Blood [facility] Low density lipoprot ein cholesterol measurement [facility] PAP TEST PAP TEST Lab Maldonado jackson Screening for cervical cancer Encounter for screening for human papillomavirus (HPV) 07/29/2023 2:49 PM EDT [facility] Work Phone: Patient referral [facility] Work Phone: Total cholesterol:HD L ratio measurement [facility] Triglycerides measurement [facility] Troponin T.cardiac [Mass/volume] in Serum or Plasma by High sensitivity method [facility] VLDL cholesterol measurement [facility] Immunizations Immunization Date Immunization Notes Care Provider Fa celeste 04-03-2024 pneumococcal Conjuga te, unspecified formulation Waldo Penn MD Work Phone: [facility] Work Phone: 04-03-2024 pneumococcal conjuga te (PCV20) vaccine, 20 valent (PREVNAR 20) [facility] [place] Work Phone: [facility] 07-13-2011 hepatitis B vaccine, adult dosage [facility] [place] Work Phone: [facility] 07-11-2011 tetanus toxoid, redu roxanna diphtheria toxoid, and acellular pertussis vaccine, adsorbed [facility] [place] Work Phone: [facility] 06-12-2010 influenza, seasonal, injectable [facility] [place] Work Phone: [facility] 06-12-2010 influenza virus vacc ine, unspecified formulation Krys Pandya MD Work Phone: [facility] 04-22-2005 tetanus toxoid, adsorbed [facility] [place] Work Phone: [facility] 04-22-1999 pneumococcal polysaccharide vaccine, 23 valent [facility] [place] Work Phone: [facility] 02-07-1999 hepatitis B vaccine, adult dosage [facility] [place] Work Phone: [facility] 10-28-1998 hepatitis B vaccine, adult dosage [facility]r [place] Work Phone: [facility] 04-22-1997 tetanus and diphther ia toxoids, adsorbed, preservative free, for adult use (2 Lf of tetanus toxoid and 2 Lf of diphtheria toxoid) [facility] [place] Work Phone: [facility] 04-22-1993 hepatitis A vaccine, pediatric/adolescent dosage, 2 dose schedule [facility] [place] Work Phone: [facility] 04-22-1993 hepatitis B vaccine, adult dosage [facility] [place] Work Phone: [facility] Payers Date Payer Category Payer Self-pay [id number] 2023 Unknown [id number] 2022 Private Health Insurance MMO SUP ERMED PPO [id number] 2022 Unknown [id number] 2008 Unknown 1974 Unknown [id number] 2.16840.1.666669.3.579.2. 159 1974 Unknown [id number] 2.16840.1.785987.3.579.2. 159 1974 Unknown [id number] 2.16840.1.527677.3.579.2. 159 1974 Unknown [id number] 2.16840.1.762639.3.579.2. 159 1974 Unknown [id number] 2.16840.1.860213.3.579.2. 159 1974 Unknown [id number] 2.16840.1.575015.3.579.2. 159 1974 Unknown [id number] 2.16840.1.606070.3.579.2. 159 1974 Unknown [id number] 2.16840.1.795371.3.579.2. 159 1974 Unknown [id number] 2.16840.1.507981.3.579.2. 159 1974 Unknown [id number] 2.16.840.1.563067.3.579.2. 159 Private Health Insurance [facility] [id number] Unknown [id number] Unknown [facility] [id number] Unknown [id number] [id number]. 462 Unknown [id number] [id number]. 462 Unknown [id number] [id number]. 462 Unknown [id number] [id number]. 462 Social History Date Type Detail Facility Start: 11-17-2022 End: 07-29-2023 Never a smoker Never a smoker [facility] Work Phone: Start: 04-22-2021 End: 08-07-2023 Tobacco smoking status MIIS Unknown if ever smoked [facility] Start: 1975 Sex Assigned At Female [facility] Start: 05-24-2022 End: 10-19-2024 Tobacco smoking status NHIS Never smoked tobacco [facility] Start: 05-24-2022 Tobacco use and exposure Smokeless tobacco non-user [facility] Start: 05-24-2022 End: 02-26-2024 Alcohol intake Ex-drinker (finding) [facility] Start: 1975 Sex Assigned At Not on file [facility] Start: 11-17-2022 End: 07-29-2023 Tobacco use panel [facility] National Score (1-100), lower number is lower risk Not on file [facility] Start: 07-29-2023 Alcohol Comment social [facility] Start: 04-03-2024 End: 06-04-2024 Alcoholic beverage intake Current drinker of alcohol (finding) [facility] NEGATED: Highlighted row - - [facility] Work Phone: NEGATED: Highlighted row [facility] Goals Date Patient Goal Desired Activity /State Functional Status Date Assessment Result Facility 05-17-2022 Functional status Bathroom Privilege [facility] Work Phone: NEGATED: Highlighted row Functional performance Functional status health issues are not documented Disease [facility] Work Phone: Mental Status Date Assessment Result Facility 10-19-2024 Cognitive function Voice/Name [facility] Work Phone: 05-17-2022 Cognitive function Voice/Name [facility] Work Phone: NEGATED: Highlighted row Cognitive function [Interpretation] Cognitive status health issues are not documented Disease [facility] Work Phone: Clinical Notes 03-23-2021 to 10-19-2024 Telephone Encounter - Any Velazco APRN.[facility] - 10/19/2024 8:41 AM EDTTelephone Encounter - nAy Velazco APRN.[facility] - 10/19/2024 8:41 AM Waldo Joseph MD - 06/01/2024 1:30 PM EST Note Date & Type Note Facility 10-19-2024 History and physi mel[place] note [facility] 10-19-2024 Discharge summary [facility] 10-19-2024 Radiology Diagnostic study note [facility] Imaging Services [address], [place] [id number] STROKE CTA Head AND Neck W/Con MR#: [id number] Acct: [id number] Name: PEGGY SCHMIDT Rep #: [id number] : 1975 F 48 From: Mauro Crooks MD PCP: Dr. Waldo Penn MD Status: R EG ER Study:STROKE CTA Head AND Neck W/Con Date of Exam: 10/19/24 Exam# [id number] Ordering Dr: Joseph Robles DO PROCEDURE: STROKE CTA HEAD AND NECK W/CON 10/19/2024 REASON FOR EXAM: NEURO DEFICIT, ACUTE, STROKE SUSPECTED TECHNIQUE: STROKE CTA HEAD AND NECK W/CON Multiplanar Sagittal and Coronal images were obtained. CONTRAST: Isovue 370 VOLUME: 100 mL One or more dose reduction techniques were used (e.g., Automated exposure control, adjustment of the mA and/or kV according to patient size, use of iterative reconstruction technique). RADIATION DOSE SUMMARY: CTDlvol: 76.6 mGy DLP: 15.09.99 mGycm COMPARISON: None FINDINGS: Noncontrasted head CT shows no acute hemorrhage midline shift or mass effect, nosuspicious pattern of edema. Aortic Arch: Normal size and branching pattern. No significant atherosclerotic plaque. Brachiocephalic and Subclavians: Unremarkable RIGHT Carotid: Right CCA: Unremarkable. Right ICA: Unremarkable. Maximum stenosis (NASCET): <10 % Right ECA: Unremarkable. Incidental note is made of a significant medial course of the right ICA LEFT Carotid: Left CCA: Unremarkable. Left ICA: Unremarkable. Maximum stenosis (NASCET): <10 % Left ECA: Unremarkable. Vertebrals: Codominant. Arise from the subclavians. Both vertebrals form the basilar. RIGHT Vertebral: Unremarkable. LEFT Vertebral: Unremarkable. Anatomy: [place] anatomy is normal. Aneurysm or avm: No intracranial aneurysms or large vascular malformations are identified. No suspicious enhancing lesion, no airway narrowing or deviation. Lung apices are clear. No bulky adenopathy. CT/STROKE CTA Head AND Neck W/Con IMPRESSION: No CTA evidence of CCA ICA or intracranial stenosis or occlusion. No significant atherosclerotic disease Patent vertebral arteries No acute intracranial hemorrhage midline shift or mass effect Reading Location: [id number] CC: Dr. Theron Robles DO; Dr. Waldo Penn MD ~ Flight Test Supervisor: Signed [facility] 10-19-2024 Telephone encounter Note Noted and agree Any Velazco APRN.FLOOR INSPECTOR [facility] 10-19-2024 Miscellaneous Notes Noted and agree Any Velazco APRN.FLOOR INSPECTOR Protocol recommends call 911. Pt is going to have her bring her to [facility] ER. Care plan reviewed with patient. Patient voices understanding. Advised patient that if symptoms get worse to call 911. Reason for Disposition [1] Numbness (i.e., loss of sensation) of the face, arm / hand, or leg / foot on one side of the body AND [2] sudden onset AND [3] present now Answer Assessment - Initial Assessment Questions 1. SYMPTOM: Pt reports numbness to L arm, L middle finger, L thumb, top part of digit R middle finger, top part of digit R thumb. 2. ONSET: Started during the night. 3. LAST NORMAL: Last time you (the patient) were normal (no symptoms), was 1 week ago. 4. PATTERN This comes and goes, but has it has been constant since it started during the middle of the night. It's gotten better, but still N/T. 5. CARDIAC SYMPTOMS: Pt denies chest pain, difficulty breathing, or palpitations. 6. NEUROLOGIC SYMPTOMS: Pt denies headache, dizziness, vision loss, double vision, changes in speech, or unsteady on your feet. Pt states she did have a headache about 30 mi ago, but that went away. 7. OTHER SYMPTOMS: Denies any other symptoms. 8. : Denies being , is on Arlissa for endometriosis. States she hasn't had a period for several years. Protocols used: Neurologic [id number] documented in this encounter [facility] 10-19-2024 Telephone encounter Note Protocol recommends call 911. Pt is going to have her bring her to [facility] ER. Care plan reviewed with patient. Patient voices understanding. Advised patient that if symptoms get worse to call 911. Reason for Disposition [1] Numbness (i.e., loss of sensation) of the face, arm / hand, or leg / foot on one side of the body AND [2] sudden onset AND [3] present now Answer Assessment - Initial Assessment Questions 1. SYMPTOM: Pt reports numbness to L arm, L middle finger, L thumb, top part of digit R middle finger, top part of digit R thumb. 2. ONSET: Started during the night. 3. LAST NORMAL: Last time you (the patient) were normal (no symptoms), was 1 week ago. 4. PATTERN This comes and goes, but has it has been constant since it started during the middle of the night. It's gotten better, but still N/T. 5. CARDIAC SYMPTOMS: Pt denies chest pain, difficulty breathing, or palpitations. 6. NEUROLOGIC SYMPTOMS: Pt denies headache, dizziness, vision loss, double vision, changes in speech, or unsteady on your feet. Pt states she did have a headache about 30 mi ago, but that went away. 7. OTHER SYMPTOMS: Denies any other symptoms. 8. : Denies being , is on Arlissa for endometriosis. States she hasn't had a period for several years. Protocols used: Neurologic [id number] [facility] 09-15-2024 Note Patient Outreach (IN TMWS) PEGGY SCHMIDT ([id number]) 1975 F Date Time Provider Department 09/15/24 WALDO PENN During your visit today, we recorded the following information about you: Allergies As of Date: 09/15/2024 Noted Allergy Reaction LATEX 12/01/2009 4 - Hives 7 - Swelling AMOXICILLIN 12/01/2009 4 - Hives PENICILLINS 12/01/2009 4 - Hives Date Reviewed: 06/04/2024 Reviewed by: Any Velazco APRN.FLOOR INSPECTOR - Fully Assessed Visit Diagnosis:Encounter for screening mammogram for breast cancer [Z12.31] Order(s):TAMAR MITCHELL [[id number]] Order #: [id number] FUTURE Prescriptions as of 10/16/2024 - montelukast (SINGULAIR) 10 mg tablet Take 1 tablet by mouth daily at bedtime. - benzonatate (TESSALON PERLE) 100 mg capsule Take 1 capsule by mouth three times a day as needed for cough. - ipratropium-albuterol (DUONEB) 0.5 mg-3 mg(2.5 mg base)/3 mL nebu Inhale 3 mL as instructed four times a day as needed for wheezing/shortness of breath. - fluticasone-salmeterol HFA (ADVAIR HFA) 230-21 mcg/actuation inhaler Inhale 2 Puffs as instructed two times a day. - hyoscyamine SR (LEVBID) 0.375 mg 12 hr tablet Take 0.375 mg by mouth daily at bedtime. - FLUoxetine HCl 20 mg tablet Take 20 mg by mouth once daily. - elagolix (ORILISSA) 150 mg tablet Take 150 mg by mouth every 24 hours. - progesterone micronized (PROMETRIUM) 100 mg capsule Take 100 mg by mouth once daily. - famotidine (PEPCID) 20 mg tablet Take 20 mg by mouth twice daily. - albuterol HFA (PROAIR HFA) 90 mcg/Actuation INHALATION HFAA 1-2 inhalations 4 hours as needed Problem List As Of Date 09/15/2024 Noted Resolved Toxic effect of latex(989.82) [T65.811A] 12/01/2009 02/26/2024 Allergic Rhinitis-c/d/cockroach/dm/m/t/g/w/ ragw*12/01/2009 Voice disturbance [R49.9] 01/30/2010 02/26/2024 LPRD (laryngopharyngeal reflux disease) [K21.9] 01/30/2010 02/26/2024 Cough [R05.9] 01/30/2010 02/26/2024 Other closed fractures of distal end of radius *07/01/2013 02/26/2024 Weakness of left lower extremity [R29.898] 12/20/2015 02/26/2024 Pain in left foot [M79.672] 12/20/2015 02/26/2024 Moderate persistent asthma with acute exacerbat*04/03/2024 Depression with anxiety [F41.8] 04/03/2024 Obesity, Class III, BMI >= 40 [E66.813] 04/03/2024 Asthma [J45.909] 1999 Encounter Status:Closed by ZACK OBRIEN on 10/16/24 [facility] 08-11-2024 Telephone encounter Note Prescription Refill Information The patient has been identified by name and date of : Yes Caregiver verified no other encounters exist for this prescription request: Yes Caregiver confirmed with patient/requestor that no other refills are due, in the near future, with this provider at this time: Yes The last office visit in the department: 06/04/24 Does the patient have a future office visit with this provider/department: Yes 11/19/24 Requested Prescriptions Pending Prescriptions Disp Refills montelukast (SINGULAIR) 10 mg tablet 90 tablet 0 Sig: Take 1 tablet by mouth daily at bedtime. Zoila Palmer LPN August 11, 2024 4:42 PM [facility] 08-11-2024 Miscellaneous Notes Prescription Refill Information The patient has been identified by name and date of : Yes Caregiver verified no other encounters exist for this prescription request: Yes Caregiver confirmed with patient/requestor that no other refills are due, in the near future, with this provider at this time: Yes The last office visit in the department: 06/04/24 Does the patient have a future office visit with this provider/department: Yes 11/19/24 Requested Prescriptions Pending Prescriptions Disp Refills montelukast (SINGULAIR) 10 mg tablet 90 tablet 0 Sig: Take 1 tablet by mouth daily at bedtime. Zoila Palmer LPN August 11, 2024 4:42 PM documented in this encounter [facility] 06-04-2024 History of Present illness Narrative Radiology Service Progress Note PATIENT NAME: Peggy Schmidt DATE OF SERVICE: June 04, 2024 TIME: 9:04 AM PATIENT IDENTITY VERIFICATION COMPLETED USING TWO (2) IDENTIFIERS: Name and Date of confirmed by patient verbally. FALL SCREENING: Has the patient had 2 falls in the last year or 1 fall with injury or currently using an Ambulatory Assistive Device (Walker, Cane, Wheelchair, Crutches, etc.)? No PATIENT GENDER DATA: Assigned female at . status: : No status: NO. PATIENT RELEVANT IMPLANT DATA REVIEWED: Not Applicable PATIENT PRESENTS WITH AN IMPLANTABLE OR ATTACHED CHIEF COMMUNICATIONS OFFICER: No RADIOLOGY DEPARTMENT: General X-ray: Exam(s) Completed: Chest X-Ray PERIPHERAL IV DATA: Not applicable SIGNED BY: RT Alberto(Becca) June 04, 2024 9:04 AM documented in this encounter [facility] 06-04-2024 Note HNO ID: [id number] Author: NACHO HOANG RT (R) Service: Radiology Author Type: Technologist Type: Progress Notes Filed: 06/04/2024 09:11 Note Text: Radiology Service Progress Note PATIENT NAME: Peggy Schmidt DATE OF SERVICE: June 04, 2024 TIME: 9:04 AM PATIENT IDENTITY VERIFICATION COMPLETED USING TWO (2) IDENTIFIERS: Name and Date of confirmed by patient verbally. FALL SCREENING: Has the patient had 2 falls in the last year or 1 fall with injury or currently using an Ambulatory Assistive Device (Walker, Cane, Wheelchair, Crutches, etc.)? No PATIENT GENDER DATA: Assigned female at . status: : No status: NO. PATIENT RELEVANT IMPLANT DATA REVIEWED: Not Applicable PATIENT PRESENTS WITH AN IMPLANTABLE OR ATTACHED CHIEF COMMUNICATIONS OFFICER: No RADIOLOGY DEPARTMENT: General X-ray: Exam(s) Completed: Chest X-Ray PERIPHERAL IV DATA: Not applicable SIGNED BY: RT Alberto(Becca) June 04, 2024 9:04 AM [facility] 06-04-2024 Note HNO ID: [id number] Author: ANY VELAZCO APRN.RANJANA Service: ? Author Type: Nurse Practitioner Type: Progress Notes Filed: 06/04/2024 09:37 Note Text: CC: Patient presents with: Cough: Chest congestion, wheezing/SOB, diarrhea HPI: Peggy Schmidt is a 48 year old female who presents to the office with above complaint. She was evaluated on 06/01 for five day history of cough, wheezing, SOB, congestion and sinus pressure. Home COVID test was negative, no additional testing ordered. Treated for asthma exacerbation with Zithromax, prednisone and Tessalon Perles. She has also been using albuterol nebulizer and Advair. Today patient reports symptoms are worsening: Temperature elevation: Yes Chills: Yes Cough: Yes productive with green sputum Shortness of breath: Yes Fatigue: Yes Muscle aches: No Headache: Yes New loss of smell or taste: No Sore throat: No Nasal congestion: Yes Rhinorrhea: No Nausea and/or vomiting: No Diarrhea: Yes Other Associated symptoms: facial pain/pressure. PMH: asthma, seasonal/environmental allergies, and pneumonia Review of Systems See HPI PAST MEDICAL HISTORY Diagnosis Date Allergic rhinitis 12/01/2009 Asthma 2000 Chronic pelvic pain in female 03/09/2016 Chronic sinusitis 12/01/2009 Closed fracture of left wrist 06/24/2013 COVID-19 long hauler manifesting chronic joint pain 05/01/2021 Covid infection 03/23/2021 Depression with anxiety 12/09/2010 Depression with suicidal ideation 12/09/2010 Endometriosis 2007 Fibromyalgia 10/05/2021 Fracture of metatarsal of left foot, closed 10/27/2015 GERD (gastroesophageal reflux disease) 01/26/2010 Hiatal hernia 12/02/2019 Immune deficiency disorder (HCC) 06/28/2010 history of IVIG Irritable bowel syndrome 06/20/2020 LPRD (laryngopharyngeal reflux disease) 01/30/2010 Major depression, single episode 12/09/2010 Migraine 08/17/2021 Nonalcoholic fatty liver 05/13/2021 US. Elevated LFTs Pneumonia 02/23/2024 11/27/2022 PTSD (post-traumatic stress disorder) 06/13/2021 Ureterolithiasis 05/17/2022 PAST SURGICAL HISTORY Procedure Laterality Date APPENDECTOMY 04/22/2001 COLONOSCOPY - DIAGNOSTIC 05/2003 COLONOSCOPY - DIAGNOSTIC 06/21/2006 CYSTOSCOPY,+URETEROSCOPY 05/17/2022 Elma Pena MD. retrograde pyelograms. EGD WITH BIOPSY(S) 12/02/2019 [facility] [place] HEMORRHOIDECTOMY 05/31/2004 KNEE RIGHT OP SURGERY Right 2008 ACL repair. L'SCOPE CHOLECYSTECTOMY 01/2001 L'SCOPE DX W/WO BRUSHINGS/WASHINGS 05/17/2016 hysteroscopy, lap excision of endometriosis SINUS SURGERY PROC UNLISTED 06/2009 TONSILLECTOMY HX 06/20/2009 TREATMENT OF ANAL FISSURE 1992 ALLERGIES Latex, Amoxicillin, and Penicillins MEDICATIONS azithromycin (ZITHROMAX) 250 mg tablet Take 2 tablets by mouth once daily for 1 day, THEN 1 tablet once daily for 4 days. predniSONE (DELTASONE) 20 mg tablet Take 1 tablet by mouth once daily for 5 days. benzonatate (TESSALON PERLE) 100 mg capsule Take 1 capsule by mouth three times a day as needed for cough. montelukast (SINGULAIR) 10 mg tablet Take 1 tablet by mouth daily at bedtime. ipratropium-albuterol (DUONEB) 0.5 mg-3 mg(2.5 mg base)/3 mL nebu Inhale 3 mL as instructed four times a day as needed for wheezing/shortness of breath. fluticasone-salmeterol HFA (ADVAIR HFA) 230-21 mcg/actuation inhaler Inhale 2 Puffs as instructed two times a day. hyoscyamine SR (LEVBID) 0.375 mg 12 hr tablet Take 0.375 mg by mouth daily at bedtime. FLUoxetine HCl 20 mg tablet Take 20 mg by mouth once daily. elagolix (ORILISSA) 150 mg tablet Take 150 mg by mouth every 24 hours. progesterone micronized (PROMETRIUM) 100 mg capsule Take 100 mg by mouth once daily. famotidine (PEPCID) 20 mg tablet Take 20 mg by mouth twice daily. albuterol HFA (PROAIR HFA) 90 mcg/Actuation INHALATION HFAA 1-2 inhalations 4 hours as needed FAMILY HISTORY Problem Relation Age of Onset Diabetes Mother Kidney Disease Mother Diabetes Father age 7 Kidney failure Father dialysis Diabetes Sister Dementia Maternal Grandmother Diabetes Maternal Grandfather Social History Tobacco Use Smoking status: Never Smokeless tobacco: Never Vaping Use Vaping status: Never Used Substance Use Topics Alcohol use: Yes Comment: social Drug use: Never BP 134/86 Pulse 78 Temp 37.2 ?C (98.9 ?F) (Temporal Artery) Resp 16 Wt 113.4 kg (250 lb) LMP 10/17/2019 SpO2 96% BMI 46.47 kg/m? Physical Exam Vitals reviewed. Constitutional: General: She is not in acute distress. Appearance: She is ill-appearing. She is not toxic-appearing. HENT: Head: Normocephalic and atraumatic. Right Ear: Tympanic membrane normal. Left Ear: Tympanic membrane normal. Nose: Mucosal edema and congestion present. Right Sinus: Maxillary sinus tenderness present. No frontal sinus tenderness. Left Sinus: Maxillary sinus tenderness present. No frontal sinus tenderness. Mouth/Throat: Lip (more content not included)... [facility] 06-04-2024 History of Present illness Narrative CC: Patient presents with: Cough: Chest congestion, wheezing/SOB, diarrhea HPI: Peggy Schmidt is a 48 year old female who presents to the office with above complaint. She was evaluated on 06/01 for five day history of cough, wheezing, SOB, congestion and sinus pressure. Home COVID test was negative, no additional testing ordered. Treated for asthma exacerbation with Zithromax, prednisone and Tessalon Perles. She has also been using albuterol nebulizer and Advair. Today patient reports symptoms are worsening: Temperature elevation: Yes Chills: Yes Cough: Yes productive with green sputum Shortness of breath: Yes Fatigue: Yes Muscle aches: No Headache: Yes New loss of smell or taste: No Sore throat: No Nasal congestion: Yes Rhinorrhea: No Nausea and/or vomiting: No Diarrhea: Yes Other Associated symptoms: facial pain/pressure. PMH: asthma, seasonal/environmental allergies, and pneumonia Review of Systems See HPI PAST MEDICAL HISTORY Diagnosis Date Allergic rhinitis 12/01/2009 Asthma 2000 Chronic pelvic pain in female 03/09/2016 Chronic sinusitis 12/01/2009 Closed fracture of left wrist 06/24/2013 COVID-19 macy esparza manifesting chronic joint pain 05/01/2021 Covid infection 03/23/2021 Depression with anxiety 12/09/2010 Depression with suicidal ideation 12/09/2010 Endometriosis 2007 Fibromyalgia 10/05/2021 Fracture of metatarsal of left foot, closed 10/27/2015 GERD (gastroesophageal reflux disease) 01/26/2010 Hiatal hernia 12/02/2019 Immune deficiency disorder (HCC) 06/28/2010 history of IVIG Irritable bowel syndrome 06/20/2020 LPRD (laryngopharyngeal reflux disease) 01/30/2010 Major depression, single episode 12/09/2010 Migraine 08/17/2021 Nonalcoholic fatty liver 05/13/2021 US. Elevated LFTs Pneumonia 02/23/2024 11/27/2022 PTSD (post-traumatic stress disorder) 06/13/2021 Ureterolithiasis 05/17/2022 PAST SURGICAL HISTORY Procedure Laterality Date APPENDECTOMY 04/22/2001 COLONOSCOPY - DIAGNOSTIC 05/2003 COLONOSCOPY - DIAGNOSTIC 06/21/2006 CYSTOSCOPY,+URETEROSCOPY 05/17/2022 Elma Pena MD. retrograde pyelograms. EGD WITH BIOPSY(S) 12/02/2019 [facility] [place] HEMORRHOIDECTOMY 05/31/2004 KNEE RIGHT OP SURGERY Right 2008 ACL repair. L'SCOPE CHOLECYSTECTOMY 01/2001 L'SCOPE DX W/WO BRUSHINGS/WASHINGS 05/17/2016 hysteroscopy, lap excision of endometriosis SINUS SURGERY PROC UNLISTED 06/2009 TONSILLECTOMY HX 06/20/2009 TREATMENT OF ANAL FISSURE 1993 ALLERGIES Latex, Amoxicillin, and Penicillins MEDICATIONS azithromycin (ZITHROMAX) 250 mg tablet Take 2 tablets by mouth once daily for 1 day, THEN 1 tablet once daily for 4 days. predniSONE (DELTASONE) 20 mg tablet Take 1 tablet by mouth once daily for 5 days. benzonatate (TESSALON PERLE) 100 mg capsule Take 1 capsule by mouth three times a day as needed for cough. montelukast (SINGULAIR) 10 mg tablet Take 1 tablet by mouth daily at bedtime. ipratropium-albuterol (DUONEB) 0.5 mg-3 mg(2.5 mg base)/3 mL nebu Inhale 3 mL as instructed four times a day as needed for wheezing/shortness of breath. fluticasone-salmeterol HFA (ADVAIR HFA) 230-21 mcg/actuation inhaler Inhale 2 Puffs as instructed two times a day. hyoscyamine SR (LEVBID) 0.375 mg 12 hr tablet Take 0.375 mg by mouth daily at bedtime. FLUoxetine HCl 20 mg tablet Take 20 mg by mouth once daily. elagolix (ORILISSA) 150 mg tablet Take 150 mg by mouth every 24 hours. progesterone micronized (PROMETRIUM) 100 mg capsule Take 100 mg by mouth once daily. famotidine (PEPCID) 20 mg tablet Take 20 mg by mouth twice daily. albuterol HFA (PROAIR HFA) 90 mcg/Actuation INHALATION HFAA 1-2 inhalations 4 hours as needed FAMILY HISTORY Problem Relation Age of Onset Diabetes Mother Kidney Disease Mother Diabetes Father age 7 Kidney failure Father dialysis Diabetes Sister Dementia Maternal Grandmother Diabetes Maternal Grandfather Social History Tobacco Use Smoking status: Never Smokeless tobacco: Never Vaping Use Vaping status: Never Used Substance Use Topics Alcohol use: Yes Comment: social Drug use: Never BP 134/86 Pulse 78 Temp 37.2 C (98.9 F) (Temporal Artery) Resp 16 Wt 113.4 kg (250 lb) LMP 10/17/2019 SpO2 96% BMI 46.47 kg/m Physical Exam Vitals reviewed. Constitutional: General: She is not in acute distress. Appearance: She is ill-appearing. She is not toxic-appearing. HENT: Head: Normocephalic and atraumatic. Right Ear: Tympanic membrane normal. Left Ear: Tympanic membrane normal. Nose: Mucosal edema and congestion present. Right Sinus: Maxillary sinus tenderness present. No frontal sinus tenderness. Left Sinus: Maxillary sinus tenderness present. No frontal sinus tenderness. Mouth/Throat: Lips: [place]. Mouth: Mucous membranes are moist. Pharynx: Oropharynx is clear. Eyes: Conjunctiva/sclera: Conjunctivae normal. Cardiovascular: Rate and Rhythm: Normal rate and regular rhythm. Heart sounds: Normal heart sounds. No murmur heard. Pulmonary: Effort: Pulmonary effort is normal. No respiratory distress. Breath sounds: Wheezing (diffusely) and rales (right lower lobe) present. No decreased breath sounds or rhonchi. Lymphadenopathy: Cervical: No cervical adenopathy. Skin: General: Skin is warm and dry. Neurological: Mental Status: She is alert. Data reviewed: most recent chest x-ray ASSESSMENT/PLAN: 1. Acute cough - ICD9: 786.2, ICD10: R05.1 (primary diagnosis) Differentials include asthma exacerbation, pneumonia, bronchitis - XR CHEST 2V FRONTAL/LAT stat today - increase prednisone to 40 mg x 3 days, then tapering dose - follow-up pending results of x-ray 2. Acute non-recurrent maxillary sinusitis - ICD9: 461.0, ICD10: J01.00 Treatment pending results of x-ray - Supportive care with plenty of fluids, rest, and analgesia prn. 3. Shortness of breath - ICD9: 786.05, ICD10: R06.02 As above - XR CHEST 2V FRONTAL/LAT Prescription instructions reviewed with patient as applicable. Potential red flag symptoms discussed with the patient. Reviewed appropriate action plan to take if red flag symptoms occur. Patient agreeable to treatment plan. Any Velazco APRN.RANJANA Medical Decision Making: Problems: Moderate: Acute illness with systemic symptoms Data: Unique test result(s) reviewed: 1 Unique test(s) ordered: 1 Risk: Low: Low risk from testing/treatment Moderate: Drug management Medical Decision Making Level: 4 - Moderate documented in this encounter [facility] 06-01-2024 Note HNO ID: [id number] Author: WALDO PENN MD Service: ? Author Type: Physician Type: Progress Notes Filed: 06/01/2024 13:50 Note Text: This note was created using NoteWriter. Subjective Peggy Schmidt is a 48 year old female who presents with complaint of sinus symptoms, nasal congestion, facial pain/pressure maxillary, hoarse voice, headache- moderate, body aches, ear pain bilateral , and cough- productive with moderate amount of yellow greenish sputum for 5 days. She also had some dyspnea, wheezing, nausea. Treatments tried include Albuterol and Nyquil with temporary relief of symptoms. She had no fever, chills, sweats. She tested negative for Covid at home. She was here with Clive who was not ill. She cancelled allergy consult due to illness and will reschedule. Review of Systems Per HPI. ACTIVE PROBLEM LIST Allergic Rhinitis-c/d/cockroach/dm/m/t/g/w/ ragweed Latex Moderate Persistent Asthma With Acute Exacerbation Depression With Anxiety Obesity, Class III, BMI >= 40 Asthma Social History Tobacco Use Smoking status: Never Smokeless tobacco: Never Vaping Use Vaping status: Never Used Substance Use Topics Alcohol use: Yes Comment: social Drug use: Never Current Outpatient Medications Medication Sig montelukast (SINGULAIR) 10 mg tablet Take 1 tablet by mouth daily at bedtime. ipratropium-albuterol (DUONEB) 0.5 mg-3 mg(2.5 mg base)/3 mL nebu Inhale 3 mL as instructed four times a day as needed for wheezing/shortness of breath. fluticasone-salmeterol HFA (ADVAIR HFA) 230-21 mcg/actuation inhaler Inhale 2 Puffs as instructed two times a day. hyoscyamine SR (LEVBID) 0.375 mg 12 hr tablet Take 0.375 mg by mouth daily at bedtime. FLUoxetine HCl 20 mg tablet Take 20 mg by mouth once daily. elagolix (ORILISSA) 150 mg tablet Take 150 mg by mouth every 24 hours. progesterone micronized (PROMETRIUM) 100 mg capsule Take 100 mg by mouth once daily. famotidine (PEPCID) 20 mg tablet Take 20 mg by mouth twice daily. albuterol HFA (PROAIR HFA) 90 mcg/Actuation INHALATION HFAA 1-2 inhalations 4 hours as needed predniSONE (DELTASONE) 10 mg tablet TAKE BY MOUTH 4 TABLETS DAILY FOR 2 DAYS, THEN 3 TABLETS DAILY FOR 2 DAYS, THEN 2 TABLETS DAILY FOR 2 DAYS, THEN 1 TABLET DAILY FOR 2 DAYS. (Patient not taking: Reported on 05/18/2024) No current facility-administered medications for this visit. Objective BP 110/68 (BP Site: Left Arm, BP Position: Sitting, BP Cuff Size: Large Adult) Pulse 76 Temp 37.2 ?C (98.9 ?F) (Temporal) Resp 20 Wt 114.8 kg (253 lb 1.4 oz) LMP 10/17/2019 SpO2 96% BMI 47.05 kg/m? Physical Exam Constitutional: General: She is not in acute distress. Appearance: She is ill-appearing. HENT: Right Ear: Tympanic membrane normal. Left Ear: Tympanic membrane normal. Nose: Congestion present. Right Sinus: No maxillary sinus tenderness or frontal sinus tenderness. Left Sinus: No maxillary sinus tenderness or frontal sinus tenderness. Comments: Purulent nasal drainage right. Mouth/Throat: Pharynx: Posterior oropharyngeal erythema present. No oropharyngeal exudate. Cardiovascular: Rate and Rhythm: Normal rate and regular rhythm. Pulmonary: Effort: No respiratory distress. Breath sounds: Wheezing and rhonchi present. No rales. Comments: Recurrent coughing. Lymphadenopathy: Cervical: No cervical adenopathy. Assessment and Plan 1. Moderate persistent asthma with acute exacerbation - ICD9: 493.92, ICD10: J45.41 - acute exacerbation. - AZITHROMYCIN 250 MG TABLET - PREDNISONE 20 MG TABLET - BENZONATATE 100 MG CAPSULE Discussed medication dosage, usage, goals of therapy, and side effects. Excuse for work. Waldo Penn MD [facility] 06-01-2024 History of Present illness Narrative This note was created using [employer]. Subjective Peggy Schmidt is a 48 year old female who presents with complaint of sinus symptoms, nasal congestion, facial pain/pressure maxillary, hoarse voice, headache- moderate, body aches, ear pain bilateral , and cough- productive with moderate amount of yellow greenish sputum for 5 days. She also had some dyspnea, wheezing, nausea. Treatments tried include Albuterol and Nyquil with temporary relief of symptoms. She had no fever, chills, sweats. She tested negative for Covid at home. She was here with Clive who was not ill. She cancelled allergy consult due to illness and will reschedule. Review of Systems Per HPI. ACTIVE PROBLEM LIST Allergic Rhinitis-c/d/cockroach/dm/m/t/g/w/ ragweed Latex Moderate Persistent Asthma With Acute Exacerbation Depression With Anxiety Obesity, Class III, BMI >= 40 Asthma Social History Tobacco Use Smoking status: Never Smokeless tobacco: Never Vaping Use Vaping status: Never Used Substance Use Topics Alcohol use: Yes Comment: social Drug use: Never Current Outpatient Medications Medication Sig montelukast (SINGULAIR) 10 mg tablet Take 1 tablet by mouth daily at bedtime. ipratropium-albuterol (DUONEB) 0.5 mg-3 mg(2.5 mg base)/3 mL nebu Inhale 3 mL as instructed four times a day as needed for wheezing/shortness of breath. fluticasone-salmeterol HFA (ADVAIR HFA) 230-21 mcg/actuation inhaler Inhale 2 Puffs as instructed two times a day. hyoscyamine SR (LEVBID) 0.375 mg 12 hr tablet Take 0.375 mg by mouth daily at bedtime. FLUoxetine HCl 20 mg tablet Take 20 mg by mouth once daily. elagolix (ORILISSA) 150 mg tablet Take 150 mg by mouth every 24 hours. progesterone micronized (PROMETRIUM) 100 mg capsule Take 100 mg by mouth once daily. famotidine (PEPCID) 20 mg tablet Take 20 mg by mouth twice daily. albuterol HFA (PROAIR HFA) 90 mcg/Actuation INHALATION HFAA 1-2 inhalations 4 hours as needed predniSONE (DELTASONE) 10 mg tablet TAKE BY MOUTH 4 TABLETS DAILY FOR 2 DAYS, THEN 3 TABLETS DAILY FOR 2 DAYS, THEN 2 TABLETS DAILY FOR 2 DAYS, THEN 1 TABLET DAILY FOR 2 DAYS. (Patient not taking: Reported on 05/18/2024) No current facility-administered medications for this visit. Objective BP 110/68 (BP Site: Left Arm, BP Position: Sitting, BP Cuff Size: Large Adult) Pulse 76 Temp 37.2 C (98.9 F) (Temporal) Resp 20 Wt 114.8 kg (253 lb 1.4 oz) LMP 10/17/2019 SpO2 96% BMI 47.05 kg/m Physical Exam Constitutional: General: She is not in acute distress. Appearance: She is ill-appearing. HENT: Right Ear: Tympanic membrane normal. Left Ear: Tympanic membrane normal. Nose: Congestion present. Right Sinus: No maxillary sinus tenderness or frontal sinus tenderness. Left Sinus: No maxillary sinus tenderness or frontal sinus tenderness. Comments: Purulent nasal drainage right. Mouth/Throat: Pharynx: Posterior oropharyngeal erythema present. No oropharyngeal exudate. Cardiovascular: Rate and Rhythm: Normal rate and regular rhythm. Pulmonary: Effort: No respiratory distress. Breath sounds: Wheezing and rhonchi present. No rales. Comments: Recurrent coughing. Lymphadenopathy: Cervical: No cervical adenopathy. Assessment and Plan 1. Moderate persistent asthma with acute exacerbation - ICD9: 493.92, ICD10: J45.41 - acute exacerbation. - AZITHROMYCIN 250 MG TABLET - PREDNISONE 20 MG TABLET - BENZONATATE 100 MG CAPSULE Discussed medication dosage, usage, goals of therapy, and side effects. Excuse for work. Waldo Penn MD documented in this encounter [facility] 05-18-2024 Note HNO ID: [id number] Author: WALDO PENN MD Service: ? Author Type: Physician Type: Progress Notes Filed: 05/18/2024 18:01 Note Text: This note was created using [employer]. Subjective Peggy Schmidt is a 48 year old female was here with her spouse. She continued with cough on prednisone and I started her on montelukast. She is much better and symptoms were controlled. I found a history of immune deficiency and IVIG treatment in 2010. I referred her to allergy immunology but this had not been scheduled. Review of Systems Constitutional: Negative for fatigue and fever. HENT: Negative for congestion. Respiratory: Negative for cough, shortness of breath and wheezing. Cardiovascular: Negative. ACTIVE PROBLEM LIST Allergic Rhinitis-c/d/cockroach/dm/m/t/g/w/ ragweed Latex Moderate Persistent Asthma With Acute Exacerbation Depression With Anxiety Obesity, Class III, BMI >= 40 Asthma Social History Tobacco Use Smoking status: Never Smokeless tobacco: Never Vaping Use Vaping status: Never Used Substance Use Topics Alcohol use: Yes Comment: social Drug use: Never Current Outpatient Medications Medication Sig ipratropium-albuterol (DUONEB) 0.5 mg-3 mg(2.5 mg base)/3 mL nebu Inhale 3 mL as instructed four times a day as needed for wheezing/shortness of breath. montelukast (SINGULAIR) 10 mg tablet Take 1 tablet by mouth daily at bedtime. fluticasone-salmeterol HFA (ADVAIR HFA) 230-21 mcg/actuation inhaler Inhale 2 Puffs as instructed two times a day. hyoscyamine SR (LEVBID) 0.375 mg 12 hr tablet Take 0.375 mg by mouth daily at bedtime. FLUoxetine HCl 20 mg tablet Take 20 mg by mouth once daily. elagolix (ORILISSA) 150 mg tablet Take 150 mg by mouth every 24 hours. progesterone micronized (PROMETRIUM) 100 mg capsule Take 100 mg by mouth once daily. famotidine (PEPCID) 20 mg tablet Take 20 mg by mouth twice daily. albuterol HFA (PROAIR HFA) 90 mcg/Actuation INHALATION HFAA 1-2 inhalations 4 hours as needed predniSONE (DELTASONE) 10 mg tablet TAKE BY MOUTH 4 TABLETS DAILY FOR 2 DAYS, THEN 3 TABLETS DAILY FOR 2 DAYS, THEN 2 TABLETS DAILY FOR 2 DAYS, THEN 1 TABLET DAILY FOR 2 DAYS. (Patient not taking: Reported on 05/18/2024) No current facility-administered medications for this visit. Objective BP 108/66 (BP Site: Left Arm, BP Position: Sitting, BP Cuff Size: Large Adult) Pulse 72 Temp 36.3 ?C (97.4 ?F) (Temporal) Wt 116.5 kg (256 lb 13.4 oz) LMP 10/17/2019 SpO2 98% BMI 47.74 kg/m? Physical Exam Constitutional: General: She is not in acute distress. Appearance: She is not ill-appearing. HENT: Nose: No congestion or rhinorrhea. Cardiovascular: Heart sounds: Normal heart sounds. Pulmonary: Breath sounds: No wheezing, rhonchi or rales. Neurological: Mental Status: She is alert. Assessment and Plan 1. Immune deficiency disorder (HCC) - ICD9: 279.3, ICD10: D84.9 (primary diagnosis) - CONSULT TO ALLERGY/IMMUNOLOGY 2. Moderate persistent asthma with acute exacerbation - ICD9: 493.92, ICD10: J45.41 - Improved. - Continue current medications - MONTELUKAST 10 MG TABLET - CONSULT TO ALLERGY/IMMUNOLOGY 3. Non-seasonal allergic rhinitis, unspecified trigger - ICD9: 477.8, ICD10: J30.89 - MONTELUKAST 10 MG TABLET - CONSULT TO ALLERGY/IMMUNOLOGY Waldo Penn MD [facility] 05-18-2024 History of Present illness Narrative This note was created using NoteWriter. Subjective Peggy Schmidt is a 48 year old female was here with her spouse. She continued with cough on prednisone and I started her on montelukast. She is much better and symptoms were controlled. I found a history of immune deficiency and IVIG treatment in 2010. I referred her to allergy immunology but this had not been scheduled. Review of Systems Constitutional: Negative for fatigue and fever. HENT: Negative for congestion. Respiratory: Negative for cough, shortness of breath and wheezing. Cardiovascular: Negative. ACTIVE PROBLEM LIST Allergic Rhinitis-c/d/cockroach/dm/m/t/g/w/ ragweed Latex Moderate Persistent Asthma With Acute Exacerbation Depression With Anxiety Obesity, Class III, BMI >= 40 Asthma Social History Tobacco Use Smoking status: Never Smokeless tobacco: Never Vaping Use Vaping status: Never Used Substance Use Topics Alcohol use: Yes Comment: social Drug use: Never Current Outpatient Medications Medication Sig ipratropium-albuterol (DUONEB) 0.5 mg-3 mg(2.5 mg base)/3 mL nebu Inhale 3 mL as instructed four times a day as needed for wheezing/shortness of breath. montelukast (SINGULAIR) 10 mg tablet Take 1 tablet by mouth daily at bedtime. fluticasone-salmeterol HFA (ADVAIR HFA) 230-21 mcg/actuation inhaler Inhale 2 Puffs as instructed two times a day. hyoscyamine SR (LEVBID) 0.375 mg 12 hr tablet Take 0.375 mg by mouth daily at bedtime. FLUoxetine HCl 20 mg tablet Take 20 mg by mouth once daily. elagolix (ORILISSA) 150 mg tablet Take 150 mg by mouth every 24 hours. progesterone micronized (PROMETRIUM) 100 mg capsule Take 100 mg by mouth once daily. famotidine (PEPCID) 20 mg tablet Take 20 mg by mouth twice daily. albuterol HFA (PROAIR HFA) 90 mcg/Actuation INHALATION HFAA 1-2 inhalations 4 hours as needed predniSONE (DELTASONE) 10 mg tablet TAKE BY MOUTH 4 TABLETS DAILY FOR 2 DAYS, THEN 3 TABLETS DAILY FOR 2 DAYS, THEN 2 TABLETS DAILY FOR 2 DAYS, THEN 1 TABLET DAILY FOR 2 DAYS. (Patient not taking: Reported on 05/18/2024) No current facility-administered medications for this visit. Objective BP 108/66 (BP Site: Left Arm, BP Position: Sitting, BP Cuff Size: Large Adult) Pulse 72 Temp 36.3 C (97.4 F) (Temporal) Wt 116.5 kg (256 lb 13.4 oz) LMP 10/17/2019 SpO2 98% BMI 47.74 kg/m Physical Exam Constitutional: General: She is not in acute distress. Appearance: She is not ill-appearing. HENT: Nose: No congestion or rhinorrhea. Cardiovascular: Heart sounds: Normal heart sounds. Pulmonary: Breath sounds: No wheezing, rhonchi or rales. Neurological: Mental Status: She is alert. Assessment and Plan 1. Immune deficiency disorder (HCC) - ICD9: 279.3, ICD10: D84.9 (primary diagnosis) - CONSULT TO ALLERGY/IMMUNOLOGY 2. Moderate persistent asthma with acute exacerbation - ICD9: 493.92, ICD10: J45.41 - Improved. - Continue current medications - MONTELUKAST 10 MG TABLET - CONSULT TO ALLERGY/IMMUNOLOGY 3. Non-seasonal allergic rhinitis, unspecified trigger - ICD9: 477.8, ICD10: J30.89 - MONTELUKAST 10 MG TABLET - CONSULT TO ALLERGY/IMMUNOLOGY Waldo Penn MD documented in this encounter [facility] 04-03-2024 History of Present illness Narrative Radiology Service Progress Note PATIENT NAME: Peggy Schmidt DATE OF SERVICE: April 03, 2024 TIME: 3:33 PM PATIENT IDENTITY VERIFICATION COMPLETED USING TWO (2) IDENTIFIERS: Name and Date of confirmed by patient verbally. FALL SCREENING: Has the patient had 2 falls in the last year or 1 fall with injury or currently using an Ambulatory Assistive Device (Walker, Cane, Wheelchair, Crutches, etc.)? No PATIENT GENDER DATA: Female. status: : No status: NO. PATIENT RELEVANT IMPLANT DATA REVIEWED: Yes PATIENT PRESENTS WITH AN IMPLANTABLE OR ATTACHED CHIEF COMMUNICATIONS OFFICER: No RADIOLOGY DEPARTMENT: General X-ray: Exam(s) Completed: Chest X-Ray PERIPHERAL IV DATA: Not applicable SIGNED BY: RT Shailesh(R) April 03, 2024 3:33 PM documented in this encounter [facility] 04-03-2024 Note HNO ID: [id number] Author: HARRIS SCHOFIELD RT(Becca) Service: ? Author Type: Plumbing Drafter Type: Progress Notes Filed: 04/03/2024 15:40 Note Text: Radiology Service Progress Note PATIENT NAME: Peggy Schmidt DATE OF SERVICE: April 03, 2024 TIME: 3:33 PM PATIENT IDENTITY VERIFICATION COMPLETED USING TWO (2) IDENTIFIERS: Name and Date of confirmed by patient verbally. FALL SCREENING: Has the patient had 2 falls in the last year or 1 fall with injury or currently using an Ambulatory Assistive Device (Walker, Cane, Wheelchair, Crutches, etc.)? No PATIENT GENDER DATA: Female. status: : No status: NO. PATIENT RELEVANT IMPLANT DATA REVIEWED: Yes PATIENT PRESENTS WITH AN IMPLANTABLE OR ATTACHED CHIEF COMMUNICATIONS OFFICER: No RADIOLOGY DEPARTMENT: General X-ray: Exam(s) Completed: Chest X-Ray PERIPHERAL IV DATA: Not applicable SIGNED BY: RT Shailesh(Becca) April 03, 2024 3:33 PM [facility] 04-03-2024 Note HNO ID: [id number] Author: WALDO PENN MD Service: ? Author Type: Physician Type: Progress Notes Filed: 04/04/2024 21:05 Note Text: This note was created using NoteWriter. Subjective Patient presents with: Establish Care: Previous PCP Rebekah Tolbert CNP, [facility], [place], [place] Pain: back pain/muscle strain suspects due to a cough that she has had since 03/15. Peggy Schmidt is a 48 year old female.here with her spouse Clive who advocated for her. She was treated for pneumonia a month ago, but continued with significant coughing and sputum production causing back pain. She had no fever, chills, or dyspnea. She was wheezing and using her inhalers with little relief. ASTHMA CONTROL TEST Date: 04/03/2024 In the last 4 weeks, how much of the time did your asthma keep you from getting as much done at work or home that you wanted to do? Most of the time (2) In the last 4 weeks, how often have you had shortness of breath? Not at all (5) In the last 4 weeks, how often did your asthma symptoms (wheezing, coughing, shortness of breath, chest tightness or pain) wake you up at night or earlier than usual? 4 or more nights per week (1) In the last 4 weeks, how often have you used your rescue inhaler or nebulizer medication (such as Albuterol, Proventil, Ventolin, Maxair, Xoponex, or Primatene Mist)? 3 or more times per day (1) In the last 4 weeks, how would you rate your asthma control? Not controlled at all (1) Total: less than 15 Spouse indicated they avoided going out or interacting with others because her immunity was weak. She had pneumonia last year as well. Her last pneumonia vaccine was in 1999. There was no immune deficiency noted in the voluminous records received from PCP. However, review of other EMR showed a diagnosis of immune deficiency diagnosed by a local entry specialists in 2010 treated briefly with IVIG. Other specialists in her care: Ingrid Mcfadden DO (gynecology) Denys Carver DO (orthopedics) Review of Systems Constitutional: Negative for activity change, appetite change, chills, diaphoresis, fatigue, fever and unexpected weight change. HENT: Positive for congestion, postnasal drip, sinus pressure, sinus pain, sneezing and sore throat. Negative for ear discharge, ear pain and trouble swallowing. Eyes: Negative. Respiratory: Positive for cough and wheezing. Negative for chest tightness and shortness of breath. Cardiovascular: Negative for chest pain, palpitations and leg swelling. Gastrointestinal: Negative for abdominal pain, constipation, diarrhea, nausea and vomiting. Genitourinary: Negative for difficulty urinating and dyspareunia. PAST MEDICAL HISTORY Diagnosis Date Allergic rhinitis 12/01/2009 Asthma 2000 Chronic pelvic pain in female 03/09/2016 Chronic sinusitis 12/01/2009 Closed fracture of left wrist 06/24/2013 COVID-19 long hauler manifesting chronic joint pain 05/01/2021 Covid infection 03/23/2021 Depression with anxiety 12/09/2010 Depression with suicidal ideation 12/09/2010 Endometriosis 2007 Fibromyalgia 10/05/2021 Fracture of metatarsal of left foot, closed 10/27/2015 GERD (gastroesophageal reflux disease) 01/26/2010 Hiatal hernia 12/02/2019 Immune deficiency disorder (HCC) 06/28/2010 history of IVIG Irritable bowel syndrome 06/20/2020 LPRD (laryngopharyngeal reflux disease) 01/30/2010 Major depression, single episode 12/09/2010 Migraine 08/17/2021 Nonalcoholic fatty liver 05/13/2021 US. Elevated LFTs Pneumonia 02/23/2024 11/27/2022 PTSD (post-traumatic stress disorder) 06/13/2021 Ureterolithiasis 05/17/2022 PAST SURGICAL HISTORY Procedure Laterality Date APPENDECTOMY 04/22/2001 COLONOSCOPY - DIAGNOSTIC 05/2003 COLONOSCOPY - DIAGNOSTIC 06/21/2006 CYSTOSCOPY,+URETEROSCOPY 05/17/2022 Elma Pena MD. retrograde pyelograms. EGD WITH BIOPSY(S) 12/02/2019 [facility] HEMORRHOIDECTOMY 05/31/2004 KNEE RIGHT OP SURGERY Right 2008 ACL repair. L'SCOPE CHOLECYSTECTOMY 01/2001 L'SCOPE DX W/WO BRUSHINGS/WASHINGS 05/17/2016 hysteroscopy, lap excision of endometriosis SINUS SURGERY PROC UNLISTED 06/2009 TONSILLECTOMY HX 06/20/2009 TREATMENT OF ANAL FISSURE 1993 FAMILY HISTORY Problem Relation Age of Onset Diabetes Mother Kidney Disease Mother Diabetes Father age 7 Kidney failure Father dialysis Diabetes Sister Dementia Maternal Grandmother Diabetes Maternal Grandfather Social History Tobacco Use Smoking status: Never Smokeless tobacco: Never Vaping Use Vaping status: Never Used Substance Use Topics Alcohol use: Yes Comment: social Drug use: Never ALLERGIES Allergen Reactions Latex Hives, Swelling Amoxicillin Hives Penicillins Hives Current Outpatient Medications Medication Sig hyoscyamine SR (LEVBID) 0.375 mg 12 hr tablet Take 0.375 mg by mouth daily at bedtime. FLUoxetine HCl 20 mg tablet Take 20 (more content not included)... [facility] 04-03-2024 History of Present illness Narrative This note was created using [employer]. Subjective Patient presents with: Establish Care: Previous PCP Rebekah Tolbert CNP, [facility], [place], [place] Pain: back pain/muscle strain suspects due to a cough that she has had since 03/15. Peggy Schmidt is a 48 year old female.here with her spouse Clive who advocated for her. She was treated for pneumonia a month ago, but continued with significant coughing and sputum production causing back pain. She had no fever, chills, or dyspnea. She was wheezing and using her inhalers with little relief. ASTHMA CONTROL TEST Date: 04/03/2024 In the last 4 weeks, how much of the time did your asthma keep you from getting as much done at work or home that you wanted to do? Most of the time (2) In the last 4 weeks, how often have you had shortness of breath? Not at all (5) In the last 4 weeks, how often did your asthma symptoms (wheezing, coughing, shortness of breath, chest tightness or pain) wake you up at night or earlier than usual? 4 or more nights per week (1) In the last 4 weeks, how often have you used your rescue inhaler or nebulizer medication (such as Albuterol, Proventil, Ventolin, Maxair, Xoponex, or Primatene Mist)? 3 or more times per day (1) In the last 4 weeks, how would you rate your asthma control? Not controlled at all (1) Total: less than 15 Spouse indicated they avoided going out or interacting with others because her immunity was weak. She had pneumonia last year as well. Her last pneumonia vaccine was in 1999. There was no immune deficiency noted in the voluminous records received from PCP. However, review of other EMR showed a diagnosis of immune deficiency diagnosed by a local entry specialists in 2010 treated briefly with IVIG. Other specialists in her care: Ingrid Mcfadden DO (gynecology) Denys Carver DO (orthopedics) Review of Systems Constitutional: Negative for activity change, appetite change, chills, diaphoresis, fatigue, fever and unexpected weight change. HENT: Positive for congestion, postnasal drip, sinus pressure, sinus pain, sneezing and sore throat. Negative for ear discharge, ear pain and trouble swallowing. Eyes: Negative. Respiratory: Positive for cough and wheezing. Negative for chest tightness and shortness of breath. Cardiovascular: Negative for chest pain, palpitations and leg swelling. Gastrointestinal: Negative for abdominal pain, constipation, diarrhea, nausea and vomiting. Genitourinary: Negative for difficulty urinating and dyspareunia. PAST MEDICAL HISTORY Diagnosis Date Allergic rhinitis 12/01/2009 Asthma 2000 Chronic pelvic pain in female 03/09/2016 Chronic sinusitis 12/01/2009 Closed fracture of left wrist 06/24/2013 COVID-19 long hauler manifesting chronic joint pain 05/01/2021 Covid infection 03/23/2021 Depression with anxiety 12/09/2010 Depression with suicidal ideation 12/09/2010 Endometriosis 2007 Fibromyalgia 10/05/2021 Fracture of metatarsal of left foot, closed 10/27/2015 GERD (gastroesophageal reflux disease) 01/26/2010 Hiatal hernia 12/02/2019 Immune deficiency disorder (HCC) 06/28/2010 history of IVIG Irritable bowel syndrome 06/20/2020 LPRD (laryngopharyngeal reflux disease) 01/30/2010 Major depression, single episode 12/09/2010 Migraine 08/17/2021 Nonalcoholic fatty liver 05/13/2021 US. Elevated LFTs Pneumonia 02/23/2024 11/27/2022 PTSD (post-traumatic stress disorder) 06/13/2021 Ureterolithiasis 05/17/2022 PAST SURGICAL HISTORY Procedure Laterality Date APPENDECTOMY 04/22/2001 COLONOSCOPY - DIAGNOSTIC 05/2003 COLONOSCOPY - DIAGNOSTIC 06/21/2006 CYSTOSCOPY,+URETEROSCOPY 05/17/2022 Elma Pena MD. retrograde pyelograms. EGD WITH BIOPSY(S) 12/02/2019 [facility] HEMORRHOIDECTOMY 05/31/2004 KNEE RIGHT OP SURGERY Right 2008 ACL repair. L'SCOPE CHOLECYSTECTOMY 01/2001 L'SCOPE DX W/WO BRUSHINGS/WASHINGS 05/17/2016 hysteroscopy, lap excision of endometriosis SINUS SURGERY PROC UNLISTED 06/2009 TONSILLECTOMY HX 06/20/2009 TREATMENT OF ANAL FISSURE 1993 FAMILY HISTORY Problem Relation Age of Onset Diabetes Mother Kidney Disease Mother Diabetes Father age 7 Kidney failure Father dialysis Diabetes Sister Dementia Maternal Grandmother Diabetes Maternal Grandfather Social History Tobacco Use Smoking status: Never Smokeless tobacco: Never Vaping Use Vaping status: Never Used Substance Use Topics Alcohol use: Yes Comment: social Drug use: Never ALLERGIES Allergen Reactions Latex Hives, Swelling Amoxicillin Hives Penicillins Hives Current Outpatient Medications Medication Sig hyoscyamine SR (LEVBID) 0.375 mg 12 hr tablet Take 0.375 mg by mouth daily at bedtime. FLUoxetine HCl 20 mg tablet Take 20 mg by mouth once daily. elagolix (ORILISSA) 150 mg tablet Take 150 mg by mouth every 24 hours. progesterone micronized (PROMETRIUM) 100 mg capsule Take 100 mg by mouth once daily. fluticasone propion/salmeterol (ADVAIR DISKUS INHALATION) Inhale as instructed once daily. famotidine (PEPCID) 20 mg tablet Take 20 mg by mouth twice daily. albuterol HFA (PROAIR HFA) 90 mcg/Actuation INHALATION HFAA 1-2 inhalations 4 hours as needed predniSONE (DELTASONE) 10 mg tablet TAKE BY MOUTH 4 TABLETS DAILY FOR 2 DAYS, THEN 3 TABLETS DAILY FOR 2 DAYS, THEN 2 TABLETS DAILY FOR 2 DAYS, THEN 1 TABLET DAILY FOR 2 DAYS. No current facility-administered medications for this visit. Objective BP 110/60 Pulse 72 Ht 156.2 cm (5' 1.5) Wt 114.1 kg (251 lb 8.7 oz) LMP 10/17/2019 SpO2 98% BMI 46.76 kg/m Physical Exam Constitutional: General: She is not in acute distress. Appearance: She is not ill-appearing or diaphoretic. HENT: Head: Normocephalic. Right Ear: Tympanic membrane normal. Left Ear: Tympanic membrane normal. Nose: No congestion or rhinorrhea. Mouth/Throat: Mouth: Mucous membranes are moist. Pharynx: Oropharynx is clear. Eyes: Extraocular Movements: Extraocular movements intact. Conjunctiva/sclera: Conjunctivae normal. Cardiovascular: Rate and Rhythm: Normal rate. Heart sounds: No murmur heard. No gallop. Pulmonary: Effort: No respiratory distress. Breath sounds: Wheezing present. No rhonchi or rales. Comments: Recurrent moist cough. Abdominal: Palpations: Abdomen is soft. There is no mass. Tenderness: There is no abdominal tenderness. Musculoskeletal: General: No tenderness. Normal range of motion. Cervical back: No tenderness. Right lower leg: No edema. Left lower leg: No edema. Lymphadenopathy: Cervical: No cervical adenopathy. Skin: Findings: No rash. Neurological: General: No focal deficit present. Mental Status: She is alert. Psychiatric: Mood and Affect: Mood normal. Behavior: Behavior normal. 04/03/2024 CP PHQ9 Little interest or pleasure 1 - Several days Feeling down, depressed, hopeless 1 - Several days Trouble falling or staying asleep, sleeping too much 1 - Several days Feeling tired, having little energy 2 - More than half the days Poor appetite or overeating 1 - Several days Feeling bad about yourself, failure or you have let yourself/family down 1 - Several days Trouble concentrating on things 1 - Several days Moving or speaking so slowly, or fidgety or restless 0 - Not at all Thoughts that you would be better off , or of hurting yourself in some way 0 - Not at all How difficult have these problems made things Somewhat difficult Interpretation of Total Score 5-9 Mild depression DESTINI-7 ANXIETY SCALE Feeling nervous, anxious, or on edge 1 Several days Not being able to stop or control worrying 1 Several days Worrying too much about different things 1 Several days Trouble relaxing 1 Several days Being so restless that it's hard to sit still 1 Several days Being easily annoyed or irritable 1 Several days Feeling afraid as if something awful might happen 0 Not at all sure DESTINI-7 Anxiety Score 6 If you checked off any problems, how difficult have these problems made it for you to do your work, take care of things at home, or get along with other people? Somewhat difficult Exhaustive review of paper and electronic records was done. Assessment and Plan 1. Moderate persistent asthma with acute exacerbation - ICD9: 493.92, ICD10: J45.41 (primary diagnosis) - Moderate persistent asthma acute excacerbation no respiratory distress - Continue current medications - Asthma Action Plan reviewed - PREDNISONE 10 MG TABLET - XR CHEST 2V FRONTAL/LAT 2. Non-seasonal allergic rhinitis, unspecified trigger - ICD9: 477.8, ICD10: J30.89 Consider revisiting with allergy, especially with history of immune deficiency. 3. Pneumonia due to infectious organism, unspecified laterality, unspecified part of lung - ICD9: 486, ICD10: J18.9 Follow up chest xray. - XR CHEST 2V FRONTAL/LAT 4. Need for vaccination - ICD9: V05.9, ICD10: Z23 - PNEUMOCOCCAL VACCINE, 20 VALENT (PREVNAR 20) 5. Depression with anxiety - ICD9: 300.4, ICD10: F41.8 - Patient indicate current regimen was effective. No counseling was ongoing. 6. Obesity, Class III, BMI >= 40 - ICD9: 278.01, ICD10: E66.01 Newly diagnosed - Behavioral intervention Waldo Penn MD documented in this encounter [facility] 02-27-2024 Telephone encounter Note Appt scheduled 04/03/2024. Bela Hylton LPN [facility] 02-27-2024 Miscellaneous Notes Appt scheduled 04/03/2024. Bela Hylton LPN Called and Left VM to schedule Exception appt, establish with Dr Michelle Spencer Asked PSR in Internal Med to contact Patient to schedule. Bela Hylton LPN Okay new patient appointment. Request medical records past 3 years. Patient calling in because her sister Ana Chung is a patient of Dr. Penn and was recommending patient to see him. I let patient know Dr. Rodriguez is not currently accepting new patients, however she wanted me to reach out and see if he would make an exception. Please review and advise. Martina Jean February 26, 2024 8:54 AM documented in this encounter [facility] 02-26-2024 Telephone encounter Note Called and Left VM to schedule Exception appt, establish with Dr Michelle Spencer [facility] 02-26-2024 Telephone encounter Note Asked PSR in Internal Med to contact Patient to schedule. Bela Hylton LPN [facility] 02-26-2024 Telephone encounter Note Okay new patient appointment. Request medical records past 3 years. [facility] 02-26-2024 History of Present illness Narrative Radiology Service Progress Note PATIENT NAME: Peggy Schmidt DATE OF SERVICE: February 26, 2024 TIME: 12:22 PM PATIENT IDENTITY VERIFICATION COMPLETED USING TWO (2) IDENTIFIERS: Name and Date of confirmed by patient verbally. FALL SCREENING: Has the patient had 2 falls in the last year or 1 fall with injury or currently using an Ambulatory Assistive Device (Walker, Cane, Wheelchair, Crutches, etc.)? No PATIENT GENDER DATA: Female. status: : No status: NO. PATIENT RELEVANT IMPLANT DATA REVIEWED: Yes PATIENT PRESENTS WITH AN IMPLANTABLE OR ATTACHED CHIEF COMMUNICATIONS OFFICER: No RADIOLOGY DEPARTMENT: General X-ray: Exam(s) Completed: Chest X-Ray PERIPHERAL IV DATA: Not applicable SIGNED BY: RT Shailesh(Becca) February 26, 2024 12:22 PM documented in this encounter [facility] 02-26-2024 Note HNO ID: [id number] Author: HARRIS SCHOFIELD RT(R) Service: ? Author Type: Plumbing Drafter Type: Progress Notes Filed: 02/26/2024 12:30 Note Text: Radiology Service Progress Note PATIENT NAME: Peggy Schmidt DATE OF SERVICE: February 26, 2024 TIME: 12:22 PM PATIENT IDENTITY VERIFICATION COMPLETED USING TWO (2) IDENTIFIERS: Name and Date of confirmed by patient verbally. FALL SCREENING: Has the patient had 2 falls in the last year or 1 fall with injury or currently using an Ambulatory Assistive Device (Walker, Cane, Wheelchair, Crutches, etc.)? No PATIENT GENDER DATA: Female. status: : No status: NO. PATIENT RELEVANT IMPLANT DATA REVIEWED: Yes PATIENT PRESENTS WITH AN IMPLANTABLE OR ATTACHED CHIEF COMMUNICATIONS OFFICER: No RADIOLOGY DEPARTMENT: General X-ray: Exam(s) Completed: Chest X-Ray PERIPHERAL IV DATA: Not applicable SIGNED BY: Harris Schofield, RT(R) February 26, 2024 12:22 PM [facility] 02-26-2024 Note HNO ID: [id number] Author: ABDIFATAH WELSH APRN.FLOOR INSPECTOR Service: ? Author Type: Nurse Practitioner Type: Progress Notes Filed: 02/26/2024 12:45 Note Text: CC: No chief complaint on file. HPI: Peggy Schmidt is a 48 year old female who presents to the office with complaint of chest congestion, head congestion, and cough, nonproductive for a week. Symptoms are worsening Associated symptoms includes wheezing and dyspnea. Denies nausea, vomiting , and diarrhea. Treatments tried include nothing so far. with no relief of symptoms. Sick contacts: unknown. History of asthma, frequent episodes of bronchitis, chronic bronchitis, bronchiectasis or COPD: Yes asthma when sick or exerted Smoker: No Seasonal/environmental allergies: No The ROS is otherwise negative. The patient's pmh, medications, allergies, and past visits are reviewed. PHYSICAL EXAM: [facility] 10/17/2019 General appearance: alert, cooperative, pleasant, in no acute distress Head: Normocephalic Eyes: EOM's intact, conjunctiva pink and moist, no icterus, sclera white, non-injected Ears: Right ear: External ear/canal- Normal, TM - clear with good landmarks. Left ear: External ear/canal- Normal, TM - clear with good landmarks Oropharynx:moist without lesions, No erythema, exudates or tonsillar hypertrophy. Heart: Negative. RRR without obvious murmur, gallop, or rubs. No ectopy. Lungs: wheezing diffusely PAST MEDICAL HISTORY Diagnosis Date Asthma COVID-19 long hauler manifesting chronic joint pain Endometriosis Nephrolithiasis Seasonal allergies Sinusitis PAST SURGICAL HISTORY Procedure Laterality Date APPENDECTOMY 2001 CHOLECYSTECTOMY 2002 KNEE RIGHT OP SURGERY 2007. SINUS SURGERY PROC UNLISTED June 2009; TONSILLECTOMY HX June 2009 ALLERGIES Latex, Amoxicillin, and Penicillins MEDICATIONS ALBUTEROL SULFATE INHALATION Inhale as instructed. allopurinol (ZYLOPRIM) 100 mg tablet Take by mouth. elagolix (ORILISSA) 150 mg tablet Take by mouth. gabapentin (NEURONTIN) 100 mg capsule Take by mouth. FLUoxetine HCl 20 mg tablet Take by mouth. progesterone micronized (PROMETRIUM) 200 mg capsule Take by mouth. hydrOXYzine HCl (ATARAX) 25 mg tablet Take by mouth. fluticasone propion/salmeterol (ADVAIR DISKUS INHALATION) Inhale as instructed once daily. elagolix (ORILISSA) 150 mg tablet Take 1 tablet (150 mg) by mouth once daily. progesterone micronized (PROMETRIUM) 200 mg capsule Take 200 mg by mouth once daily. FLUoxetine HCl 20 mg tablet Take 20 mg by mouth once daily. dicyclomine (BENTYL) 10 mg capsule Take 10 mg by mouth before meals and at bedtime. famotidine (PEPCID) 20 mg tablet Take 20 mg by mouth twice daily. hydrOXYzine HCl (ATARAX) 25 mg tablet Take 25 mg by mouth three times daily as needed. pregabalin (LYRICA) 75 mg capsule Take 75 mg by mouth twice daily. whey (IMMUNOCAL ORAL) Take by mouth once daily. GARLIC once daily. vitamin B complex (STRESS B ORAL) Take by mouth. acetylcysteine (NAC ORAL) Take by mouth. diphenhydrAMINE (BENADRYL) 25 mg tablet Take 25 mg by mouth every 6 hours as needed. melatonin 10 mg cap Take by mouth once daily. albuterol HFA (PROAIR HFA) 90 mcg/Actuation INHALATION HFAA 1-2 inhalations 4 hours as needed traMADol (ULTRAM) 50 mg tablet Take 50 mg by mouth every 6 hours as needed for pain. (Patient not taking: Reported on 07/29/2023) escitalopram oxalate (LEXAPRO) 20 mg tablet Take 20 mg by mouth once daily. (Patient not taking: Reported on 05/24/2022) benzonatate (TESSALON PERLE) 100 mg capsule Take 1 capsule by mouth three times daily as needed. (Patient not taking: Reported on 05/24/2022) Levocetirizine (XYZAL) 5 mg ORAL tablet Take one(1) tablet daily as necessary (Patient not taking: ) ranitidine (ZANTAC) 150 mg ORAL Tab Take one(1) tablet daily at bedtime. (Patient not taking: ) Omeprazole (PRILOSEC) 40 mg ORAL CpDR Take one(1) tablet two(2) times daily 30 minutes prior to meals. (Patient not taking: No sig reported) montelukast (SINGULAIR) 10 mg ORAL Tab Take one(1) tablet daily at bedtime. (Patient not taking: Reported on 05/24/2022) budesonide-formoterol (SYMBICORT) 160-4.5 mcg/Actuation INHALATION HFAA 2 puffs am and pm. Gargle. (Patient not taking: ) EPINEPHRINE 0.3 MG/0.3 ML (1:1,000) IM PEN INJECTOR 1 pack. use as directed (Patient not taking: ) naproxen sodium(ALEVE 220 MG TAB) as necessary (Patient not taking: Reported on 05/24/2022) FAMILY HISTORY Problem Relation Age of Onset Diabetes Mother Diabetes Father Diabetes Sister Dementia Maternal Grandmother Diabetes Maternal Grandfather Social History Tobacco Use Smoking status: Never Smokeless tobacco: Never Vaping Use Vaping status: Never Used Substance Use Topics Alcohol use: Not Currently Comment: social Drug use: Never ASSESSMENT/PLAN: 1. Acute cough - ICD9: 786.2, ICD10: R05.1 (primary diagnosis) - XR CHEST 2V FRONTAL/LAT * * * * Physician (more content not included)... [facility] 02-26-2024 History of Present illness Narrative CC: No chief complaint on file. HPI: Peggy Schmidt is a 48 year old female who presents to the office with complaint of chest congestion, head congestion, and cough, nonproductive for a week. Symptoms are worsening Associated symptoms includes wheezing and dyspnea. Denies nausea, vomiting , and diarrhea. Treatments tried include nothing so far. with no relief of symptoms. Sick contacts: unknown. History of asthma, frequent episodes of bronchitis, chronic bronchitis, bronchiectasis or COPD: Yes asthma when sick or exerted Smoker: No Seasonal/environmental allergies: No The ROS is otherwise negative. The patient's pmh, medications, allergies, and past visits are reviewed. PHYSICAL EXAM: [facility] 10/17/2019 General appearance: alert, cooperative, pleasant, in no acute distress Head: Normocephalic Eyes: EOM's intact, conjunctiva pink and moist, no icterus, sclera white, non-injected Ears: Right ear: External ear/canal- Normal, TM - clear with good landmarks. Left ear: External ear/canal- Normal, TM - clear with good landmarks Oropharynx:moist without lesions, No erythema, exudates or tonsillar hypertrophy. Heart: Negative. RRR without obvious murmur, gallop, or rubs. No ectopy. Lungs: wheezing diffusely PAST MEDICAL HISTORY Diagnosis Date Asthma COVID-19 long hauler manifesting chronic joint pain Endometriosis Nephrolithiasis Seasonal allergies Sinusitis PAST SURGICAL HISTORY Procedure Laterality Date APPENDECTOMY 2001 CHOLECYSTECTOMY 2001 KNEE RIGHT OP SURGERY 2007. SINUS SURGERY PROC UNLISTED June 2009; TONSILLECTOMY HX June 2009 ALLERGIES Latex, Amoxicillin, and Penicillins MEDICATIONS ALBUTEROL SULFATE INHALATION Inhale as instructed. allopurinol (ZYLOPRIM) 100 mg tablet Take by mouth. elagolix (ORILISSA) 150 mg tablet Take by mouth. gabapentin (NEURONTIN) 100 mg capsule Take by mouth. FLUoxetine HCl 20 mg tablet Take by mouth. progesterone micronized (PROMETRIUM) 200 mg capsule Take by mouth. hydrOXYzine HCl (ATARAX) 25 mg tablet Take by mouth. fluticasone propion/salmeterol (ADVAIR DISKUS INHALATION) Inhale as instructed once daily. elagolix (ORILISSA) 150 mg tablet Take 1 tablet (150 mg) by mouth once daily. progesterone micronized (PROMETRIUM) 200 mg capsule Take 200 mg by mouth once daily. FLUoxetine HCl 20 mg tablet Take 20 mg by mouth once daily. dicyclomine (BENTYL) 10 mg capsule Take 10 mg by mouth before meals and at bedtime. famotidine (PEPCID) 20 mg tablet Take 20 mg by mouth twice daily. hydrOXYzine HCl (ATARAX) 25 mg tablet Take 25 mg by mouth three times daily as needed. pregabalin (LYRICA) 75 mg capsule Take 75 mg by mouth twice daily. whey (IMMUNOCAL ORAL) Take by mouth once daily. GARLIC once daily. vitamin B complex (STRESS B ORAL) Take by mouth. acetylcysteine (NAC ORAL) Take by mouth. diphenhydrAMINE (BENADRYL) 25 mg tablet Take 25 mg by mouth every 6 hours as needed. melatonin 10 mg cap Take by mouth once daily. albuterol HFA (PROAIR HFA) 90 mcg/Actuation INHALATION HFAA 1-2 inhalations 4 hours as needed traMADol (ULTRAM) 50 mg tablet Take 50 mg by mouth every 6 hours as needed for pain. (Patient not taking: Reported on 07/29/2023) escitalopram oxalate (LEXAPRO) 20 mg tablet Take 20 mg by mouth once daily. (Patient not taking: Reported on 05/24/2022) benzonatate (TESSALON PERLE) 100 mg capsule Take 1 capsule by mouth three times daily as needed. (Patient not taking: Reported on 05/24/2022) Levocetirizine (XYZAL) 5 mg ORAL tablet Take one(1) tablet daily as necessary (Patient not taking: ) ranitidine (ZANTAC) 150 mg ORAL Tab Take one(1) tablet daily at bedtime. (Patient not taking: ) Omeprazole (PRILOSEC) 40 mg ORAL CpDR Take one(1) tablet two(2) times daily 30 minutes prior to meals. (Patient not taking: No sig reported) montelukast (SINGULAIR) 10 mg ORAL Tab Take one(1) tablet daily at bedtime. (Patient not taking: Reported on 05/24/2022) budesonide-formoterol (SYMBICORT) 160-4.5 mcg/Actuation INHALATION HFAA 2 puffs am and pm. Gargle. (Patient not taking: ) EPINEPHRINE 0.3 MG/0.3 ML (1:1,000) IM PEN INJECTOR 1 pack. use as directed (Patient not taking: ) naproxen sodium(ALEVE 220 MG TAB) as necessary (Patient not taking: Reported on 05/24/2022) FAMILY HISTORY Problem Relation Age of Onset Diabetes Mother Diabetes Father Diabetes Sister Dementia Maternal Grandmother Diabetes Maternal Grandfather Social History Tobacco Use Smoking status: Never Smokeless tobacco: Never Vaping Use Vaping status: Never Used Substance Use Topics Alcohol use: Not Currently Comment: social Drug use: Never ASSESSMENT/PLAN: 1. Acute cough - ICD9: 786.2, ICD10: R05.1 (primary diagnosis) - XR CHEST 2V FRONTAL/LAT * * * * Physician Interpretation * * * * EXAMINATION: CHEST RADIOGRAPH (2 VIEW FRONTAL & LATERAL) CLINICAL HISTORY: Acute cough MQ: [id number] EXAM DATE/TIME: 02/26/2024 12:30 PM COMPARISON: Chest x-ray dated 11/17/2022 RESULT: Lines, tubes, and devices: None. Lungs and pleura: Patchy airspace opacity in the right lower lobe. No pleural effusion or pneumothorax. Cardiomediastinal silhouette: Stable cardiomediastinal silhouette. Bones and soft tissues: Degenerative changes are present within the thoracic spine. Surgical clips in the right upper quadrant IMPRESSION IMPRESSION: Right lower lobe pneumonia. Flight Test Supervisor: AVTAR Transcribe Date/Time: Feb 26 2024 12:34P Dictated by : TERESA GILBERT MD - PREDNISONE 10 MG TABLET 2. Bacterial pneumonia - ICD9: 482.9, ICD10: J15.9 - AZITHROMYCIN 250 MG TABLET Prescription instructions reviewed with patient as applicable. Potential red flag symptoms discussed with the patient. Reviewed appropriate action plan to take if red flag symptoms occur. Patient agreeable to treatment plan. Abdifatah Welsh APRN.FLOOR INSPECTOR documented in this encounter [facility] 02-26-2024 Telephone encounter Note Patient calling in because her sister Ana Chung is a patient of Dr. Penn and was recommending patient to see him. I let patient know Dr. Rodriguez is not currently accepting new patients, however she wanted me to reach out and see if he would make an exception. Please review and advise. Martina Jean February 26, 2024 8:54 AM [facility] 07-29-2023 History of Present illness Narrative Peggy is a 47 year old who presents for an annual gynecologic exam without complaints. Menses: no menses. Dr. Santos has her on Orlissa and Prometrium for about 4 years per patient and no menses. - She reports Dr. Santos had ordered a bone density on her about 1-2 years ago that was normal per her report - She states she has been on Depo, vaginal ring, ocp in the past which did not help as much as the Orlissa. She states she thought she was told she would be on the Orlissa indefinitely since it has helped with her pain HPV vaccine: No Last Pap: no record HPV: no record History of abnormal pap: No Last mammogram: 01/11/22 normal Had colonoscopy with GI last year per patient report and it was normal Bone density scan 01/11/22: normal bone density OB History No obstetric history on file. Style Advisor History LMP: 10/17/2019, Drug Induced Amenorrhea Age at Menarche: Age at First : Age at Menopause: Style Advisor History Comments: Sexual Activity: Not Asked; No partner data on record Contraception: No contraception data on record PAST MEDICAL HISTORY Diagnosis Date Asthma Endometriosis Nephrolithiasis Seasonal allergies Sinusitis PAST SURGICAL HISTORY Procedure Laterality Date APPENDECTOMY 2001 CHOLECYSTECTOMY 2001 KNEE RIGHT OP SURGERY 2007. SINUS SURGERY PROC UNLISTED June 2009; TONSILLECTOMY HX June 2009 No family history on file.SOCIAL HISTORY Social History Tobacco Use Smoking status: Never Smokeless tobacco: Never Substance Use Topics Alcohol use: Not Currently REVIEW OF SYSTEMS Abdomen: No abdominal pain, nausea, vomiting, diarrhea, or constipation. No bloating, early satiety, indigestion, or increased flatulence. Bladder: No dysuria, gross hematuria, urinary frequency, urinary urgency, or incontinence. Breast: No breast lumps, nipple d/c, overlying skin changes, redness or skin retraction. Allergies and current medication updated:Yes EXAM: LMP 10/17/2019 GENERAL: pleasant, female in no apparent distress HEENT: Normocephalic and atraumatic NECK: full range of motion DERMATOLOGY: Normal, without lesions, non-icteric, and non-hirsute BREAST: soft, non-tender, symmetric, no dominant mass, normal nipple-areolar complex, no lymphadenopathy, and no nipple discharge CHEST: Normal inspiratory effort ABDOMEN: soft, non-tender, and no masses PELVIC: external genitalia normal but narrow vaginal introitus, normal Bartholin's glands, urethra, [place]'s glands, no vulvar lesions, no cervical lesions, good vaginal support, physiologic discharge present, normal appearing perineal body and perianal region BIMANUAL: uterus normal size, shape and consistency, no adnexal masses, and non-tender RECTOVAGINAL: deferred. NEURO: exam grossly non-focal EXTREMITIES: normal ASSESSMENT/PLAN: 1) Health maintenance: Pap done with HPV. Mammogram ordered. Nutrition, exercise and routine health maintenance exams reviewed. Lipids/glucose: followed by PCP. Colonoscopy last year per patient. Will need to obtain records. Endometriosis: Discussed would not recommend being on Orilissa at this time. Discussed risk to bone health when on it for more than 24 months. Recommend switching to Aygestin or Depo. Patient declines stopping Orilissa at this time. Recommend a consultation with the pelvic pain clinic. Discussed narrow introitus and BMI would make surgical intervention more difficult. 2) Contraception: Contraceptive options reviewed and information provided. 3) STD screening: Declined STD check. 4) Follow up one year or sooner as needed Krys Pandya DO documented in this encounter [facility] 11-17-2022 History of Present illness Narrative This note was created using [employer]. Subjective Peggy Schmidt is a 46 year old female. HPI Presents with cough, wheezing, body aches over the past week. She started getting a fever 2 days ago. She has felt short of breath. It does hurt in her chest when she coughs. She had been doing albuterol nebulizer treatments over the past day which seemed to help some. She denies vomiting. She has had some diarrhea. No home COVID test done. She had been on vacation until a couple of days ago in [place]. She denies any rashes. No history of pneumonia. Review of Systems Constitutional: Positive for chills, fatigue and fever. HENT: Positive for congestion, ear pain and sore throat. Respiratory: Positive for cough, shortness of breath and wheezing. Cardiovascular: Positive for chest pain. Gastrointestinal: Positive for diarrhea. Negative for abdominal pain, nausea and vomiting. Genitourinary: Negative. Musculoskeletal: Positive for myalgias. Neurological: Positive for headaches. PAST MEDICAL HISTORY Diagnosis Date Asthma Endometriosis Nephrolithiasis Seasonal allergies Sinusitis Current Outpatient Medications Medication Sig Dispense Refill elagolix (ORILISSA) 150 mg tablet Take 150 mg by mouth once daily. progesterone micronized (PROMETRIUM) 200 mg capsule Take 200 mg by mouth once daily. FLUoxetine HCl 20 mg tablet Take 20 mg by mouth once daily. dicyclomine (BENTYL) 10 mg capsule Take 10 mg by mouth before meals and at bedtime. famotidine (PEPCID) 20 mg tablet Take 20 mg by mouth twice daily. hydrOXYzine HCl (ATARAX) 25 mg tablet Take 25 mg by mouth three times daily as needed. pregabalin (LYRICA) 75 mg capsule Take 75 mg by mouth twice daily. whey (IMMUNOCAL ORAL) Take by mouth. GARLIC vitamin B complex (STRESS B ORAL) Take by mouth. acetylcysteine (NAC ORAL) Take by mouth. traMADol (ULTRAM) 50 mg tablet Take 50 mg by mouth every 6 hours as needed for pain. diphenhydrAMINE (BENADRYL) 25 mg tablet Take 25 mg by mouth every 6 hours as needed. melatonin 10 mg cap Take by mouth. levoFLOXacin (LEVAQUIN) 750 mg tablet Take 1 tablet by mouth once daily for 7 days. 7 tablet 0 escitalopram oxalate (LEXAPRO) 20 mg tablet Take 20 mg by mouth once daily. (Patient not taking: Reported on 05/24/2022) benzonatate (TESSALON PERLE) 100 mg capsule Take 1 capsule by mouth three times daily as needed. (Patient not taking: Reported on 05/24/2022) 30 capsule 0 Levocetirizine (XYZAL) 5 mg ORAL tablet Take one(1) tablet daily as necessary (Patient not taking: ) 30 Tab 3 ranitidine (ZANTAC) 150 mg ORAL Tab Take one(1) tablet daily at bedtime. (Patient not taking: ) 30 2 Omeprazole (PRILOSEC) 40 mg ORAL CpDR Take one(1) tablet two(2) times daily 30 minutes prior to meals. (Patient not taking: No sig reported) 60 1 montelukast (SINGULAIR) 10 mg ORAL Tab Take one(1) tablet daily at bedtime. (Patient not taking: Reported on 05/24/2022) budesonide-formoterol (SYMBICORT) 160-4.5 mcg/Actuation INHALATION HFAA 2 puffs am and pm. Gargle. (Patient not taking: ) 1 11 albuterol HFA (PROAIR HFA) 90 mcg/Actuation INHALATION HFAA 1-2 inhalations 4 hours as needed 1 0 EPINEPHRINE 0.3 MG/0.3 ML (1:1,000) IM PEN INJECTOR 1 pack. use as directed (Patient not taking: ) 1 4 naproxen sodium(ALEVE 220 MG TAB) as necessary (Patient not taking: Reported on 05/24/2022) 0 Current Facility-Administered Medications Medication Dose Route Frequency Provider Last Rate Last Admin ibuprofen 800 mg tab(s) (MOTRIN) 800 mg ORAL ONCE Lyssa Mccormick, JANICE PAST SURGICAL HISTORY Procedure Laterality Date APPENDECTOMY 2001 CHOLECYSTECTOMY 2001 KNEE RIGHT OP SURGERY 2007. SINUS SURGERY PROC UNLISTED June 2009; TONSILLECTOMY HX June 2009 No family history on file. Social History Tobacco Use Smoking status: Never Smokeless tobacco: Never Substance Use Topics Alcohol use: Not Currently Objective BP 108/72 Pulse (!) 124 Temp (!) 39.4 C (103 F) Resp 20 Wt 118.2 kg (260 lb 9.6 oz) LMP 10/17/2019 SpO2 95% BMI 47.66 kg/m Physical Exam Vitals reviewed. Constitutional: Appearance: Normal appearance. She is ill-appearing. HENT: Head: Normocephalic and atraumatic. Right Ear: Tympanic membrane, ear canal and external ear normal. Left Ear: Tympanic membrane, ear canal and external ear normal. Nose: Congestion present. Mouth/Throat: Mouth: Mucous membranes are moist. Pharynx: Oropharynx is clear. Cardiovascular: Rate and Rhythm: Normal rate and regular rhythm. Heart sounds: Normal heart sounds. Pulmonary: Effort: Pulmonary effort is normal. Breath sounds: Normal breath sounds. Musculoskeletal: Cervical back: Neck supple. Lymphadenopathy: Cervical: No cervical adenopathy. Skin: General: Skin is warm and dry. Findings: No rash. Neurological: General: No focal deficit present. Mental Status: She is alert. Assessment and Plan ASSESSMENT/PLAN: 1. Pneumonia of right middle lobe due to infectious organism - ICD9: 486, ICD10: J18.9 (primary diagnosis) Patient medicated here with ibuprofen and Tylenol for fever. DuoNeb treatment given. Chest x-ray obtained which showed a right middle lobe pneumonia. Patient vital signs improved and she is feeling improved upon reexamination after medications here. Blood pressure is normal. Discussed if she worsens in any way would recommend being seen in the emergency department. I will treat with Levaquin. She is allergic to amoxicillin, has hives. Does not appear she has had a cephalosporin previously. Recommended continuing her albuterol treatments. Guaifenesin. Patient and agreeable with plan. - XR CHEST 2V FRONTAL/LAT - ACETAMINOPHEN 500 MG TABLET - IBUPROFEN 800 MG TABLET - COVID WITH FLUA+B, ROUTINE - IPRATROPIUM 0.5 MG-ALBUTEROL 3 MG (2.5 MG BASE)/3 ML NEBULIZATION SOLN - IBUPROFEN 800 MG TABLET 2. Wheezing - ICD9: 786.07, ICD10: R06.2 - XR CHEST 2V FRONTAL/LAT - IPRATROPIUM 0.5 MG-ALBUTEROL 3 MG (2.5 MG BASE)/3 ML NEBULIZATION SOLN - IBUPROFEN 800 MG TABLET Lyssa Mccormick PA-C documented in this encounter [facility] 11-17-2022 Nurse Note 2.5 solution aerosol treatment given per provider's orders. Prior to treatment O2 sat is 94. Treatment completed. O2 sat is 94. Tolerated well. Lulu Perez documented in this encounter [facility] 06-11-2022 Telephone encounter Note Patient returned phone call. Appointment no longer needed. [facility] 06-11-2022 Miscellaneous Notes Patient returned phone call. Appointment no longer needed. Called patient. Left voicemail to return call to reschedule canceled appointment from 06/[address] Marroquin. documented in this encounter [facility] 06-11-2022 Telephone encounter Note Called patient. Left voicemail to return call to reschedule canceled appointment from 06/[address] Marroquin. [facility] 05-24-2022 History of Present illness Narrative Peggy Schmidt is a 46 year old female who presents as a new patient for pelvic pain. She requests a second opinion. HPI: She is accompanied by her Clive. She states she is here for a second opinion regarding pain. Has had the pain for about 1 month. They state recently she had a kidney stone and underwent a procedure for this. She says she was started on a medication for bladder spasms. She is having severe RLQ pain and she wonders if it is an ovarian cyst. The pain is in her right groin. She describes the pain as if there is a tampon in the wrong location. She rates her pain currently to be 8/10 and says the pain is waking her up at night. The pain comes and goes with no pattern to it. The pain can last a few seconds to a few minutes. Taking Tramadol for the pain. PCP is who is prescribing the Tramadol. Some nausea with the pain. No fevers, chills, constipation, diarrhea, vaginal discharge, urinary symptoms. She reports a history of endometriosis. She states this was surgically diagnosed at least 10 years ago. She cannot remember who performed the surgery, but believes she had ovarian cysts removed and adhesions removed. She reports she saw Dr. Adilia Santos 1 year ago for routine annual exam and had a normal pap smear at that time. No menses for [address]. [address] Santos started her on Orilissa and Prometrium and has been managing her endometriosis. states they saw Dr. Anitha Watts with [facility] [employer] a few days ago and had a pelvic exam and pelvic US at that time. They were instructed to follow up with GI for another opinion. Pt recently dx with kidney stone and UTI. Pt seen by urology and cystoscope negative for stone Pt now with back and lower pelvic pain that is constant and sharp Regular bowel movements Hx of endometriosis, on Orlissa for the past 3 years. Given by [facility] physician Exam benign U/s wnl Educated pt on findings. Discussed no miniature set constructor cause noted. Possible GI cause, referral to GI placed. Educated pt on endometriosis custodial, discussed menopause Very limited introitus, could not bring uterus through vagina if need hysterectomy. May consider Abdominal hysterectomy Pt does not want hysterectomy OB History No obstetric history on file. Style Advisor History LMP: 10/17/2019, Drug Induced Amenorrhea Age at Menarche: Age at First : Age at Menopause: Style Advisor History Comments: Sexual Activity: Not Asked; No partner data on record Contraception: No contraception data on record PAST MEDICAL HISTORY Diagnosis Date Asthma Endometriosis Nephrolithiasis Seasonal allergies Sinusitis PAST SURGICAL HISTORY Procedure Laterality Date APPENDECTOMY 2001 CHOLECYSTECTOMY 2001 KNEE RIGHT OP SURGERY 2007. SINUS SURGERY PROC UNLISTED June 2009; TONSILLECTOMY HX June 2009 No family history on file. Social History Tobacco Use Smoking status: Never Smokeless tobacco: Never Substance Use Topics Alcohol use: Not Currently Current Outpatient Medications Medication Sig elagolix (ORILISSA) 150 mg tablet Take 150 mg by mouth once daily. progesterone micronized (PROMETRIUM) 200 mg capsule Take 200 mg by mouth once daily. FLUoxetine HCl 20 mg tablet Take 20 mg by mouth once daily. dicyclomine (BENTYL) 10 mg capsule Take 10 mg by mouth before meals and at bedtime. famotidine (PEPCID) 20 mg tablet Take 20 mg by mouth twice daily. hydrOXYzine HCl (ATARAX) 25 mg tablet Take 25 mg by mouth three times daily as needed. pregabalin (LYRICA) 75 mg capsule Take 75 mg by mouth twice daily. whey (IMMUNOCAL ORAL) Take by mouth. GARLIC vitamin B complex (STRESS B ORAL) Take by mouth. acetylcysteine (NAC ORAL) Take by mouth. traMADol (ULTRAM) 50 mg tablet Take 50 mg by mouth every 6 hours as needed for pain. diphenhydrAMINE (BENADRYL) 25 mg tablet Take 25 mg by mouth every 6 hours as needed. melatonin 10 mg cap Take by mouth. albuterol HFA (PROAIR HFA) 90 mcg/Actuation INHALATION HFAA 1-2 inhalations 4 hours as needed escitalopram oxalate (LEXAPRO) 20 mg tablet Take 20 mg by mouth once daily. (Patient not taking: Reported on 05/24/2022) benzonatate (TESSALON PERLE) 100 mg capsule Take 1 capsule by mouth three times daily as needed. (Patient not taking: Reported on 05/24/2022) Levocetirizine (XYZAL) 5 mg ORAL tablet Take one(1) tablet daily as necessary (Patient not taking: ) ranitidine (ZANTAC) 150 mg ORAL Tab Take one(1) tablet daily at bedtime. (Patient not taking: ) Omeprazole (PRILOSEC) 40 mg ORAL CpDR Take one(1) tablet two(2) times daily 30 minutes prior to meals. (Patient not taking: No sig reported) montelukast (SINGULAIR) 10 mg ORAL Tab Take one(1) tablet daily at bedtime. (Patient not taking: Reported on 05/24/2022) budesonide-formoterol (SYMBICORT) 160-4.5 mcg/Actuation INHALATION HFAA 2 puffs am and pm. Gargle. (Patient not taking: ) EPINEPHRINE 0.3 MG/0.3 ML (1:1,000) IM PEN INJECTOR 1 pack. use as directed (Patient not taking: ) naproxen sodium(ALEVE 220 MG TAB) as necessary (Patient not taking: Reported on 05/24/2022) No current facility-administered medications for this visit. Allergies As of Date: 05/24/2022 Allergen Noted Reaction AMOXICILLIN 12/01/2009 Hives LATEX 12/01/2009 Hives and Swelling PENICILLINS 12/01/2009 Hives Fully Assessed 05/24/2022 REVIEW OF SYSTEMS Expanded ROS: See HPI. Allergies and current medication updated:Yes EXAM: BP 104/64 Wt 271 lb (122.9kg) LMP 10/17/2019 GENERAL: pleasant, female in no apparent distress HEENT: Normocephalic and atraumatic NECK: full range of motion DERMATOLOGY: Normal and without lesions CHEST: Normal inspiratory effort ABDOMEN: soft, non-tender, and no masses NEURO: exam grossly non-focal EXTREMITIES: normal ASSESSMENT AND PLAN: Encounter Diagnosis ICD-10-CM 1. Pelvic pain in female R10.2 CONSULT TO GAS DISPENSER PELVIC PAIN 2. History of endometriosis Z87.42 CONSULT TO GAS DISPENSER PELVIC PAIN Here for a second opinion and with questions regarding endometriosis. Had normal pelvic exam and pelvic ultrasound a few days ago at another office. Has seen multiple gynecologists for endometriosis and was being treated by Dr. Santos for this. No records available today. Sign records release to get records from prior gynecologists. Patient is comfortable and well appearing today. Questions answered regarding endometriosis. Discussed importance of continuing of care with one provider. Consult to pelvic pain clinic. Agree with seeing GI for another opinion. Discussed colon cancer screening guidelines. Krys Pandya DO I spent 30 minutes in the visit, with more than 50% of the total [id number] time of the visit in counseling / coordination of care. documented in this encounter [facility] 05-17-2022 Discharge summary Note Date/Time May 17, 2022 8:23am [facility] Medical Records Department [address] [place] [address] Instructions for Home/Discharge Instructions 05/17/22 0822 MR#: [id number] Acct: [id number] Name: PEGGY SCHMIDT Rep #:[id number] : 1975 46 From: Candy Chopra PCP: Rebekah Tolbert NP-C [place] [facility] [place] Instructions Diet Discharge Diet: No restrictions Activity Discharge Activity: Return to Normal Activity Dressing / Incision Call your doctor if you observe: Fever of 101 or Higher, Inability to urinate and Inability to have a bowel movement Follow Up Care Please Follow Up With: Candy Pena MD When: in 2-3 weeks Test Results: Test results from this visit will be discussed in further detail at your follow-up appointment, if applicable. Discharge Plan Admission Attending Provider: Candy Pena Primary Care Provider: Rebekah Tolbert NP Discharge Orders/Prescriptions Prescriptions: New phenazopyridine [Pyridium] 200 mg tablet 200 mg PO TID PRN PRN (Reason: Bladder Spasms) 7 Days Qty: 30 0RF oxycodone-acetaminophen [Percocet] 5-325 mg tablet 1 tab PO Q8H PRN (Reason: pain) 3 Days Qty: 6 0RF Continued allopurinol 100 mg tablet 100 mg PO BID Label Comments: Take one tablet by mouth twice daily tramadol 50 mg tablet 50 mg PO TID PRN (Reason: Pain) Label Comments: TAKE 1 TABLET BY MOUTH THREE TIMES DAILY NEEDED FOR PAIN DO NOT TAKE AT THE SAME TIME WITH LYRICA famotidine 20 mg tablet 20 mg PO DAILY Label Comments: TAKE 1 TABLET BY MOUTH TWICE DAILY dicyclomine 20 mg tablet 20 mg PO DAILY Label Comments: TAKE 1 TABLET BY MOUTH THREE TIMES DAILY NEEDED FOR IBS SYMPTOMS diphenhydramine HCl [Benadryl] 25 mg Capsule 25 mg PO QHS PRN (Reason: Sleep) fluoxetine 20 mg tablet 20 mg PO DAILY Label Comments: TAKE 1 TABLET BY MOUTH ONCE DAILY progesterone micronized 200 mg capsule 200 mg PO DAILY Label Comments: TAKE 1 CAPSULE BY MOUTH DAILY B-complex with vitamin C Tablet Extended Release 1 tab PO DAILY pregabalin [Lyrica] 75 mg capsule 75 mg PO BID Label Comments: TAKE 1 CAPSULE BY MOUTH TWICE DAILY whey 9 gram Packet 1 g PO DAILY Advair HFA 230-21 mcg/actuation HFA aerosol inhaler 2 puff INHALATION DAILY Label Comments: INHALE 2 PUFFS BY MOUTH TWICE DAILY EVERY DAY. RINSE MOUTH AFTER USE acetylcysteine [NAC] 600 mg Capsule 600 mg PO BID ALAmax CR 600 mg- 450 mcg Tablet Extended Release 1 tab PO DAILY Orilissa 150 mg tablet Referrals / Follow Up: Rebekah Tolbert SUBSTATION OPERATOR AUTOMATIC, SUBSTATION OPERATOR AUTOMATIC-C [Primary Care Provider] - Disposition Disposition (needs filled in before D/C Order can be placed): Home, Self Care 05/17/22824<Electronically signed by Candy Pena MD>Candy Pena MD CC: SUBSTATION OPERATOR AUTOMATIC-C Rebekah Tolbert ~ Signed [facility] Work Phone: [phone]) 257-451801-26-2023 Procedure [facility] 03-23-2021 History of Present illness Narrative* Patient refusing bp due to intense pain Post covid-19 * Patient is having intense pain while speaking * Seeing Rebekah Hendrix ([facility]) and this will become her new Primary care provider * Patient reports she was diagnosed with COVID-19 in March 23 from work ([employer]) * Patient had not been with the new job for 1 year so has not been able to get any type of disability * Complains of exhaustion, dizziness, migraines, speech difficulty, overall generalized pain * Patient has not been able to work since March * Patient wants prior records sent to a company called [employer] * The more the patient talks she has shakiness in her voice, neck/cheeks and throat hurt * Denies acid reflux * Stress exacerbates all of the patient's symptoms, makes stomach symptoms flare as well * Patient is doing neuro feedback which is helping with the condition [facility] Work Phone: Discharge summary Author Theron Robles [facility] Note Date/Time October 19, 2024 10:5 9am [facility] Medical Records Department [address] [place] [address] Emergency Department Summary 10/19/24 MR#: [id number] Acct: [id number] Name: PEGGY SCHMIDT Rep #:[id number] : 1975 48 From: Theron Camacho PCP: Dr. Waldo Penn MD Status:R EG ER Location: ED HPI History of Present Illness Chief Complaint: Numb/Ting PFSH PFSH Medical History Abdominal pain Anemia Anxiety Arthritis Asthma Back pain Depression Gastric reflux History of deviated nasal septum Kidney stones Lower abdominal pain MRSA infection Non-smoker Physical exam, pre-employment Shortness of breath on exertion Ureteral stone Wears glasses Home Medications ?Medication ?Instructions ?Recorded ?Last Taken ?Type dicyclomine 20 mg tablet 20 mg PO DAILY 05/16/2209/21 History famotidine 20 mg tablet 20 mg PO DAILY 05/16/2209/21 History elagolix 150 mg tablet (Orilissa) 150 mg PO DAILY 04/2310/18/24 History fluoxetine 20 mg capsule 20 mg PO DAILY 09/08/2309/21 History montelukast 10 mg tablet 10 mg PO DAILY 10/19/2409/21 History (Singulair) progesterone micronized 100 mg 100 mg PO DAILY 5 10/18/24 History capsule Allergy/AdvReac Type Severity Reaction Status Date / Time amoxicillin Allergy Hives Verified 10/19/24 08:57 latex Allergy Swelling Verified 10/19/24 08:57 Penicillins (PCN) Allergy Hives Verified 10/19/24 08:57 Surgical History History of esophagogastroduodenoscopy (EGD) History of laparoscopic cholecystectomy Hx of appendectomy Hx of colonoscopy Hx of hemorrhoidectomy Hx of tonsillectomy Status post right knee replacement Social History Smoking Status: Never smoker EXAM Physical Exam Const Vital Signs: 10/19/24 08:57 10/19/24 09:15 10/19/24 09:15 Temperature 97.8 F Temperature Source Temporal Pulse Rate 78 73 Respiratory Rate 16 17 Blood Pressure 157/83 H 119/75 Blood Pressure Mean 107 89 Pulse Ox 98 99 Oxygen Delivery Method Room Air Room Air Room Air 10/19/24 09:45 10/19/24 10:26 10/19/24 10:30 Temperature Temperature Source Pulse Rate 67 62 68 Respiratory Rate 16 18 14 Blood Pressure 129/85 H 107/58 L 109/61 Blood Pressure Mean 99 74 77 Pulse Ox 99 98 98 Oxygen Delivery Method Room Air Room Air MDM MDM MDM Narrative Medical decision making narrative: HISTORY OF PRESENT ILLNESS: Chief complaint: Numbness and tingling 48-year-old female here with numbness in left arm for 1 week. Noticed some numbness is left arm and right arm that longer to go away this morning. Her last known well was approximately 10 AM on 10/12/2024. She notes left arm symptoms that began at that time. She also notes some left face symptoms that started sometime last night. Denies falls or trauma. Notes family history of stroke. Denies personal history of stroke. Denies chest pain or shortness of breath. Denies any bleeding diathesis. Denies neck pain or shoulder pain. REVIEW OF SYSTEMS: Pertinent positives: Numbness/tingling Pertinent negatives: Slurred speech, loss of vision PHYSICAL EXAM: Nursing triage notes reviewed, Vital signs reviewed Constitutional: please see mdm HENT: MMM Eyes: Pupils equal round and reactive to light, Extraocular muscles intact Neck: No stridor, no JVD, full neck ROM Lungs: Clear to auscultation, No wheezing or rales. No increased work of breathing, no conversational dyspnea, no accessory muscle use, no nasal flaring. No respiratory distress noted Heart: Regular rate and rhythm, No murmurs, No rubs and No gallops, 2+ distal pulses (radial, femoral, posterior tibial) in all extremities Abdomen: Soft, there is no tenderness, rigidity, rebound or guarding, no obviousperitoneal signs, no palpable pulsatile abdominal masses, no auscultated abdominal bruit : No CVAT Extremities: No edema Neuro: Alert, oriented x 3, slight decrease sensation in left arm, no obvious drift, no ataxia, no aphasia or dysarthria. Intact sensation in the trigeminal distribution however the patient notes objective decree sensation over the left side of the face as well. NIH of 1 for send subjective sensory change Skin: No rash or lesions noted MEDICAL DECISION MAKING: Chief Complaint: please see HPI External records reviewed: Reviewed prior imaging studies: Reviewed CT scan of the brain from 2021 which showed no acute abnormality Factors affecting care: Nephrolithiasis, GERD, asthma Social determinants of health: none History obtained from others: Consults: Internal medicine (Dr. Johnson), stroke radiology (Dr. Crooks) MDM Narrative: Patient was initially hypertensive with blood pressure 157/83, afebrile nontoxic-appearing. Initial exam with NIH of 1 for subjective sensory change inleft upper extremity. Given the patient was greater than 24 hours after initiation of symptoms she was not a TNK or thrombectomy candidate and as such astroke team was activated. I considered the following differential diagnosis: CVA, TIA, mass, focal seizure, Eulalio's paralysis, I obtained a broad lab and imaging workup to further determine if the patient was suffering from a life-threatening etiology. ALL IMAGES (IF OBTAINED) HAVE BEEN PERSONALLY REVIEWED AND INTERPRETED BY MYSELF. EKG with normal sinus rhythm, prolonged CA interval, first-degree AV block, no sign of high degree block, normal axis, no STEMI, no signs of A-fib No coagulopathy CBC with no leukocytosis, anemia, thrombocytopenia BMP without evidence of significant electrolyte abnormalities, no anion gap, no acute kidney injury. High-sensitivity troponin is negative, no evidence of myocardial ischemia CT of the head and neck shows no evidence of ICH or large vessel occlusion. Given positive NIH and concern for CVA versus TIA patient was admitted MRI, neurology evaluation, and for risk factor modification. Discussed with hospitalist who agrees admit the patient to PCU observation. The patient and/or family, caregivers express understanding. The patient and/orfamily, caregivers agrees with the plan. Shared decision making: I will have a discussion with the patient and or visitors regarding risk/benefits of further testing or admission. They will be made aware of of the risk/benefits inherent in this decision they will be given the opportunity to voice understanding. Total critical care time today provided was at least 0 minutes. This excludes separately billable procedures. Critical care time (if documented) is secondary to the patient having high probability of clinically significant/life threatening deterioration in the patient's condition which required my urgent intervention. Impression: 1. Paresthesias 2. Evaluation for CVA 3. Elevated blood pressure Dispo: Admit to PCU observation This note was generated with [employer] dictation software. It may contain incorrectwords, spelling, and punctuation that were not noted in review of the chart prior to signing. Lab Data Labs: Laboratory Results - last 24 hr 10/19/24 10/19/24 09:06 09:15 WBC 9.6 RBC 4.23 Hgb 11.7 L Hct 36.6 L MCV 86.5 MCH 27.7 MCHC 32.0 RDW Std Deviation 42.9 RDW Coeff of Sruthi 13.6 Plt Count 278 MPV 9.7 Immature Gran % (Auto) 0.300 Neut % (Auto) 65.8 Lymph % (Auto) 24.1 Rawlins % (Auto) 6.8 Eos % (Auto) 2.3 Baso % (Auto) 0.7 Absolute Neuts (auto) 6.3 Absolute Lymphs (auto) 2.32 Nucleated RBC % 0 PT 13.5 INR 1.0 APTT 31.4 Sodium 140 Potassium 4.1 Chloride 106 Carbon Dioxide 21.2 Anion Gap 13 BUN 11 Creatinine 0.88 Estim Creat Clear Calc 91.68 Est GFR (MDRD) Non-Af 81 BUN/Creatinine Ratio 12.3 Glucose 119 H Calcium 9.1 Troponin T High Sens < 6 POC Glucose 112 H Radiography Diagnostic Testing: Clinical Impression(s) from Imaging Studies Head/Neck CTA 10/19/24 09:27 IMPRESSION: No CTA evidence of CCA ICA or intracranial stenosis or occlusion. No significant atherosclerotic disease Patent vertebral arteries No acute intracranial hemorrhage midline shift or mass effect Reading Location: [id number] Discharge Plan Triage Chief Complaint: Numb/Ting ED Provider: Theron Robles Dx/Rx/DC Orders Prescriptions: No Action famotidine 20 mg tablet 20 mg PO DAILY Patient Comments: TAKE 1 TABLET BY MOUTH TWICE DAILY dicyclomine 20 mg tablet 20 mg PO DAILY Orilissa 150 mg tablet 150 mg PO DAILY fluoxetine 20 mg capsule 20 mg PO DAILY progesterone micronized 100 mg capsule 100 mg PO DAILY montelukast [Singulair] 10 mg tablet 10 mg PO DAILY Primary Care Provider: Waldo Penn Referrals: Rebekah Tolbert SUBSTATION OPERATOR AUTOMATIC, SUBSTATION OPERATOR AUTOMATIC-C [Non-Staff] - Print Language: Russian What to do if you have Problems For any increased pain, shortness of breath, bleeding, nausea or vomiting, chestpain, or any unexpected problems, contact your Primary Care Provider. Call [facility] ([phone]) or report to the closest Emergency Room. Call 911 if necessary. 10/19/24 1059 <Electronically signed by Theron Robles DO> Cosigner Signature (if applicable): CC: Dr. Waldo Penn MD ~ Signed [facility] Work Phone: evaluation noteNo assessment information available [facility] Work Phone: evaluation note* Diagnosis Onset Date Resolution Status Ureteral stone acute [facility] Work Phone: Evaluation note* Diagnosis Pelvic pain in female- Primary Unspecified symptom associated with female genital organs History of endometriosis Personal history of other genital system and obstetric disorders [facility] Diagnosis Pneumonia of right middle lobe due to infectious organism- Primary Wheezing [facility]* Diagnosis Encounter for gynecological examination (general) (routine) without abnormal findings- Primary Screening for cervical cancer Screening for malignant neoplasm of the cervix Encounter for screening for human papillomavirus (HPV) Special screening examination for human papillomavirus (HPV) Encounter for screening mammogram for breast cancer Endometriosis Endometriosis, site unspecified documented [facility]* Diagnosis Fever, unspecified fever cause Wheezing [facility]* Diagnosis Acute cough- Primary Bacterial pneumonia Bacterial pneumonia, unspecified Acute cough [facility]* Diagnosis Acute cough [facility]* Diagnosis Moderate persistent asthma with acute exacerbation Pneumonia due to infectious organism, unspecified laterality, unspecified part of lung documented in this encounter [facility] note* Diagnosis Moderate persistent asthma with acute exacerbation- Primary Non-seasonal allergic rhinitis, unspecified trigger Pneumonia due to infectious organism, unspecified laterality, unspecified part of lung Need for vaccination Need for prophylactic vaccination and inoculation against unspecified single disease Depression with anxiety Dysthymic disorder Obesity, Class III, BMI >= 40 Morbid obesity Moderate persistent asthma with acute exacerbation Pneumonia due to infectious organism, unspecified laterality, unspecified part of lung documented [facility]* Diagnosis Immune deficiency disorder (HCC)- Primary Unspecified immunity deficiency Moderate persistent asthma with acute exacerbation Non-seasonal allergic rhinitis, unspecified trigger documented [facility]* Diagnosis Moderate persistent asthma with acute exacerbation- Primary documented [facility]* Diagnosis Acute cough- Primary Acute non-recurrent maxillary sinusitis Shortness of breath Acute cough Shortness of breath [facility]* Diagnosis Acute cough Shortness of breath documented [facility]* Diagnosis Moderate persistent asthma with acute exacerbation (HCC) Non-seasonal allergic rhinitis, unspecified trigger documented [facility]* Diagnosis Encounter for screening mammogram for breast cancer documented in this encounter [facility] note* Diagnosis Onset Date Resolution Status Admit Date LUE numbness acute October 19 10:56am [facility] Work Phone: History and physical note Author Clark Johnson [facility] Note Date/Time October 19, 2024 11:4 7am [facility] Medical Records Department [address] [place] [address] H&P Exam - Hospitalist 10/19/24 1055 MR#: [id number] Acct: [id number] Name: PEGGY SCHMIDT Rep #:[id number] : 1975 48 From: Clark Chopra PCP: Dr. Waldo Penn MD Status:A DM TAINA Location: [place] [address] HPI - General General Date of Admission: 10/19/24 Date of Service: 10/19/24 Chief Complaint: Left arm/UE numbness for 1 week HPI Narrative PEGGY SCHMIDT, is a 48 F who presents to ED for left upper extremity intermittentnumbness for 1 week. She states anterior lateral aspect of her left arm forearmand 1 left thumb and middle finger are numb. Later on she also had left- sided facial numbness. Her last known well was 10/12/2024 about a week ago about 10 AM. Does not meet criteria for stroke alert. Denies any other particular focalsymptoms regarding stroke including change in vision, mental status change, change in speech, dysarthria or language deficit. Denies prior history of heart disease or neurological disease. History of long COVID hauler and irritable bowel disease Family history: Her mother and father has hypertension and coronary artery disease COUNT INCLUDES THE [facility] Medical History Lower abdominal pain Abdominal pain Ureteral stone Wears glasses MRSA infection Depression Anxiety Arthritis Kidney stones Anemia Back pain Gastric reflux Non-smoker Asthma Shortness of breath on exertion History of deviated nasal septum Physical exam, pre-employment Home Medications ?Medication ?Instructions ?Recorded ?Last Taken ?Type dicyclomine 20 mg tablet 20 mg PO DAILY 05/16/2209/21 History famotidine 20 mg tablet 20 mg PO DAILY 05/16/2209/21 History elagolix 150 mg tablet (Orilissa) 150 mg PO DAILY 04/2310/18/24 History fluoxetine 20 mg capsule 20 mg PO DAILY 09/08/2309/21 History montelukast 10 mg tablet 10 mg PO DAILY 10/19/2409/21 History (Singulair) progesterone micronized 100 mg 100 mg PO DAILY 5 10/18/24 History capsule Allergy/AdvReac Type Severity Reaction Status Date / Time amoxicillin Allergy Hives Verified 10/19/24 08:57 latex Allergy Swelling Verified 10/19/24 08:57 Penicillins (PCN) Allergy Hives Verified 10/19/24 08:57 Surgical History Status post right knee replacement Hx of colonoscopy History of esophagogastroduodenoscopy (EGD) Hx of hemorrhoidectomy Hx of tonsillectomy Hx of appendectomy History of laparoscopic cholecystectomy Social History Smoking Status: Never smoker ROS ROS Narrative Constitutional: chronic fatigue and low energy, after COVID. No fever. HEENT: Reports systems reviewed and no addt'l complaints, except as documented Respiratory/Chest: No acute shortness of breath or respiratory distress or wheezing. CVS: No chest pain or tightness Gastrointestinal: Denies coffee ground emesis, hematemesis or vomiting Genitourinary: Denies burning urination or new urinary tract symptoms Musculoskeletal: Denies acute joint pain or limited range of motion. No acute injury Neurologic: Denies seizure-like symptoms. Rest as described in HPI. No prior TIA/stroke skin: No ulcer. No rash Endocrinology: Reports systems reviewed and no addt'l complaints, except as documented Hematologic/Lymphatic: Reports systems reviewed and no addt'l complaints, exceptas documented Rest 14 ROS are negative except as mentioned in HPI Vital Signs Vital Signs Vital Signs: 10/19/24 08:57 10/19/24 09:15 10/19/24 09:15 Temperature 97.8 F Temperature Source Temporal Pulse Rate 78 73 Respiratory Rate 16 17 Blood Pressure 157/83 H 119/75 Blood Pressure Mean 107 89 Pulse Ox 98 99 Oxygen Delivery Method Room Air Room Air Room Air 10/19/24 09:45 10/19/24 10:26 10/19/24 10:30 Temperature Temperature Source Pulse Rate 67 62 68 Respiratory Rate 16 18 14 Blood Pressure 129/85 H 107/58 L 109/61 Blood Pressure Mean 99 74 77 Pulse Ox 99 98 98 Oxygen Delivery Method Room Air Room Air Weight Weight: 248 lb 3.848 oz Body Mass Index (BMI) 45.3 Physical Exam Narrative General: Alert, Oriented x3, Cooperative. BMI 45.4 kg/m?, morbid obesity HEENT: Atraumatic, PERRLA, EOMI, Normocephalic. Oral: Deep oropharyngeal could not be visualized Neck: Supple, No JVD, Negative Carotid Bruits Chest wall/Lungs: Air entry diminished in bilateral lung bases. No crepitation/rhonchi Cardiovascular: Regular rate and rhythm, Normal S1,S2, No M/G/R Abdomen: Bowel Sounds Present, Soft, Non Tender, Non-Distended : No dysuria. No renal angle tenderness. No suprapubic tenderness. Extremities: No edema, Capillary Refill Less than 3 Seconds Skin: No rashes, No breakdown Musculoskeletal: No Tenderness to Palpation of Joints or Extremities Neurological: Cranial nerves II-XII grossly intact, DTR 2+/4. Altered sensation on the left upper extremity and face. NIH stroke scale 1. Psych/Mental Status: Flat affect. Results Lab / Micro Data 10/19/24 09:15 10/19/24 09:15 Labs: Laboratory Results - last 24 hr 10/19/24 09:06: POC Glucose 112 H 10/19/24 09:15: WBC 9.6, RBC 4.23, Hgb 11.7 L, Hct 36.6 L, MCV 86.5, MCH 27.7, MCHC 32.0, RDW Std Deviation 42.9, RDW Coeff of Sruthi 13.6, Plt Count 278, MPV 9.7, Immature Gran % (Auto) 0.300, Neut % (Auto) 65.8, Lymph % (Auto) 24.1, Rawlins% (Auto) 6.8, Eos % (Auto) 2.3, Baso % (Auto) 0.7, Absolute Neuts (auto) 6.3, Absolute Lymphs (auto) 2.32, Nucleated RBC % 0, PT 13.5, INR 1.0, APTT 31.4, Sodium 140, Potassium 4.1, Chloride 106, Carbon Dioxide 21.2, Anion Gap 13, BUN 11, Creatinine 0.88, Estim Creat Clear Calc 91.68, Est GFR (MDRD) Non-Af 81, BUN/Creatinine Ratio 12.3, Glucose 119 H, Calcium 9.1, Troponin T High Sens < 6 Imaging Radiology Impression Head/Neck CTA 10/19/24 09:27 IMPRESSION: No CTA evidence of CCA ICA or intracranial stenosis or occlusion. No significant atherosclerotic disease Patent vertebral arteries No acute intracranial hemorrhage midline shift or mass effect Reading Location: [id number] Assessment & Plan Assessment/Plan (1) LUE numbness: PLAN: Plan 1. LUE paresthesia and facial numbness: Patient is being admitted in PCU. NIH stroke scale 1. CTA head and neck shows no evidence of intracranial stenosis orocclusion. Patent vertebral arteries. PT, OT, speech therapy/swallow evaluation and management, nursing NIH stroke scale, BP and glucose monitoring and control as per stroke protocol. TSH, A1c fasting lipid profile tomorrow AM. MRI brain and 2D echo with bubble contrast study ordered. Baby aspirin atorvastatin ordered. 2. Chronic intermittent asthma: No exacerbation. DuoNeb nebulization ordered as needed. 3. Chronic abdominal pain/endometriosis: Patient on progesterone micronized tablet and GnRH analog/elagolix continued 4. IBS: On dicyclomine, continued 5. Morbid obesity: BMI 45.4 kg/m?. Nutrition consult. Weight loss counseling done Living will/advanced directive/end of life care: Patient does not have living will or advanced directive. She does not have power of senior attorney for health. Her is next of kin. After discussion of benefits/risks procedures involved with full code, DNR CC arrest and DNR CC, the patient opted for full code. Patient does want artificial life support including intubation, tube feed, ventilator and/chest compression, central venous catheter, vasopressor and DC shock if needed Total time spent in [id number] encounter in discussion of advanced directive 17 minutes. Laboratory Results 10/19/24 09:06: POC Glucose 112 H 10/19/24 09:15: WBC 9.6, RBC 4.23, Hgb 11.7 L, Hct 36.6 L, MCV 86.5, MCH 27.7, MCHC 32.0, RDW Std Deviation 42.9, RDW Coeff of Sruthi 13.6, Plt Count 278, MPV 9.7, Immature Gran % (Auto) 0.300, Neut % (Auto) 65.8, Lymph % (Auto) 24.1, Rawlins% (Auto) 6.8, Eos % (Auto) 2.3, Baso % (Auto) 0.7, Absolute Neuts (auto) 6.3, Absolute Lymphs (auto) 2.32, Nucleated RBC % 0, PT 13.5, INR 1.0, APTT 31.4, Sodium 140, Potassium 4.1, Chloride 106, Carbon Dioxide 21.2, Anion Gap 13, BUN 11, Creatinine 0.88, Estim Creat Clear Calc 91.68, Est GFR (MDRD) Non-Af 81, BUN/Creatinine Ratio 12.3, Glucose 119 H, Calcium 9.1, Troponin T High Sens < 6 Clinical Impression(s) from Imaging Studies Head/Neck CTA 10/19/24 09:27 IMPRESSION: No CTA evidence of CCA ICA or intracranial stenosis or occlusion. No significant atherosclerotic disease Patent vertebral arteries No acute intracranial hemorrhage midline shift or mass effect Reading Location: [facility] Charges/Coding Visit Charges Inpatient E&M: 72480 Init Hosp L3 Procedures Hospitalists Procedures: 99681 Advncd Care Plan 30 Min 10/19/24 1147 <Electronically signed by Clark Johnson MD> Cosigner Signature (if applicable): CC: Dr. Clark Johnson MD; Dr. Waldo Penn MD~ Signed [facility] Work Phone: Reason for referral (narrative)No reason for referral information availableWMount [facility]. [facility] Work Phone: Family History No Family History Records Found Mother Name Dates Details Family history of diabetes m ellitus(V18.0, Z83.3) Status:Active Father Name Dates Details Family history of Status:Active Mother Name Dates Details Family history of diabetes m ellitus(V18.0, Z83.3) Status:Active Father Name Dates Details Family history of (7 99.9, R99) Status:Active Mother Name Dates Details Family history of diabetes m ellitus(V18.0, Z83.3) Status:Active Father Name Dates Details Family history of (7 99.9, R99) Status:Active Mother Name Dates Details Family history of diabetes m ellitus(V18.0, Z83.3) Status:Active Father Name Dates Details Family history of (7 99.9, R99) Status:Active Unknown Family Member Name Dates Details : Father Status:Active Family history of diabetes m ellitus: Mother(V18.0, Z83.3) Status:Active Unknown Family Member Name Dates Details : Father Status:Active Family history of diabetes m ellitus: Mother(V18.0, Z83.3) Status:Active Unknown Family Member Name Dates Details : Father Status:Active Family history of diabetes m ellitus: Mother(V18.0, Z83.3) Status:Active Unknown Family Member Name Dates Details : Father Status:Active Family history of diabetes m ellitus: Mother(V18.0, Z83.3) Status:Active Unknown Family Member Name Dates Details : Father Status:Active Family history of diabetes m ellitus: Mother(V18.0, Z83.3) Status:Active Unknown Family Member Name Dates Details : Father Status:Active Family history of diabetes m ellitus: Mother(V18.0, Z83.3) Status:Active Unknown Family Member Name Dates Details : Father Status:Active Family history of diabetes m ellitus: Mother(V18.0, Z83.3) Status:Active Unknown Family Member Name Dates Details : Father Status:Active Family history of diabetes m ellitus: Mother(V18.0, Z83.3) Status:Active Summary Purpose Advance Directives No Advanced Directives Records Found Advance Directive Response Recorded Date/ Time Living Will No April 22 10:13am Power of Boilermaker Fitter No April 22 10:13am Advance Directive Response Recorded Date/ Time Living Will No April 22 9:13am Power of Boilermaker Fitter No April 22 9:13am Advance Directive Response Recorded Date/ Time Living Will No May 16 1:57pm Power of Boilermaker Fitter No May 16, 2022 1:57pm Advance Directive Response Recorded Date/ Time Living Will No May 16 2:57pm Power of Boilermaker Fitter No May 16, 2022 2:57pm Advance Directive Response Recorded Date/ Time Do you have a Healthcare Power of Boilermaker Fitter? No October 19, 2024 9:16am Chief Complaint Disability Chief Complaint and Reason for Visit Chief Complaint SCREENING/POST CR Chief Complaint SCREENING/POST CR ELEVATED LIVER ENZYMES LIVER ENZYMES, FATIGUE, HIGH CRP ALTERED MENTAL STATUS Chief Complaint SCREENING/POST CR ELEVATED LIVER ENZYMES LIVER ENZYMES, FATIGUE, HIGH CRP ALTERED MENTAL STATUS ELEVATED LIVER ENZYMES Chief Complaint ELEVATED LIVER ENZYM ES LIVER ENZYMES, FATIGUE, HIGH CRP ALTERED MENTAL STATUS ELEVATED LIVER ENZYMES UTI KIDNEY STONE Chief Complaint ELEVATED LIVER ENZYM ES LIVER ENZYMES, FATIGUE, HIGH CRP ALTERED MENTAL STATUS ELEVATED LIVER ENZYMES UTI KIDNEY STONE Reason for Visit Ureteral stone Chief Complaint TB TEST/1 STEP/SELF PAY TB READ SCREEN Chief Complaint Admit Date PARESTHESIAS October 19, 2024 10:5 6am Reason for Visit Admit Date LUE numbness October 19, 2024 10:5 6am Reason for Referral Specialty Diagnoses / Procedures Referred By Kostas t Referred To Contact Diagnoses Pelvic pain in female History of endometriosis Procedures CONSULT TO GAS DISPENSER PELVIC PAIN OFFICE/OUTPATIENT NEW HIGH MDM 60-74 MINUTES Krys Pandya MD [address] [place] [address] Referral ID Status Reason Start Date Expiration Date Visits Requested Visits Authorized [id number] Authorized PCP Requested Referral Auto-Generate d Referral 05/24/2022 05/24/2023 1 1 Specialty Diagnoses / Procedures Referred By Marioac t Referred To Contact Diagnoses Endometriosis Procedures CONSULT TO GAS DISPENSER PELVIC PAIN OFFICE/OUTPATIENT [facility] 60 MINUTES Krys Pandya MD [address] [place] [address] Referral ID Status Reason Start Date Expiration Date Visits Requested Visits Authorized [id number] Authorized PCP Requested Referral Auto-Generate d Referral 07/29/2023 07/28/2024 1 1 Specialty Diagnoses / Procedures Referred By Kostas t Referred To Contact [facility] Diagnoses Encounter for screening mammogram for breast cancer Procedures TAMAR SCREENING W STEPHEN SCREENING DIGITAL BREAST TOMOSYNTHESIS BI SCREENING MAMMOGRAPHY BI 2-VIEW BREAST INC CAD Krys Pandya MD [address] [place] [address] [facility] [address] [place] [address] Referral ID Status Reason Start Date Expiration Date Visits Requested Visits Authorized [id number] Pending Review Auto-Generat ed Referral 07/29/2023 08/27/2024 1 1 Specialty Diagnoses / Procedures Referred By Marioac t Referred To Contact Allergy Diagnoses Moderate persistent asthma with acute exacerbation Non-seasonal allergic rhinitis, unspecified trigger Immune deficiency disorder (HCC) Procedures CONSULT TO ALLERGY/IMMUNOLOGY OFFICE/OUTPATIENT [facility] 60 MINUTES Waldo Penn MD [address] [place] [address] Referral ID Status Reason Start Date Expiration Date Visits Requested Visits Authorized [id number] Authorized PCP Requested Referral 05/18/2024 05/18/2025 1 1 Medications Administered Section Inactive Administered Medications - up to 3 most recent administrations Medication Order MAR Action Action Date Dose Rate Site acetaminophen 1,000 mg tab(s) (TYLENOL) 1,000 mg, ORAL, ONCE, 1 dose, On 7/29/23 at 1030, If ordered PRN for pain, patient/guardian may elect to receive this medication for higher pain levels INSTEAD of the opioid, if preferred: Yes Given 11/17/2022 10:44 AM EDT 1,000 mg ibuprofen 800 mg tab(s) (MOTRIN) 800 mg, ORAL, ONCE, 1 dose, On 11/17/22 at 1100, If ordered PRN for pain, patient/guardian may elect to receive this medication for higher pain levels INSTEAD of the opioid, if preferred: Yes Given 11/17/2022 10:51 AM EDT 800 mg ipratropium-albuterol 3 mL nebulizer solution (DUONEB) 3 mL, INHALATION, ONCE, 1 dose, On 11/17/22 at 1030, PROTECT FROM LIGHT. The unit-dose vial should remain stored in the protective foil pouch until time of use. Given 11/17/2022 10:45 AM EDT 3 mL Health Concerns Infection Onset Date Last Indicated Resolved Time COVID-19 Rule-Out 11/17/2022 11/17/2022 Additional Source Comments INFORMATION SOURCE (unrecogn ized section and content) DATE CREATED AUTHOR 11/17/2019 [facility] DATE CREATED AUTHOR AUTHOR'S ORGANIZ ATION 06/21/[address] [facility] DATE CREATED AUTHOR AUTHOR'S ORGANIZ ATION 06/30/2021 [employer] DATE CREATED AUTHOR AUTHOR'S ORGANIZ ATION 06/15/2022 [facility] DATE CREATED AUTHOR AUTHOR'S ORGANIZ ATION 07/15/2022 [facility] DATE CREATED AUTHOR AUTHOR'S ORGANIZ ATION 09/06/2024 [facility] DATE CREATED AUTHOR AUTHOR'S ORGANIZ ATION 10/17/2024 [facility] DATE CREATED AUTHOR AUTHOR'S ORGANIZ ATION 10/19/2024 [facility] Goals (unrecognized section and content) Goals may be documented in a n alternate sectionGoals may be documented in an alternate sectionGoals may be documented in an alternate sectionGoals may be documented in an alternate sectionGoals may be documented in an alternate sectionGoals may be documented in an alternate sectionGoals may be documented in an alternate sectionGoals may be documented in an alternate sectionGoals may be documented in an alternate sectionGoals may be documented in an alternate section Care Teams (unrecognized sec tion and content) Team Status: Active Member Role Status Dates Dr. Shani Miles MD Family Provider Active Rebekah Tolbert SUBSTATION OPERATOR AUTOMATIC, SUBSTATION OPERATOR AUTOMATIC-C Primary Care Provider Activ e Team Status: Inactive Member Role Status Dates Rebekah Tolbert SUBSTATION OPERATOR AUTOMATIC, SUBSTATION OPERATOR AUTOMATIC-C Primary Care Provider, Attending Provider, Referring Provider Active Team Status: Inactive Member Role Status Dates Rebekah Tolbert SUBSTATION OPERATOR AUTOMATIC, SUBSTATION OPERATOR AUTOMATIC-C Primary Care Provider, Atte nding Provider Active Team Status: Active Member Role Status Dates Rebekah Tolbert SUBSTATION OPERATOR AUTOMATIC, SUBSTATION OPERATOR AUTOMATIC-C Primary Care Provider, Atte nding Provider Active Team Status: Inactive Member Role Status Dates Rebekah Tolbert SUBSTATION OPERATOR AUTOMATIC, SUBSTATION OPERATOR AUTOMATIC-C Primary Care Provider Activ e Dr. Candy Pena MD Attending Provider, Referring Elijah santizo Active Admissions Rn Relationship Specialty Start Date End Date Tasha Bunch DO PCP - General Family Medicine 11/16/19 Admissions Rn Relationship Specialty Start Date End Date Tasha Bunch DO PCP - General Family Medicine 11/16/19 Admissions Rn Relationship Specialty Start Date End Date Tasha Bunch DO PCP - General Family Medicine 11/16/19 Admissions Rn Relationship Specialty Start Date End Date Rebekah Tolbert CNP [address] [place] [id number] PCP - General Family Medicine 03/26/23 Team Status: Inactive Member Role Status Dates Rebekah Tolbert SUBSTATION OPERATOR AUTOMATIC, SUBSTATION OPERATOR AUTOMATIC-C Primary Care Provider, Refe rring Provider Active Ever Mesa PA, PA Attending Provider Active Admissions Rn Relationship Specialty Start Date End Date Tasha Bunch DO PCP - General Family Medicine 11/16/19 03/25/23 Admissions Rn Relationship Specialty Start Date End Date Rebekah Tolbert CNP [address] [facility] [address] [place] [address] PCP - General Family Medicine 03/26/23 Admissions Rn Relationship Specialty Start Date End Date Rebekah TolbertRANJANA [address] [facility] [address] [place] [address] PCP - General Family Medicine 03/26/23 Admissions Rn Relationship Specialty Start Date End Date Tu TolbertRANJANA lama [address] [facility] [address] [place] [address] PCP - General Family Medicine 03/26/23 Admissions Rn Relationship Specialty Start Date End Date Waldo Penn MD [address] [place] [address] PCP - General Internal Medicine 04/03/24 Admissions Rn Relationship Specialty Start Date End Date Rebekah Tolbert [address] [place] [address] PCP - General Gynecologic Oncology 05/23/22 Admissions Rn Relationship Specialty Start Date End Date Waldo Penn MD [address] [place] [address] PCP - General Internal Medicine 04/03/24 Admissions Rn Relationship Specialty Start Date End Date Waldo Penn MD [address] [facility], [place] [id number] PCP - General Internal Medicine 04/03/24 Admissions Rn Relationship Specialty Start Date End Date Waldo Penn MD [address] [place] [address] PCP - General Internal Medicine 04/03/24 Admissions Rn Relationship Specialty Start Date End Date Waldo Penn MD [address] [place] [address] PCP - General Internal Medicine 04/03/24 Admissions Rn Relationship Specialty Start Date End Date Waldo Penn MD [address] [place] [address] PCP - General Internal Medicine 04/03/24 Admissions Rn Relationship Specialty Start Date End Date Waldo Penn MD [address] [place] [address] PCP - General Internal Medicine 04/03/24 Admissions Rn Relationship Specialty Start Date End Date Waldo Penn MD [address] [place] [address] PCP - General Internal Medicine 04/03/24 Any Velazco, USABILITY STRATEGIST.FLOOR INSPECTOR [address] [place] [address] Special Education Paraeducator Internal Medicine 07/02/24 Admissions Rn Relationship Specialty Start Date End Date Waldo Penn MD [address] [place] [address] PCP - General Internal Medicine 04/03/24 Any Velazco, USABILITY STRATEGIST.FLOOR INSPECTOR [address] [place] [address] Special Education Paraeducator Internal Medicine 07/02/24 Admissions Rn Relationship Specialty Start Date End Date Waldo Penn MD [address] [place] [address] PCP - General Internal Medicine 04/03/24 Any Velazco, USABILITY STRATEGIST.FLOOR INSPECTOR [address] [place], [place] [address] [facility] 07/02/24 Team Status: Active Member Role/Relationship Status Dates Dr. Waldo Penn MD Primary Care Provider Active Team Status: Active Member Role/Relationship Status Dates Dr. Theron Robles DO Emergency Provider Active Start: October 19, 2024 Dr. Waldo Penn MD Primary Care Provider Active Start: October 19, 2024 Dr. Clark Johnson MD Admit Provider Active Sta rt: October 19, 2024 Dr. Clark Johnson MD Attending Provider Active Start: October 19, 2024 Dr. Clark Johnson MD Other Provider Active Sta rt: October 19, 2024 Admissions Rn Relationship Specialty Start Date End Date Waldo Penn MD [address] [place], [place] [id number] PCP - General Internal Medicine 04/03/24 Any Velazco, USABILITY STRATEGIST.FLOOR INSPECTOR [address] [place], [place] [id number] [facility] 07/02/24 Source Comments (unrecognize d section and content) In the event this informatio n is protected by the Federal Confidentiality of Alcohol and Drug Abuse Patient Records regulations: The Federal rules restrict any use of the information to criminally investigate or prosecute any alcohol or drug abuse patient.[facility] the event this information is protected by the Federal Confidentiality of Alcohol and Drug Abuse Patient Records regulations: The Federal rules restrict any use of the information to criminally investigate or prosecute any alcohol or drug abuse patient.[facility] Hospital[facility] the event this information is protected by the Federal Confidentiality of Alcohol and Drug Abuse Patient Records regulations: The Federal rules restrict any use of the information to criminally investigate or prosecute any alcohol or drug abuse patient.[facility] Hospital[facility] the event this information is protected by the Federal Confidentiality of Alcohol and Drug Abuse Patient Records regulations: The Federal rules restrict any use of the information to criminally investigate or prosecute any alcohol or drug abuse patient.[facility] Hospital[facility] the event this information is protected by the Federal Confidentiality of Alcohol and Drug Abuse Patient Records regulations: The Federal rules restrict any use of the information to criminally investigate or prosecute any alcohol or drug abuse patient.[facility] Hospital[facility] the event this information is protected by the Federal Confidentiality of Alcohol and Drug Abuse Patient Records regulations: The Federal rules restrict any use of the information to criminally investigate or prosecute any alcohol or drug abuse patient.[facility] Hospital[facility] the event this information is protected by the Federal Confidentiality of Alcohol and Drug Abuse Patient Records regulations: The Federal rules restrict any use of the information to criminally investigate or prosecute any alcohol or drug abuse patient.[facility] Hospital[facility] the event this information is protected by the Federal Confidentiality of Alcohol and Drug Abuse Patient Records regulations: The Federal rules restrict any use of the information to criminally investigate or prosecute any alcohol or drug abuse patient.[facility] Hospital[facility] the event this information is protected by the Federal Confidentiality of Alcohol and Drug Abuse Patient Records regulations: The Federal rules restrict any use of the information to criminally investigate or prosecute any alcohol or drug abuse patient.[facility] Hospital[facility] the event this information is protected by the Federal Confidentiality of Alcohol and Drug Abuse Patient Records regulations: The Federal rules restrict any use of the information to criminally investigate or prosecute any alcohol or drug abuse patient.[facility] Hospital[facility] the event this information is protected by the Federal Confidentiality of Alcohol and Drug Abuse Patient Records regulations: The Federal rules restrict any use of the information to criminally investigate or prosecute any alcohol or drug abuse patient.[facility] Hospital[facility] the event this information is protected by the Federal Confidentiality of Alcohol and Drug Abuse Patient Records regulations: The Federal rules restrict any use of the information to criminally investigate or prosecute any alcohol or drug abuse patient.[facility] Hospital[facility] the event this information is protected by the Federal Confidentiality of Alcohol and Drug Abuse Patient Records regulations: The Federal rules restrict any use of the information to criminally investigate or prosecute any alcohol or drug abuse patient.[facility] Hospital[facility] the event this information is protected by the Federal Confidentiality of Alcohol and Drug Abuse Patient Records regulations: The Federal rules restrict any use of the information to criminally investigate or prosecute any alcohol or drug abuse patient.[facility] HospitalIn the event this information is protected by the Federal Confidentiality of Alcohol and Drug Abuse Patient Records regulations: The Federal rules restrict any use of the information to criminally investigate or prosecute any alcohol or drug abuse patient.[facility] HospitalIn the event this information is protected by the Federal Confidentiality of Alcohol and Drug Abuse Patient Records regulations: The Federal rules restrict any use of the information to criminally investigate or prosecute any alcohol or drug abuse patient.[facility] HospitalIn the event this information is protected by the Federal Confidentiality of Alcohol and Drug Abuse Patient Records regulations: The Federal rules restrict any use of the information to criminally investigate or prosecute any alcohol or drug abuse patient.[facility] HospitalIn the event this information is protected by the Federal Confidentiality of Alcohol and Drug Abuse Patient Records regulations: The Federal rules restrict any use of the information to criminally investigate or prosecute any alcohol or drug abuse patient.[facility] HospitalIn the event this information is protected by the Federal Confidentiality of Alcohol and Drug Abuse Patient Records regulations: The Federal rules restrict any use of the information to criminally investigate or prosecute any alcohol or drug abuse patient.[facility] Reason for Visit (unrecogniz ed section and content) Reason Comments Endometriosis Reason Comments Cough Cough, fever and SOB x 5 days Reason Comments Well Woman Reason Comments Cough Cough, chest congest ion, SOB, wheezing and right ear pain x 4 days Reason Comments Patient Question Reason Onset Date Comments Referral 06/11/2022 Reason Comments Establish Care Previous PCP Rebekah Tolbert CNP, [facility] [place], [place] Pain back pain/muscle str ain suspects due to a cough that she has had since 03/15. Reason Comments 6 week follow-up Reason Comments Cough Reason Comments Cough Chest congestion, wh eezing/SOB, diarrhea Reason Onset Date Comments Refill Request 08/11/2024 Reason Comments Numbness L arm FOR RECORDS PERTAINING TO PATIENTS WHO ARE OR HAVE BEEN ENROLLED IN A CHEMICAL DEPENDENCY/SUBSTANCEABUSE PROGRAM, SOME INFORMATION MAY BE OMITTED. This clinical summary was aggregated from multiple sources. Caution should be exercised in using it in the provision of clinical care. This summary normalizes information from multiple sources, and as a consequence, information in this document may materially change the coding, format and clinical context of patient data. In addition, data may be omitted in some cases. CLINICAL DECISIONS SHOULD BE BASED ON THE PRIMARY CLINICAL RECORDS. [facility]. provides no warranty or guarantee of the accuracy or completeness of information in this document.
[2024-10-20 00:05] VITALS: BP 108/66; PULSE 64; RESP 17; TEMP 36.8; O2SAT 97
[2024-10-20 00:19] VITALS: BMI 45.0
[2024-10-20 04:10] VITALS: BP 114/62; PULSE 68; RESP 16; TEMP 36.7; O2SAT 95
[2024-10-20 06:59] LABS: Cholesterol 139 mg/dL (<=200); Low Density Lipoprotein Calc. 74 mg/dL; Triglycerides 99 mg/dL; Very Low Density Lipoprotein 20 mg/dL (5-40); cholesterol:hdl ratio screen 3.05
[2024-10-20 07:54] VITALS: BP 97/52; PULSE 65; RESP 14; TEMP 36.8; O2SAT 97
--- NOTE | 2024-10-20 09:51 | PN.NEURO_ITS ---
Assessment and Plan: Neuro Assessment/Plan PEGGY SCHMIDT is a 48 F with a past medical history of HTN, post covid syndrome, being evaluated by Teleneurology for atypical headache. While she does have headaches, these new parasthesias are atypical of her headaches. She symptoms themselves are odd and migratory it appears and seem to change with her headache intensity, suggesting that likely related to the headache itself. Exam has several areas that are not clear physiologic and limited mostly to sensory deficits. Initial brain imaging is benign with no evidenve of white matter disease that could suggest a neuro-inflammatory component. At this time, recommend continued migraine cocktails and monitoring. If symptoms do not continue to improve, would consider followup testing for occult neuroinflammatory conditions. Plan: - continue migraine cocktails at this time - VPA 500mg IV and 2mg IV Mag to assist in treating atypical migraine Followup with Neurology if symptoms persist. I personally attended this patient and spent a total time of 60minutes evaluating this patient including clinical assessment, review of chart, medical history imaging, and determining appropriate treatment and workup. Subject: Neurology Subjective PEGGY SCHMIDT, is a 48 F who presents with left upper extremity intermittent numbness for 1 week. She states anterior lateral aspect of her left arm forearm and 1 left thumb and middle finger are numb. these started a week ago and was intermittent but since last night it is constant. Later on she also had left- sided facial numbness and left leg numbness. Feels numb in right thumb and middle finger. Denies any other particular focal symptoms regarding stroke including change in vision, mental status change, change in speech, dysarthria or language deficit.Has headache today. Patient still states she is having numbness on the L side and notes a headache today. She notes the numbness has gone to the R side of the face. The L arm numbness was intermittent and was L and R sided occasionally. They would improve with positional changes. She endorses tingling in face and arm, no tingling in the leg but numbness. She woke up middle of the night Saturday morning with symptoms. Patient is not aware if she had a MARTINEZ tne, but has had a MARTINEZ since then. She does endorse having MARTINEZ whenever there is rain - they are described as migraines and also facial pain. Never had numbness or weakness with the symptoms. Currently MARTINEZ is located on the L front of head but the MARTINEZ has moved around and moved to the R. She denies one continuous MARTINEZ but they will come and go. The intensity of the numbness will vary with the MARTINEZ. No nausea. MRATINEZ currently 3/10, got up to 7/10. No difficulty walking since in the hospital. No noted weakness, no dysarthria, no difficulty with vision. No medication changes in the last month. NEURO Exam: -? Mental Status: The patient was alert and oriented to time, place, and person. Normal recent/remote memory, concentration, and general fund of knowledge. -? Language: speech is clear.? Naming, repetition, fluency, and comprehension intact. -? Cranial Nerves: PERRL 4mm/brisk. EOMI, visual hercules full, no facial asymmetry, facial sensation diminished on the R V1-3, hearing intact, tongue midline, no evidence of atrophy or fibrillations. -? Motor: normal bulk, tone, and strength throughout. No pronator drift or satelliting. Upper and lower extremities equal bilaterally. -?Detailed strength exam as performed by the nurse/IVIS and witnessed by the physician: l R L SA 5 5 EE 5 5 EF 5 5 WE WF 911 Emergency Dispatcher 5 5 HF KE KF 5 5 DF 5 5 PF -? Tone: is normal and bulk is normal -? Sensation- Arm - LT diminished on the R and the L side feels parasthesias; diminished to temp on L arm Leg - intact bilaterally no differences on the thighs. tingling on the L in the calves; diminished to temp on the L leg -? Coordination: No dysmetria on [id number]-jujxji, finger follow finger or [id number]-[id number]. -? Gait- deferred EEG Results Procedure Details EEG Procedure Details: PEGGY SCHMIDT is a 48 year old F with a past medical history of , who presents for evaluation of Electroencephalogram on DATE at TIME Objective Data Objective Data Vital Signs: Vital Signs Temp Pulse Resp BP Pulse Ox O2 Del Method 98.3 F 65 14 97/52 L 97 Room Air 10/20/24 07:54 10/20/24 07:54 10/20/24 07:54 10/20/24 07:54 10/20/24 07:54 10/20/24 07:59 Oxygen Delivery Method Room Air Weight: 111.6 kg Body Mass Index (BMI) 45.0 Intake & Output: Intake and Output for Last 24 Hours 10/18/24 10/19/24 10/20/24 23:59 23:59 23:59 Intake Total 200 / 200 1000 / 1000 Output Total 0 / 0 Balance 200 / 200 1000 / 1000 Lab / Micro Data 10/19/24 09:15 10/19/24 09:15 Labs: Laboratory Results - last 24 hr 10/19/24 09:15: PT 13.5, INR 1.0, APTT 31.4, Sodium 140, Potassium 4.1, Chloride 106, Carbon Dioxide 21.2, Anion Gap 13, BUN 11, Creatinine 0.88, Estim Creat Clear Calc 91.68, Est GFR (MDRD) Non-Af 81, BUN/Creatinine Ratio 12.3, Glucose 119 H, Calcium 9.1, Magnesium 2.0, Troponin T High Sens < 6 10/19/24 11:20: Troponin T Hi Sens 2 Hr < 6 10/19/24 14:40: POC Glucose 111 H 10/19/24 18:21: POC Glucose 136 H 10/19/24 20:03: Troponin T Hi Sens 4Hr < 6 10/20/24 05:16: Hemoglobin A1c 5.8 H, Triglycerides 99, Cholesterol 139, LDL Cholesterol, Calc 74, VLDL Cholesterol 20, HDL Cholesterol 46, Cholesterol/HDL Ratio 3.05, TSH 3.320 Radiography Diagnostic Testing: Radiology Impression Head/Neck CTA 10/19/24 09:27 IMPRESSION: No CTA evidence of CCA ICA or intracranial stenosis or occlusion. No significant atherosclerotic disease Patent vertebral arteries No acute intracranial hemorrhage midline shift or mass effect Reading Location: [id number] Brain MRI 10/19/24 11:57 IMPRESSION: There is abnormal increased T2 and FLAIR signal in the deep white matter in the right and left with moderate bilateral white matter disease. The largest lesion in the right frontal deep white matter measures 1.2 x 0.4 cm, image 15/26, and on the left measuring 0.8 by 0.5 cm, image 15/26. The differential includes demyelinating conditions such as MS, vasculitis, and chemical exposure. Reading Location: [facility] NIHSS NIHSS Nursing Documentation NIHSS Nursing Documentation: NIHSS: Ischemic Stroke/TIA Start: 10/19/24 11:57 Text: For PCU Patients: NIH and Neuro Check every 4 Status: Complete hours, PRN and with change in RN caregiver. Freq: [id number] Protocol: Activity Type Activity Date Activity User E-sign Co-sign Detail Recorded Client Recorded Date Recorded By Document 10/20/24 07:58 SULLY 0 10/20/24 08:01 SULLY 10/20/24 07:58 NIH Stroke Scale [NIHSS] A score of 0 is normal or asymptomatic . Total possible score is 42. Inpatient: RN or Physician to activate a stroke alert for onset of new stroke symptoms or with NIHSS increase >/= 3 points. Following change in neurological status, NIHSS will be performed per physician order or more frequently PRN. -1a. Level of Consciousness 0 - Alert; keenly responsive -1b. LOC Questions 0 - Answers BOTH questions correctly -1c. LOC Commands 0 - Performs BOTH tasks correctly -2. Best Gaze 0 - Normal -3. Visual 0 - No visual loss -4. Facial Palsy 0 - Normal symmetrical movements -5a. Left Arm 0 - No drift; arm holds 90 ( or 45) degrees for full 10 seconds -5b. Right Arm 0 - No drift; arm holds 90 ( or 45) degrees for full 10 seconds -6a. Left Leg 0 - No drift; leg holds 30- degree position for full 5 seconds -6b. Right Leg 0 - No drift; leg holds 30- degree position for full 5 seconds -7. Limb Ataxia 0 - Absent -8. Sensory 1 - Mild-to- moderate sensory loss; -9. Best Language 0 - No aphasia; normal -10. Dysarthria 0 - Normal -11. Extinction and Inattention 0 - No abnormality -Total 1 Query Text:A score of 0 is normal or asymptomatic. Total possible score is 42 . ED: Notify Physician for NIHSS increase by > / = 3 points. Inpatient: RN or Physician to activate a stroke alert for NIHSS increase of > / = 3 points. Coma Scale [Assess] -Eye Opening Spontaneous -Motor Obeys Commands -Verbal Oriented [Total] -Coma Scale Total 15
--- NOTE | 2024-10-20 11:38 | PCM.PN.HOSP ---
Reason for Visit Reason for Visit: Diagnoses Anesthesia of skin (10/19/24) Objective Data Objective Data Vital Signs: Vital Signs Temp Pulse Resp BP Pulse Ox O2 Del Method 98.3 F 65 14 97/52 L 97 Room Air 10/20/24 07:54 10/20/24 07:54 10/20/24 07:54 10/20/24 07:54 10/20/24 07:54 10/20/24 07:59 Oxygen Delivery Method Room Air Weight: 246 lb 0.574 oz Body Mass Index (BMI) 45.0 Intake & Output: Intake and Output for Last 24 Hours 10/18/24 10/19/24 10/20/24 23:59 23:59 23:59 Intake Total 200 / 200 1000 / 1000 Output Total 0 / 0 Balance 200 / 200 1000 / 1000 Lab / Micro Data 10/19/24 09:15 10/19/24 09:15 Labs: Laboratory Results - last 24 hr 10/19/24 11:20: Troponin T Hi Sens 2 Hr < 6 10/19/24 14:40: POC Glucose 111 H 10/19/24 18:21: POC Glucose 136 H 10/19/24 20:03: Troponin T Hi Sens 4Hr < 6 10/20/24 05:16: Hemoglobin A1c 5.8 H, Triglycerides 99, Cholesterol 139, LDL Cholesterol, Calc 74, VLDL Cholesterol 20, HDL Cholesterol 46, Cholesterol/HDL Ratio 3.05, TSH 3.320 Radiography Diagnostic Testing: Radiology Impression Brain MRI 10/19/24 11:57 IMPRESSION: There is abnormal increased T2 and FLAIR signal in the deep white matter in the right and left with moderate bilateral white matter disease. The largest lesion in the right frontal deep white matter measures 1.2 x 0.4 cm, image 15/26, and on the left measuring 0.8 by 0.5 cm, image 15/26. The differential includes demyelinating conditions such as MS, vasculitis, and chemical exposure. Reading Location: [facility] Physical Exam Narrative General: Alert, Oriented x3, Cooperative. BMI 45.4 kg/m?, morbid obesity HEENT: Atraumatic, PERRLA, EOMI, Normocephalic. Nystagmus present on repeated horizontal EOMI test Oral: Deep oropharyngeal could not be visualized Neck: Supple, No JVD, Negative Carotid Bruits Chest wall/Lungs: Air entry diminished in bilateral lung bases. No crepitation/rhonchi Cardiovascular: Regular rate and rhythm, Normal S1,S2, No M/G/R Abdomen: Bowel Sounds Present, Soft, Non Tender, Non-Distended : No dysuria. No renal angle tenderness. No suprapubic tenderness. Extremities: No edema, Capillary Refill Less than 3 Seconds Skin: No rashes, No breakdown Musculoskeletal: No Tenderness to Palpation of Joints or Extremities Neurological: Cranial nerves II-XII grossly intact, DTR 2+/4. Altered sensation on the left upper extremity and face. NIH stroke scale 1. Psych/Mental Status: Flat affect. Assessment & Plan Assessment/Plan (1) LUE numbness: PLAN: Plan 1. LUE paresthesia and facial numbness: Patient is being admitted in PCU. NIH stroke scale 1. CTA head and neck shows no evidence of intracranial stenosis or occlusion. Patent vertebral arteries. PT, OT, speech therapy/swallow evaluation and management, nursing NIH stroke scale, BP and glucose monitoring and control as per stroke protocol. TSH, A1c fasting lipid profile tomorrow AM. MRI brain and 2D echo with bubble contrast study ordered. Baby aspirin atorvastatin ordered. 10/20: MRI brain was done which shows abnormal increased T2 and flair signal in the deep white matter in the right and left with moderate bilateral white matter disease. The largest lesion in the right frontal deep white matter measures 1.2 x 0.4 cm, image 15/26, and on the left measuring 0.8 by 0.5 cm. This looks suspicious to MS in view of symptoms of numbness and altered sensation in the space and time. Further opinion and management as per neurologist. Different differential diagnosis discussed with the patient and further plan as per the neurologist. A1c 5.8%, prediabetes. Lipid profile LDL 74, HDL 46 well-controlled. TSH normal. 2. Chronic intermittent asthma: No exacerbation. DuoNeb nebulization ordered as needed. 3. Chronic abdominal pain/endometriosis: Patient on progesterone micronized tablet and GnRH analog/elagolix continued 4. IBS: On dicyclomine, continued 5. Morbid obesity: BMI 45.4 kg/m?. Nutrition consult. Weight loss counseling done Living will/advanced directive/end of life care: Patient does not have living will or advanced directive. She does not have power of deputy attorney general for health. Her is next of kin. After discussion of benefits/risks procedures involved with full code, DNR CC arrest and DNR CC, the patient opted for full code. Patient does want artificial life support including intubation, tube feed, ventilator and/chest compression, central venous catheter, vasopressor and DC shock if needed Total time spent in [id number] encounter in discussion of advanced directive 17 minutes. Laboratory Results 10/19/24 11:20: Troponin T Hi Sens 2 Hr < 6 10/19/24 14:40: POC Glucose 111 H 10/19/24 18:21: POC Glucose 136 H 10/19/24 20:03: Troponin T Hi Sens 4Hr < 6 10/20/24 05:16: Hemoglobin A1c 5.8 H, Triglycerides 99, Cholesterol 139, LDL Cholesterol, Calc 74, VLDL Cholesterol 20, HDL Cholesterol 46, Cholesterol/HDL Ratio 3.05, TSH 3.320 10/19/24 09:06: POC Glucose 112 H 10/19/24 09:15: WBC 9.6, RBC 4.23, Hgb 11.7 L, Hct 36.6 L, MCV 86.5, MCH 27.7, MCHC 32.0, RDW Std Deviation 42.9, RDW Coeff of Sruthi 13.6, Plt Count 278, MPV 9.7, Immature Gran % (Auto) 0.300, Neut % (Auto) 65.8, Lymph % (Auto) 24.1, [place] % (Auto) 6.8, Eos % (Auto) 2.3, Baso % (Auto) 0.7, Absolute Neuts (auto) 6.3, Absolute Lymphs (auto) 2.32, Nucleated RBC % 0, PT 13.5, INR 1.0, APTT 31.4, Sodium 140, Potassium 4.1, Chloride 106, Carbon Dioxide 21.2, Anion Gap 13, BUN 11, Creatinine 0.88, Estim Creat Clear Calc 91.68, Est GFR (MDRD) Non-Af 81, BUN/Creatinine Ratio 12.3, Glucose 119 H, Calcium 9.1, Troponin T High Sens < 6 Clinical Impression(s) from Imaging Studies Head/Neck CTA 10/19/24 09:27 IMPRESSION: No CTA evidence of CCA ICA or intracranial stenosis or occlusion. No significant atherosclerotic disease Patent vertebral arteries No acute intracranial hemorrhage midline shift or mass effect Reading Location: [id number] Brain MRI 10/19/24 11:57 IMPRESSION: There is abnormal increased T2 and FLAIR signal in the deep white matter in the right and left with moderate bilateral white matter disease. The largest lesion in the right frontal deep white matter measures 1.2 x 0.4 cm, image 15/26, and on the left measuring 0.8 by 0.5 cm, image 15/26. The differential includes demyelinating conditions such as MS, vasculitis, and chemical exposure. Reading Location: [facility] Charges/Coding Visit Charges Inpatient E&M: 62815 Subs Hosp L2 NIHSS NIHSS Nursing Documentation NIHSS Nursing Documentation: NIHSS: Ischemic Stroke/TIA Start: 10/19/24 11:57 Text: For PCU Patients: NIH and Neuro Check every 4 Status: Complete hours, PRN and with change in RN caregiver. Freq: [id number] Protocol: Activity Type Activity Date Activity User E-sign Co-sign Detail Recorded Client Recorded Date Recorded By Document 10/20/24 07:58 JMAundrea 0 10/20/24 08:01 SULLY 10/20/24 07:58 NIH Stroke Scale [NIHSS] A score of 0 is normal or asymptomatic . Total possible score is 42. Inpatient: RN or Physician to activate a stroke alert for onset of new stroke symptoms or with NIHSS increase >/= 3 points. Following change in neurological status, NIHSS will be performed per physician order or more frequently PRN. -1a. Level of Consciousness 0 - Alert; keenly responsive -1b. LOC Questions 0 - Answers BOTH questions correctly -1c. LOC Commands 0 - Performs BOTH tasks correctly -2. Best Gaze 0 - Normal -3. Visual 0 - No visual loss -4. Facial Palsy 0 - Normal symmetrical movements -5a. Left Arm 0 - No drift; arm holds 90 ( or 45) degrees for full 10 seconds -5b. Right Arm 0 - No drift; arm holds 90 ( or 45) degrees for full 10 seconds -6a. Left Leg 0 - No drift; leg holds 30- degree position for full 5 seconds -6b. Right Leg 0 - No drift; leg holds 30- degree position for full 5 seconds -7. Limb Ataxia 0 - Absent -8. Sensory 1 - Mild-to- moderate sensory loss; -9. Best Language 0 - No aphasia; normal -10. Dysarthria 0 - Normal -11. Extinction and Inattention 0 - No abnormality -Total 1 Query Text:A score of 0 is normal or asymptomatic. Total possible score is 42 . ED: Notify Physician for NIHSS increase by > / = 3 points. Inpatient: RN or Physician to activate a stroke alert for NIHSS increase of > / = 3 points. Coma Scale [Assess] -Eye Opening Spontaneous -Motor Obeys Commands -Verbal Oriented [Total] -Coma Scale Total 15
[2024-10-20 11:48] VITALS: O2SAT 95
[2024-10-20] MEDS: 0.9% Saline Lock 10 ML Syringe IV (13:34)
[2024-10-20] MEDS: Valproate Sodium 500 MG in Dextrose 5%-Water (50mL Bag) 50 ML 50 MG IV (13:34)
[2024-10-20 14:25] VITALS: BP 107/54; PULSE 64; RESP 16; TEMP 36.4; O2SAT 97
--- NOTE | 2024-10-20 14:45 | CASEMGMT ---
Patient asked to talk with case management/social work. Patient had a new insurance card. As of October 20 patient's insurance has changed. SW copied patient's card. SW spoke with registration and tubed the new insurance card to station 101. Allyson HOLLOWAY
--- NOTE | 2024-10-20 14:48 | CASEMGMT ---
SW did not complete a PHQ9 as patient did not have a Stroke. Allyson HOLLOWAY
[2024-10-20] MEDS: Magnesium Sulfate 2 GM in Dextrose 5%-Water (100mL Bag) 100 ML IV (15:10)
--- NOTE | 2024-10-20 15:17 | DCINST_ITS ---
Discharge Instructions Diet Discharge Diet: No restrictions DC O2, CPAP, BIPAP needs Home O2 Discharge instructions: No Dressing / Incision Discharge Activity: Return to Normal Activity Weight Bearing Status: Weight bearing as tolerated Dressing / Incision Call your doctor if you observe: Fever of 101 or Higher, Coldness, Increased Pain, Numbness or Tingling, Change in Color, Inability to urinate, Inability to have a bowel movement, Shortness of breath, Dizziness, Fainting spells, Swelling in the ankles, Chest pain, Prolonged hiccupping, Increased palpitations (irregular heartbeat) and Calf discomfort Follow Up Care When: IN 2 WEEKS Test Results: Test results from this visit will be discussed in further detail at your follow- up appointment, if applicable. Discharge Plan Admission Admit Date/Time: 10/19/24 10:56 Primary Reason for Your Visit: Facial, LUE numbness, diagnosis unclear, stroke ruled out Attending Provider: Clark Johnson Primary Care Provider: Waldo Penn Consulting Providers: Dionisio Abreu; Kenny Munguia; Sade Butler; Holli Plasencia; Maryanne Sousa; Ramone Roblero; Dixie Chavira; Shantanu Paulino; Armani Delacruz; Luis Miguel Mancini; Teresa Mahajan; Jb Murray; Moon Rush; Lana Bal; Golden Underwood; Shant Sinclair; Thi Garcia; Antony Husain; Yaritza Valle; Adeline Arnold Instructions Additional Instructions / Restrictions: Advised follow-up with neurologist in about 8 weeks advised repeat MRI brain with and without contrast and MRI C-spine with and without contrast in 1 year or if recurrent symptoms of migratory numbness Discharge Orders/Prescriptions Prescriptions: Continued famotidine 20 mg tablet 20 mg PO DAILY Patient Comments: TAKE 1 TABLET BY MOUTH TWICE DAILY dicyclomine 20 mg tablet 20 mg PO DAILY Orilissa 150 mg tablet 150 mg PO DAILY fluoxetine 20 mg capsule 20 mg PO DAILY progesterone micronized 100 mg capsule 100 mg PO DAILY montelukast [Singulair] 10 mg tablet 10 mg PO DAILY Referrals / Follow Up: Bro Vega MD [Non-Staff -Ordering Privileges] - Within 1 Month Waldo Penn MD [Primary Care Provider] - Rebekah Tolbert CIVIL DRAFTING TECHNICIAN, CIVIL DRAFTING TECHNICIAN-C [Non-Staff] - Disposition Disposition (needs filled in before D/C Order can be placed): Home, Self Care
[2024-10-20 15:20] VITALS: BP 111/69; PULSE 70; RESP 14; TEMP 36.6; O2SAT 97
--- NOTE | 2024-10-20 15:22 | PCM.DC.SUM ---
Providers Date of Admission: 10/19/24 Date of Discharge: 10/20/24 Primary Care Physician: Dr. Waldo Penn MD Consultations 10/19/24 11:57 Consult: Tele-Neurology Routine Consulting Provider: [facility] Reason for Consult: Acute Ischemic Stroke?, left arm numbness EMERGENT Consult: No MD Notified: Yes Date Notified: 10/19/24 Time Notified: 12:13 Method of Notification: Answering Service Nursing Unit Staff Notify [facility] of Tele-Neurology Consult: Yes Reason For Visit: PARESTHESIAS Diagnosis Discharge Diagnosis (1) LUE numbness: Status: Acute Code(s): R20.0 - Anesthesia of skin Plan 1. LUE paresthesia and facial numbness: Patient is being admitted in PCU. NIH stroke scale 1. CTA head and neck shows no evidence of intracranial stenosis or occlusion. Patent vertebral arteries. PT, OT, speech therapy/swallow evaluation and management, nursing NIH stroke scale, BP and glucose monitoring and control as per stroke protocol. TSH, A1c fasting lipid profile tomorrow AM. MRI brain and 2D echo with bubble contrast study ordered. Baby aspirin atorvastatin ordered. 10/20: MRI brain was done which shows abnormal increased T2 and flair signal in the deep white matter in the right and left with moderate bilateral white matter disease. The largest lesion in the right frontal deep white matter measures 1.2 x 0.4 cm, image 15/26, and on the left measuring 0.8 by 0.5 cm. A1c 5.8%, prediabetes. Lipid profile LDL 74, HDL 46 well-controlled. TSH normal. Discussed with the neurologist in her opinion, her symptoms and imaging not consistent with MS or vasculitis. It is nonspecific and advised repeat MRI brain and MRI C-spine with and without contrast in 1 year or when she gets recurrent symptoms. She has already migratory numbness that fluctuates with her headache. Possible migraine headache: She gets headache about 2-3 times a month. She states is not too much bothering her. She recommended migraine cocktail 500 mg IV valproic acid and 2 mg IV magnesium sulfate. She agreed to go home after completion of the IV infusion. Patient discharged and advised follow-up with a neurologist in about 6 to 8 weeks 2. Chronic intermittent asthma: No exacerbation. DuoNeb nebulization ordered as needed. 3. Chronic abdominal pain/endometriosis: Patient on progesterone micronized tablet and GnRH analog/elagolix continued 4. IBS: On dicyclomine, continued 5. Morbid obesity: BMI 45.4 kg/m?. Nutrition consult. Weight loss counseling done Living will/advanced directive/end of life care: Patient does not have living will or advanced directive. She does not have power of privacy attorney for health. Her is next of kin. After discussion of benefits/risks procedures involved with full code, DNR CC arrest and DNR CC, the patient opted for full code. Patient does want artificial life support including intubation, tube feed, ventilator and/chest compression, central venous catheter, vasopressor and DC shock if needed Discharge medication reconciliation done. Discharge follow-up instructions completed. Discharge process discussed with the patient and all questions were answered to patient's satisfaction. Follow with PCP in 1 to 2 weeks Total time spent, exact 35 minutes on discharge meds reconciliation, examination, coordination of care with nurses and ancillary staff, review of imaging and blood test and discussion with the patient on follow-up instructions. Laboratory Results 10/19/24 11:20: Troponin T Hi Sens 2 Hr < 6 10/19/24 14:40: POC Glucose 111 H 10/19/24 18:21: POC Glucose 136 H 10/19/24 20:03: Troponin T Hi Sens 4Hr < 6 10/20/24 05:16: Hemoglobin A1c 5.8 H, Triglycerides 99, Cholesterol 139, LDL Cholesterol, Calc 74, VLDL Cholesterol 20, HDL Cholesterol 46, Cholesterol/HDL Ratio 3.05, TSH 3.320 10/19/24 09:06: POC Glucose 112 H 10/19/24 09:15: WBC 9.6, RBC 4.23, Hgb 11.7 L, Hct 36.6 L, MCV 86.5, MCH 27.7, MCHC 32.0, RDW Std Deviation 42.9, RDW Coeff of Sruthi 13.6, Plt Count 278, MPV 9.7, Immature Gran % (Auto) 0.300, Neut % (Auto) 65.8, Lymph % (Auto) 24.1, [place] % (Auto) 6.8, Eos % (Auto) 2.3, Baso % (Auto) 0.7, Absolute Neuts (auto) 6.3, Absolute Lymphs (auto) 2.32, Nucleated RBC % 0, PT 13.5, INR 1.0, APTT 31.4, Sodium 140, Potassium 4.1, Chloride 106, Carbon Dioxide 21.2, Anion Gap 13, BUN 11, Creatinine 0.88, Estim Creat Clear Calc 91.68, Est GFR (MDRD) Non-Af 81, BUN/Creatinine Ratio 12.3, Glucose 119 H, Calcium 9.1, Troponin T High Sens < 6 Clinical Impression(s) from Imaging Studies Head/Neck CTA 10/19/24 09:27 IMPRESSION: No CTA evidence of CCA ICA or intracranial stenosis or occlusion. No significant atherosclerotic disease Patent vertebral arteries No acute intracranial hemorrhage midline shift or mass effect Reading Location: [id number] Brain MRI 10/19/24 11:57 IMPRESSION: There is abnormal increased T2 and FLAIR signal in the deep white matter in the right and left with moderate bilateral white matter disease. The largest lesion in the right frontal deep white matter measures 1.2 x 0.4 cm, image 15/26, and on the left measuring 0.8 by 0.5 cm, image 15/26. The differential includes demyelinating conditions such as MS, vasculitis, and chemical exposure. Reading Location: [facility] Medications at Discharge Home Medications dicyclomine 20 mg tablet 20 mg PO DAILY 05/16/22 famotidine 20 mg tablet 20 mg PO DAILY 05/16/22 elagolix 150 mg tablet (Orilissa) 150 mg PO DAILY 05/17/22 fluoxetine 20 mg capsule 20 mg PO DAILY 09/08/23 montelukast 10 mg tablet (Singulair) 10 mg PO DAILY 10/19/24 progesterone micronized 100 mg capsule 100 mg PO DAILY 10/19/24 Physical Exam Narrative Please see progress Physical exam findings Weight / BMI Weight Weight: 246 lb 0.574 oz Body Mass Index (BMI) 45.0 ABG / Lab / Microbiology Data 10/19/24 09:15 10/19/24 09:15 Laboratory: Laboratory Results - last 24 hr 10/19/24 18:21: POC Glucose 136 H 10/19/24 20:03: Troponin T Hi Sens 4Hr < 6 10/20/24 05:16: Hemoglobin A1c 5.8 H, Triglycerides 99, Cholesterol 139, LDL Cholesterol, Calc 74, VLDL Cholesterol 20, HDL Cholesterol 46, Cholesterol/HDL Ratio 3.05, TSH 3.320 Radiography Diagnostic Testing: Radiology Impression Brain MRI 10/19/24 11:57 IMPRESSION: There is abnormal increased T2 and FLAIR signal in the deep white matter in the right and left with moderate bilateral white matter disease. The largest lesion in the right frontal deep white matter measures 1.2 x 0.4 cm, image 15/26, and on the left measuring 0.8 by 0.5 cm, image 15/26. The differential includes demyelinating conditions such as MS, vasculitis, and chemical exposure. Reading Location: [facility] Instructions Discharge Diet: No restrictions Weight Bearing Status: Weight bearing as tolerated Call your doctor if you observe: Fever of 101 or Higher, Coldness, Increased Pain, Numbness or Tingling, Change in Color, Inability to urinate, Inability to have a bowel movement, Shortness of breath, Dizziness, Fainting spells, Swelling in the ankles, Chest pain, Prolonged hiccupping, Increased palpitations (irregular heartbeat) and Calf discomfort DC O2, CPAP, BIPAP Needs Home O2 Discharge instructions: No When: IN 2 WEEKS Meaningful Use Info Meaningful Use Meaningful Use Diagnoses (Choose all that apply): None applicable Ischemic Stroke Statin Dosing Therapy Reference: STATIN DOSE THERAPY REFERENCE: * Patients > 75 years receive moderate or high dose statin therapy. * Patients 75 years or YOUNGER should receive HIGH intensity statin dose unless contraindicated. You will be required to document reason for non-treatment if statin daily dose does not meet guidelines. HIGH DOSE STATIN THERAPY DAILY Atorvastatin > than or = to 40 mg Rosuvastatin > than or = to 20 mg Amlodipine + Atorvastatin > than or = to 2.5/40 mg Ezetimibe + Simvastatin 10/80 mg Simvastatin 80mg Discharge Plan Admission Admit Date/Time: 10/19/24 10:56 Primary Reason for Your Visit: Facial, LUE numbness, diagnosis unclear, stroke ruled out Attending Provider: Clark Johnson Primary Care Provider: Waldo Penn Consulting Providers: Dionisio Abreu; Kenny Munguia; Sade Butler; Holli Plasencia; Maryanne Sousa; Ramone Roblero; Dixie Chavira; Shantanu Paulino; Armani Delacruz; Luis Miguel Mancini; Teresa Mahajan; Jb Murray; Moon Rush; Lana Bal; Golden Underwood; Shant Sinclair; Thi Garcia; Antony Husain; Yaritza Valle; Adeline Arnold Instructions Additional Instructions / Restrictions: Advised follow-up with neurologist in about 8 weeks advised repeat MRI brain with and without contrast and MRI C-spine with and without contrast in 1 year or if recurrent symptoms of migratory numbness Discharge Orders/Prescriptions Prescriptions: Continued famotidine 20 mg tablet 20 mg PO DAILY Patient Comments: TAKE 1 TABLET BY MOUTH TWICE DAILY dicyclomine 20 mg tablet 20 mg PO DAILY [place] 150 mg tablet 150 mg PO DAILY fluoxetine 20 mg capsule 20 mg PO DAILY progesterone micronized 100 mg capsule 100 mg PO DAILY montelukast [Singulair] 10 mg tablet 10 mg PO DAILY Referrals / Follow Up: Bro Vega MD [Non-Staff -Ordering Privileges] - Within 1 Month Waldo Penn MD [Primary Care Provider] - Rebekah Tolbert NP, CHIEF OPHTHALMIC TECHNICIAN-C [Non-Staff] - Disposition Disposition (needs filled in before D/C Order can be placed): Home, Self Care Charges/Coding Visit Charges Inpatient E&M: 77611 Disch Hosp >30min
--- NOTE | 2024-10-20 15:36 | CASEMGMT ---
Patient has order for discharge. RN CM in to discuss needs at discharge. Patient denies needs or help at discharge. Patient had no further questions or concerns.
--- NOTE | 2024-10-20 15:47 | PHA.DC.MR.R ---
Pharmacy [place] Med Reconciliation Pharmacy Service has performed discharge medication reconciliation for this patient. The patient's discharge medication list was reviewed for discrepancies and discrepancies were resolved. Medications at Discharge Home Medications dicyclomine 20 mg tablet 20 mg PO DAILY IBS 05/16/22 famotidine 20 mg tablet 20 mg PO DAILY indigestion 05/16/22 elagolix 150 mg tablet (Orilissa) 150 mg PO DAILY pain 05/17/22 fluoxetine 20 mg capsule 20 mg PO DAILY depression 09/08/23 montelukast 10 mg tablet (Singulair) 10 mg PO DAILY breathing 10/19/24 progesterone micronized 100 mg capsule 100 mg PO DAILY supplement 10/19/24
== END 2024-10-20 17:40 | disposition home or self-care (01) ==
LOC: ED 10:28 → PCU 11:10
PROVIDERS: Admitting Provider Internal Medicine; Emergency Provider Emergency Medicine; PCP Internal Medicine; Visit Provider Internal Medicine
DX: R20.0 Anesthesia of skin (principal); E66.01 Morbid (severe) obesity due to excess calories; Z68.42 Body mass index [BMI] 45.0-49.9, adult; R90.82 White matter disease, unspecified; J45.20 Mild intermittent asthma, uncomplicated; K21.9 Gastro-esophageal reflux disease without esophagitis; I10 Essential (primary) hypertension; R20.2 Paresthesia of skin; Z79.899 Other long term (current) drug therapy; K58.9 Irritable bowel syndrome, unspecified; R73.03 Prediabetes; R29.701 NIHSS score 1
CPT/HCPCS: 36415; 70496; 70498; 70551; 80048; 80061; 82962; 83036; 83735; 84443; 84484; 85025; 85610; 85730; 92610; 93005; 93306; 94668; 94762; 96361; 96365; 96366; 96367; 96372; 97161; 97166; 99221; 99285; Q9967; A4216; G0378

== ENCOUNTER → 2024-11-10 | Outpatient (CLI) | payer OTHER, SELFPAY ==
--- NOTE | 2024-11-10 16:01 | BI_ITS ---
EXAM: SCRN MAMM (CAD)W/STEPHEN BILAT DATE: N/A CLINICAL HISTORY: F, Age 48 y/o , SCREENING TECHNIQUE: SCRN MAMM (CAD)W/STEPHEN BILAT COMPARISON: Prior exam(s) were compared FINDINGS: TISSUE DENSITY: There are scattered areas of fibroglandular density. Bilateral Breast Mammographic Findings: No suspicious masses, calcifications or other abnormalities are identified. BI/SCRN MAMM (CAD)W/STEPHEN BILAT IMPRESSION: No mammographic evidence of malignancy in either breast OVERALL FINAL ASSESSMENT BI-RADS 1: NEGATIVE. RECOMMENDATION: Routine annual follow-up in 1 Year A letter with findings and recommendations will be mailed to the patient. Reading Location: [id number]
== END | disposition home or self-care (01) ==
LOC: OPBI 15:55
PROVIDERS: PCP Internal Medicine
DX: Z12.31 Encounter for screening mammogram for malignant neoplasm of breast (principal)
CPT/HCPCS: 77063; 77067

== ENCOUNTER → 2024-11-17 | Outpatient (CLI) | payer OTHER, SELFPAY ==
--- NOTE | 2024-11-17 15:44 | BD_ITS ---
PROCEDURE: DEXA BONE DENSITY STUDY 11/17/2024 REASON FOR EXAM: F, age 48 y/o . Postmenopausal. TECHNIQUE: DEXA BONE DENSITY STUDY COMPARISON: January 11, 2022. FINDINGS: BMD and T-SCORES Lumbar spine: 1.188 g/cm2, T-score 1.3 Levels: L1 through L4 Change from prior: Improvement of 2.9%. Left femoral neck: 0.852 g/cm2, T-score 0.0 Femoral neck comparison data not recommended for monitoring change. Left total hip: 0.984 g/cm2, T-score 0.3 Change from prior: Improvement of 0.2%. Right femoral neck: 0.879 g/cm2, T-score 0.3 Femoral neck comparison data not recommended for monitoring change. Right total hip: 1.018 g/cm2, T-score 0.6 Change from prior: Improvement of 1.7%. The World Health Organization has defined the following categories based on bone density: Normal bone density: T-score equal to or greater than -1.0 Osteopenia: T-score between -1.0 and -2.5 Osteoporosis: T-score equal to or less than -2.5 The patient does meet the pharmacological treatment recommendations for prevention of osteoporosis. BD/Dexa Bone Density Study IMPRESSION: NORMAL T-SCORES. Recommend follow-up as clinically warranted. Reading Location: [id number]
--- NOTE | 2024-11-17 15:44 | BD_ITS ---
PROCEDURE: DEXA BONE DENSITY STUDY 11/17/2024 REASON FOR EXAM: F, age 48 y/o . Postmenopausal. TECHNIQUE: DEXA BONE DENSITY STUDY COMPARISON: January 11, 2022. FINDINGS: BMD and T-SCORES Lumbar spine: 1.188 g/cm2, T-score 1.3 Levels: L1 through L4 Change from prior: Improvement of 2.9%. Left femoral neck: 0.852 g/cm2, T-score 0.0 Femoral neck comparison data not recommended for monitoring change. Left total hip: 0.984 g/cm2, T-score 0.3 Change from prior: Improvement of 0.2%. Right femoral neck: 0.879 g/cm2, T-score 0.3 Femoral neck comparison data not recommended for monitoring change. Right total hip: 1.018 g/cm2, T-score 0.6 Change from prior: Improvement of 1.7%. The World Health Organization has defined the following categories based on bone density: Normal bone density: T-score equal to or greater than -1.0 Osteopenia: T-score between -1.0 and -2.5 Osteoporosis: T-score equal to or less than -2.5 The patient does meet the pharmacological treatment recommendations for prevention of osteoporosis. BD/Dexa Bone Density Study IMPRESSION: NORMAL T-SCORES. Recommend follow-up as clinically warranted. Reading Location: [id number]
== END | disposition home or self-care (01) ==
LOC: OPBD 15:41
PROVIDERS: PCP Internal Medicine
DX: Z13.820 Encounter for screening for osteoporosis (principal); Z78.0 Asymptomatic menopausal state
CPT/HCPCS: 77080